=== PATIENT | female | born 1955 | race African-American/Black ===

== ENCOUNTER 2018-01-11 01:10 | Observation (INO) | payer SELFPAY ==
[2018-01-11 02:31] LABS: Absolute Lymphocytes (CBC) 2.2 K/uL (0.7-4.9); Absolute Monocytes 0.4 K/uL (0.1-1.3); Absolute Neutrophil 3.8 K/uL (1.8-8.0); Basophils % 0.9 % (0-1.3); Hematocrit 42.2 % (36.0-45.0); Lymphocytes % 33.2 % (15.3-44.8); MCH 31.9 pg (27.0-35.0); MCV 95.3 fL (80-100); MPV 8.9 fL (7.6-11.3); Monocytes % 5.6 % (3.3-12.3); RBC Red Blood Cell Count 4.43 M/uL (3.86-4.86)
[2018-01-11 02:35] LABS: Protime INR 0.96
[2018-01-11 02:43] LABS: Urine Blood NEGATIVE (NEG); Urine Glucose NEGATIVE (NEG); Urine Protein NEGATIVE (NEG); Urine pH 5.5 (5.0-7.0)
[2018-01-11 02:50] LABS: ALT/SGPT 27 U/L (12-78); AST/SGOT 14 U/L (15-37); Albumin 3.5 g/dL (3.4-5.0); Alkaline Phosphatase 122 U/L (45-117); BUN Blood Urea Nitrogen 13 mg/dL (7-18); Bicarbonate 28 mmol/L (21-32); Bilirubin Direct < 0.1 mg/dL (0-0.2); Bilirubin Total 0.2 mg/dL (0.2-1.0); CKMB Creatine Kinase MB 1.6 ng/mL (0.3-3.6); Creatine Phosphokinase 262 U/L (26-192); Glucose Level 98 mg/dL (74-106); Magnesium 2.1 mg/dL (1.8-2.4); NT PRO-BNP 51 pg/mL (<125); Potassium 3.8 mmol/L (3.5-5.1); Protein, Total 7.8 g/dL (6.4-8.2); Sodium Level 143 mmol/L (136-145)
--- NOTE | 2018-01-11 03:08 | ER ---
Nurse's Notes [facility] Name: Jennifer Trujillo Age: 62 yrs Sex: Female : 1955 Arrival Date: 01/11/2018 Time: 01:11 Bed 5 Private MD: None, None Diagnosis: Chest pain, unspecified Presentation: 01/11 01:22 Presenting complaint: Patient states: that she is concerned that her bp is high. Having fc some chest tightness and is slightly light headed. Denies any shortness of breath or N/V. Transition of care: patient was not received from another setting of care. Onset of symptoms was January 11, 2018. Risk Assessment: Do you want to hurt yourself or someone else? Patient reports no desire to harm self or others. Initial Sepsis Screen: Does the patient meet any 2 criteria? No. Patient's initial sepsis screen is negative. Does the patient have a suspected source of infection? No. Patient's initial sepsis screen is negative. Care prior to arrival: Medication(s) given: ASA, 325 mg, x 2, at 0035 Amlodipine at 0045. 01:22 Method Of Arrival: Ambulatory 01:22 Acuity: ISABELLA 3 fc Historical: - Allergies: 01:25 No Known Allergies; fc - Home Meds: 01:25 amlodipine 5 mg tab 1 tab daily (only taking as needed) [Active]; fc - PMHx: 01:25 Hypertension; Back pain; fc - PSHx: 01:25 None; fc - Immunization history:: Last tetanus immunization: up to date. - Social history:: Smoking status: Patient/guardian denies using tobacco. - Ebola Screening: : Patient negative for fever greater than or equal to 101.5 degrees Fahrenheit, and additional compatible Ebola Virus Disease symptoms Patient denies exposure to infectious person Patient denies travel to an Ebola-affected area in the 21 days before illness onset. Screenin:26 Abuse screen: Denies threats or abuse. Nutritional screening: No deficits noted. fc Tuberculosis screening: No symptoms or risk factors identified. Fall Risk None identified. Assessment: 02:15 General: Appears in no apparent distress. comfortable, Behavior is calm, cooperative, aa1 appropriate for age. Pain: Complains of pain in chest Pain currently is 4 out of 10 on a pain scale. Quality of pain is described as tightness Is continuous. Neuro: Level of Consciousness is awake, alert, obeys commands, Oriented to person, place, time, situation, Moves all extremities. Full function Gait is steady, Speech is normal. Cardiovascular: Reports None lightheadedness, Denies diaphoresis, nausea, palpitations, shortness of breath, vomiting, Heart tones S1 S2 present Rhythm is regular Chest pain is described as mild. Respiratory: Airway is patent Respiratory effort is even, unlabored, Respiratory pattern is regular, symmetrical. GI: No signs and/or symptoms were reported involving the gastrointestinal system. : No signs and/or symptoms were reported regarding the genitourinary system. EENT: No signs and/or symptoms were reported regarding the EENT system. Derm: Skin is intact, is healthy with good turgor, Skin is pink, warm \T\ dry. Musculoskeletal: Circulation, motion, and sensation intact. Capillary refill < 3 seconds, Range of motion: intact in all extremities. 03:10 Reassessment: Patient appears in no apparent distress at this time. Patient and/or aa1 family updated on plan of care and expected duration. Pain level reassessed. Patient is alert, oriented x 3, equal unlabored respirations, skin warm/dry/pink. Awaiting bed assignment. Provider ordered ASA 324 mg however pt reports she took 2 325 mg ASA just prior to arrival Patient denies pain at this time. 04:00 Reassessment: Patient appears in no apparent distress at this time. Patient and/or aa1 family updated on plan of care and expected duration. Pain level reassessed. Patient is alert, oriented x 3, equal unlabored respirations, skin warm/dry/pink. Awaiting bed assignment. 05:01 Reassessment: Patient appears in no apparent distress at this time. Patient is alert, aa1 oriented x 3, equal unlabored respirations, skin warm/dry/pink. Report given to Candida on 2nd floor. Vital Signs: 01:25 BP 174 / 107; Pulse 87; Resp 18; Temp 97.8(O); Pulse Ox 98% on R/A; Weight 104.33 kg fc (R); Height 5 ft. 4 in. (162.56 cm) (R); Pain 4/10; 02:48 BP 149 / 99; Pulse 74; Resp 18; Pulse Ox 97% on R/A; aa1 04:00 BP 144 / 89; Pulse 83; Resp 16; Pulse Ox 98% on R/A; Pain 0/10; aa1 05:02 BP 154 / 95; Pulse 85; Resp 16; Temp 97.9; Pulse Ox 98% on R/A; Pain 0/10; aa1 01:25 Body Mass Index 39.48 (104.33 kg, 162.56 cm) ED Course: 01:11 Patient arrived in ED. ds1 01:11 None, None is Private Physician. ds1 01:24 Triage completed. fc 01:25 Arm band placed on Patient placed in an exam room, on a stretcher. fc 01:26 Patient has correct armband on for positive identification. Placed in gown. Bed in low fc position. Call light in reach. 01:26 No provider procedures requiring assistance completed. fc 01:32 Andrew Colin PA is PHCP. jmm 01:32 Jeremy Olivares MD is Attending Physician. jmm 01:50 X-ray completed. Portable x-ray completed in exam room. Patient tolerated procedure kw well. 01:51 XRAY Chest (1 view) In Process Unspecified. EDMS 02:13 Margarita Chandler, RN is Primary Nurse. aa1 02:20 EKG done, by tractor trailer technician. jw5 02:25 Inserted saline lock: 20 gauge in right antecubital area, using aseptic technique. jw5 hand, using aseptic technique. Blood collected. 02:30 Urine collected: clean catch specimen. aa1 03:06 Pete Rowland MD is Hospitalizing Provider. [facility] 05:03 Patient admitted, IV remains in place. 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 marlon 05:03 Admitted to [facility] accompanied by [facility], via wheelchair, room 212, with chart, Report aa1 called to Candida 05:03 Condition: stable 05:03 Instructed on the need for admit, Demonstrated understanding of instructions. 05:04 Patient left the ED. aa1 Signatures: Dispatcher [employer] EDMS Margarita Chandler RN RN aa1 Andrew Colin PA PA jmm Chretien, Felicia, RN RN Clementine Farfan ds1 Haylie Levine Jasmin jw5 Corrections: (The following items were deleted from the chart) 02:46 02:45 Inserted saline lock: 20 gauge in right antecubital area, using aseptic jw5 technique. hand, using aseptic technique. Blood collected. jw5
--- NOTE | 2018-01-11 03:08 | EDPHYS ---
Physician Documentation [facility] Name: Jennifer Trujillo Age: 62 yrs Sex: Female : 1955 Arrival Date: 01/11/2018 Time: 01:11 Bed 5 Private MD: None, None ED Physician Jeremy Olivares HPI: 01/11 01:41 This 62 yrs old Black Female presents to ER via Ambulatory with complaints of High [facility] Blood Pressure. 01:41 The patient or guardian reports chest pain that is located primarily in the substernal [facility] area. Onset: gradually, 2 hour(s) ago. The pain does not radiate. 01:44 Associated signs and symptoms: Pertinent positives: dizziness, Pertinent negatives: jmm abdominal pain, headache. The chest pain is described as aching. This is a 62 year old female with a history of HTN that presents to the ED with substernal chest pain which developed approx 2 hours ago. Patient states the episode lasted for 5 minutes and has since revolved. Patient denies headache but states having dizziness on onset of the symptoms. Patient denies radiation of pain. . Historical: - Allergies: 01:25 No Known Allergies; fc - Home Meds: 01:25 amlodipine 5 mg tab 1 tab daily (only taking as needed) [Active]; fc - PMHx: 01:25 Hypertension; Back pain; fc - PSHx: 01:25 None; fc - Immunization history:: Last tetanus immunization: up to date. - Social history:: Smoking status: Patient/guardian denies using tobacco. - Ebola Screening: : Patient negative for fever greater than or equal to 101.5 degrees Fahrenheit, and additional compatible Ebola Virus Disease symptoms Patient denies exposure to infectious person Patient denies travel to an Ebola-affected area in the 21 days before illness onset. ROS: 01:44 Constitutional: Negative for fever, chills, and weight loss. jmm 01:44 Abdomen/GI: Negative for abdominal pain, nausea, vomiting, diarrhea, and constipation, MS/Extremity: Negative for injury and deformity, Skin: Negative for injury, rash, and discoloration. 01:44 Cardiovascular: Positive for chest pain, Negative for 01:44 Respiratory: Negative for cough, shortness of breath, wheezing. 01:44 Neuro: Positive for dizziness. 01:44 All other systems are negative. Exam: 01:44 Constitutional: The patient appears in no acute distress, alert, awake. [facility] 01:44 Head/Face: atraumatic. Chest/axilla: Normal chest wall appearance and motion. m 01:44 Cardiovascular: Rate: normal, Rhythm: regular, Pulses: no pulse deficits are appreciated, Heart sounds: normal. 01:44 Respiratory: the patient does not display signs of respiratory distress, Respirations: [facility] normal. 01:44 Abdomen/GI: Inspection: abdomen appears normal, Bowel sounds: normal, Palpation: abdomen is soft and non-tender, in all quadrants. 01:44 Back: ROM is normal. 01:44 Musculoskeletal/extremity: ROM: no acute changes. 01:44 Skin: Appearance: Color: normal in color. 01:44 Neuro: Orientation: is normal, Mentation: is normal, Memory: is normal, Gait: is steady. 01:44 Psych: Behavior/mood is pleasant, cooperative. Vital Signs: 01:25 BP 174 / 107; Pulse 87; Resp 18; Temp 97.8(O); Pulse Ox 98% on R/A; Weight 104.33 kg fc (R); Height 5 ft. 4 in. (162.56 cm) (R); Pain 4/10; 02:48 BP 149 / 99; Pulse 74; Resp 18; Pulse Ox 97% on R/A; aa1 04:00 BP 144 / 89; Pulse 83; Resp 16; Pulse Ox 98% on R/A; Pain 0/10; aa1 05:02 BP 154 / 95; Pulse 85; Resp 16; Temp 97.9; Pulse Ox 98% on R/A; Pain 0/10; aa1 01:25 Body Mass Index 39.48 (104.33 kg, 162.56 cm) MDM: 01:32 Patient medically screened. [facility] 03:05 The patient was given aspirin in the Emergency Department. Data reviewed: vital signs, [facility] nurses notes, lab test result(s), EKG, radiologic studies, plain films. ED course: I discussed the patient with Dr. Serrano whom accepted the patient. 01/11 01:40 Order name: Basic Metabolic Panel; Complete Time: 02:55 [facility] 01/11 01:40 Order name: CBC with Diff; Complete Time: 02:39 [facility] 01/11 01:40 Order name: Ckmb; Complete Time: 02:55 [facility] 01/11 01:40 Order name: CPK; Complete Time: 02:55 [facility] 01/11 01:40 Order name: LFT's; Complete Time: 02:55 [facility] 01/11 01:40 Order name: Magnesium; Complete Time: 02:55 [facility] 01/11 01:40 Order name: NT PRO-BNP; Complete Time: 02:55 [facility] 01/11 01:40 Order name: PT-INR; Complete Time: 02:39 [facility] 01/11 01:40 Order name: Ptt, Activated; Complete Time: 02:39 [facility] 01/11 01:40 Order name: Troponin (emerg Dept Use Only); Complete Time: 02:55 [facility] 01/11 01:40 Order name: XRAY Chest (1 view) [facility] 01/11 01:40 Order name: EKG; Complete Time: 01:41 [facility] 01/11 02:41 Order name: Urine Dipstick--Ancillary (enter results); Complete Time: 02:[address] [facility] 01/11 01:40 Order name: Cardiac monitoring; Complete Time: 02:47 [facility] 01/11 01:40 Order name: EKG - Nurse/Tech; Complete Time: 02:00 [facility] 01/11 01:40 Order name: IV Saline Lock; Complete Time: 02:47 [facility] 01/11 01:40 Order name: Labs collected and sent; Complete Time: 02:47 [facility] 01/11 01:40 Order name: O2 Per Protocol; Complete Time: 02:47 [facility] 01/11 01:40 Order name: O2 Sat Monitoring; Complete Time: 02:47 [facility] 01/11 01:40 Order name: Urine Dipstick-Ancillary (obtain specimen); Complete Time: 02:47 jm Administered Medications: 03:47 Not Given (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 Disposition: 01/11/18 03:06 Hospitalization ordered by Pete Rowland for Observation. Preliminary diagnosis is Chest pain, unspecified. - Bed requested for Telemetry/MedSurg (observation). - Status is Observation. aa1 - Condition is Stable. - Problem is new. - Symptoms are resolved. UTI on Admission? No Signatures: Dispatcher [employer] EDMS Vasu Cedillo rg2 Margarita Chandler RN RN aa1 Jeremy Olivares MD MD cha Mickail, Joel, PA PA [facility] Sonia Jeffery RN RN fc Corrections: (The following items were deleted from the chart) 04:27 03:06 Hospitalization Ordered by Pete Rowland MD for Observation. Preliminary rg2 diagnosis is Chest pain, unspecified. Bed requested for Telemetry/MedSurg (observation). Status is Observation. Condition is Stable. Problem is new. Symptoms are resolved. UTI on Admission? No. [facility] 05:04 04:27 01/11/2018 03:06 Hospitalization Ordered by Pete Rowland MD for Observation. aa1 Preliminary diagnosis is Chest pain, unspecified. Bed requested for Telemetry/MedSurg (observation). Status is Observation. Condition is Stable. Problem is new. Symptoms are resolved. UTI on Admission? No. rg2
--- NOTE | 2018-01-11 04:35 | P.HP ---
Certification for Inpatient Patient admitted to: Observation With expected LOS: <2 Midnights Practitioner: I am a practitioner with admitting privileges, knowledge of patient current condition, hospital course, and medical plan of care. Services: Services provided to patient in accordance with Admission requirements found in Title 42 Section 412.3 of the Code of Federal Regulations Patient History Date of Service: 01/11/18 Reason for admission: chest pain History of Present Illness: Ms Trujillo is a 62 years old woman with history of HTN, obesity, who came to ED complaining of chest pain. She describe the pain as pressure like in her throat , associated with lightheadedness. She had this symptoms before in context of high blood pressure. She denied nausea, vomiting or diaphoresis. The pain did not radiate, intensity was 7/10, and last for a few minutes. Allergies No Known Allergies Allergy (Unverified 11/27/16 19:19) - Past Medical/Surgical History -: HTN -: back pain Past Surgical History: Reviewed- Non-Contributory - Family History Family History: Reviewed- Non-Contributory - Social History Smoking Status: Former smoker Alcohol use: Yes CD- Drugs: No Caffeine use: Yes Place of Residence: Home Review of Systems 10-point ROS is otherwise unremarkable Physical Examination - Physical Exam General: Alert, In no apparent distress HEENT: Atraumatic, PERRLA, Mucous membr. moist/pink, EOMI, Sclerae nonicteric Neck: Supple, 2+ carotid pulse no bruit, No LAD, Without JVD or thyroid abnormality Respiratory: Clear to auscultation bilaterally, Normal air movement Cardiovascular: Regular rate/rhythm, Normal S1 S2 Gastrointestinal: Normal bowel sounds, No tenderness Musculoskeletal: No tenderness Integumentary: No rashes Neurological: Normal speech, Normal strength at 5/5 x4 extr, Normal tone, Normal affect Lymphatics: No axilla or inguinal lymphadenopathy - Studies Laboratory Data (last 24 hrs) 01/11/18 02:17: PT 11.3, INR 0.96, APTT 34.3 01/11/18 02:17: WBC 6.5, Hgb 14.1, Hct 42.2, Plt Count 242 01/11/18 02:17: Sodium 143, Potassium 3.8, BUN 13, Creatinine 1.20, Glucose 98, Magnesium 2.1, Total Bilirubin 0.2, AST 14 L, ALT 27, Alkaline Phosphatase 122 H Assessment and Plan - Problems (Diagnosis) (1) Chest pain Current Visit: Yes Status: Acute Qualifiers: Chest pain type: other chest pain Qualified Code(s): R07.89 - Other chest pain; R07.8 - Other chest pain (2) HTN (hypertension) Current Visit: Yes Status: Acute Qualifiers: Hypertension type: essential hypertension Qualified Code(s): I10 - Essential (primary) hypertension - Plan The patient will be admitted to the hospital due to chest pain. Initial troponin I is negative, EKG shows sinus rhythm without ST-T abnormalities. 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 - Advance Directives Does patient have a Living Will: No Does patient have a Durable POA for Healthcare: No - Code Status/Comfort Care Code Status Assessed: Yes Code Status: Full Code
[2018-01-11] MEDS ORDERED: ACETAMINOPHEN 500 MG TAB PO PRN (04:36)
[2018-01-11] MEDS ORDERED: ONDANSETRON 4 MG/2 ML VIAL IV PRN (04:36)
[2018-01-11 05:10] VITALS: O2SAT 98
--- NOTE | 2018-01-11 05:33 | EKG ---
Test Date: 2018-01-11 Test Time: 01:33:32 Clinical Rehabilitation Liaison: CRISTAL MEASUREMENT RESULTS: Intervals: Rate: 86 VT: 158 QRSD: 76 QT: 366 QTc: 437 [place]: P: 40 VT: 158 QRS: 9 T: 18 INTERPRETIVE STATEMENTS: Normal sinus rhythm Normal ECG Compared to ECG 06/27/2017 16:00:02 No significant changes Electronically Signed On 01-11-18 05:32:59 CDT by Manoj Sumner
[2018-01-11 05:43] VITALS: BMI 38.6
[2018-01-11] MEDS ORDERED: AMLODIPINE 5 MG TAB PO ONE (06:38)
[2018-01-11] MEDS ORDERED: REGADENOSON 0.4 MG/5 ML SYR IV ONE (08:02)
[2018-01-11 08:42] LABS: Thyroid Stimulating Hormone 3.87 uIU/mL (0.36-3.74)
--- NOTE | 2018-01-11 08:43 | RAD REPORT ---
EXAM DESCRIPTION: RAD - Chest Single View - 01/11/2018 1:51 am CLINICAL HISTORY: Chest pain, hypertension COMPARISON: June 27 TECHNIQUE: AP portable chest image was obtained 0140 hours . FINDINGS: Lung volumes are low. No peripheral mass or consolidation. No failure or volume overload. Lung markings are prominent. Heart and vasculature are normal. No measurable pleural effusion and no pneumothorax. No gross bony abnormality seen. No acute aortic findings suspected. IMPRESSION: No acute cardiopulmonary process. No significant change from June.
[2018-01-11] MEDS ORDERED: AMLODIPINE 5 MG TAB PO SCH (09:00)
[2018-01-11] MEDS ORDERED: LOSARTAN POTASSIUM 50 MG TABLET PO SCH (09:00)
[2018-01-11] MEDS ORDERED: ENOXAPARIN 40 MG/0.4 ML SQ SCH (09:00)
[2018-01-11] MEDS ORDERED: ASPIRIN EC 81 MG TAB PO SCH (09:00)
[2018-01-11] MEDS ORDERED: hydroCHLOROthiazide 12.5 MG CAP PO SCH (09:00)
--- NOTE | 2018-01-11 10:30 | RAD REPORT ---
EXAM DESCRIPTION: US - Thyroid Para Parotid Gland - 01/11/2018 10:14 am CLINICAL HISTORY: Fullness to the thyroid Goiter COMPARISON: No comparisons FINDINGS: The isthmus of the thyroid measures 2 mm. The right lobe of the thyroid measures 4.5 x 1.3 x 1.1 cm. A 5 x 4 x 3 mm nodule is present in the ri ght lobe. The left lobe of the thyroid measures 4.4 x 1.2 x 1.2 cm. In the left submandibular region, a prominent hypoechoic lymph node is suspected measuring 1.8 cm. IMPRESSION: Small right thyroid lobe nodule as detailed. Nonspecific prominent lymph node left submandibular region.
--- NOTE | 2018-01-11 11:24 | ECHO ---
HEIGHT: 5 ft 4 in WEIGHT: 225 lb 0 oz DATE OF STUDY: 01/11/[address]: 2-DIMENSIONAL: YES M.MODE: YES DOPPLER: YES COLOR FLOW: YES TDS: NO PORTABLE: NO DEFINITY: NO BUBBLE STUDY: NO DIAGNOSIS: CHEST PAIN CARDIAC HISTORY: CATHERIZATION: SURGERY: PROSTHETIC VALVE: PACEMAKER: MEASUREMENTS (cm) DIASTOLIC (NORMALS) SYSTOLIC (NORMALS) IVSd 1.2 (0.6-1.2) LA Diam 4.1 (1.9-4.0) LVEF 68% LVIDd 4.2 (3.5-5.7) LVIDs 2.6 (2.0-3.5) %FS 37% LVPWd 1.3 (0.6-1.2) Ao Diam 2.5 (2.0-3.7) 2 DIMENSIONAL ASSESSMENT: RIGHT ATRIUM: NORMAL LEFT ATRIUM: MILDLY DILATED RIGHT VENTRICLE: NORMAL LEFT VENTRICLE: NORMAL TRICUSPID VALVE: NORMAL MITRAL VALVE: NORMAL PULMONIC VALVE: NORMAL AORTIC VALVE: NORMAL PERICARDIAL EFFUSION: NONE AORTIC ROOT: NORMAL LEFT VENTRICULAR WALL MOTION: NORMAL. DOPPLER/COLOR FLOW: TRACE MITRAL REGURGITATION. COMMENTS: NORMAL LEFT VENTRICULAR EJECTION FRACTION. MILD LEFT ATRIUM DILATION. TRACE MITRAL REGURGITATION. TECHNOLOGIST: ELAINE SILVA
--- NOTE | 2018-01-11 11:46 | CON ---
Identification: A 62-year-old woman. Chief Complaint: Blood pressure too high. History Of Present Illness: To me, the patient denies she was having chest pain, but while in the ER , she told Dr. Serrano and the other doctor she was having chest pain. Since being in the hospital E KGs and enzymes are normal. The patient has longstanding hypertension for which she rarely takes her blood pressure medicines. She says she tries to spread it out. She does not have a physician and w orries about running out of her medications. I am not sure who prescribed the amlodipine she takes, but she has been on amlodipine 2.5 daily and taking it perhaps once to 3 times per week on average. She has never had myocardial infarction, stroke, diabetes, dyslipidemia. Uses no tobacco. Never had a blood clot. Never been in the hospital for chest pain before. Physical Examination: Vital signs: 5 feet 4 inches, 225 pounds. HEENT: Normal. Neck: Carotids, no bruit. Lungs: Clear. Cardiac: Normal. Abdomen: Soft. Extremities: Palpable distal pulses. Laboratory Data: EKG, normal. Enzymes, normal. She will have a pharmacologic nuclear stress test a nd echocardiogram today. If those are normal, I would recommend that we not do any further workup re garding the heart, but she should be encouraged to followup, get regular medical checkups and take he r blood pressure medicines every day. Her blood pressure is still high this morning. Her medication s are amlodipine 5 once a day and probably it will be a good thing to continue that and add on top as it has not adequately controlled her blood pressure as of yet. SURAJ Voice ID: [id number] Report ID: [id number]
--- NOTE | 2018-01-11 12:07 | RAD REPORT ---
EXAM DESCRIPTION: NM - Rest Stress Cardiac Imaging - 01/11/2018 11:59 am CLINICAL HISTORY: CP Chest pain. COMPARISON: No comparisons TECHNIQUE: The patient was administered approximately 10mCi of Tc 99m Sestamibi prior to resting SPE CT imaging of the heart. The patient was then administered approximately 30 mCi of Tc 99m Sestamibi f ollowing exercise or pharmacologic stress. Multiplanar SPECT images were reviewed. FINDINGS: No stress induced ischemic defect is seen to suggest stress induced ischemia. No fixed def ect is seen to suggest hibernating myocardium or scarred myocardium. The end diastolic volume is 87 ml, the end systolic volume is 31 ml, and the ejection fraction is 64 %. IMPRESSION: No stress induced ischemia.
--- NOTE | 2018-01-11 12:16 | TREADPHA ---
DX: CHEST PAIN Date of Study: 01/11/18 Ht: 5 4 Wt: 225 lb 0 oz Consulting Physician: MARCO MEDICATIONS: TYLENOL, ASPIRIN, NORVASC, LOVENOX, COZAAR, ZOFRAN, HYDROCHOLOROTHIAZIDE HISTORY: 62 YEAR OLD FEMALE WITH COMPLAINTS OF CHEST PAIN. HISTORY OF HYPERTENSION. PHYSICIAL EXAMINATION: RESTING B.P.: 176/112 RESTING H.R.: 84 RESTING EKG: SINUS RHYTHM WITH PREMATURE VENTRICULAR COMPLEXES. PROTOCOL: LEXISCAN EXERCISE TIME: 3:30 B.P. AT PEAK STRESS: 182/122 IMPRESSION: LEXISCAN INJECTED, CARDIOLITE INJECTED, SEE NUCLEAR MEDICINE REPORT. NO CHEST PAIN. PREMATURE VENTRICULAR COMPLEXES NOTED THROUGHOUT. NO VENTRICULAR TACHYCARDIA. NO SURPA VENTRICULAR TACHYCARDIA. NON DIAGNOSTIC EKG WITH LEXISCAN STRESS.
--- NOTE | 2018-01-11 12:46 | P.DS ---
Admission Date: 01/11/18 Discharge Date: 01/11/18 Primary Care Provider: None Disposition: ROUTINE DISCHARGE Discharge Condition: GOOD Reason for Admission: chest pain Consultations: Cardiology-Dr. Sumner Procedures: ECHO: Ejection fraction 68%. LEFT VENTRICULAR WALL MOTION: NORMAL. DOPPLER/COLOR FLOW: TRACE MITRAL REGURGITATION. COMMENTS: NORMAL LEFT VENTRICULAR EJECTION FRACTION. MILD LEFT ATRIUM DILATION. TRACE MITRAL REGURGITATION Thyroid US: FINDINGS: The isthmus of the thyroid measures 2 mm. The right lobe of the thyroid measures 4.5 x 1.3 x 1.1 cm. A 5 x 4 x 3 mm nodule is present in the right lobe. The left lobe of the thyroid measures 4.4 x 1.2 x 1.2 cm. In the left submandibular region, a prominent hypoechoic lymph node is suspected measuring 1.8 cm. IMPRESSION: Small right thyroid lobe nodule as detailed. Nonspecific prominent lymph node left submandibular region. Cardiac stress test: FINDINGS: No stress induced ischemic defect is seen to suggest stress induced ischemia. No fixed defect is seen to suggest hibernating myocardium or scarred myocardium. The end diastolic volume is 87 ml, the end systolic volume is 31 ml, and the ejection fraction is 64 %. IMPRESSION: No stress induced ischemia. - Problems (1) Hyperlipidemia Current Visit: Yes Status: Chronic Qualifiers: Hyperlipidemia type: mixed hyperlipidemia Qualified Code(s): E78.2 - Mixed hyperlipidemia (2) Abnormal TSH Current Visit: Yes Status: Chronic (3) Thyroid nodule Current Visit: Yes Status: Chronic (4) Obesity Current Visit: Yes Status: Chronic Qualifiers: Obesity type: due to excess calories Obesity classification: adult class 2 (BMI 35 - 39.9) Serious obesity comorbidity presence: with serious comorbidity Body mass index: BMI 38.0-38.9 Qualified Code(s): E66.01 - Morbid (severe) obesity due to excess calories; Z68.38 - Body mass index (BMI) 38.0-38.9, adult (5) Chest pain Onset Date: 01/11/18 Current Visit: Yes Status: Acute Qualifiers: Chest pain type: other chest pain Qualified Code(s): R07.89 - Other chest pain; R07.8 - Other chest pain (6) HTN (hypertension) Onset Date: 01/11/18 Current Visit: Yes Status: Chronic Qualifiers: Hypertension type: essential hypertension Qualified Code(s): I10 - Essential (primary) hypertension (7) Lymph node enlargement Current Visit: Yes Status: Acute Brief History of Present Illness: 62-year-old female presented emergency room with chest pain. Patient with history of hypertension. She does not have a physician. She takes medication off and on. Patient found to have elevated blood pressure. Patient was admitted for treatment and evaluation for her chest pain. Hospital Course: During the course of her stay the patient was evaluated for her chest pain. Cardiac enzymes unremarkable. Cardiology evaluated the patient. Recommended echocardiogram and cardiac stress test. Echocardiogram 60% otherwise unremarkable. Cardiac stress test showed no stress-induced ischemia. No further intervention was required. Patient may continue with aspirin 81 mg daily. Patient has hypertension. It is not well controlled. Patient has been without a PCP. Recommendations for the patient to establish care with a local PCP in the area to continue her care. Medications have been added. At discharge patient will continue with Norvasc 5 mg daily and 100 mg 1 pill daily. Recommendation is to maintain blood pressures less 150/80. Further adjustment can be done by her PCP. Patient noted some fullness to the neck area. Thyroid ultrasound was obtained. 5 x 4 x 3 mm nodule noted to the right lobe. Nonspecific lymph node to the left submandibular region noted. Tsh slightly elevated at 3.8. Free T4 normal at 1.23. Recommendation is to recheck lab-tsh and free T4 in 2-4 weeks to monitor her progress. Recommendations for the patient follow up with her PCP to monitor thyroid nodule and left submandibular node. Patient has evidence of hyperlipidemia. LDL 140. At discharge patient will continue with Lipitor 20 mg daily. Recommendation is to recheck lipid panel in 4-6 weeks. Further adjustment can be done by her PCP. Lifestyle modification education will be provided. Importance of establishing care with a physician was addressed in detail. Patient understands. Vital Signs/Physical Exam: Temp Pulse Resp BP Pulse Ox 97.7 F 72 18 171/96 H 96 01/11/18 08:00 01/11/18 10:21 01/11/18 08:00 01/11/18 10:21 01/11/18 08:00 General: Alert, In no apparent distress, Oriented x3, Cooperative HEENT: Atraumatic Neck: Supple, Thyromegaly (Mild) Respiratory: Clear to auscultation bilaterally, Normal air movement Cardiovascular: Normal pulses, Regular rate/rhythm Gastrointestinal: Normal bowel sounds, Soft and benign, Non-distended, No tenderness, No masses, No rebound, No guarding Musculoskeletal: No erythema, No tenderness, No warmth Integumentary: No tenderness/swelling, No erythema, No warmth, No cyanosis Neurological: Normal speech, Normal strength at 5/5 x4 extr, Normal tone, Normal affect Lymphatics: No axilla or inguinal lymphadenopathy Laboratory Data at Discharge: WBC 6.5 K/uL (4.3-10.9) 01/11/18 02:17 Hgb 14.1 g/dL (12.0-15.0) 01/11/18 02:17 Hct 42.2 % (36.0-45.0) 01/11/18 02:17 Plt Count 242 K/uL (152-406) 01/11/18 02:17 PT 11.3 SECONDS (9.5-12.5) 01/11/18 02:17 INR 0.96 01/11/18 02:17 APTT 34.3 SECONDS (24.3-36.9) 01/11/18 02:17 Sodium 143 mmol/L (136-145) 01/11/18 02:17 Potassium 3.8 mmol/L (3.5-5.1) 01/11/18 02:17 BUN 13 mg/dL (7-18) 01/11/18 02:17 Creatinine 1.20 mg/dL (0.55-1.3) 01/11/18 02:17 Glucose 98 mg/dL (74-106) 01/11/18 02:17 Magnesium 2.1 mg/dL (1.8-2.4) 01/11/18 02:17 Total Bilirubin 0.2 mg/dL (0.2-1.0) 01/11/18 02:17 AST 14 U/L (15-37) L 01/11/18 02:17 ALT 27 U/L (12-78) 01/11/18 02:17 Alkaline Phosphatase 122 U/L (45-117) H 01/11/18 02:17 Troponin I < 0.02 ng/mL (0.0-0.045) 01/11/18 05:35 Triglycerides 190 mg/dL (<150) H 01/11/18 05:35 Cholesterol 225 mg/dL (<200) H 01/11/18 05:35 HDL Cholesterol 47 mg/dL (40-60) 01/11/18 05:35 Cholesterol/HDL Ratio 4.79 01/11/18 05:35 Home Medications: Amlodipine [Norvasc*] 5 mg PO DAILY #30 tab 01/11/18 Aspirin [Aspirin EC 81 MG] 81 mg PO DAILY #30 tablet. 01/11/18 Atorvastatin Calcium [Lipitor] 10 mg PO BEDTIME #30 tab 01/11/18 Losartan/Hydrochlorothiazide [Losartan-Hctz 100-12.5 mg Tab] 1 each PO DAILY # 30 tablet 01/11/18 New Medications: Amlodipine [Norvasc*] 5 mg PO DAILY #30 tab Aspirin [Aspirin EC 81 MG] 81 mg PO DAILY #30 tablet. Atorvastatin Calcium [Lipitor] 10 mg PO BEDTIME #30 tab Losartan/Hydrochlorothiazide [Losartan-Hctz 100-12.5 mg Tab] 1 each PO DAILY # 30 tablet Patient Discharge Instructions: 1. Patient will need to establish care with a PCP in the area. A list of providers will be provided. 2. Patient presented with chest pain. Cardiac enzymes unremarkable. Cardiology evaluated the patient. Recommended echocardiogram and cardiac stress test. Echocardiogram 68 % otherwise unremarkable. Cardiac stress test showed no stress-induced ischemia. No further intervention was required. Patient may continue with aspirin 81 mg daily. 3. Patient has hypertension. It is not well controlled. Patient has been without a PCP. Recommendations for the patient to establish care with a local PCP in the area to continue her care. Medications have been added. At discharge patient will continue with Norvasc 5 mg daily and losartan/ hydrochlorothiazide 100 mg/12.5 mg 1 pill daily. Recommendation is to maintain blood pressures less 150/80. Further adjustment can be done by her PCP. 4. Patient noted some fullness to the neck area. Thyroid ultrasound was obtained. 5 x 4 x 3 mm nodule noted to the right lobe. Nonspecific lymph node to the left submandibular region noted. Tsh slightly elevated at 3.8. Free T4 normal at 1.23. Recommendation is to recheck lab-tsh and free T4 in 2-4 weeks to monitor her progress. Recommendations for the patient follow up with her PCP to monitor thyroid nodule and left submandibular node. 5. Patient has evidence of hyperlipidemia. LDL 140. At discharge patient will continue with Lipitor 10 mg daily. Recommendation is to recheck lipid panel in 4-6 weeks. Further adjustment can be done by her PCP. 6. Lifestyle modification education will be provided. Importance of establishing care with a physician was addressed in detail. Patient understands. Diet: AHA Activity: Ad shirin Time spent managing pt's care (in minutes): 55
[2018-01-11 14:59] VITALS: BP 175/100; TEMP 97.8
[2018-01-11] MEDS ORDERED: ATORVASTATIN 40 MG TAB PO SCH (21:00)
== END 2018-01-11 14:20 | disposition home or self-care (01) ==
LOC: ER 01:10 → ERHOLD 03:18 → 2ND 04:28
PROVIDERS: ADMIT Internal Medicine; ATTEND Family Medicine
DX: R07.9 Chest pain, unspecified (principal); I10 Essential (primary) hypertension; E78.2 Mixed hyperlipidemia; E04.1 Nontoxic single thyroid nodule; R94.6 Abnormal results of thyroid function studies; E66.01 Morbid (severe) obesity due to excess calories; R59.9 Enlarged lymph nodes, unspecified; Z79.82 Long term (current) use of aspirin; Z87.891 Personal history of nicotine dependence; Z68.39 Body mass index [BMI] 39.0-39.9, adult
CPT/HCPCS: 36415; 71045; 76536; 78452; 80048; 80061; 80076; 81003; 82550; 82553; 83735; 83880; 84439; 84443; 84484; 85025; 85610; 85730; 93005; 93017; 93306; 99285; A9500; G0378; J1650; J2785

== ENCOUNTER 2019-02-09 18:27 | Emergency (ER) | payer SELFPAY ==
--- NOTE | 2019-02-09 22:24 | EDPHYS ---
Physician Documentation [facility] Name: Jennifer Trujillo Age: 63 yrs Sex: Female : 1955 Arrival Date: 02/09/2019 Time: 18:28 Bed 6 Private MD: ED Physician Toribio Zhang HPI: 02/09 21:54 This 63 yrs old Black Female presents to ER via Ambulatory with complaints of Sore gs Throat. 21:54 The patient presents with sore throat. The patient describes throat pain as scratchy. gs Onset: The symptoms/episode began/occurred gradually, today. Severity of symptoms: At their worst the symptoms were moderate, in the emergency department the symptoms are unchanged. Modifying factors: the symptoms are aggravated by foods, swallowing. Associated signs and symptoms: Pertinent positives: flu-like symptoms, myalgias, uri symptoms. Historical: - Allergies: 18:56 No Known Allergies; aj1 - Home Meds: 18:56 amlodipine 5 mg tab 1 tab daily (only taking as needed) [Active]; aj1 - PMHx: 18:56 Back pain; Hypertension; aj1 - Immunization history:: Flu vaccine is not up to date. - Social history:: Smoking status: Patient/guardian denies using tobacco. - Ebola Screening: : Patient denies travel to an Ebola-affected area in the 21 days before illness onset. ROS: 21:54 All other systems are negative. gs Exam: 21:54 Head/Face: Normocephalic, atraumatic. Eyes: Pupils equal round and reactive to light, gs extra-ocular motions intact. Lids and lashes normal. Conjunctiva and sclera are non-icteric and not injected. Cornea within normal limits. Periorbital areas with no swelling, redness, or edema. Neck: Trachea midline, no thyromegaly or masses palpated, and no cervical lymphadenopathy. Supple, full range of motion without nuchal rigidity, or vertebral point tenderness. No Meningismus. Chest/axilla: Normal chest wall appearance and motion. Nontender with no deformity. No lesions are appreciated. Cardiovascular: Regular rate and rhythm with a normal S1 and S2. No gallops, murmurs, or rubs. Normal PMI, no JVD. No pulse deficits. Respiratory: Lungs have equal breath sounds bilaterally, clear to auscultation and percussion. No rales, rhonchi or wheezes noted. No increased work of breathing, no retractions or nasal flaring. Abdomen/GI: Soft, non-tender, with normal bowel sounds. No distension or tympany. No guarding or rebound. No evidence of tenderness throughout. Back: No spinal tenderness. No costovertebral tenderness. Full range of motion. Skin: Warm, dry with normal turgor. Normal color with no rashes, no lesions, and no evidence of cellulitis. MS/ Extremity: Pulses equal, no cyanosis. Neurovascular intact. Full, normal range of motion. Neuro: Awake and alert, GCS 15, oriented to person, place, time, and situation. Cranial nerves II-XII grossly intact. Motor strength 5/5 in all extremities. Sensory grossly intact. Cerebellar exam normal. Normal gait. 21:54 Constitutional: The patient appears alert, awake. 21:54 ENT: Posterior pharynx: erythema, that is moderate. 21:54 ENT: Nose: nasal drainage, that is minimal, and is seen coming from both nares, that is gs clear. Vital Signs: 18:56 BP 144 / 102; Pulse 97; Resp 18; Temp 98.6; Pulse Ox 99% on R/A; Weight 100.24 kg (R); aj1 Height 5 ft. 3 in. (160.02 cm) (R); Pain 8/10; 21:34 BP 166 / 95; Pulse 91; Resp 18; Temp 99.1(TE); Pulse Ox 98% on R/A; oe 18:56 Body Mass Index 39.15 (100.24 kg, 160.02 cm) aj1 MDM: 20:44 Patient medically screened. gs 21:54 Differential diagnosis: group A strep tonsillitis, influenza, viral syndrome. Data reviewed: vital signs, nurses notes, lab test result(s). Counseling: I had a detailed discussion with the patient and/or guardian regarding: the historical points, exam findings, and any diagnostic results supporting the discharge/admit diagnosis, the need for outpatient follow up. Response to treatment: the patient's symptoms have mildly improved after treatment, and as a result, I will discharge patient. 02/09 20:45 Order name: Strep; Complete Time: 22:03 02/09 20:45 Order name: Influenza Screen (a \T\ B); Complete Time: 22:03 02/09 21:23 Order name: Throat Culture EDMS Administered Medications: No medications were administered Disposition: 02/09/19 22:03 Discharged to Home. Impression: Acute upper respiratory infection, unspecified. - Condition is Stable. - Discharge Instructions: Fever, Adult, Upper Respiratory Infection, Adult. - Medication Reconciliation Form, Thank You Letter, Antibiotic Education, Prescription Opioid Use form. - Follow up: Private Physician; When: 2 - 3 days; Reason: Re-evaluation by your physician. Signatures: Dispatcher [employer] EDMS Nae Trujillo RN RN aj1 Sonia Jeffery RN RN fc Toribio Zhang MD MD gs Corrections: (The following items were deleted from the chart) 22:16 22:03 02/09/2019 22:03 Discharged to Home. Impression: Acute upper respiratory fc infection, unspecified. Condition is Stable. Forms are Medication Reconciliation Form, Thank You Letter, Antibiotic Education, Prescription Opioid Use. Follow up: Private Physician; When: 2 - 3 days; Reason: Re-evaluation by your physician.
--- NOTE | 2019-02-09 22:24 | ER ---
Nurse's Notes [facility] Name: Jennifer Trujillo Age: 63 yrs Sex: Female : 1955 Arrival Date: 02/09/2019 Time: 18:28 Bed 6 Private MD: Diagnosis: Acute upper respiratory infection, unspecified Presentation: 02/09 18:53 Presenting complaint: Patient states: "Tuesday evening I had chills, body aches, my back aj1 was killing me, my throat feels like raw meat, my ears are popping. I got a cough, and I cough till its dry heaves." Reports fever at home. Transition of care: patient was not received from another setting of care. Onset of symptoms was February 05, 2019. Risk Assessment: Do you want to hurt yourself or someone else? Patient reports no desire to harm self or others. Initial Sepsis Screen: Does the patient meet any 2 criteria? HR > 90 bpm. No. Patient's initial sepsis screen is negative. Does the patient have a suspected source of infection? Yes: Productive cough/pneumonia. Care prior to arrival: None. 18:53 Method Of Arrival: Ambulatory aj 18:53 Acuity: ISABELLA 4 aj1 Triage Assessment: 18:56 General: Appears in no apparent distress. uncomfortable, Behavior is calm, cooperative, aj1 appropriate for age. Pain: Complains of pain in left aspect of posterior pharynx and right aspect of posterior pharynx Pain currently is 8 out of 10 on a pain scale. EENT: Reports sore throat. Neuro: Level of Consciousness is awake, alert, obeys commands. Cardiovascular: Patient's skin is warm and dry. Respiratory: Airway is patent Respiratory effort is even, unlabored, Respiratory pattern is regular, symmetrical. Historical: - Allergies: 18:56 No Known Allergies; aj1 - Home Meds: 18:56 amlodipine 5 mg tab 1 tab daily (only taking as needed) [Active]; aj1 - PMHx: 18:56 Back pain; Hypertension; aj1 - Immunization history:: Flu vaccine is not up to date. - Social history:: Smoking status: Patient/guardian denies using tobacco. - Ebola Screening: : Patient denies travel to an Ebola-affected area in the 21 days before illness onset. Screenin:30 Abuse screen: Denies threats or abuse. Nutritional screening: No deficits noted. fc Tuberculosis screening: No symptoms or risk factors identified. Fall Risk None identified. Assessment: 20:30 General: Appears uncomfortable, obese, Behavior is calm, cooperative, appropriate for fc age. Pain: Complains of pain in entire body Quality of pain is described as aching, Pain began 2-3 days ago. Is continuous. Neuro: Level of Consciousness is awake, alert, obeys commands, Oriented to person, place, time, situation, Appropriate for age. Cardiovascular: Denies chest pain, Heart tones S1 S2 present Capillary refill < 3 seconds Pulses are all present. Edema is absent. Respiratory: Airway is patent Trachea midline Respiratory effort is even, unlabored, Respiratory pattern is regular, symmetrical, Breath sounds are clear bilaterally. GI: Abdomen is non-distended, Bowel sounds present X 4 quads. Abd is soft and non tender X 4 quads. : No deficits noted. EENT: Throat is reddened bilaterally with gag reflex present. Derm: Skin is pink, warm \\T\\ dry. Musculoskeletal: Circulation, motion, and sensation intact. Capillary refill < 3 seconds, Range of motion: intact in all extremities. 21:30 Reassessment:. Reassessment: Pt is pending results of labs. Respiratory: Reports cough fc that is non-productive, hacking, Airway is patent Respiratory effort is even, unlabored, Respiratory pattern is regular, symmetrical, Breath sounds are clear bilaterally. Vital Signs: 18:56 BP 144 / 102; Pulse 97; Resp 18; Temp 98.6; Pulse Ox 99% on R/A; Weight 100.24 kg (R); aj1 Height 5 ft. 3 in. (160.02 cm) (R); Pain 8/10; 21:34 BP 166 / 95; Pulse 91; Resp 18; Temp 99.1(TE); Pulse Ox 98% on R/A; oe 18:56 Body Mass Index 39.15 (100.24 kg, 160.02 cm) aj1 ED Course: 18:28 Patient arrived in ED. as 18:55 Triage completed. aj1 18:56 Arm band placed on Patient placed in waiting room, Patient notified of wait time. aj1 20:30 Patient has correct armband on for positive identification. Placed in gown. Bed in low fc position. Call light in reach. 20:30 No provider procedures requiring assistance completed. 20:31 Toribio Zhang MD is Attending Physician. 20:55 Flu and/or RSV swab sent to lab. Strep swab sent to lab. 22:15 Patient did not have IV access during this emergency room visit. fc Administered Medications: No medications were administered Outcome: 22:03 Discharge ordered by . 22:15 Discharged to home ambulatory, with family. 22:15 Condition: good 22:15 Discharge instructions given to patient, family, Instructed on discharge instructions, follow up and referral plans. OTC Tylenol./Motrin Demonstrated understanding of instructions, follow-up care, OTC MEds Prescriptions given X none 22:16 Patient left the ED. Signatures: Nae Trujillo RN RN Sonia Allen RN RN Amarilis Mane Orlando oe Starr, Gregory, MD MD
[2019-02-09 23:50] VITALS: BP 166/95; TEMP 99.1; O2SAT 98
== END 2019-02-09 22:16 | disposition home or self-care (01) ==
LOC: ER 18:27
DX: J06.9 Acute upper respiratory infection, unspecified (principal); I10 Essential (primary) hypertension
CPT/HCPCS: 87070; 87081; 87804; 99283

== ENCOUNTER 2021-01-16 14:29 | Emergency (ER) | payer SELFPAY ==
[~2021-01-16 14:29] MED LIST: METOPROLOL TARTRATE 5 MG/5 ML INJ IV ONE
--- OUTSIDE RECORDS SUMMARY | 2021-01-16 14:31 | XMS REPORT | Continuity of Care Document ---
:1955 Author Organization [facility] t Address [address] [place] [address] Care Team Providers Name Role Phone Doctor Unassigned, Name Attending Clinician Unavailable Jonah Field Attending Clinician Problems This patient has no known problems. Allergies, Adverse Reactions, Alerts This patient has no known allergies or adverse reactions. Medications This patient has no known medications. Procedures This patient has no known procedures. Encounters Start End Encounter Admission Attending Care Care Encounter Source Date/Time Date/Time Type Type Clinicians Facility Department ID 2021-01-08 2021-01-08 Orders Doctor MARIN [id number] 00:00:00 00:00:00 Only Unassigned, LOVELY [id number] [place] [facility] [id number] 2020-10-31 2020-10-31 Case [facility] [id number] 00:00:00 00:00:00 Management Riana Mckenzie LENS GENERATOR [id number] [facility] [id number] MATERNAL [id number] & CHILD [address] [place] [address] 2020-10-14 2020-10-14 Hospital [facility] [id number] 10:42:39 23:59:00 Encounter Riana Mckenzie SPECIALTY [id number] [facility] [id number] CENTER AT [id number] [place] [address] [place] [address] 2020-09-30 2020-09-30 Telephone [facility] [id number] 00:00:00 00:00:00 Riana Mckenzie LENS GENERATOR [id number] [facility] [id number] MATERNAL [id number] & CHILD [address] [place] [address] Results This patient has no known results.
--- NOTE | 2021-01-16 15:09 | ER ---
Nurse's Notes [facility] Name: Jennifer Trujillo Age: 65 yrs Sex: Female : 1955 Arrival Date: 01/16/2021 Time: 14:29 Bed Waiting Private MD: Diagnosis: Essential (primary) hypertension Presentation: 01/16 14:36 Chief complaint: Patient states: Pt reports being out of BP meds X1 month. [facility] and would likeBP cheked. Denies all complaints, NAD noted. Coronavirus screen: Client denies travel out of the [place] in the last 14 days. At this time, the client does not indicate any symptoms associated with coronavirus-19. Ebola Screen: Patient negative for fever greater than or equal to 101.5 degrees Fahrenheit, and additional compatible Ebola Virus Disease symptoms Patient denies exposure to infectious person. Patient denies travel to an Ebola-affected area in the 21 days before illness onset. Initial Sepsis Screen: Does the patient meet any 2 criteria? No. Patient's initial sepsis screen is negative. Does the patient have a suspected source of infection? No. Patient's initial sepsis screen is negative. Risk Assessment: Do you want to hurt yourself or someone else? Patient reports no desire to harm self or others. Onset of symptoms is unknown. 14:36 Method Of Arrival: Ambulatory lm7 14:36 Acuity: ISABELLA 4 lm7 Triage Assessment: 14:40 General: Appears in no apparent distress. Behavior is calm, cooperative, appropriate lm7 for age. Cardiovascular: No deficits noted. Respiratory: No deficits noted. Derm: No deficits noted. Musculoskeletal: No deficits noted. Historical: - Allergies: 14:40 No Known Allergies; lm7 - Home Meds: 14:40 amlodipine 10 mg oral tab once daily [Active]; lm7 - PMHx: 14:40 Back pain; Hypertension; lm7 - Immunization history:: Client reports receiving the 1st dose of the Covid vaccine, J\T\J. - Social history:: Smoking status: Patient denies any tobacco usage or history of. Screenin:42 Abuse screen: Denies threats or abuse. Denies injuries from another. Nutritional lm7 screening: No deficits noted. Tuberculosis screening: No symptoms or risk factors identified. Fall Risk None identified. Assessment: 14:42 Pain: Denies pain. Neuro: No deficits noted. Cardiovascular: No deficits noted. lm7 Respiratory: No deficits noted. Derm: No deficits noted. Musculoskeletal: No deficits noted. Vital Signs: 14:36 BP 192 / 108; Pulse 99; Resp 18; Temp 97.2; Pulse Ox 100% on R/A; Weight 72.57 kg; lm7 Height 5 ft. 4 in. (162.56 cm); Pain 0/10; 14:36 Body Mass Index 27.46 (72.57 kg, 162.56 cm) lm7 ED Course: 14:29 Patient arrived in ED. ds1 14:40 Triage completed. lm7 14:40 Arm band placed on right wrist. lm7 14:42 Patient has correct armband on for positive identification. lm7 14:42 No provider procedures requiring assistance completed. Patient did not have IV access lm7 during this emergency room visit. 14:52 Stephani Noriega FNP-C is [facility]. kb 14:52 Johnny Washington MD is Attending Physician. kb Administered Medications: 15:14 Drug: amLODIPine 10 mg Route: PO; lm7 Outcome: 15:08 Discharge ordered by . kb 15:15 Discharged to home ambulatory. lm7 15:15 Condition: good 15:15 Discharge instructions given to patient, Instructed on discharge instructions, medication usage, Demonstrated understanding of instructions, Prescriptions given X 1. 15:16 Patient left the ED. lm7 Signatures: Stephani Noriega FNP-C FNP-Clementine Cheung ds1 Lorrie Du lm7
--- NOTE | 2021-01-16 15:09 | EDPHYS ---
Physician Documentation [facility] Name: Jennifer Trujillo Age: 65 yrs Sex: Female : 1955 Arrival Date: 01/16/2021 Time: 14:29 Bed Waiting Private MD: ED Physician Johnny Washington HPI: 01/16 14:52 This 65 yrs old Black Female presents to ER via Ambulatory with complaints of High kb Blood Pressure. 14:52 The patient has elevated blood pressure and discovered this at [facility]. Onset: The kb symptoms/episode began/occurred today. Modifying factors: The symptoms are aggravated by discontinuation of meds, calcium channel tati. Associated signs and symptoms: The patient has no apparent associated signs or symptoms, Pertinent negatives: chest pain, dizziness, dyspnea, headache, lightheadedness, nausea, visual changes, vomiting, weakness. Severity of symptoms: At its worst the blood pressure was moderate, in the emergency department the blood pressure is unchanged. The patient has experienced similar episodes in the past, chronically. The patient has not recently seen a physician. Patient states she was at [facility] so she decided to get her blood pressure checked because she has been out of her blood pressure medicine for about a month. States it was high so she came in to get it checked here. Patient states "I feel good." Denies chest pain, palpitations, headache, lightheadedness, dizziness.. Historical: - Allergies: 14:40 No Known Allergies; lm7 - Home Meds: 14:40 amlodipine 10 mg oral tab once daily [Active]; lm7 - PMHx: 14:40 Back pain; Hypertension; lm7 - Immunization history:: Client reports receiving the 1st dose of the Covid vaccine, J\\T\\J. - Social history:: Smoking status: Patient denies any tobacco usage or history of. ROS: 14:52 Constitutional: Negative for fever, chills, and weight loss. kb 14:52 All other systems are negative. Exam: 14:52 Constitutional: This is a well developed, well nourished patient who is awake, alert, kb and in no acute distress. Head/Face: Normocephalic, atraumatic. ENT: Moist Mucous membranes Cardiovascular: Regular rate and rhythm with a normal S1 and S2. No gallops, murmurs, or rubs. No pulse deficits. Respiratory: Respirations even and unlabored. No increased work of breathing, no retractions or nasal flaring. Skin: Warm, dry with normal turgor. Normal color. MS/ Extremity: Pulses equal, no cyanosis. Neurovascular intact. Full, normal range of motion. Neuro: Awake and alert, GCS 15, oriented to person, place, time, and situation. Moves all extremities. Normal gait. Psych: Awake, alert, with orientation to person, place and time. Behavior, mood, and affect are within normal limits. Vital Signs: 14:36 BP 192 / 108; Pulse 99; Resp 18; Temp 97.2; Pulse Ox 100% on R/A; Weight 72.57 kg; lm7 Height 5 ft. 4 in. (162.56 cm); Pain 0/10; 14:36 Body Mass Index 27.46 (72.57 kg, 162.56 cm) lm7 MDM: 14:52 Patient medically screened. kb 14:52 Data reviewed: vital signs, nurses notes. Data interpreted: Pulse oximetry: on room air kb is 100 %. Interpretation: normal. Counseling: I had a detailed discussion with the patient and/or guardian regarding: the historical points, exam findings, and any diagnostic results supporting the discharge/admit diagnosis, the need for outpatient follow up, a family practitioner, to return to the emergency department if symptoms worsen or persist or if there are any questions or concerns that arise at home. ED course: Patient has appointment with PCP next week.. 15:07 ED course: Patient is asymptomatic of blood pressure. Appears to be in no distress. kb Will fill amlodipine 10 mg daily for 7 days. Patient has follow-up appointment with PCP next week to get normal prescription filled. Patient educated to return for chest pain, palpitations, headache, lightheadedness, dizziness or any other concerns.. Administered Medications: 15:14 Drug: amLODIPine 10 mg Route: PO; lm7 Disposition Summary: 01/16/21 15:08 Discharge Ordered Location: Home Condition: Stable kb Diagnosis - Essential (primary) hypertension kb Followup: kb - With: Emergency Department - When: As needed - Reason: Worsening of condition Followup: kb - With: Private Physician - When: 2 - 3 days - Reason: Recheck today's complaints, Continuance of care, Re-evaluation by your physician Discharge Instructions: - Discharge Summary Sheet kb - Hypertension, Adult, [id number] kb Forms: - Medication Reconciliation Form kb - Thank You Letter kb - Antibiotic Education kb - Prescription Opioid Use kb Prescriptions: - Norvasc 10 mg Oral Tablet - take 1 tablet by ORAL route once daily; 7 tablet; Refills: 0, Product Selection kb Permitted Addendum: 01/19/2021 07:08 Co-signature as Attending Physician, Johnny Washington MD I agree with the assessment and [facility] plan of care. Signatures: Stephani Noriega, TIP MENDER-C JAMAL-Johnny Moon MD MD [facility] Lorrie Du lm7
[2021-01-16 15:22] VITALS: BP 192/108; TEMP 97.2; O2SAT 100
[2021-01-16] MEDS ORDERED: AMLODIPINE 10 MG TAB ONE (15:33)
== END 2021-01-16 15:16 | disposition home or self-care (01) ==
LOC: ER 14:29
DX: I10 Essential (primary) hypertension (principal)
CPT/HCPCS: 99283

== ENCOUNTER 2021-06-05 15:48 | Emergency (ER) | payer SELFPAY ==
--- OUTSIDE RECORDS SUMMARY | 2021-06-05 15:52 | XMS REPORT | Continuity of Care Document ---
:1955 Author Organization [facility] t Address [address] [place] [address] Care Team Providers Name Role Phone Doctor Unassigned, Name Attending Clinician Unavailable Katlyn SANDOVAL, C Attending Clinician KATLYN C Attending Clinician Unavailable ATAANN, T Attending Clinician Unavailable HILARIO, T Attending Clinician Unavailable RADIOLOGY Attending Clinician Unavailable Angelica RIVERA Attending Clinician Unavailable Nurse, Urgent Attending Clinician Unavailable Lab, Fam Pob I Attending Clinician Unavailable Anene POWDERMAN Attending Clinician ANENE Attending Clinician Unavailable TEGAN, A Attending Clinician Unavailable Problems Condition Condition Condition Status Onset Resolution Last Treating Co mments Source Name Details Category Date Date Treatment Clinician Date Essential Essential Disease Active Uni vers hypertensi hypertensi 3-24 [place] y [place] Other Other Disease Active Univers general general 3-24 [place] of counseling [place] and advice and advice 00 Ok dical for for [place] contracept contracept kenrick kenrick management management Morbid Morbid Disease Active Univers obesity obesity 3-24 ity of 00:00: [address] Allergies, Adverse Reactions, Alerts Allergy Allergy Status Severity Reaction(s) Onset Inactive Treating Comm ents Source Name Type Date Date Clinician NO KNOWN Drug Active Univers ALLERGIE Class ity of S [facility] Social History Social Habit Start Date Stop Date Quantity Comments Source Exposure to Not sure University of SARS-CoV-2 [facility] (event) [place] Tobacco use and 2020-08-27 2020-08-27 Never used Universit y of exposure 00:00:00 00:00:00 [facility] Alcohol intake 2020-08-27 2020-08-27 Ex-drinker [facility] 00:00:00 00:00:00 (finding) [facility] Sex Ass[birth year] At [birth year] [facility] y of 00:00:00 00:00:00 [facility] Smoking Status Start Date Stop Date Source Unknown if ever smoked Universit y [facility] Never smoker [facility] Medications Ordered Filled Start Stop Current Ordering Indication Dosage Frequency Signature Comments Components Source Medication Medication Date Date Medication? Clinician (SIG) Name Name lisinopriL- Yes 1{tbl} Take 1 Un mayi hydrochloro 3-24 tablet by ity of thiazide 19:38: mouth [place] 20-12.5 mg 33 daily. Medical per tablet Branch amLODIPine Yes 10mg Take 10 mg U nivers 10 mg 3-24 by mouth ity of tablet 19:38: daily. [address] albuterol Yes Inhale as Uni vers sulfate 3-24 needed. ity of (PROAIR 19:38: [place] DIGIHALER) [address] [place] [address] 90 Branch mcg/actuati on aebs lisinopriL- Yes 1{tbl} Take 1 Un mayi hydrochloro 3-24 tablet by ity of thiazide 19:38: mouth [place] 20-12.5 mg 33 daily. Medical per tablet Branch amLODIPine Yes 10mg Take 10 mg U nivers 10 mg 3-24 by mouth ity of tablet 19:38: daily. [address] albuterol Yes Inhale as Uni vers sulfate 3-24 needed. ity of (PROAIR 19:38: [place] DIGIHALER) [address] [place] [address] 90 Branch mcg/actuati on aebs lisinopriL- Yes 1{tbl} Take 1 Un mayi hydrochloro 3-24 tablet by ity of thiazide 19:38: mouth [place] 20-12.5 mg 33 daily. Medical per tablet Branch amLODIPine Yes 10mg Take 10 mg U nivers 10 mg 3-24 by mouth ity of tablet 19:38: daily. [address] albuterol Yes Inhale as Uni vers sulfate 3-24 needed. ity of (PROAIR 19:38: [place] DIGIHALER) Medical 90 Branch mcg/actuati on aebs lisinopriL- Yes 1{tbl} Take 1 Un mayi hydrochloro 3-24 tablet by ity of thiazide 19:38: mouth [place] 20-12.5 mg 33 daily. Medical per tablet Branch amLODIPine Yes 10mg Take 10 mg U nivers 10 mg 3-24 by mouth ity of tablet 19:38: daily. [place] [address] Medical Branch albuterol Yes Inhale as Uni vers sulfate 3-24 needed. ity of (PROAIR 19:38: [place] DIGIHALER) Medical 90 Branch mcg/actuati on aebs lisinopriL- Yes 1{tbl} Take 1 Un mayi hydrochloro 3-24 tablet by ity of thiazide 19:38: mouth [place] 20-12.5 mg 33 daily. Medical per tablet Branch amLODIPine Yes 10mg Take 10 mg U nivers 10 mg 3-24 by mouth ity of tablet 19:38: daily. [place] [address] Medical Branch albuterol Yes Inhale as Uni vers sulfate 3-24 needed. ity of (PROAIR 19:38: [place] DIGIHALER) Medical 90 Branch mcg/actuati on aebs lisinopriL- Yes 1{tbl} Take 1 Un mayi hydrochloro 3-24 tablet by ity of thiazide 19:38: mouth [place] 20-12.5 mg 33 daily. Medical per tablet Branch amLODIPine Yes 10mg Take 10 mg U nivers 10 mg 3-24 by mouth ity of tablet 19:38: daily. [place] [address] Medical Branch albuterol Yes Inhale as Uni vers sulfate 3-24 needed. ity of (PROAIR 19:38: [place] DIGIHALER) Medical 90 Branch mcg/actuati on aebs lisinopriL- Yes 1{tbl} Take 1 Un mayi hydrochloro 3-24 tablet by ity of thiazide 19:38: mouth [place] 20-12.5 mg 33 daily. Medical per tablet Branch amLODIPine Yes 10mg Take 10 mg U nivers 10 mg 3-24 by mouth ity of tablet 19:38: daily. [place] [address] Medical Branch albuterol Yes Inhale as Uni vers sulfate 3-24 needed. ity of (PROAIR 19:38: [place] DIGIHALER) Medical 90 Branch mcg/actuati on aebs lisinopriL- Yes 1{tbl} Take 1 Un mayi hydrochloro 3-24 tablet by ity of thiazide 19:38: mouth [place] 20-12.5 mg 33 daily. Medical per tablet Branch amLODIPine Yes 10mg Take 10 mg U nivers 10 mg 3-24 by mouth ity of tablet 19:38: daily. [place] [address] Medical Branch albuterol Yes Inhale as Uni vers sulfate 3-24 needed. ity of (PROAIR 19:38: [place] DIGIHALER) Medical 90 Branch mcg/actuati on aebs lisinopriL- Yes 1{tbl} Take 1 Un mayi hydrochloro 3-24 tablet by ity of thiazide 19:38: mouth [place] 20-12.5 mg 33 daily. Medical per tablet Branch amLODIPine Yes 10mg Take 10 mg U nivers 10 mg 3-24 by mouth ity of tablet 19:38: daily. [place] [address] Medical Branch albuterol Yes Inhale as Uni vers sulfate 3-24 needed. ity of (PROAIR 19:38: [place] DIGIHALER) Medical 90 Branch mcg/actuati on aebs lisinopriL- Yes 1{tbl} Take 1 Un mayi hydrochloro 3-24 tablet by ity of thiazide 19:38: mouth [place] 20-12.5 mg 33 daily. Medical per tablet Branch amLODIPine Yes 10mg Take 10 mg U nivers 10 mg 3-24 by mouth ity of tablet 19:38: daily. [place] [address] Medical Branch albuterol Yes Inhale as Uni vers sulfate 3-24 needed. ity of (PROAIR 19:38: [place] DIGIHALER) Medical 90 Branch mcg/actuati on aebs lisinopriL- Yes 1{tbl} Take 1 Un mayi hydrochloro 3-24 tablet by ity of thiazide 19:38: mouth [place] 20-12.5 mg 33 daily. Medical per tablet Branch amLODIPine Yes 10mg Take 10 mg U nivers 10 mg 3-24 by mouth ity of tablet 19:38: daily. [place] [address] Medical Branch albuterol Yes Inhale as Uni vers sulfate 3-24 needed. ity of (PROAIR 19:38: [place] DIGIHALER) Medical 90 Branch mcg/actuati on aebs lisinopriL- Yes 1{tbl} Take 1 Un mayi hydrochloro 3-24 tablet by ity of thiazide 19:38: mouth [place] 20-12.5 mg 33 daily. Medical per tablet Branch amLODIPine Yes 10mg Take 10 mg U nivers 10 mg 3-24 by mouth ity of tablet 19:38: daily. [place] [address] Medical Branch albuterol Yes Inhale as Uni vers sulfate 3-24 needed. ity of (PROAIR 19:38: [place] DIGIHALER) Medical Branch mcg/actuati on aebs lisinopriL- Yes 1{tbl} Take 1 Un mayi hydrochloro 3-24 tablet by ity of thiazide 19:38: mouth [place] 20-12.5 mg 33 daily. Medical per tablet Branch amLODIPine Yes 10mg Take 10 mg U nivers 10 mg 3-24 by mouth ity of tablet 19:38: daily. [place] [address] Medical Branch albuterol Yes Inhale as Uni vers sulfate 3-24 needed. ity of (PROAIR 19:38: [place] DIGIHALER) Medical 90 Branch mcg/actuati on aebs lisinopriL- Yes 1{tbl} Take 1 Un mayi hydrochloro 3-24 tablet by ity of thiazide 19:38: mouth [place] 20-12.5 mg 33 daily. Medical per tablet Branch amLODIPine Yes 10mg Take 10 mg U nivers 10 mg 3-24 by mouth ity of tablet 19:38: daily. [place] [address] Medical Branch albuterol Yes Inhale as Uni vers sulfate 3-24 needed. ity of (PROAIR 19:38: [place] DIGIHALER) Medical 90 Branch mcg/actuati on aebs lisinopriL- Yes 1{tbl} Take 1 Un mayi hydrochloro 3-24 tablet by ity of thiazide 19:38: mouth [place] 20-12.5 mg 33 daily. Medical per tablet Branch amLODIPine Yes 10mg Take 10 mg U nivers 10 mg 3-24 by mouth ity of tablet 19:38: daily. [place] [address] Medical Branch albuterol Yes Inhale as Uni vers sulfate 3-24 needed. ity of (PROAIR 19:38: [place] DIGIHALER) Medical 90 Branch mcg/actuati on aebs lisinopriL- Yes 1{tbl} Take 1 Un mayi hydrochloro 3-24 tablet by ity of thiazide 19:38: mouth [place] 20-12.5 mg 33 daily. Medical per tablet Branch amLODIPine Yes 10mg Take 10 mg U nivers 10 mg 3-24 by mouth ity of tablet 19:38: daily. [place] [address] Medical Branch albuterol Yes Inhale as Uni vers sulfate 3-24 needed. ity of (PROAIR 19:38: [place] DIGIHALER) [address] [place] [address] Branch mcg/actuati on aebs lisinopriL- Yes 1{tbl} Take 1 Un mayi hydrochloro 3-24 tablet by ity of thiazide 19:38: mouth [place] 20-12.5 mg 33 daily. Medical per tablet Branch amLODIPine Yes 10mg Take 10 mg U nivers 10 mg 3-24 by mouth ity of tablet 19:38: daily. [place] [address] Medical Branch albuterol Yes Inhale as Uni vers sulfate 3-24 needed. ity of (PROAIR 19:38: [place] DIGIHALER) [address] [place] [address] Branch mcg/actuati on aebs lisinopriL- Yes 1{tbl} Take 1 Un mayi hydrochloro 3-24 tablet by ity of thiazide 19:38: mouth [place] 20-12.5 mg 33 daily. Medical per tablet Branch amLODIPine Yes 10mg Take 10 mg U nivers 10 mg 3-24 by mouth ity of tablet 19:38: daily. [place] [address] Medical Branch albuterol Yes Inhale as Uni vers sulfate 3-24 needed. ity of (PROAIR 19:38: [place] DIGIHALER) [address] [place] [address] Branch mcg/actuati on aebs lisinopriL- Yes 1{tbl} Take 1 Un mayi hydrochloro 3-24 tablet by ity of thiazide 19:38: mouth [place] 20-12.5 mg 33 daily. Medical per tablet Branch amLODIPine Yes 10mg Take 10 mg U nivers 10 mg 3-24 by mouth ity of tablet 19:38: daily. [place] 33 Medical Branch albuterol Yes Inhale as Uni vers sulfate 3-24 needed. ity of (PROAIR 19:38: [place] DIGIHALER) [address] mcg/actuati on aebs No known No Univers medications [facility] No known No Univers medications [facility] No known No Univers medications [facility] No known No Univers medications [facility] Vital Signs Vital Name Observation Time Observation Value Comments Source Systolic blood 2020-08-27 19:29:00 139 mm[Hg] [facility] [place] Diastolic blood 2020-08-27 19:29:00 92 mm[Hg] [facility] rate 2020-08-27 19:28:00 73 /min [facility] Body temperature 2020-08-27 19:28:00 36.56 Elida [facility] Respiratory rate 2020-08-27 19:28:00 16 /min [facility] Body height 2020-08-27 19:28:00 162.6 cm [facility] Body weight 2020-08-27 19:28:00 106.283 kg [facility] BMI 2020-08-27 19:28:00 40.22 kg/m2 [facility] Procedures Procedure Date / Time Performing Clinician Source Performed BCCS-RELATED 2021-01-08 05:01:00 Doctor Unassigned, No Univer [facility] DOCUMENTATION Name [facility] BI US GUIDED CORE BREAST 2020-10-14 17:10:00 Riana Potts [facility] BIOPSY RIGHT Medical Branch BI ULTRASOUND BREAST 2020-09-24 21:38:53 Riana Potts Un [facility] COMPLETE RIGHT Medical Branch BI DIAGNOSTIC MAMMOGRAM 2020-09-24 20:28:00 Riana Potts [facility] BILATERAL Medical Branch BCCS-RELATED 2020-09-19 05:01:00 Doctor Unassigned, No [facility] DOCUMENTATION Name Medical Branch ASSIGNMENT OF BENEFITS 2020-08-25 15:02:45 Doctor Unassigned, No [facility] Name Medical [place] Encounters Start End Encounter Admission Attending Care Care Encounter Source Date/Time Date/Time Type Type Clinicians Facility Department ID 2021-01-08 2021-01-08 Orders Doctor MARIN 1.2.840.114 [id number] 00:00:00 00:00:00 Only UnassignedLOVELY [id number] [facility] [id number] [id number] 2021-01-08 2021-01-08 Orders Doctor FUNES 1.2.840.114 [id number] Univers 00:00:00 00:00:00 Only Unassigned, LOVELY [id number] ity of [place] [facility] [id number] Pete as [id number] [address] 2020-10-31 2020-10-31 [facility] [id number] 00:00:00 00:00:00 Management Riana Mckenzie STUDIO [employer]CH [employer]ILDER [id number] REGIONAL [id number] MATERNAL [id number] & CHILD [address] [place] [address] 2020-10-31 2020-10-31 Case Katlyn [facility] [id number] [facility] 00:00:00 00:00:00 Management Riana Mckenzie STUDIO COUCH FR[employer] BUILDER [id number] ity of [facility] [id number] Pete as MATERNAL [id number] Med ical & CHILD [address] [place] [address] 2020-10-14 2020-10-14 [facility] Katlyn [facility] [id number] 10:42:39 23:59:00 Encounter Riana Mckenzie SPECIALTY [id number] CARE [id number] CENTER AT [id number] [facility] 2020-10-14 2020-10-14 [facility] [id number] Univers 10:42:39 23:59:00 Encounter Riana Mckenzie SPECIALTY [id number] ity [facility] [id number] [place] [id number] Ok dical LING [facility] 2020-10-14 2020-10-14 Outpatient R KATLYN [facility] [id number] Univers 00:00:00 00:00:00 RIANA [id number] dee o [facility] 2020-10-14 2020-10-14 Outpatient R KALTYN [facility] [id number] Univers 00:00:00 00:00:00 RIANA price o f [facility] 2020-10-08 2020-10-08 Outpatient R YAKOV RICH [facility] [id number] Univers 16:00:00 16:00:00 [facility]OV [facility]ICH [id number] 2020-10-08 2020-10-08 Outpatient R TREVON RICHNHLobo [facility] [id number] Univers 16:00:00 16:00:00 YAKOV RICH [facility] 2020-09-30 2020-09-30 [facility] 1.2.840.114 [id number] 00:00:00 00:00:00 Riana Mckenzie STUDIO [employer]CH [employer] BUILDER [id number] [facility] [id number] MATERNAL [id number] & CHILD [address] [place] [address] 2020-09-30 2020-09-30 Telephone [facility] 1.2.840.114 [id number] Univers 00:00:00 00:00:00 Riana Mckenzie STUDIO [employer]CH FR[employer] BUILDER [id number] [facility] [id number] Pete as MATERNAL [id number] Med ical & CHILD 107 [facility] 2020-09-25 2020-09-[address] [facility] 1.2.840.114 [id number] Univers 00:00:00 00:00:00 Riana C [employer]UD[employer] BUILDER [id number] ity of REGIONAL [id number] [place] as MATERNAL [id number] Med ical & CHILD 107 [facility] 2020-09-24 2020-09-24 [facility] [id number] Univers 14:32:16 23:59:00 Encounter Riana C SPECIALTY [id number] ity of [place]2.686 [place] [id number] [address] 2020-09-24 2020-09-24 [facility] 1.2.840.114 [id number] Univers 14:30:00 14:31:00 Encounter Riana C SPECIALTY [id number] ity of C[place] 4[place]7.2.686 [place] [id number] [address] 2020-09-24 2020-09-24 Outpatient R [facility] [id number] Univers 14:30:00 14:30:00 RIANA [id number] ity o [facility] 2020-09-24 2020-09-24 Outpatient R [facility] [id number] Univers 00:00:00 00:00:00 RIANA ity o [facility] 2020-09-19 2020-09-19 Orders Doctor FUNES 1.2.840.114 [id number] Univers 00:00:00 00:00:00 Only Unassigned, LOVELY 350.1.13.10 ity of [place] [facility] 4.2.7.2.686 [place] as [id number] [address] 2020-09-16 2020-09-[address] [facility] 1.2.840.114 [id number] Univers 00:00:00 00:00:00 Riana C [employer]UDIO [employer] BUILDER [id number] ity of REGIONAL [id number] [place] as MATERNAL [id number] [facility] & CHILD [address] [place] [address] 2020-09-15 2020-09-[address] [facility] 1.2.840.114 [id number] Univers 00:00:00 00:00:00 Riana C STUDIO COUCH FRAME BUILDER [id number] ity of REGIONAL [id number] [place] as MATERNAL [id number] [facility] & CHILD [address] [place] [address] 2020-09-12 2020-09-[address] [facility] 1.2.840.114 [id number] Univers 00:00:00 00:00:00 Riana C STUDIO COUCH FR[employer] BUILDER [id number] ity of REGIONAL [id number] [place] as MATERNAL [id number] [address] 2020-09-09 2020-09-09 [facility] 1.2.840.114 [id number] Univers 07:05:36 23:59:00 Encounter Riana C SPECIALTY [id number] ity of [place] 4[place]2.[place] [id number] Ok ana DUBON 815 [facility] 2020-09-09 2020-09-09 [facility] [id number] Univers 14:30:00 14:30:00 RIANA [id number] daisyy o [facility] 2020-09-09 2020-09-09 [facility] [id number] Univers 00:00:00 00:00:00 RIANA ity o [facility] 2020-08-27 2020-08-[address] [facility] [id number] Univers 14:08:13 15:02:20 Visit Riana C STUDIO [employer] BUILDER [id number] ity of REGIONAL [id number] [place] as MATERNAL [id number] [address] 2020-08-27 2020-08-27 Outpatient R [facility] [id number] Univers 13:45:00 13:45:00 ity of [facility] 2020-08-27 2020-08-27 Outpatient R RADIOLOGY [facility] [id number] Univers 10:40:00 10:40:00 [id number] ity of [facility] 2020-08-25 2020-08-25 Outpatient R [facility] [id number] Univers 10:00:00 10:00:00 [id number] ity of [facility] 2020-08-25 2020-08-25 Outpatient R RIVERA, [facility] [id number] Univers 10:00:00 10:00:00 ROSHUNDA ity o f [facility] 2020-08-25 2020-08-25 Orders Doctor MARIN 1.2.840.114 [id number] Univers 00:00:00 00:00:00 Only Unassigned, LOVELY 350.1.13.10 ity of [place] [facility] [id number] Pete as [id number] [place] [address] Branch 2020-01-13 2020-01-13 Telephone Nurse, [facility] 1.2.840.114 [id number] Univers 00:00:00 00:00:00 Urgent HEALTH 350.1.13.10 it y of [place] 4.2.7.2.686 [facility] [id number] [facility] 2020-01-12 2020-01-12 Laboratory Lab, Adc Fam Pob I [facility] 1.2. 840.114 [id number] Univers 11:54:46 12:33:40 Only Marlen [facility] 350.1.13.10 ity of [place] 4.2.7.2.686 [facility] as Professio [id number] Ok dical [facility] 044 Branch Office [address] 2020-01-12 2020-01-12 Outpatient R [facility] [id number] Univers 12:00:00 12:00:00 MARLEN ity of [facility] 2020-01-12 2020-01-12 Outpatient R [facility] [id number] Univers 12:00:00 12:00:00 [id number] ity of [facility] 2020-01-12 2020-01-12 Letter Doctor MARIN 1.2.840.114 [id number] Univers 00:00:00 00:00:00 (Out) Unassigned, LOVELY 350.1.13.10 ity of [place] [facility] 4.2.7.2.686 Pete as [phone] [place] [address] Branch 2019-11-30 2019-11-30 Outpatient R TEGAN [facility] [id number] Univers 16:40:00 16:40:00 OLE price of [facility] Results Test Description Test Time Test Comments Results Result Sourc e Comments BI US GUIDED 2020-10-04 Examination:BI US Unive rsity of CORE BREAST 1 GUIDED CORE BREAST [facility] BIOPSY RIGHT 17:58:53 BIOPSY RIGHT The Branch procedure was explained to the patient including benefits and alternatives. ?The risks, including but not limited to infection and bleeding, were reviewed and the patient agreed to undergo the procedure, signing the consent form. ?Timeout was performed. History:Patient is a 65 year old year old female and is seen for: RIGHT BREAST: 10 mm mass at 9 o'clock, 1 cm from the nipple. Comparisons: 09/24/2020 BI DIAGNOSTIC MAMMOGRAM BILATERAL, 09/24/2020 BI ULTRASOUND BREAST COMPLETE RIGHT, and 09/09/2020 BI SCREENING TOMOSYNTHESIS BILATERAL The patient was positioned supine, and the area of interest was localized using real-time ultrasound guidance. After antiseptic preparation the skin puncture site was draped and infiltrated with lidocaine. ? ?A 14 gauge Bard automated core biopsy needle was advanced to the target. ?Multiple tissue cores were obtained through the target. ?A tissue marker clip (RING) ?was then deployed. ?Continuous real-time ultrasound was used for guidance throughout the procedure. ? Post biopsy mammogram confirmed clip ?(RING) ?at the biopsy site. Recommendation:Pendi ng pathology results - BI-RADS ?Right 4A - ?Low Suspicion for Malignancy. Clip ?(RING) ?at the biopsy site. IDiamond MD, personally reviewed the study and agree with the resident's/fellow's report.Diamond Esteban MD as teaching physician, was present during either the entire procedure and/or during the gonzales components. BI ULTRASOUND 2020-09-05 Examination:BI Univers ity of BREAST COMPLETE 1 DIAGNOSTIC MAMMOGRAM [place] [facility] RIGHT 23:13:21 RIGHTBI ULTRASOUND Branch BREAST COMPLETE RIGHT History:Patient is 65 year old and is seen for: Right: There is a focal asymmetry in the upper outer quadrant, middle depth, 4 cm from the nipple, best seen RCC 48/85, RMLO 28/96.? Computer-aided detection (CAD) utilized. Comparisons: 09/09/2020 BI SCREENING TOMOSYNTHESIS BILATERAL Findings:RIGHTBI DIAGNOSTIC MAMMOGRAMThe breast is heterogeneously dense, which may obscure small masses. The previously described focal asymmetry appears less prominent with additional imaging. BI ULTRASOUND BREAST COMPLETE RIGHTThere is an 10 mm x 8 mm x 3 mm oval mass with angular margins at 9 o'clock, 1 cm from the nipple. ?This may correlate with the mammographic finding. Benign cyst is seen at the 11 o'clock, subareolar region (initially described at 10 o'clock, 2 cm from the nipple). There is benign ductal ectasia. ?No other significant findings. ?No right axillary lymphadenopathy. Impression:RIGHT BREAST: 10 mm mass at 9 o'clock, 1 cm from the nipple. ?Findings are at low suspicion for malignancy. Recommendation:Ultra sound guided core biopsy - Right - 9 o'clock, 1 cm from the nipple BI-RADS Category: Right 4A - Suspicious Abnormality - Biopsy Should Be Considered - Low Suspicion for Malignancy ?These findings and recommendations were discussed with the patient at the conclusion of today's examination. BI DIAGNOSTIC 2020-09-05 Examination:BI Univers ity of MAMMOGRAM 1 DIAGNOSTIC MAMMOGRAM Delmer Vargas BILATERAL 23:13:20 RIGHTBI ULTRASOUND Branch BREAST COMPLETE RIGHT History:Patient is 65 year old and is seen for: Right: There is a focal asymmetry in the upper outer quadrant, middle depth, 4 cm from the nipple, best seen RCC 48/85, RMLO 28/96.? Computer-aided detection (CAD) utilized. Comparisons: 09/09/2020 BI SCREENING TOMOSYNTHESIS BILATERAL Findings:RIGHTBI DIAGNOSTIC MAMMOGRAMThe breast is heterogeneously dense, which may obscure small masses. The previously described focal asymmetry appears less prominent with additional imaging. BI ULTRASOUND BREAST COMPLETE RIGHTThere is an 10 mm x 8 mm x 3 mm oval mass with angular margins at 9 o'clock, 1 cm from the nipple. ?This may correlate with the mammographic finding. Benign cyst is seen at the 11 o'clock, subareolar region (initially described at 10 o'clock, 2 cm from the nipple). There is benign ductal ectasia. ?No other significant findings. ?No right axillary lymphadenopathy. Impression:RIGHT BREAST: 10 mm mass at 9 o'clock, 1 cm from the nipple. ?Findings are at low suspicion for malignancy. Recommendation:Ultra sound guided core biopsy - Right - 9 o'clock, 1 cm from the nipple BI-RADS Category: Right 4A - Suspicious Abnormality - Biopsy Should Be Considered - Low Suspicion for Malignancy ?These findings and recommendations were discussed with the patient at the conclusion of today's examination.
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
[2021-06-05 17:48] LABS: Urine Blood Negative (Negative); Urine Glucose Negative (Negative); Urine Protein Negative (Negative); Urine Specific Gravity >=1.030 (1.005-1.030); Urine pH 5.5 (5.0-7.0)
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
[2021-06-05 21:05] VITALS: BP 169/108; TEMP 98.6; O2SAT 100
== END 2021-06-05 21:00 | disposition home or self-care (01) ==
LOC: ER 15:48
DX: M54.50 Low back pain, unspecified (principal); V43.62XA Car passenger injured in collision with other type car in traffic accident, initial encounter; Y93.89 Activity, other specified; Y92.410 Unspecified street and highway as the place of occurrence of the external cause
CPT/HCPCS: 72131; 81003; 99283

== ENCOUNTER → 2023-06-28 | Emergency (ER) | payer OTHER, SELFPAY ==
--- OUTSIDE RECORDS SUMMARY | 2023-06-28 22:27 | XMS REPORT | Continuity of Care Document ---
Author Name Unknown Address [address] [place] [address] [facility] Address [address] [facility] [address] [place] [address] Care Team Providers Care Fuller Brush Man Name Role Phone Jake Pretty Primary Care Physician [phone] JAKE ARAYA Attending Clinician Unavailable JOBY MCGREGOR Attending Clinician UnavailJOBY Dong Attending Clinician UnavailJake Chavis Attending Clinician [phone] Doctor Unassigned, [place] Attending Clinician U jhoana Galvez Ang - Db Attending Clinician Unavailable 1, [facility] Sleep Lab Bed Attending Clinician Unavail Joby Zepeda MD Attending Clinician Therapist, [facility] Respiratory Attending Clinician U Rancho Yin DO Attending Clinician [phone] RANCHO LARSON Attending Clinician Unavailable RANCHO LARSON Attending Clinician Unavailable MIMA CLAYTON Attending Clinician Unavailable Mima Kennedy Attending Clinician [phone] Unknown, Attending Attending Clinician Unavailab Sathish Peñaloza LVN Attending Clinician Purnima Fu Attending Clinician + ANNE MARIE MATHIS Attending Clinician Unavailable Anne Marie Mathis MD Attending Clinician [phone] Emerita Barnes PT Attending Clinician Unavailab ROSSANA Erickson Attending Clinician Unavailable Rossana Packer PA-C Attending Clinician [phone] CHARLY REESE Attending Clinician UnavailCharly Peguero MD Attending Clinician [phone] Felecia Hinkle Attending Clinician [phone] CHRISTIE MIRELES Attending Clinician Unavaila PURNIMA Carlin Attending Clinician Unavail able UNKNOWN, ATTENDING Attending Clinician Unavailab FELECIA Bryan Attending Clinician Unavailab Pete Shirley Urgent Attending Clinician Unavailaditya trammell Lab, Adc Fam Pob I Attending Clinician Unavailab OLE Lopez Attending Clinician Unavailable JAKE ARAYA Admitting Clinician Unavailable ANNE MARIE MATHIS Admitting Clinician Unavailable Anne Marie Mathis MD Admitting Clinician [phone] PURNIMA POTTS Admitting Clinician Unavail able Payers Payer Name Policy Type Policy Number Effective Date Expirati on Date Source [employer] [place] [id number] 2022 00:00:00 Problems Condition Name Condition Details Condition Category Status Onset Date Resolution Date Last Treatment Date Treating Clinician Comments Source Dyslipidem ia Dyslipidem ia Disease Active -17 00:00: 00 [facility] Vitamin D deficiency Vitamin D deficiency Disease Active -17 00:00: 00 [facility] Anxiety Anxiety Disease Active 5-17 00:00: 00 [facility] 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 (current) use of opiate analgesic Disease Active 2-27 00:00: 00 [facility] Low back pain Low back pain Disease Active 2-27 00:00: 00 [facility] Chronic pain disorder Chronic pain disorder Disease Active -24 00:00: 00 [facility] 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 Active -24 00:00: 00 [facility] 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 -24 00:00: 00 [facility] Trochanter ic bursitis Trochanter ic bursitis Disease Active 06-29 00:00: 00 [facility] Overactive bladder Overactive bladder Disease Active 06-07 00:00: 00 [facility] Obesity (BMI 30-39.9) Obesity (BMI 30-39.9) Disease Active 2021-06 00:00: 00 [facility] Essential hypertensi on, benign Essential hypertensi on, benign Disease Active 08-27 00:00: 00 [facility] Other general counseling and advice for contracept kenrick management Other general counseling and advice for contracept kenrick management Disease Active 08-27 00:00: 00 [facility] Morbid obesity Morbid obesity Disease Active 08-27 00:00: 00 [facility] Allergies, Adverse Reactions, Alerts Allergy Name Allergy Type Status Severity Reaction(s) Onset Date Inactive Date Treating Clinician Comments Source NO KNOWN ALLERGIE S Drug Class Active [facility] Social History Social Habit Start Date Stop Date Quantity Comments Source History of tobacco use Cigarette Smoker [facility] Gender identity [facility] Sexual orientation [facility] History SDOH Alcohol Frequency [facility] History SDOH Alcohol Std Drinks [facility] History SDOH Alcohol Binge [facility] Alcohol intake 2023-04-19 00:00:00 2023-04-19 00:00:00 Current drinker of alcohol (finding) [facility] History of Social function 2022-11-22 00:00:00 2022-11-22 00:00:00 [facility] Tobacco use and exposure 2022-10-26 00:00:00 2022-10-26 00:00:00 Smokeless tobacco non-user [facility] Exposure to SARS-CoV-2 (event) 2022-10-15 00:00:00 2022-10-25 22:42:00 Not sure [facility] Alcohol Comment 2021-09-02 00:00:00 2021-09-02 00:00:00 social [facility] Sex Assigned At 1955 00:00:00 1955 00:00:00 [facility] Smoking Status Start Date Stop Date Source Ex-smoker 2022-10-26 00:00:00 2022-10-26 [facility] Medications Ordered Medication Name Filled Medication Name Start Date Stop Date Current Medication? Ordering Clinician Indication Dosage Frequency Signature (SIG) Comments Components Source SERTraline (ZOLOFT) 25 mg tablet 2022-06 00:00: 00 Yes [id number] 25mg Take 1 tablet by mouth in the morning. [facility] SERTraline (ZOLOFT) 25 mg tablet 2022-06 00:00: 00 Yes [id number] 25mg Take 1 tablet by mouth in the morning. [facility] SERTraline (ZOLOFT) 25 mg tablet 2022-06 00:00: 00 Yes [id number] 25mg Take 1 tablet by mouth in the morning. [facility] SERTraline (ZOLOFT) 25 mg tablet 2022-06 00:00: 00 Yes [id number] 25mg Take 1 tablet by mouth in the morning. [facility] rosuvastati n 10 mg tablet 2022-06 00:00: 00 Yes [id number] 10mg Take 1 tablet by mouth at bedtime. [facility] rosuvastati n 10 mg tablet 2022-06 00:00: 00 Yes [id number] 10mg Take 1 tablet by mouth at bedtime. [facility] colchicine, gout, 0.6 mg tablet 2022-06 00:00: 00 Yes [id number] TAKE 1.2 MG ONCE, THEN 0.6 MG BY MOUTH 1 HOUR LATER (NOT TO EXCEED 1.8 IN 24 HOURS) FOR 3 DAYS. [facility] rosuvastati n 10 mg tablet 2022-06 00:00: 00 Yes [id number] 10mg Take 1 tablet by mouth at bedtime. [facility] rosuvastati n 10 mg tablet 2022-06 00:00: 00 Yes [id number] 10mg Take 1 tablet by mouth at bedtime. [facility] rosuvastati n 10 mg tablet 2022-06 00:00: 00 Yes [id number] 10mg Take 1 tablet by mouth at bedtime. [facility] colchicine, gout, 0.6 mg tablet 2022-06 00:00: 00 Yes [id number] TAKE 1.2 MG ONCE, THEN 0.6 MG BY MOUTH 1 HOUR LATER (NOT TO EXCEED 1.8 IN 24 HOURS) FOR 3 DAYS. [facility] rosuvastati n 10 mg tablet 2022-06 00:00: 00 Yes [id number] 10mg Take 1 tablet by mouth at bedtime. [facility] colchicine, gout, 0.6 mg tablet 2022-06 00:00: 00 Yes [id number] TAKE 1.2 MG ONCE, THEN 0.6 MG BY MOUTH 1 HOUR LATER (NOT TO EXCEED 1.8 IN 24 HOURS) FOR 3 DAYS. [facility] rosuvastati n 10 mg tablet 2022-06 00:00: 00 Yes [id number] 10mg Take 1 tablet by mouth at bedtime. [facility] colchicine, gout, 0.6 mg tablet 2022-06 00:00: 00 Yes [id number] TAKE 1.2 MG ONCE, THEN 0.6 MG BY MOUTH 1 HOUR LATER (NOT TO EXCEED 1.8 IN 24 HOURS) FOR 3 DAYS. [facility] rosuvastati n 10 mg tablet 2022-06 00:00: 00 Yes [id number] 10mg Take 1 tablet by mouth at bedtime. [facility] colchicine, gout, 0.6 mg tablet 2022-06 00:00: 00 Yes [id number] TAKE 1.2 MG ONCE, THEN 0.6 MG BY MOUTH 1 HOUR LATER (NOT TO EXCEED 1.8 IN 24 HOURS) FOR 3 DAYS. [facility] busPIRone 10 mg tablet 2022-06 00:00: 00 Yes [id number] 10mg Take 1 tablet by mouth 2 (two) times daily as needed for Other (Anxiety). [facility] busPIRone 10 mg tablet 2022-06 00:00: 00 Yes [id number] 10mg Take 1 tablet by mouth 2 (two) times daily as needed for Other (Anxiety). [facility] busPIRone 10 mg tablet 2022-06 00:00: 00 Yes [id number] 10mg Take 1 tablet by mouth 2 (two) times daily as needed for Other (Anxiety). [facility] busPIRone 10 mg tablet 2022-06 00:00: 00 Yes [id number] 10mg Take 1 tablet by mouth 2 (two) times daily as needed for Other (Anxiety). [facility] busPIRone 10 mg tablet 2022-06 00:00: 00 Yes [id number] 10mg Take 1 tablet by mouth 2 (two) times daily as needed for Other (Anxiety). [facility] busPIRone 10 mg tablet 2022-06 00:00: 00 Yes [id number] 10mg Take 1 tablet by mouth 2 (two) times daily as needed for Other (Anxiety). [facility] busPIRone 10 mg tablet 2022-06 00:00: 00 Yes [id number] 10mg Take 1 tablet by mouth 2 (two) times daily as needed for Other (Anxiety). [facility] busPIRone 10 mg tablet 2022-06 00:00: 00 Yes [id number] 10mg Take 1 tablet by mouth 2 (two) times daily as needed for Other (Anxiety). [facility] busPIRone 10 mg tablet 2022-06 00:00: 00 Yes [id number] 10mg Take 1 tablet by mouth 2 (two) times daily as needed for Other (Anxiety). [facility] busPIRone 10 mg tablet 2022-06 00:00: 00 Yes [id number] 10mg Take 1 tablet by mouth 2 (two) times daily as needed for Other (Anxiety). [facility] busPIRone 10 mg tablet 2022-06 00:00: 00 Yes [id number] 10mg Take 1 tablet by mouth 2 (two) times daily as needed for Other (Anxiety). [facility] busPIRone 10 mg tablet 2022-06 00:00: 00 Yes [id number] 10mg Take 1 tablet by mouth 2 (two) times daily as needed for Other (Anxiety). [facility] busPIRone 10 mg tablet 2022-06 00:00: 00 Yes [id number] 10mg Take 1 tablet by mouth 2 (two) times daily as needed for Other (Anxiety). [facility] busPIRone 10 mg tablet 2022-06 00:00: 00 Yes [id number] 10mg Take 1 tablet by mouth 2 (two) times daily as needed for Other (Anxiety). [facility] colchicine, gout, 0.6 mg tablet 2022-06 00:00: 00 Yes [id number] Take 1.2 mg once, then 0.6 mg 1 hr later (not to exceed 1.8 in 24 hours) for 3 days. [facility] colchicine, gout, 0.6 mg tablet 2022-06 00:00: 00 Yes [id number] Take 1.2 mg once, then 0.6 mg 1 hr later (not to exceed 1.8 in 24 hours) for 3 days. [facility] colchicine, gout, 0.6 mg tablet 2022-06 00:00: 00 Yes [id number] Take 1.2 mg once, then 0.6 mg 1 hr later (not to exceed 1.8 in 24 hours) for 3 days. [facility] colchicine, gout, 0.6 mg tablet 2022-06 00:00: 00 Yes [id number] Take 1.2 mg once, then 0.6 mg 1 hr later (not to exceed 1.8 in 24 hours) for 3 days. [facility] colchicine, gout, 0.6 mg tablet 2022-06 00:00: 00 Yes [id number] Take 1.2 mg once, then 0.6 mg 1 hr later (not to exceed 1.8 in 24 hours) for 3 days. [facility] colchicine, gout, 0.6 mg tablet 2022-06 00:00: 00 Yes [id number] Take 1.2 mg once, then 0.6 mg 1 hr later (not to exceed 1.8 in 24 hours) for 3 days. [facility] colchicine, gout, 0.6 mg tablet 2022-06 00:00: 00 Yes [id number] Take 1.2 mg once, then 0.6 mg 1 hr later (not to exceed 1.8 in 24 hours) for 3 days. [facility] colchicine, gout, 0.6 mg tablet 2022-06 00:00: 00 Yes [id number] Take 1.2 mg once, then 0.6 mg 1 hr later (not to exceed 1.8 in 24 hours) for 3 days. [facility] colchicine, gout, 0.6 mg tablet 2022-06 00:00: 00 Yes [id number] Take 1.2 mg once, then 0.6 mg 1 hr later (not to exceed 1.8 in 24 hours) for 3 days. [facility] colchicine, gout, 0.6 mg tablet 2022-06 00:00: 00 Yes [id number] Take 1.2 mg once, then 0.6 mg 1 hr later (not to exceed 1.8 in 24 hours) for 3 days. [facility] colchicine, gout, 0.6 mg tablet 2022-06 00:00: 00 Yes [id number] Take 1.2 mg once, then 0.6 mg 1 hr later (not to exceed 1.8 in 24 hours) for 3 days. [facility] colchicine, gout, 0.6 mg tablet 2022-06 00:00: 00 04-27 00:00 :00 No [id number] Take 1.2 mg once, then 0.6 mg 1 hr later (not to exceed 1.8 in 24 hours) for 3 days. [facility] methylPREDN ISolone 4 mg tablets 2022-06 00:00: 00 04-12 05:59 :00 Yes [id number] Take by mouth SEE-INSTRU CTIONS for 6 days. follow package directions [facility] methylPREDN ISolone 4 mg tablets 2022-06 00:00: 00 04-12 05:59 :00 Yes [id number] Take by mouth SEE-INSTRU CTIONS for 6 days. follow package directions [facility] methylPREDN ISolone 4 mg tablets 2022-06 0 00:00: 00 04-12 05:59 :00 Yes [id number] Take by mouth SEE-INSTRU CTIONS for 6 days. follow package directions [facility] methylPREDN ISolone 4 mg tablets 2022-06 0 00:00: 00 04-12 05:59 :00 Yes [id number] Take by mouth SEE-INSTRU CTIONS for 6 days. follow package directions [facility] methylPREDN ISolone 4 mg tablets 2022-06 0 00:00: 00 04-12 05:59 :00 Yes [id number] Take by mouth SEE-INSTRU CTIONS for 6 days. follow package directions [facility] methylPREDN ISolone 4 mg tablets 2022-06 0 00:00: 00 04-12 05:59 :00 Yes [id number] Take by mouth SEE-INSTRU CTIONS for 6 days. follow package directions [facility] methylPREDN ISolone 4 mg tablets 2022-06 0 00:00: 00 04-12 05:59 :00 Yes [id number] Take by mouth SEE-INSTRU CTIONS for 6 days. follow package directions [facility] ergocalcife rol, vitamin d2, 1,250 mcg (50,000 unit) capsule 2022-06 0 00:00: 00 Yes [id number] Take 1 capsule by mouth weekly. [facility] ergocalcife rol, vitamin d2, 1,250 mcg (50,000 unit) capsule 2022-06 0 00:00: 00 Yes [id number] Take 1 capsule by mouth weekly. [facility] ergocalcife rol, vitamin d2, 1,250 mcg (50,000 unit) capsule 2022-06 0 00:00: 00 Yes [id number] Take 1 capsule by mouth weekly. [facility] ergocalcife rol, vitamin d2, 1,250 mcg (50,000 unit) capsule 2022-06 0 00:00: 00 Yes [id number] Take 1 capsule by mouth weekly. [facility] ergocalcife rol, vitamin d2, 1,250 mcg (50,000 unit) capsule 2022-06 030 00:00: 00 Yes [id number] Take 1 capsule by mouth weekly. [facility] ergocalcife rol, vitamin d2, 1,250 mcg (50,000 unit) capsule 2022-06 0 00:00: 00 Yes [id number] Take 1 capsule by mouth weekly. [facility] ergocalcife rol, vitamin d2, 1,250 mcg (50,000 unit) capsule 2022-06 0 00:00: 00 Yes [id number] Take 1 capsule by mouth weekly. [facility] ergocalcife rol, vitamin d2, 1,250 mcg (50,000 unit) capsule 2022-06 0 00:00: 00 Yes [id number] Take 1 capsule by mouth weekly. [facility] ergocalcife rol, vitamin d2, 1,250 mcg (50,000 unit) capsule 2022-06 0 00:00: 00 Yes [id number] Take 1 capsule by mouth weekly. [facility] ergocalcife rol, vitamin d2, 1,250 mcg (50,000 unit) capsule 2022-06 0 00:00: 00 Yes [id number] Take 1 capsule by mouth weekly. [facility] ergocalcife rol, vitamin d2, 1,250 mcg (50,000 unit) capsule 2022-06 0 00:00: 00 Yes [id number] Take 1 capsule by mouth weekly. [facility] ergocalcife rol, vitamin d2, 1,250 mcg (50,000 unit) capsule 2022-06 0 00:00: 00 Yes [id number] Take 1 capsule by mouth weekly. [facility] ergocalcife rol, vitamin d2, 1,250 mcg (50,000 unit) capsule 2022-06 0 00:00: 00 Yes [id number] Take 1 capsule by mouth weekly. [facility] ergocalcife rol, vitamin d2, 1,250 mcg (50,000 unit) capsule 2022-06 030 00:00: 00 Yes [id number] Take 1 capsule by mouth weekly. [facility] ergocalcife rol, vitamin d2, 1,250 mcg (50,000 unit) capsule 2022-06 0 00:00: 00 Yes [id number] Take 1 capsule by mouth weekly. [facility] ergocalcife rol, vitamin d2, 1,250 mcg (50,000 unit) capsule 2022-06 0 00:00: 00 Yes [id number] Take 1 capsule by mouth weekly. [facility] ergocalcife rol, vitamin d2, 1,250 mcg (50,000 unit) capsule 2022-06 0 00:00: 00 Yes [id number] Take 1 capsule by mouth weekly. [facility] ergocalcife rol, vitamin d2, 1,250 mcg (50,000 unit) capsule 2022-06 0 00:00: 00 Yes [id number] Take 1 capsule by mouth weekly. [facility] ergocalcife rol, vitamin d2, 1,250 mcg (50,000 unit) capsule 2022-06 0 00:00: 00 Yes [id number] Take 1 capsule by mouth weekly. [facility] ergocalcife rol, vitamin d2, 1,250 mcg (50,000 unit) capsule 2022-06 0 00:00: 00 Yes [id number] Take 1 capsule by mouth weekly. [facility] ergocalcife rol, vitamin d2, 1,250 mcg (50,000 unit) capsule 2022-06 0 00:00: 00 Yes [id number] Take 1 capsule by mouth weekly. [facility] nirmatrelvi r-ritonavir (PAXLOVID) 300 mg (150 mg x 2)-100 mg tablet 02-01 00:00: 00 02-07 04:59 :00 No [id number] 3{tbl} Take 3 tablets by mouth in the morning and 3 tablets in the evening. Do all this for 5 days. [facility] rosuvastati n 10 mg tablet 3-0 8-17 00:00: 00 Yes [id number] 10mg Take 1 tablet by mouth at bedtime. [facility] rosuvastati n 10 mg tablet 3-0 8-17 00:00: 00 Yes [id number] 10mg Take 1 tablet by mouth at bedtime. [facility] rosuvastati n 10 mg tablet 3-0 8-17 00:00: 00 Yes [id number] 10mg Take 1 tablet by mouth at bedtime. [facility] rosuvastati n 10 mg tablet 3-0 8-17 00:00: 00 Yes [id number] 10mg Take 1 tablet by mouth at bedtime. [facility] rosuvastati n 10 mg tablet 3-0 8-17 00:00: 00 Yes [id number] 10mg Take 1 tablet by mouth at bedtime. [facility] rosuvastati n 10 mg tablet 3-0 8-17 00:00: 00 Yes [id number] 10mg Take 1 tablet by mouth at bedtime. [facility] rosuvastati n 10 mg tablet 3-0 8-17 00:00: 00 Yes [id number] 10mg Take 1 tablet by mouth at bedtime. [facility] rosuvastati n 10 mg tablet 3-0 8-17 00:00: 00 Yes [id number] 10mg Take 1 tablet by mouth at bedtime. [facility] rosuvastati n 10 mg tablet 3-0 8-17 00:00: 00 Yes [id number] 10mg Take 1 tablet by mouth at bedtime. [facility] rosuvastati n 10 mg tablet 3-0 8-17 00:00: 00 Yes [id number] 10mg Take 1 tablet by mouth at bedtime. [facility] rosuvastati n 10 mg tablet 3-0 8-17 00:00: 00 Yes [id number] 10mg Take 1 tablet by mouth at bedtime. [facility] rosuvastati n 10 mg tablet 3-0 8-17 00:00: 00 Yes [id number] 10mg Take 1 tablet by mouth at bedtime. [facility] rosuvastati n 10 mg tablet 3-0 8-17 00:00: 00 Yes [id number] 10mg Take 1 tablet by mouth at bedtime. [facility] rosuvastati n 10 mg tablet 3-0 8-17 00:00: 00 Yes [id number] 10mg Take 1 tablet by mouth at bedtime. [facility] rosuvastati n 10 mg tablet 3-0 8-17 00:00: 00 Yes [id number] 10mg Take 1 tablet by mouth at bedtime. [facility] rosuvastati n 10 mg tablet 3-0 8-17 00:00: 00 Yes [id number] 10mg Take 1 tablet by mouth at bedtime. [facility] rosuvastati n 10 mg tablet 3-0 8-17 00:00: 00 Yes [id number] 10mg Take 1 tablet by mouth at bedtime. [facility] rosuvastati n 10 mg tablet 3-0 8-17 00:00: 00 Yes [id number] 10mg Take 1 tablet by mouth at bedtime. [facility] rosuvastati n 10 mg tablet 3-0 8-17 00:00: 00 Yes [id number] 10mg Take 1 tablet by mouth at bedtime. [facility] rosuvastati n 10 mg tablet 3-0 8-17 00:00: 00 Yes [id number] 10mg Take 1 tablet by mouth at bedtime. [facility] rosuvastati n 10 mg tablet 3-0 8-17 00:00: 00 Yes [id number] 10mg Take 1 tablet by mouth at bedtime. [facility] rosuvastati n 10 mg tablet 3-0 8-17 00:00: 00 Yes [id number] 10mg Take 1 tablet by mouth at bedtime. [facility] rosuvastati n 10 mg tablet 3-0 8-17 00:00: 00 Yes [id number] 10mg Take 1 tablet by mouth at bedtime. [facility] rosuvastati n 10 mg tablet 01-20 00:00: 00 - 00:00 :00 No [id number] 10mg Take 1 tablet by mouth at bedtime. [facility] losartan-hy drochloroth iazide 50-12.5 mg per tablet 01-11 00:00: 00 Yes [id number] 1.5{tbl } Take 1.5 tablets by mouth in the morning. [facility] traZODone 50 mg tablet 01-11 00:00: 00 Yes [id number] 50mg Take 1 tablet by mouth at bedtime as needed for Insomnia. [facility] amLODIPine 10 mg tablet 01-11 00:00: 00 Yes [id number] 10mg Take 1 tablet by mouth in the morning. [facility] diclofenac 75 mg EC tablet 01-11 00:00: 00 Yes [id number] 75mg Take 1 tablet by mouth in the morning and 1 tablet in the evening. Take with meals. [facility] gabapentin 100 mg capsule 01-11 00:00: 00 Yes [id number] 100mg Take 1 capsule by mouth in the morning and 1 capsule at noon and 1 capsule in the evening. [facility] losartan-hy drochloroth iazide 50-12.5 mg per tablet 01-11 00:00: 00 Yes [id number] 1.5{tbl } Take 1.5 tablets by mouth in the morning. [facility] traZODone 50 mg tablet 01-11 00:00: 00 Yes [id number] 50mg Take 1 tablet by mouth at bedtime as needed for Insomnia. [facility] amLODIPine 10 mg tablet 01-11 00:00: 00 Yes [id number] 10mg Take 1 tablet by mouth in the morning. [facility] diclofenac 75 mg EC tablet 01-11 00:00: 00 Yes [id number] 75mg Take 1 tablet by mouth in the morning and 1 tablet in the evening. Take with meals. [facility] gabapentin 100 mg capsule 01-11 00:00: 00 Yes [id number] 100mg Take 1 capsule by mouth in the morning and 1 capsule at noon and 1 capsule in the evening. [facility] losartan-hy drochloroth iazide 50-12.5 mg per tablet 01-11 00:00: 00 Yes [id number] 1.5{tbl } Take 1.5 tablets by mouth in the morning. [facility] traZODone 50 mg tablet 01-11 00:00: 00 Yes [id number] 50mg Take 1 tablet by mouth at bedtime as needed for Insomnia. [facility] amLODIPine 10 mg tablet 01-11 00:00: 00 Yes [id number] 10mg Take 1 tablet by mouth in the morning. [facility] diclofenac 75 mg EC tablet 01-11 00:00: 00 Yes [id number] 75mg Take 1 tablet by mouth in the morning and 1 tablet in the evening. Take with meals. [facility] gabapentin 100 mg capsule 01-11 00:00: 00 Yes [id number] 100mg Take 1 capsule by mouth in the morning and 1 capsule at noon and 1 capsule in the evening. [facility] losartan-hy drochloroth iazide 50-12.5 mg per tablet 01-11 00:00: 00 Yes [id number] 1.5{tbl } Take 1.5 tablets by mouth in the morning. [facility] traZODone 50 mg tablet 01-11 00:00: 00 Yes [id number] 50mg Take 1 tablet by mouth at bedtime as needed for Insomnia. [facility] amLODIPine 10 mg tablet 01-11 00:00: 00 Yes [id number] 10mg Take 1 tablet by mouth in the morning. [facility] diclofenac 75 mg EC tablet 01-11 00:00: 00 Yes [id number] 75mg Take 1 tablet by mouth in the morning and 1 tablet in the evening. Take with meals. [facility] gabapentin 100 mg capsule 01-11 00:00: 00 Yes [id number] 100mg Take 1 capsule by mouth in the morning and 1 capsule at noon and 1 capsule in the evening. [facility] losartan-hy drochloroth iazide 50-12.5 mg per tablet 01-11 00:00: 00 Yes [id number] 1.5{tbl } Take 1.5 tablets by mouth in the morning. [facility] traZODone 50 mg tablet 01-11 00:00: 00 Yes [id number] 50mg Take 1 tablet by mouth at bedtime as needed for Insomnia. [facility] amLODIPine 10 mg tablet 01-11 00:00: 00 Yes [id number] 10mg Take 1 tablet by mouth in the morning. [facility] diclofenac 75 mg EC tablet 01-11 00:00: 00 Yes [id number] 75mg Take 1 tablet by mouth in the morning and 1 tablet in the evening. Take with meals. [facility] gabapentin 100 mg capsule 01-11 00:00: 00 Yes [id number] 100mg Take 1 capsule by mouth in the morning and 1 capsule at noon and 1 capsule in the evening. [facility] losartan-hy drochloroth iazide 50-12.5 mg per tablet 01-11 00:00: 00 Yes [id number] 1.5{tbl } Take 1.5 tablets by mouth in the morning. [facility] traZODone 50 mg tablet 01-11 00:00: 00 Yes [id number] 50mg Take 1 tablet by mouth at bedtime as needed for Insomnia. [facility] amLODIPine 10 mg tablet 01-11 00:00: 00 Yes [id number] 10mg Take 1 tablet by mouth in the morning. [facility] diclofenac 75 mg EC tablet 01-11 00:00: 00 Yes [id number] 75mg Take 1 tablet by mouth in the morning and 1 tablet in the evening. Take with meals. [facility] gabapentin 100 mg capsule 01-11 00:00: 00 Yes [id number] 100mg Take 1 capsule by mouth in the morning and 1 capsule at noon and 1 capsule in the evening. [facility] losartan-hy drochloroth iazide 50-12.5 mg per tablet 01-11 00:00: 00 Yes [id number] 1.5{tbl } Take 1.5 tablets by mouth in the morning. [facility] traZODone 50 mg tablet 01-11 00:00: 00 Yes [id number] 50mg Take 1 tablet by mouth at bedtime as needed for Insomnia. [facility] amLODIPine 10 mg tablet 01-11 00:00: 00 Yes [id number] 10mg Take 1 tablet by mouth in the morning. [facility] diclofenac 75 mg EC tablet 01-11 00:00: 00 Yes [id number] 75mg Take 1 tablet by mouth in the morning and 1 tablet in the evening. Take with meals. [facility] gabapentin 100 mg capsule 01-11 00:00: 00 Yes [id number] 100mg Take 1 capsule by mouth in the morning and 1 capsule at noon and 1 capsule in the evening. [facility] losartan-hy drochloroth iazide 50-12.5 mg per tablet 01-11 00:00: 00 Yes [id number] 1.5{tbl } Take 1.5 tablets by mouth in the morning. [facility] traZODone 50 mg tablet 01-11 00:00: 00 Yes [id number] 50mg Take 1 tablet by mouth at bedtime as needed for Insomnia. [facility] amLODIPine 10 mg tablet 01-11 00:00: 00 Yes [id number] 10mg Take 1 tablet by mouth in the morning. [facility] diclofenac 75 mg EC tablet 01-11 00:00: 00 Yes [id number] 75mg Take 1 tablet by mouth in the morning and 1 tablet in the evening. Take with meals. [facility] gabapentin 100 mg capsule 01-11 00:00: 00 Yes [id number] 100mg Take 1 capsule by mouth in the morning and 1 capsule at noon and 1 capsule in the evening. [facility] losartan-hy drochloroth iazide 50-12.5 mg per tablet 01-11 00:00: 00 Yes [id number] 1.5{tbl } Take 1.5 tablets by mouth in the morning. [facility] traZODone 50 mg tablet 01-11 00:00: 00 Yes [id number] 50mg Take 1 tablet by mouth at bedtime as needed for Insomnia. [facility] amLODIPine 10 mg tablet 01-11 00:00: 00 Yes [id number] 10mg Take 1 tablet by mouth in the morning. [facility] diclofenac 75 mg EC tablet 01-11 00:00: 00 Yes [id number] 75mg Take 1 tablet by mouth in the morning and 1 tablet in the evening. Take with meals. [facility] gabapentin 100 mg capsule 01-11 00:00: 00 Yes [id number] 100mg Take 1 capsule by mouth in the morning and 1 capsule at noon and 1 capsule in the evening. [facility] losartan-hy drochloroth iazide 50-12.5 mg per tablet 01-11 00:00: 00 Yes [id number] 1.5{tbl } Take 1.5 tablets by mouth in the morning. [facility] traZODone 50 mg tablet 01-11 00:00: 00 Yes [id number] 50mg Take 1 tablet by mouth at bedtime as needed for Insomnia. [facility] amLODIPine 10 mg tablet 01-11 00:00: 00 Yes [id number] 10mg Take 1 tablet by mouth in the morning. [facility] diclofenac 75 mg EC tablet 01-11 00:00: 00 Yes [id number] 75mg Take 1 tablet by mouth in the morning and 1 tablet in the evening. Take with meals. [facility] gabapentin 100 mg capsule 01-11 00:00: 00 Yes [id number] 100mg Take 1 capsule by mouth in the morning and 1 capsule at noon and 1 capsule in the evening. [facility] losartan-hy drochloroth iazide 50-12.5 mg per tablet 01-11 00:00: 00 Yes [id number] 1.5{tbl } Take 1.5 tablets by mouth in the morning. [facility] traZODone 50 mg tablet 01-11 00:00: 00 Yes [id number] 50mg Take 1 tablet by mouth at bedtime as needed for Insomnia. [facility] amLODIPine 10 mg tablet 01-11 00:00: 00 Yes [id number] 10mg Take 1 tablet by mouth in the morning. [facility] diclofenac 75 mg EC tablet 01-11 00:00: 00 Yes [id number] 75mg Take 1 tablet by mouth in the morning and 1 tablet in the evening. Take with meals. [facility] gabapentin 100 mg capsule 01-11 00:00: 00 Yes [id number] 100mg Take 1 capsule by mouth in the morning and 1 capsule at noon and 1 capsule in the evening. [facility] losartan-hy drochloroth iazide 50-12.5 mg per tablet 01-11 00:00: 00 Yes [id number] 1.5{tbl } Take 1.5 tablets by mouth in the morning. [facility] traZODone 50 mg tablet 01-11 00:00: 00 Yes [id number] 50mg Take 1 tablet by mouth at bedtime as needed for Insomnia. [facility] amLODIPine 10 mg tablet 01-11 00:00: 00 Yes [id number] 10mg Take 1 tablet by mouth in the morning. [facility] diclofenac 75 mg EC tablet 01-11 00:00: 00 Yes [id number] 75mg Take 1 tablet by mouth in the morning and 1 tablet in the evening. Take with meals. [facility] gabapentin 100 mg capsule 01-11 00:00: 00 Yes [id number] 100mg Take 1 capsule by mouth in the morning and 1 capsule at noon and 1 capsule in the evening. [facility] losartan-hy drochloroth iazide 50-12.5 mg per tablet 01-11 00:00: 00 Yes [id number] 1.5{tbl } Take 1.5 tablets by mouth in the morning. [facility] traZODone 50 mg tablet 01-11 00:00: 00 Yes [id number] 50mg Take 1 tablet by mouth at bedtime as needed for Insomnia. [facility] amLODIPine 10 mg tablet 01-11 00:00: 00 Yes [id number] 10mg Take 1 tablet by mouth in the morning. [facility] diclofenac 75 mg EC tablet 01-11 00:00: 00 Yes [id number] 75mg Take 1 tablet by mouth in the morning and 1 tablet in the evening. Take with meals. [facility] gabapentin 100 mg capsule 01-11 00:00: 00 Yes [id number] 100mg Take 1 capsule by mouth in the morning and 1 capsule at noon and 1 capsule in the evening. [facility] losartan-hy drochloroth iazide 50-12.5 mg per tablet 01-11 00:00: 00 Yes [id number] 1.5{tbl } Take 1.5 tablets by mouth in the morning. [facility] traZODone 50 mg tablet 01-11 00:00: 00 Yes [id number] 50mg Take 1 tablet by mouth at bedtime as needed for Insomnia. [facility] amLODIPine 10 mg tablet 01-11 00:00: 00 Yes [id number] 10mg Take 1 tablet by mouth in the morning. [facility] diclofenac 75 mg EC tablet 01-11 00:00: 00 Yes [id number] 75mg Take 1 tablet by mouth in the morning and 1 tablet in the evening. Take with meals. [facility] gabapentin 100 mg capsule 01-11 00:00: 00 Yes [id number] 100mg Take 1 capsule by mouth in the morning and 1 capsule at noon and 1 capsule in the evening. [facility] losartan-hy drochloroth iazide 50-12.5 mg per tablet 01-11 00:00: 00 Yes [id number] 1.5{tbl } Take 1.5 tablets by mouth in the morning. [facility] traZODone 50 mg tablet 01-11 00:00: 00 Yes [id number] 50mg Take 1 tablet by mouth at bedtime as needed for Insomnia. [facility] amLODIPine 10 mg tablet 01-11 00:00: 00 Yes [id number] 10mg Take 1 tablet by mouth in the morning. [facility] diclofenac 75 mg EC tablet 01-11 00:00: 00 Yes [id number] 75mg Take 1 tablet by mouth in the morning and 1 tablet in the evening. Take with meals. [facility] gabapentin 100 mg capsule 01-11 00:00: 00 Yes [id number] 100mg Take 1 capsule by mouth in the morning and 1 capsule at noon and 1 capsule in the evening. [facility] losartan-hy drochloroth iazide 50-12.5 mg per tablet 01-11 00:00: 00 Yes [id number] 1.5{tbl } Take 1.5 tablets by mouth in the morning. [facility] traZODone 50 mg tablet 01-11 00:00: 00 Yes [id number] 50mg Take 1 tablet by mouth at bedtime as needed for Insomnia. [facility] amLODIPine 10 mg tablet 01-11 00:00: 00 Yes [id number] 10mg Take 1 tablet by mouth in the morning. [facility] diclofenac 75 mg EC tablet 01-11 00:00: 00 Yes [id number] 75mg Take 1 tablet by mouth in the morning and 1 tablet in the evening. Take with meals. [facility] gabapentin 100 mg capsule 01-11 00:00: 00 Yes [id number] 100mg Take 1 capsule by mouth in the morning and 1 capsule at noon and 1 capsule in the evening. [facility] losartan-hy drochloroth iazide 50-12.5 mg per tablet 01-11 00:00: 00 Yes [id number] 1.5{tbl } Take 1.5 tablets by mouth in the morning. [facility] traZODone 50 mg tablet 01-11 00:00: 00 Yes [id number] 50mg Take 1 tablet by mouth at bedtime as needed for Insomnia. [facility] amLODIPine 10 mg tablet 01-11 00:00: 00 Yes [id number] 10mg Take 1 tablet by mouth in the morning. [facility] diclofenac 75 mg EC tablet 01-11 00:00: 00 Yes [id number] 75mg Take 1 tablet by mouth in the morning and 1 tablet in the evening. Take with meals. [facility] gabapentin 100 mg capsule 01-11 00:00: 00 Yes [id number] 100mg Take 1 capsule by mouth in the morning and 1 capsule at noon and 1 capsule in the evening. [facility] losartan-hy drochloroth iazide 50-12.5 mg per tablet 01-11 00:00: 00 Yes [id number] 1.5{tbl } Take 1.5 tablets by mouth in the morning. [facility] traZODone 50 mg tablet 01-11 00:00: 00 Yes [id number] 50mg Take 1 tablet by mouth at bedtime as needed for Insomnia. [facility] amLODIPine 10 mg tablet 01-11 00:00: 00 Yes [id number] 10mg Take 1 tablet by mouth in the morning. [facility] diclofenac 75 mg EC tablet 01-11 00:00: 00 Yes [id number] 75mg Take 1 tablet by mouth in the morning and 1 tablet in the evening. Take with meals. [facility] gabapentin 100 mg capsule 01-11 00:00: 00 Yes [id number] 100mg Take 1 capsule by mouth in the morning and 1 capsule at noon and 1 capsule in the evening. [facility] losartan-hy drochloroth iazide 50-12.5 mg per tablet 01-11 00:00: 00 Yes [id number] 1.5{tbl } Take 1.5 tablets by mouth in the morning. [facility] traZODone 50 mg tablet 01-11 00:00: 00 Yes [id number] 50mg Take 1 tablet by mouth at bedtime as needed for Insomnia. [facility] amLODIPine 10 mg tablet 01-11 00:00: 00 Yes [id number] 10mg Take 1 tablet by mouth in the morning. [facility] diclofenac 75 mg EC tablet 01-11 00:00: 00 Yes [id number] 75mg Take 1 tablet by mouth in the morning and 1 tablet in the evening. Take with meals. [facility] gabapentin 100 mg capsule 01-11 00:00: 00 Yes [id number] 100mg Take 1 capsule by mouth in the morning and 1 capsule at noon and 1 capsule in the evening. [facility] losartan-hy drochloroth iazide 50-12.5 mg per tablet 01-11 00:00: 00 Yes [id number] 1.5{tbl } Take 1.5 tablets by mouth in the morning. [facility] traZODone 50 mg tablet 01-11 00:00: 00 Yes [id number] 50mg Take 1 tablet by mouth at bedtime as needed for Insomnia. [facility] amLODIPine 10 mg tablet 01-11 00:00: 00 Yes [id number] 10mg Take 1 tablet by mouth in the morning. [facility] diclofenac 75 mg EC tablet 01-11 00:00: 00 Yes [id number] 75mg Take 1 tablet by mouth in the morning and 1 tablet in the evening. Take with meals. [facility] gabapentin 100 mg capsule 01-11 00:00: 00 Yes [id number] 100mg Take 1 capsule by mouth in the morning and 1 capsule at noon and 1 capsule in the evening. [facility] losartan-hy drochloroth iazide 50-12.5 mg per tablet 01-11 00:00: 00 Yes [id number] 1.5{tbl } Take 1.5 tablets by mouth in the morning. [facility] traZODone 50 mg tablet 01-11 00:00: 00 Yes [id number] 50mg Take 1 tablet by mouth at bedtime as needed for Insomnia. [facility] amLODIPine 10 mg tablet 01-11 00:00: 00 Yes [id number] 10mg Take 1 tablet by mouth in the morning. [facility] diclofenac 75 mg EC tablet 01-11 00:00: 00 Yes [id number] 75mg Take 1 tablet by mouth in the morning and 1 tablet in the evening. Take with meals. [facility] gabapentin 100 mg capsule 01-11 00:00: 00 Yes [id number] 100mg Take 1 capsule by mouth in the morning and 1 capsule at noon and 1 capsule in the evening. [facility] losartan-hy drochloroth iazide 50-12.5 mg per tablet 01-11 00:00: 00 Yes [id number] 1.5{tbl } Take 1.5 tablets by mouth in the morning. [facility] traZODone 50 mg tablet 01-11 00:00: 00 Yes [id number] 50mg Take 1 tablet by mouth at bedtime as needed for Insomnia. [facility] amLODIPine 10 mg tablet 01-11 00:00: 00 Yes [id number] 10mg Take 1 tablet by mouth in the morning. [facility] diclofenac 75 mg EC tablet 01-11 00:00: 00 Yes [id number] 75mg Take 1 tablet by mouth in the morning and 1 tablet in the evening. Take with meals. [facility] gabapentin 100 mg capsule 01-11 00:00: 00 Yes [id number] 100mg Take 1 capsule by mouth in the morning and 1 capsule at noon and 1 capsule in the evening. [facility] losartan-hy drochloroth iazide 50-12.5 mg per tablet 01-11 00:00: 00 Yes [id number] 1.5{tbl } Take 1.5 tablets by mouth in the morning. [facility] traZODone 50 mg tablet 01-11 00:00: 00 Yes [id number] 50mg Take 1 tablet by mouth at bedtime as needed for Insomnia. [facility] amLODIPine 10 mg tablet 01-11 00:00: 00 Yes [id number] 10mg Take 1 tablet by mouth in the morning. [facility] diclofenac 75 mg EC tablet 01-11 00:00: 00 Yes [id number] 75mg Take 1 tablet by mouth in the morning and 1 tablet in the evening. Take with meals. [facility] gabapentin 100 mg capsule 01-11 00:00: 00 Yes [id number] 100mg Take 1 capsule by mouth in the morning and 1 capsule at noon and 1 capsule in the evening. [facility] losartan-hy drochloroth iazide 50-12.5 mg per tablet 01-11 00:00: 00 Yes [id number] 1.5{tbl } Take 1.5 tablets by mouth in the morning. [facility] traZODone 50 mg tablet 01-11 00:00: 00 Yes [id number] 50mg Take 1 tablet by mouth at bedtime as needed for Insomnia. [facility] amLODIPine 10 mg tablet 01-11 00:00: 00 Yes [id number] 10mg Take 1 tablet by mouth in the morning. [facility] diclofenac 75 mg EC tablet 01-11 00:00: 00 Yes [id number] 75mg Take 1 tablet by mouth in the morning and 1 tablet in the evening. Take with meals. [facility] gabapentin 100 mg capsule 01-11 00:00: 00 Yes [id number] 100mg Take 1 capsule by mouth in the morning and 1 capsule at noon and 1 capsule in the evening. [facility] losartan-hy drochloroth iazide 50-12.5 mg per tablet 01-11 00:00: 00 Yes [id number] 1.5{tbl } Take 1.5 tablets by mouth in the morning. [facility] traZODone 50 mg tablet 01-11 00:00: 00 Yes [id number] 50mg Take 1 tablet by mouth at bedtime as needed for Insomnia. [facility] amLODIPine 10 mg tablet 01-11 00:00: 00 Yes [id number] 10mg Take 1 tablet by mouth in the morning. [facility] diclofenac 75 mg EC tablet 01-11 00:00: 00 Yes [id number] 75mg Take 1 tablet by mouth in the morning and 1 tablet in the evening. Take with meals. [facility] gabapentin 100 mg capsule 01-11 00:00: 00 Yes [id number] 100mg Take 1 capsule by mouth in the morning and 1 capsule at noon and 1 capsule in the evening. [facility] losartan-hy drochloroth iazide 50-12.5 mg per tablet 01-11 00:00: 00 Yes [id number] 1.5{tbl } Take 1.5 tablets by mouth in the morning. [facility] traZODone 50 mg tablet 01-11 00:00: 00 Yes [id number] 50mg Take 1 tablet by mouth at bedtime as needed for Insomnia. [facility] amLODIPine 10 mg tablet 01-11 00:00: 00 Yes [id number] 10mg Take 1 tablet by mouth in the morning. [facility] diclofenac 75 mg EC tablet 01-11 00:00: 00 Yes [id number] 75mg Take 1 tablet by mouth in the morning and 1 tablet in the evening. Take with meals. [facility] gabapentin 100 mg capsule 01-11 00:00: 00 Yes [id number] 100mg Take 1 capsule by mouth in the morning and 1 capsule at noon and 1 capsule in the evening. [facility] losartan-hy drochloroth iazide 50-12.5 mg per tablet 01-11 00:00: 00 Yes [id number] 1.5{tbl } Take 1.5 tablets by mouth in the morning. [facility] traZODone 50 mg tablet 01-11 00:00: 00 Yes [id number] 50mg Take 1 tablet by mouth at bedtime as needed for Insomnia. [facility] amLODIPine 10 mg tablet 01-11 00:00: 00 Yes [id number] 10mg Take 1 tablet by mouth in the morning. [facility] diclofenac 75 mg EC tablet 01-11 00:00: 00 Yes [id number] 75mg Take 1 tablet by mouth in the morning and 1 tablet in the evening. Take with meals. [facility] gabapentin 100 mg capsule 01-11 00:00: 00 Yes [id number] 100mg Take 1 capsule by mouth in the morning and 1 capsule at noon and 1 capsule in the evening. [facility] losartan-hy drochloroth iazide 50-12.5 mg per tablet 01-11 00:00: 00 Yes [id number] 1.5{tbl } Take 1.5 tablets by mouth in the morning. [facility] traZODone 50 mg tablet 01-11 00:00: 00 Yes [id number] 50mg Take 1 tablet by mouth at bedtime as needed for Insomnia. [facility] amLODIPine 10 mg tablet 01-11 00:00: 00 Yes [id number] 10mg Take 1 tablet by mouth in the morning. [facility] diclofenac 75 mg EC tablet 01-11 00:00: 00 Yes [id number] 75mg Take 1 tablet by mouth in the morning and 1 tablet in the evening. Take with meals. [facility] gabapentin 100 mg capsule 01-11 00:00: 00 Yes [id number] 100mg Take 1 capsule by mouth in the morning and 1 capsule at noon and 1 capsule in the evening. [facility] losartan-hy drochloroth iazide 50-12.5 mg per tablet 01-11 00:00: 00 Yes [id number] 1.5{tbl } Take 1.5 tablets by mouth in the morning. [facility] traZODone 50 mg tablet 01-11 00:00: 00 Yes [id number] 50mg Take 1 tablet by mouth at bedtime as needed for Insomnia. [facility] amLODIPine 10 mg tablet 01-11 00:00: 00 Yes [id number] 10mg Take 1 tablet by mouth in the morning. [facility] diclofenac 75 mg EC tablet 01-11 00:00: 00 Yes [id number] 75mg Take 1 tablet by mouth in the morning and 1 tablet in the evening. Take with meals. [facility] gabapentin 100 mg capsule 2022-0 01-11 00:00: 00 Yes [id number] 100mg Take 1 capsule by mouth in the morning and 1 capsule at noon and 1 capsule in the evening. [facility] losartan-hy drochloroth iazide 50-12.5 mg per tablet 01-11 00:00: 00 Yes [id number] 1.5{tbl } Take 1.5 tablets by mouth in the morning. [facility] traZODone 50 mg tablet 01-11 00:00: 00 Yes [id number] 50mg Take 1 tablet by mouth at bedtime as needed for Insomnia. [facility] amLODIPine 10 mg tablet 01-11 00:00: 00 Yes [id number] 10mg Take 1 tablet by mouth in the morning. [facility] diclofenac 75 mg EC tablet 01-11 00:00: 00 Yes [id number] 75mg Take 1 tablet by mouth in the morning and 1 tablet in the evening. Take with meals. [facility] gabapentin 100 mg capsule 01-11 00:00: 00 Yes [id number] 100mg Take 1 capsule by mouth in the morning and 1 capsule at noon and 1 capsule in the evening. [facility] losartan-hy drochloroth iazide 50-12.5 mg per tablet 01-11 00:00: 00 Yes [id number] 1.5{tbl } Take 1.5 tablets by mouth in the morning. [facility] traZODone 50 mg tablet 01-11 00:00: 00 Yes [id number] 50mg Take 1 tablet by mouth at bedtime as needed for Insomnia. [facility] amLODIPine 10 mg tablet 0 01-11 00:00: 00 Yes [id number] 10mg Take 1 tablet by mouth in the morning. [facility] diclofenac 75 mg EC tablet 01-11 00:00: 00 Yes [id number] 75mg Take 1 tablet by mouth in the morning and 1 tablet in the evening. Take with meals. [facility] gabapentin 100 mg capsule 2022-0 01-11 00:00: 00 Yes [id number] 100mg Take 1 capsule by mouth in the morning and 1 capsule at noon and 1 capsule in the evening. [facility] losartan-hy drochloroth iazide 50-12.5 mg per tablet 01-11 00:00: 00 Yes [id number] 1.5{tbl } Take 1.5 tablets by mouth in the morning. [facility] traZODone 50 mg tablet 01-11 00:00: 00 Yes [id number] 50mg Take 1 tablet by mouth at bedtime as needed for Insomnia. [facility] amLODIPine 10 mg tablet 01-11 00:00: 00 Yes [id number] 10mg Take 1 tablet by mouth in the morning. [facility] diclofenac 75 mg EC tablet 01-11 00:00: 00 Yes [id number] 75mg Take 1 tablet by mouth in the morning and 1 tablet in the evening. Take with meals. [facility] gabapentin 100 mg capsule 01-11 00:00: 00 Yes [id number] 100mg Take 1 capsule by mouth in the morning and 1 capsule at noon and 1 capsule in the evening. [facility] losartan-hy drochloroth iazide 50-12.5 mg per tablet 01-11 00:00: 00 Yes [id number] 1.5{tbl } Take 1.5 tablets by mouth in the morning. [facility] traZODone 50 mg tablet 2022-0 01-11 00:00: 00 Yes [id number] 50mg Take 1 tablet by mouth at bedtime as needed for Insomnia. [facility] amLODIPine 10 mg tablet 2022-0 01-11 00:00: 00 Yes [id number] 10mg Take 1 tablet by mouth in the morning. [facility] diclofenac 75 mg EC tablet 01-11 00:00: 00 Yes [id number] 75mg Take 1 tablet by mouth in the morning and 1 tablet in the evening. Take with meals. [facility] gabapentin 100 mg capsule 01-11 00:00: 00 Yes [id number] 100mg Take 1 capsule by mouth in the morning and 1 capsule at noon and 1 capsule in the evening. [facility] losartan-hy drochloroth iazide 50-12.5 mg per tablet 01-11 00:00: 00 Yes [id number] 1.5{tbl } Take 1.5 tablets by mouth in the morning. [facility] traZODone 50 mg tablet 01-11 00:00: 00 Yes [id number] 50mg Take 1 tablet by mouth at bedtime as needed for Insomnia. [facility] amLODIPine 10 mg tablet 01-11 00:00: 00 Yes [id number] 10mg Take 1 tablet by mouth in the morning. [facility] diclofenac 75 mg EC tablet 01-11 00:00: 00 Yes [id number] 75mg Take 1 tablet by mouth in the morning and 1 tablet in the evening. Take with meals. [facility] gabapentin 100 mg capsule 01-11 00:00: 00 Yes [id number] 100mg Take 1 capsule by mouth in the morning and 1 capsule at noon and 1 capsule in the evening. [facility] [facility] losartan-hy drochloroth iazide 50-12.5 mg per tablet 01-11 00:00: 00 Yes [id number] 1.5{tbl } Take 1.5 tablets by mouth in the morning. [facility] traZODone 50 mg tablet 01-11 00:00: 00 Yes [id number] 50mg Take 1 tablet by mouth at bedtime as needed for Insomnia. [facility] amLODIPine 10 mg tablet 01-11 00:00: 00 Yes [id number] 10mg Take 1 tablet by mouth in the morning. [facility] diclofenac 75 mg EC tablet 01-11 00:00: 00 Yes [id number] 75mg Take 1 tablet by mouth in the morning and 1 tablet in the evening. Take with meals. [facility] gabapentin 100 mg capsule 01-11 00:00: 00 Yes [id number] 100mg Take 1 capsule by mouth in the morning and 1 capsule at noon and 1 capsule in the evening. [facility] losartan-hy drochloroth iazide 50-12.5 mg per tablet 01-11 00:00: 00 Yes [id number] 1.5{tbl } Take 1.5 tablets by mouth in the morning. [facility] traZODone 50 mg tablet 01-11 00:00: 00 Yes [id number] 50mg Take 1 tablet by mouth at bedtime as needed for Insomnia. [facility] amLODIPine 10 mg tablet 01-11 00:00: 00 Yes [id number] 10mg Take 1 tablet by mouth in the morning. [facility] diclofenac 75 mg EC tablet 01-11 00:00: 00 Yes [id number] 75mg Take 1 tablet by mouth in the morning and 1 tablet in the evening. Take with meals. [facility] gabapentin 100 mg capsule 01-11 00:00: 00 Yes [id number] 100mg Take 1 capsule by mouth in the morning and 1 capsule at noon and 1 capsule in the evening. [facility] losartan-hy drochloroth iazide 50-12.5 mg per tablet 11-29 00:00: 00 Yes [id number] 1{tbl} Take 1 tablet by mouth in the morning. MUST BE SEEN FOR FURTHER REFILLS [facility] amoxicillin -clavulanat e (AUGMENTIN) 875-125 mg per tablet 11-29 00:00: 00 Yes [id number] 1{tbl} Take 1 tablet by mouth in the morning and 1 tablet in the evening. [facility] SERTraline (ZOLOFT) 25 mg tablet 11-29 00:00: 00 Yes [id number] 25mg Take 1 tablet by mouth in the morning. [facility] traZODone 50 mg tablet 11-29 00:00: 00 Yes [id number] 50mg Take 1 tablet by mouth at bedtime as needed for Insomnia. [facility] levocetiriz ine 5 mg tablet 11-29 00:00: 00 Yes [id number] 5mg Take 1 tablet by mouth every evening. [facility] losartan-hy drochloroth iazide 50-12.5 mg per tablet 11-29 00:00: 00 Yes [id number] 1.5{tbl } Take 1.5 tablets by mouth in the morning. [facility] amoxicillin -clavulanat e (AUGMENTIN) 875-125 mg per tablet 11-29 00:00: 00 Yes [id number] 1{tbl} Take 1 tablet by mouth in the morning and 1 tablet in the evening. [facility] SERTraline (ZOLOFT) 25 mg tablet 11-29 00:00: 00 Yes [id number] 25mg Take 1 tablet by mouth in the morning. [facility] traZODone 50 mg tablet 11-29 00:00: 00 Yes [id number] 50mg Take 1 tablet by mouth at bedtime as needed for Insomnia. [facility] levocetiriz ine 5 mg tablet 11-29 00:00: 00 Yes [id number] 5mg Take 1 tablet by mouth every evening. [facility] losartan-hy drochloroth iazide 50-12.5 mg per tablet 11-29 00:00: 00 Yes [id number] 1.5{tbl } Take 1.5 tablets by mouth in the morning. [facility] amoxicillin -clavulanat e (AUGMENTIN) 875-125 mg per tablet 11-29 00:00: 00 Yes [id number] 1{tbl} Take 1 tablet by mouth in the morning and 1 tablet in the evening. [facility] SERTraline (ZOLOFT) 25 mg tablet 11-29 00:00: 00 Yes [id number] 25mg Take 1 tablet by mouth in the morning. [facility] traZODone 50 mg tablet 11-29 00:00: 00 Yes [id number] 50mg Take 1 tablet by mouth at bedtime as needed for Insomnia. [facility] levocetiriz ine 5 mg tablet 11-29 00:00: 00 Yes [id number] 5mg Take 1 tablet by mouth every evening. [facility] losartan-hy drochloroth iazide 50-12.5 mg per tablet 11-29 00:00: 00 Yes [id number] 1.5{tbl } Take 1.5 tablets by mouth in the morning. [facility] amoxicillin -clavulanat e (AUGMENTIN) 875-125 mg per tablet 11-29 00:00: 00 Yes [id number] 1{tbl} Take 1 tablet by mouth in the morning and 1 tablet in the evening. [facility] SERTraline (ZOLOFT) 25 mg tablet 11-29 00:00: 00 Yes [id number] 25mg Take 1 tablet by mouth in the morning. [facility] traZODone 50 mg tablet 11-29 00:00: 00 Yes [id number] 50mg Take 1 tablet by mouth at bedtime as needed for Insomnia. [facility] levocetiriz ine 5 mg tablet 11-29 00:00: 00 Yes [id number] 5mg Take 1 tablet by mouth every evening. [facility] losartan-hy drochloroth iazide 50-12.5 mg per tablet 11-29 00:00: 00 Yes [id number] 1.5{tbl } Take 1.5 tablets by mouth in the morning. [facility] amoxicillin -clavulanat e (AUGMENTIN) 875-125 mg per tablet 11-29 00:00: 00 Yes [id number] 1{tbl} Take 1 tablet by mouth in the morning and 1 tablet in the evening. [facility] SERTraline (ZOLOFT) 25 mg tablet 11-29 00:00: 00 Yes [id number] 25mg Take 1 tablet by mouth in the morning. [facility] levocetiriz ine 5 mg tablet 11-29 00:00: 00 Yes [id number] 5mg Take 1 tablet by mouth every evening. [facility] amoxicillin -clavulanat e (AUGMENTIN) 875-125 mg per tablet 11-29 00:00: 00 Yes [id number] 1{tbl} Take 1 tablet by mouth in the morning and 1 tablet in the evening. [facility] SERTraline (ZOLOFT) 25 mg tablet 11-29 00:00: 00 Yes [id number] 25mg Take 1 tablet by mouth in the morning. [facility] levocetiriz ine 5 mg tablet 11-29 00:00: 00 Yes [id number] 5mg Take 1 tablet by mouth every evening. [facility] amoxicillin -clavulanat e (AUGMENTIN) 875-125 mg per tablet 11-29 00:00: 00 Yes [id number] 1{tbl} Take 1 tablet by mouth in the morning and 1 tablet in the evening. [facility] SERTraline (ZOLOFT) 25 mg tablet 11-29 00:00: 00 Yes [id number] 25mg Take 1 tablet by mouth in the morning. [facility] levocetiriz ine 5 mg tablet 11-29 00:00: 00 Yes [id number] 5mg Take 1 tablet by mouth every evening. [facility] amoxicillin -clavulanat e (AUGMENTIN) 875-125 mg per tablet 11-29 00:00: 00 Yes [id number] 1{tbl} Take 1 tablet by mouth in the morning and 1 tablet in the evening. [facility] SERTraline (ZOLOFT) 25 mg tablet 11-29 00:00: 00 Yes [id number] 25mg Take 1 tablet by mouth in the morning. [facility] levocetiriz ine 5 mg tablet 11-29 00:00: 00 Yes [id number] 5mg Take 1 tablet by mouth every evening. [facility] amoxicillin -clavulanat e (AUGMENTIN) 875-125 mg per tablet 11-29 00:00: 00 Yes [id number] 1{tbl} Take 1 tablet by mouth in the morning and 1 tablet in the evening. [facility] SERTraline (ZOLOFT) 25 mg tablet 11-29 00:00: 00 Yes [id number] 25mg Take 1 tablet by mouth in the morning. [facility] levocetiriz ine 5 mg tablet 11-29 00:00: 00 Yes [id number] 5mg Take 1 tablet by mouth every evening. [facility] amoxicillin -clavulanat e (AUGMENTIN) 875-125 mg per tablet 11-29 00:00: 00 Yes [id number] 1{tbl} Take 1 tablet by mouth in the morning and 1 tablet in the evening. [facility] SERTraline (ZOLOFT) 25 mg tablet 11-29 00:00: 00 Yes [id number] 25mg Take 1 tablet by mouth in the morning. [facility] levocetiriz ine 5 mg tablet 11-29 00:00: 00 Yes [id number] 5mg Take 1 tablet by mouth every evening. [facility] amoxicillin -clavulanat e (AUGMENTIN) 875-125 mg per tablet 11-29 00:00: 00 Yes [id number] 1{tbl} Take 1 tablet by mouth in the morning and 1 tablet in the evening. [facility] SERTraline (ZOLOFT) 25 mg tablet 11-29 00:00: 00 Yes [id number] 25mg Take 1 tablet by mouth in the morning. [facility] levocetiriz ine 5 mg tablet 11-29 00:00: 00 Yes [id number] 5mg Take 1 tablet by mouth every evening. [facility] amoxicillin -clavulanat e (AUGMENTIN) 875-125 mg per tablet 11-29 00:00: 00 Yes [id number] 1{tbl} Take 1 tablet by mouth in the morning and 1 tablet in the evening. [facility] SERTraline (ZOLOFT) 25 mg tablet 11-29 00:00: 00 Yes [id number] 25mg Take 1 tablet by mouth in the morning. [facility] levocetiriz ine 5 mg tablet 11-29 00:00: 00 Yes [id number] 5mg Take 1 tablet by mouth every evening. [facility] amoxicillin -clavulanat e (AUGMENTIN) 875-125 mg per tablet 11-29 00:00: 00 Yes [id number] 1{tbl} Take 1 tablet by mouth in the morning and 1 tablet in the evening. [facility] SERTraline (ZOLOFT) 25 mg tablet 11-29 00:00: 00 Yes [id number] 25mg Take 1 tablet by mouth in the morning. [facility] levocetiriz ine 5 mg tablet 11-29 00:00: 00 Yes [id number] 5mg Take 1 tablet by mouth every evening. [facility] amoxicillin -clavulanat e (AUGMENTIN) 875-125 mg per tablet 11-29 00:00: 00 Yes [id number] 1{tbl} Take 1 tablet by mouth in the morning and 1 tablet in the evening. [facility] SERTraline (ZOLOFT) 25 mg tablet 11-29 00:00: 00 Yes [id number] 25mg Take 1 tablet by mouth in the morning. [facility] levocetiriz ine 5 mg tablet 11-29 00:00: 00 Yes [id number] 5mg Take 1 tablet by mouth every evening. [facility] amoxicillin -clavulanat e (AUGMENTIN) 875-125 mg per tablet 11-29 00:00: 00 Yes [id number] 1{tbl} Take 1 tablet by mouth in the morning and 1 tablet in the evening. [facility] SERTraline (ZOLOFT) 25 mg tablet 11-29 00:00: 00 Yes [id number] 25mg Take 1 tablet by mouth in the morning. [facility] levocetiriz ine 5 mg tablet 11-29 00:00: 00 Yes [id number] 5mg Take 1 tablet by mouth every evening. [facility] amoxicillin -clavulanat e (AUGMENTIN) 875-125 mg per tablet 11-29 00:00: 00 Yes [id number] 1{tbl} Take 1 tablet by mouth in the morning and 1 tablet in the evening. [facility] SERTraline (ZOLOFT) 25 mg tablet 11-29 00:00: 00 Yes [id number] 25mg Take 1 tablet by mouth in the morning. [facility] levocetiriz ine 5 mg tablet 11-29 00:00: 00 Yes [id number] 5mg Take 1 tablet by mouth every evening. [facility] amoxicillin -clavulanat e (AUGMENTIN) 875-125 mg per tablet 11-29 00:00: 00 Yes [id number] 1{tbl} Take 1 tablet by mouth in the morning and 1 tablet in the evening. [facility] SERTraline (ZOLOFT) 25 mg tablet 11-29 00:00: 00 Yes [id number] 25mg Take 1 tablet by mouth in the morning. [facility] levocetiriz ine 5 mg tablet 11-29 00:00: 00 Yes [id number] 5mg Take 1 tablet by mouth every evening. [facility] amoxicillin -clavulanat e (AUGMENTIN) 875-125 mg per tablet 11-29 00:00: 00 Yes [id number] 1{tbl} Take 1 tablet by mouth in the morning and 1 tablet in the evening. [facility] SERTraline (ZOLOFT) 25 mg tablet 11-29 00:00: 00 Yes [id number] 25mg Take 1 tablet by mouth in the morning. [facility] levocetiriz ine 5 mg tablet 11-29 00:00: 00 Yes [id number] 5mg Take 1 tablet by mouth every evening. [facility] amoxicillin -clavulanat e (AUGMENTIN) 875-125 mg per tablet 11-29 00:00: 00 Yes [id number] 1{tbl} Take 1 tablet by mouth in the morning and 1 tablet in the evening. [facility] SERTraline (ZOLOFT) 25 mg tablet 11-29 00:00: 00 Yes [id number] 25mg Take 1 tablet by mouth in the morning. [facility] levocetiriz ine 5 mg tablet 11-29 00:00: 00 Yes [id number] 5mg Take 1 tablet by mouth every evening. [facility] amoxicillin -clavulanat e (AUGMENTIN) 875-125 mg per tablet 11-29 00:00: 00 Yes [id number] 1{tbl} Take 1 tablet by mouth in the morning and 1 tablet in the evening. [facility] SERTraline (ZOLOFT) 25 mg tablet 11-29 00:00: 00 Yes [id number] 25mg Take 1 tablet by mouth in the morning. [facility] levocetiriz ine 5 mg tablet 11-29 00:00: 00 Yes [id number] 5mg Take 1 tablet by mouth every evening. [facility] amoxicillin -clavulanat e (AUGMENTIN) 875-125 mg per tablet 11-29 00:00: 00 Yes [id number] 1{tbl} Take 1 tablet by mouth in the morning and 1 tablet in the evening. [facility] SERTraline (ZOLOFT) 25 mg tablet 11-29 00:00: 00 Yes [id number] 25mg Take 1 tablet by mouth in the morning. [facility] levocetiriz ine 5 mg tablet 11-29 00:00: 00 Yes [id number] 5mg Take 1 tablet by mouth every evening. [facility] amoxicillin -clavulanat e (AUGMENTIN) 875-125 mg per tablet 11-29 00:00: 00 Yes [id number] 1{tbl} Take 1 tablet by mouth in the morning and 1 tablet in the evening. [facility] SERTraline (ZOLOFT) 25 mg tablet 11-29 00:00: 00 Yes [id number] 25mg Take 1 tablet by mouth in the morning. [facility] levocetiriz ine 5 mg tablet 11-29 00:00: 00 Yes [id number] 5mg Take 1 tablet by mouth every evening. [facility] amoxicillin -clavulanat e (AUGMENTIN) 875-125 mg per tablet 11-29 00:00: 00 Yes [id number] 1{tbl} Take 1 tablet by mouth in the morning and 1 tablet in the evening. [facility] SERTraline (ZOLOFT) 25 mg tablet 11-29 00:00: 00 Yes [id number] 25mg Take 1 tablet by mouth in the morning. [facility] levocetiriz ine 5 mg tablet 11-29 00:00: 00 Yes [id number] 5mg Take 1 tablet by mouth every evening. [facility] amoxicillin -clavulanat e (AUGMENTIN) 875-125 mg per tablet 11-29 00:00: 00 Yes [id number] 1{tbl} Take 1 tablet by mouth in the morning and 1 tablet in the evening. [facility] SERTraline (ZOLOFT) 25 mg tablet 11-29 00:00: 00 Yes [id number] 25mg Take 1 tablet by mouth in the morning. [facility] levocetiriz ine 5 mg tablet 11-29 00:00: 00 Yes [id number] 5mg Take 1 tablet by mouth every evening. [facility] amoxicillin -clavulanat e (AUGMENTIN) 875-125 mg per tablet 11-29 00:00: 00 Yes [id number] 1{tbl} Take 1 tablet by mouth in the morning and 1 tablet in the evening. [facility] SERTraline (ZOLOFT) 25 mg tablet 11-29 00:00: 00 Yes [id number] 25mg Take 1 tablet by mouth in the morning. [facility] levocetiriz ine 5 mg tablet 11-29 00:00: 00 Yes [id number] 5mg Take 1 tablet by mouth every evening. [facility] amoxicillin -clavulanat e (AUGMENTIN) 875-125 mg per tablet 11-29 00:00: 00 Yes [id number] 1{tbl} Take 1 tablet by mouth in the morning and 1 tablet in the evening. [facility] SERTraline (ZOLOFT) 25 mg tablet 11-29 00:00: 00 Yes [id number] 25mg Take 1 tablet by mouth in the morning. [facility] levocetiriz ine 5 mg tablet 11-29 00:00: 00 Yes [id number] 5mg Take 1 tablet by mouth every evening. [facility] amoxicillin -clavulanat e (AUGMENTIN) 875-125 mg per tablet 11-29 00:00: 00 Yes [id number] 1{tbl} Take 1 tablet by mouth in the morning and 1 tablet in the evening. [facility] SERTraline (ZOLOFT) 25 mg tablet 11-29 00:00: 00 Yes [id number] 25mg Take 1 tablet by mouth in the morning. [facility] levocetiriz ine 5 mg tablet 11-29 00:00: 00 Yes [id number] 5mg Take 1 tablet by mouth every evening. [facility] amoxicillin -clavulanat e (AUGMENTIN) 875-125 mg per tablet 11-29 00:00: 00 Yes [id number] 1{tbl} Take 1 tablet by mouth in the morning and 1 tablet in the evening. [facility] SERTraline (ZOLOFT) 25 mg tablet 11-29 00:00: 00 Yes [id number] 25mg Take 1 tablet by mouth in the morning. [facility] levocetiriz ine 5 mg tablet 11-29 00:00: 00 Yes [id number] 5mg Take 1 tablet by mouth every evening. [facility] amoxicillin -clavulanat e (AUGMENTIN) 875-125 mg per tablet 11-29 00:00: 00 Yes [id number] 1{tbl} Take 1 tablet by mouth in the morning and 1 tablet in the evening. [facility] SERTraline (ZOLOFT) 25 mg tablet 11-29 00:00: 00 Yes [id number] 25mg Take 1 tablet by mouth in the morning. [facility] levocetiriz ine 5 mg tablet 11-29 00:00: 00 Yes [id number] 5mg Take 1 tablet by mouth every evening. [facility] amoxicillin -clavulanat e (AUGMENTIN) 875-125 mg per tablet 11-29 00:00: 00 Yes [id number] 1{tbl} Take 1 tablet by mouth in the morning and 1 tablet in the evening. [facility] SERTraline (ZOLOFT) 25 mg tablet 11-29 00:00: 00 Yes [id number] 25mg Take 1 tablet by mouth in the morning. [facility] levocetiriz ine 5 mg tablet 11-29 00:00: 00 Yes [id number] 5mg Take 1 tablet by mouth every evening. [facility] amoxicillin -clavulanat e (AUGMENTIN) 875-125 mg per tablet 11-29 00:00: 00 Yes [id number] 1{tbl} Take 1 tablet by mouth in the morning and 1 tablet in the evening. [facility] SERTraline (ZOLOFT) 25 mg tablet 11-29 00:00: 00 Yes [id number] 25mg Take 1 tablet by mouth in the morning. [facility] levocetiriz ine 5 mg tablet 11-29 00:00: 00 Yes [id number] 5mg Take 1 tablet by mouth every evening. [facility] amoxicillin -clavulanat e (AUGMENTIN) 875-125 mg per tablet 11-29 00:00: 00 Yes [id number] 1{tbl} Take 1 tablet by mouth in the morning and 1 tablet in the evening. [facility] SERTraline (ZOLOFT) 25 mg tablet 11-29 00:00: 00 Yes [id number] 25mg Take 1 tablet by mouth in the morning. [facility] levocetiriz ine 5 mg tablet 11-29 00:00: 00 Yes [id number] 5mg Take 1 tablet by mouth every evening. [facility] amoxicillin -clavulanat e (AUGMENTIN) 875-125 mg per tablet 11-29 00:00: 00 Yes [id number] 1{tbl} Take 1 tablet by mouth in the morning and 1 tablet in the evening. [facility] SERTraline (ZOLOFT) 25 mg tablet 11-29 00:00: 00 Yes [id number] 25mg Take 1 tablet by mouth in the morning. [facility] levocetiriz ine 5 mg tablet 11-29 00:00: 00 Yes [id number] 5mg Take 1 tablet by mouth every evening. [facility] amoxicillin -clavulanat e (AUGMENTIN) 875-125 mg per tablet 11-29 00:00: 00 Yes [id number] 1{tbl} Take 1 tablet by mouth in the morning and 1 tablet in the evening. [facility] SERTraline (ZOLOFT) 25 mg tablet 11-29 00:00: 00 Yes [id number] 25mg Take 1 tablet by mouth in the morning. [facility] levocetiriz ine 5 mg tablet 11-29 00:00: 00 Yes [id number] 5mg Take 1 tablet by mouth every evening. [facility] amoxicillin -clavulanat e (AUGMENTIN) 875-125 mg per tablet 11-29 00:00: 00 Yes [id number] 1{tbl} Take 1 tablet by mouth in the morning and 1 tablet in the evening. [facility] SERTraline (ZOLOFT) 25 mg tablet 11-29 00:00: 00 Yes [id number] 25mg Take 1 tablet by mouth in the morning. [facility] levocetiriz ine 5 mg tablet 11-29 00:00: 00 Yes [id number] 5mg Take 1 tablet by mouth every evening. [facility] amoxicillin -clavulanat e (AUGMENTIN) 875-125 mg per tablet 11-29 00:00: 00 Yes [id number] 1{tbl} Take 1 tablet by mouth in the morning and 1 tablet in the evening. [facility] SERTraline (ZOLOFT) 25 mg tablet 11-29 00:00: 00 Yes [id number] 25mg Take 1 tablet by mouth in the morning. [facility] levocetiriz ine 5 mg tablet 11-29 00:00: 00 Yes [id number] 5mg Take 1 tablet by mouth every evening. [facility] amoxicillin -clavulanat e (AUGMENTIN) 875-125 mg per tablet 11-29 00:00: 00 Yes [id number] 1{tbl} Take 1 tablet by mouth in the morning and 1 tablet in the evening. [facility] levocetiriz ine 5 mg tablet 11-29 00:00: 00 Yes [id number] 5mg Take 1 tablet by mouth every evening. [facility] amoxicillin -clavulanat e (AUGMENTIN) 875-125 mg per tablet 11-29 00:00: 00 Yes [id number] 1{tbl} Take 1 tablet by mouth in the morning and 1 tablet in the evening. [facility] levocetiriz ine 5 mg tablet 11-29 00:00: 00 Yes [id number] 5mg Take 1 tablet by mouth every evening. [facility] amoxicillin -clavulanat e (AUGMENTIN) 875-125 mg per tablet 11-29 00:00: 00 Yes [id number] 1{tbl} Take 1 tablet by mouth in the morning and 1 tablet in the evening. [facility] levocetiriz ine 5 mg tablet 11-29 00:00: 00 Yes [id number] 5mg Take 1 tablet by mouth every evening. [facility] amoxicillin -clavulanat e (AUGMENTIN) 875-125 mg per tablet 11-29 00:00: 00 Yes [id number] 1{tbl} Take 1 tablet by mouth in the morning and 1 tablet in the evening. [facility] levocetiriz ine 5 mg tablet 11-29 00:00: 00 Yes [id number] 5mg Take 1 tablet by mouth every evening. [facility] SERTraline (ZOLOFT) 25 mg tablet 11-29 00:00: 00 05-25 00:00 :00 No [id number] 25mg Take 1 tablet by mouth in the morning. [facility] traZODone 50 mg tablet 11-29 00:00: 00 01-11 00:00 :00 No [id number] 50mg Take 1 tablet by mouth at bedtime as needed for Insomnia. [facility] losartan-hy drochloroth iazide 50-12.5 mg per tablet 11-29 00:00: 00 01-11 00:00 :00 No [id number] 1.5{tbl } Take 1.5 tablets by mouth in the morning. [facility] traZODone 50 mg tablet 11-29 00:00: 00 01-11 00:00 :00 No [id number] 50mg Take 1 tablet by mouth at bedtime as needed for Insomnia. [facility] losartan-hy drochloroth iazide 50-12.5 mg per tablet 11-29 00:00: 00 01-11 00:00 :00 No [id number] 1.5{tbl } Take 1.5 tablets by mouth in the morning. [facility] albuterol (VENTOLIN HFA) 90 mcg/actuati on inhaler 11-29 00:00: 00 12-30 04:59 :00 No [id number] 1{puff} Inhale 1 Puff every 6 (six) hours as needed for Wheezing for up to 30 days. [facility] albuterol (VENTOLIN HFA) 90 mcg/actuati on inhaler 11-29 00:00: 00 12-30 04:59 :00 No [id number] 1{puff} Inhale 1 Puff every 6 (six) hours as needed for Wheezing for up to 30 days. [facility] albuterol (VENTOLIN HFA) 90 mcg/actuati on inhaler 11-29 00:00: 00 12-30 04:59 :00 No [id number] 1{puff} Inhale 1 Puff every 6 (six) hours as needed for Wheezing for up to 30 days. [facility] albuterol (VENTOLIN HFA) 90 mcg/actuati on inhaler 11-29 00:00: 00 12-30 04:59 :00 No [id number] 1{puff} Inhale 1 Puff every 6 (six) hours as needed for Wheezing for up to 30 days. [facility] losartan-hy drochloroth iazide 50-12.5 mg per tablet 11-29 00:00: 00 11-29 00:00 :00 No [id number] 1{tbl} Take 1 tablet by mouth in the morning. MUST BE SEEN FOR FURTHER REFILLS [facility] losartan-hy drochloroth iazide 50-12.5 mg per tablet 11-29 00:00: 00 11-29 00:00 :00 No [id number] 1{tbl} Take 1 tablet by mouth in the morning. [facility] losartan-hy drochloroth iazide 50-12.5 mg per tablet 11-29 00:00: 00 11-29 00:00 :00 No [id number] 1{tbl} Take 1 tablet by mouth in the morning. MUST BE SEEN FOR FURTHER REFILLS [facility] losartan-hy drochloroth iazide 50-12.5 mg per tablet 11-29 00:00: 00 11-29 00:00 :00 No [id number] 1{tbl} Take 1 tablet by mouth in the morning. [facility] fluticasone propion-anh meteroL (ADVAIR DISKUS) 250-50 mcg/dose inhalation disk 11-15 00:00: 00 Yes [id number] 1{puff} Inhale 1 Puff every 12 (twelve) hours. [facility] fluticasone propion-anh meteroL (ADVAIR DISKUS) 250-50 mcg/dose inhalation disk 11-15 00:00: 00 Yes [id number] 1{puff} Inhale 1 Puff every 12 (twelve) hours. [facility] fluticasone propion-anh meteroL (ADVAIR DISKUS) 250-50 mcg/dose inhalation disk 11-15 00:00: 00 Yes [id number] 1{puff} Inhale 1 Puff every 12 (twelve) hours. [facility] fluticasone propion-anh meteroL (ADVAIR DISKUS) 250-50 mcg/dose inhalation disk 3-0 6-12 00:00: 00 Yes [id number] 1{puff} Inhale 1 Puff every 12 (twelve) hours. [facility] fluticasone propion-anh meteroL (ADVAIR DISKUS) 250-50 mcg/dose inhalation disk 3-0 6-12 00:00: 00 Yes [id number] 1{puff} Inhale 1 Puff every 12 (twelve) hours. [facility] fluticasone propion-anh meteroL (ADVAIR DISKUS) 250-50 mcg/dose inhalation disk 3-0 6-12 00:00: 00 Yes [id number] 1{puff} Inhale 1 Puff every 12 (twelve) hours. [facility] fluticasone propion-anh meteroL (ADVAIR DISKUS) 250-50 mcg/dose inhalation disk 3-0 6-12 00:00: 00 Yes [id number] 1{puff} Inhale 1 Puff every 12 (twelve) hours. [facility] fluticasone propion-anh meteroL (ADVAIR DISKUS) 250-50 mcg/dose inhalation disk 3-0 6-12 00:00: 00 Yes [id number] 1{puff} Inhale 1 Puff every 12 (twelve) hours. [facility] fluticasone propion-anh meteroL (ADVAIR DISKUS) 250-50 mcg/dose inhalation disk 3-0 6-12 00:00: 00 Yes [id number] 1{puff} Inhale 1 Puff every 12 (twelve) hours. [facility] fluticasone propion-anh meteroL (ADVAIR DISKUS) 250-50 mcg/dose inhalation disk 3-0 6-12 00:00: 00 Yes [id number] 1{puff} Inhale 1 Puff every 12 (twelve) hours. [facility] fluticasone propion-anh meteroL (ADVAIR DISKUS) 250-50 mcg/dose inhalation disk 3-0 6-12 00:00: 00 Yes [id number] 1{puff} Inhale 1 Puff every 12 (twelve) hours. [facility] fluticasone propion-anh meteroL (ADVAIR DISKUS) 250-50 mcg/dose inhalation disk 2023-0 6-12 00:00: 00 Yes [id number] 1{puff} Inhale 1 Puff every 12 (twelve) hours. [facility] fluticasone propion-anh meteroL (ADVAIR DISKUS) 250-50 mcg/dose inhalation disk 2023-0 6-12 00:00: 00 Yes [id number] 1{puff} Inhale 1 Puff every 12 (twelve) hours. [facility] fluticasone propion-anh meteroL (ADVAIR DISKUS) 250-50 mcg/dose inhalation disk 2023-0 6-12 00:00: 00 Yes [id number] 1{puff} Inhale 1 Puff every 12 (twelve) hours. [facility] fluticasone propion-anh meteroL (ADVAIR DISKUS) 250-50 mcg/dose inhalation disk 3-0 6-12 00:00: 00 Yes [id number] 1{puff} Inhale 1 Puff every 12 (twelve) hours. [facility] fluticasone propion-anh meteroL (ADVAIR DISKUS) 250-50 mcg/dose inhalation disk 3-0 6-12 00:00: 00 Yes [id number] 1{puff} Inhale 1 Puff every 12 (twelve) hours. [facility] fluticasone propion-anh meteroL (ADVAIR DISKUS) 250-50 mcg/dose inhalation disk 2023-0 6-12 00:00: 00 Yes [id number] 1{puff} Inhale 1 Puff every 12 (twelve) hours. [facility] fluticasone propion-anh meteroL (ADVAIR DISKUS) 250-50 mcg/dose inhalation disk 2023-0 6-12 00:00: 00 Yes [id number] 1{puff} Inhale 1 Puff every 12 (twelve) hours. [facility] fluticasone propion-anh meteroL (ADVAIR DISKUS) 250-50 mcg/dose inhalation disk 2023-0 6-12 00:00: 00 Yes [id number] 1{puff} Inhale 1 Puff every 12 (twelve) hours. [facility] fluticasone propion-anh meteroL (ADVAIR DISKUS) 250-50 mcg/dose inhalation disk 3-0 6-12 00:00: 00 Yes [id number] 1{puff} Inhale 1 Puff every 12 (twelve) hours. [facility] fluticasone propion-anh meteroL (ADVAIR DISKUS) 250-50 mcg/dose inhalation disk 3-0 6-12 00:00: 00 Yes [id number] 1{puff} Inhale 1 Puff every 12 (twelve) hours. [facility] fluticasone propion-anh meteroL (ADVAIR DISKUS) 250-50 mcg/dose inhalation disk 3-0 6-12 00:00: 00 Yes [id number] 1{puff} Inhale 1 Puff every 12 (twelve) hours. [facility] fluticasone propion-anh meteroL (ADVAIR DISKUS) 250-50 mcg/dose inhalation disk 3-0 6-12 00:00: 00 Yes [id number] 1{puff} Inhale 1 Puff every 12 (twelve) hours. [facility] fluticasone propion-anh meteroL (ADVAIR DISKUS) 250-50 mcg/dose inhalation disk 3-0 6-12 00:00: 00 Yes [id number] 1{puff} Inhale 1 Puff every 12 (twelve) hours. [facility] fluticasone propion-anh meteroL (ADVAIR DISKUS) 250-50 mcg/dose inhalation disk 3-0 6-12 00:00: 00 Yes [id number] 1{puff} Inhale 1 Puff every 12 (twelve) hours. [facility] fluticasone propion-anh meteroL (ADVAIR DISKUS) 250-50 mcg/dose inhalation disk 3-0 6-12 00:00: 00 Yes [id number] 1{puff} Inhale 1 Puff every 12 (twelve) hours. [facility] fluticasone propion-anh meteroL (ADVAIR DISKUS) 250-50 mcg/dose inhalation disk 3-0 6-12 00:00: 00 Yes [id number] 1{puff} Inhale 1 Puff every 12 (twelve) hours. [facility] fluticasone propion-anh meteroL (ADVAIR DISKUS) 250-50 mcg/dose inhalation disk 3-0 6-12 00:00: 00 Yes [id number] 1{puff} Inhale 1 Puff every 12 (twelve) hours. [facility] fluticasone propion-anh meteroL (ADVAIR DISKUS) 250-50 mcg/dose inhalation disk 3-0 6-12 00:00: 00 Yes [id number] 1{puff} Inhale 1 Puff every 12 (twelve) hours. [facility] fluticasone propion-anh meteroL (ADVAIR DISKUS) 250-50 mcg/dose inhalation disk 3-0 6-12 00:00: 00 Yes [id number] 1{puff} Inhale 1 Puff every 12 (twelve) hours. [facility] fluticasone propion-anh meteroL (ADVAIR DISKUS) 250-50 mcg/dose inhalation disk 3-0 6-12 00:00: 00 Yes [id number] 1{puff} Inhale 1 Puff every 12 (twelve) hours. [facility] fluticasone propion-anh meteroL (ADVAIR DISKUS) 250-50 mcg/dose inhalation disk 3-0 6-12 00:00: 00 Yes [id number] 1{puff} Inhale 1 Puff every 12 (twelve) hours. [facility] fluticasone propion-anh meteroL (ADVAIR DISKUS) 250-50 mcg/dose inhalation disk 3-0 6-12 00:00: 00 Yes [id number] 1{puff} Inhale 1 Puff every 12 (twelve) hours. [facility] fluticasone propion-anh meteroL (ADVAIR DISKUS) 250-50 mcg/dose inhalation disk 3-0 6-12 00:00: 00 Yes [id number] 1{puff} Inhale 1 Puff every 12 (twelve) hours. [facility] fluticasone propion-anh meteroL (ADVAIR DISKUS) 250-50 mcg/dose inhalation disk 2023-0 6-12 00:00: 00 Yes [id number] 1{puff} Inhale 1 Puff every 12 (twelve) hours. [facility] fluticasone propion-anh meteroL (ADVAIR DISKUS) 250-50 mcg/dose inhalation disk 2023-0 6-12 00:00: 00 Yes [id number] 1{puff} Inhale 1 Puff every 12 (twelve) hours. [facility] fluticasone propion-anh meteroL (ADVAIR DISKUS) 250-50 mcg/dose inhalation disk 2023-0 6-12 00:00: 00 Yes [id number] 1{puff} Inhale 1 Puff every 12 (twelve) hours. [facility] fluticasone propion-anh meteroL (ADVAIR DISKUS) 250-50 mcg/dose inhalation disk 3-0 6-12 00:00: 00 Yes [id number] 1{puff} Inhale 1 Puff every 12 (twelve) hours. [facility] fluticasone propion-anh meteroL (ADVAIR DISKUS) 250-50 mcg/dose inhalation disk 3-0 6-12 00:00: 00 Yes [id number] 1{puff} Inhale 1 Puff every 12 (twelve) hours. [facility] fluticasone propion-anh meteroL (ADVAIR DISKUS) 250-50 mcg/dose inhalation disk 3-0 6-12 00:00: 00 Yes [id number] 1{puff} Inhale 1 Puff every 12 (twelve) hours. [facility] fluticasone propion-anh meteroL (ADVAIR DISKUS) 250-50 mcg/dose inhalation disk 2023-0 6-12 00:00: 00 Yes [id number] 1{puff} Inhale 1 Puff every 12 (twelve) hours. [facility] fluticasone propion-anh meteroL (ADVAIR DISKUS) 250-50 mcg/dose inhalation disk 6-12 00:00: 00 Yes [id number] 1{puff} Inhale 1 Puff every 12 (twelve) hours. [facility] BUSPIRONE 10 mg tablet 6 00:00: 00 12-28 04:59 :00 No [id number] 10mg TAKE 1 TABLET BY MOUTH 2 (TWO) TIMES DAILY NEEDED FOR OTHER (ANXIETY) FOR UP TO 45 DAYS. [facility] BUSPIRONE 10 mg tablet 11-12 00:00: 00 12-28 04:59 :00 No [id number] 10mg TAKE 1 TABLET BY MOUTH 2 (TWO) TIMES DAILY NEEDED FOR OTHER (ANXIETY) FOR UP TO 45 DAYS. [facility] BUSPIRONE 10 mg tablet 11-12 00:00: 00 12-28 04:59 :00 No [id number] 10mg TAKE 1 TABLET BY MOUTH 2 (TWO) TIMES DAILY NEEDED FOR OTHER (ANXIETY) FOR UP TO 45 DAYS. [facility] BUSPIRONE 10 mg tablet 11-12 00:00: 00 12-28 04:59 :00 No [id number] 10mg TAKE 1 TABLET BY MOUTH 2 (TWO) TIMES DAILY NEEDED FOR OTHER (ANXIETY) FOR UP TO 45 DAYS. [facility] BUSPIRONE 10 mg tablet 11-12 00:00: 00 12-28 04:59 :00 No [id number] 10mg TAKE 1 TABLET BY MOUTH 2 (TWO) TIMES DAILY NEEDED FOR OTHER (ANXIETY) FOR UP TO 45 DAYS. [facility] BUSPIRONE 10 mg tablet 11-12 00:00: 00 12-28 04:59 :00 No [id number] 10mg TAKE 1 TABLET BY MOUTH 2 (TWO) TIMES DAILY NEEDED FOR OTHER (ANXIETY) FOR UP TO 45 DAYS. [facility] promethazin e-dextromet horphan 6.25-15 mg/5 mL syrup 5-23 00:00: 00 Yes [id number] 5mL Take 5 mL by mouth 4 (four) times daily as needed for Cough. [facility] promethazin e-dextromet horphan 6.25-15 mg/5 mL syrup 2023-0 5-23 00:00: 00 Yes [id number] 5mL Take 5 mL by mouth 4 (four) times daily as needed for Cough. [facility] promethazin e-dextromet horphan 6.25-15 mg/5 mL syrup 2023-0 -23 00:00: 00 Yes [id number] 5mL Take 5 mL by mouth 4 (four) times daily as needed for Cough. [facility] promethazin e-dextromet horphan 6.25-15 mg/5 mL syrup 2023-0 -23 00:00: 00 Yes [id number] 5mL Take 5 mL by mouth 4 (four) times daily as needed for Cough. [facility] promethazin e-dextromet horphan 6.25-15 mg/5 mL syrup 2023-0 -23 00:00: 00 Yes [id number] 5mL Take 5 mL by mouth 4 (four) times daily as needed for Cough. [facility] promethazin e-dextromet horphan 6.25-15 mg/5 mL syrup 2023-0 -23 00:00: 00 Yes [id number] 5mL Take 5 mL by mouth 4 (four) times daily as needed for Cough. [facility] promethazin e-dextromet horphan 6.25-15 mg/5 mL syrup 2023-0 -23 00:00: 00 Yes [id number] 5mL Take 5 mL by mouth 4 (four) times daily as needed for Cough. [facility] promethazin e-dextromet horphan 6.25-15 mg/5 mL syrup 2023-0 5-23 00:00: 00 Yes [id number] 5mL Take 5 mL by mouth 4 (four) times daily as needed for Cough. [facility] promethazin e-dextromet horphan 6.25-15 mg/5 mL syrup 2023-0 -23 00:00: 00 Yes [id number] 5mL Take 5 mL by mouth 4 (four) times daily as needed for Cough. [facility] promethazin e-dextromet horphan 6.25-15 mg/5 mL syrup 2023-0 -23 00:00: 00 Yes [id number] 5mL Take 5 mL by mouth 4 (four) times daily as needed for Cough. [facility] promethazin e-dextromet horphan 6.25-15 mg/5 mL syrup 3-0 - 00:00: 00 Yes [id number] 5mL Take 5 mL by mouth 4 (four) times daily as needed for Cough. [facility] promethazin e-dextromet horphan 6.25-15 mg/5 mL syrup 3-0 - 00:00: 00 Yes [id number] 5mL Take 5 mL by mouth 4 (four) times daily as needed for Cough. [facility] promethazin e-dextromet horphan 6.25-15 mg/5 mL syrup 3-0 10-26 00:00: 00 Yes [id number] 5mL Take 5 mL by mouth 4 (four) times daily as needed for Cough. [facility] promethazin e-dextromet horphan 6.25-15 mg/5 mL syrup 3-0 10-26 00:00: 00 Yes [id number] 5mL Take 5 mL by mouth 4 (four) times daily as needed for Cough. [facility] promethazin e-dextromet horphan 6.25-15 mg/5 mL syrup 3-0 -23 00:00: 00 Yes [id number] 5mL Take 5 mL by mouth 4 (four) times daily as needed for Cough. [facility] promethazin e-dextromet horphan 6.25-15 mg/5 mL syrup 2023-0 -23 00:00: 00 Yes [id number] 5mL Take 5 mL by mouth 4 (four) times daily as needed for Cough. [facility] promethazin e-dextromet horphan 6.25-15 mg/5 mL syrup 2023-0 -23 00:00: 00 Yes [id number] 5mL Take 5 mL by mouth 4 (four) times daily as needed for Cough. [facility] promethazin e-dextromet horphan 6.25-15 mg/5 mL syrup 2023-0 5-23 00:00: 00 Yes [id number] 5mL Take 5 mL by mouth 4 (four) times daily as needed for Cough. [facility] promethazin e-dextromet horphan 6.25-15 mg/5 mL syrup 2023-0 -23 00:00: 00 Yes [id number] 5mL Take 5 mL by mouth 4 (four) times daily as needed for Cough. [facility] promethazin e-dextromet horphan 6.25-15 mg/5 mL syrup 2023-0 -23 00:00: 00 Yes [id number] 5mL Take 5 mL by mouth 4 (four) times daily as needed for Cough. [facility] promethazin e-dextromet horphan 6.25-15 mg/5 mL syrup 3-0 -23 00:00: 00 Yes [id number] 5mL Take 5 mL by mouth 4 (four) times daily as needed for Cough. [facility] promethazin e-dextromet horphan 6.25-15 mg/5 mL syrup 3-0 -23 00:00: 00 Yes [id number] 5mL Take 5 mL by mouth 4 (four) times daily as needed for Cough. [facility] promethazin e-dextromet horphan 6.25-15 mg/5 mL syrup 3-0 -23 00:00: 00 Yes [id number] 5mL Take 5 mL by mouth 4 (four) times daily as needed for Cough. [facility] promethazin e-dextromet horphan 6.25-15 mg/5 mL syrup 2023-0 5-23 00:00: 00 Yes [id number] 5mL Take 5 mL by mouth 4 (four) times daily as needed for Cough. [facility] promethazin e-dextromet horphan 6.25-15 mg/5 mL syrup 2023-0 5-23 00:00: 00 Yes [id number] 5mL Take 5 mL by mouth 4 (four) times daily as needed for Cough. [facility] promethazin e-dextromet horphan 6.25-15 mg/5 mL syrup 0 -23 00:00: 00 Yes [id number] 5mL Take 5 mL by mouth 4 (four) times daily as needed for Cough. [facility] promethazin e-dextromet horphan 6.25-15 mg/5 mL syrup 0 10-26 00:00: 00 Yes [id number] 5mL Take 5 mL by mouth 4 (four) times daily as needed for Cough. [facility] promethazin e-dextromet horphan 6.25-15 mg/5 mL syrup 0 10-26 00:00: 00 Yes [id number] 5mL Take 5 mL by mouth 4 (four) times daily as needed for Cough. [facility] promethazin e-dextromet horphan 6.25-15 mg/5 mL syrup 0 10-26 00:00: 00 Yes [id number] 5mL Take 5 mL by mouth 4 (four) times daily as needed for Cough. [facility] promethazin e-dextromet horphan 6.25-15 mg/5 mL syrup 0 10-26 00:00: 00 Yes [id number] 5mL Take 5 mL by mouth 4 (four) times daily as needed for Cough. [facility] promethazin e-dextromet horphan 6.25-15 mg/5 mL syrup 0 10-26 00:00: 00 Yes [id number] 5mL Take 5 mL by mouth 4 (four) times daily as needed for Cough. [facility] promethazin e-dextromet horphan 6.25-15 mg/5 mL syrup 2022-0 -23 00:00: 00 Yes [id number] 5mL Take 5 mL by mouth 4 (four) times daily as needed for Cough. [facility] promethazin e-dextromet horphan 6.25-15 mg/5 mL syrup 2022-0 23 00:00: 00 Yes [id number] 5mL Take 5 mL by mouth 4 (four) times daily as needed for Cough. [facility] promethazin e-dextromet horphan 6.25-15 mg/5 mL syrup 2023-0 5-23 00:00: 00 Yes [id number] 5mL Take 5 mL by mouth 4 (four) times daily as needed for Cough. [facility] promethazin e-dextromet horphan 6.25-15 mg/5 mL syrup 3-0 5-23 00:00: 00 Yes [id number] 5mL Take 5 mL by mouth 4 (four) times daily as needed for Cough. [facility] promethazin e-dextromet horphan 6.25-15 mg/5 mL syrup 3-0 5-23 00:00: 00 Yes [id number] 5mL Take 5 mL by mouth 4 (four) times daily as needed for Cough. [facility] promethazin e-dextromet horphan 6.25-15 mg/5 mL syrup 3-0 -23 00:00: 00 Yes [id number] 5mL Take 5 mL by mouth 4 (four) times daily as needed for Cough. [facility] promethazin e-dextromet horphan 6.25-15 mg/5 mL syrup 3-0 -23 00:00: 00 Yes [id number] 5mL Take 5 mL by mouth 4 (four) times daily as needed for Cough. [facility] promethazin e-dextromet horphan 6.25-15 mg/5 mL syrup 3-0 5-23 00:00: 00 Yes [id number] 5mL Take 5 mL by mouth 4 (four) times daily as needed for Cough. [facility] promethazin e-dextromet horphan 6.25-15 mg/5 mL syrup 2023-0 5-23 00:00: 00 Yes [id number] 5mL Take 5 mL by mouth 4 (four) times daily as needed for Cough. [facility] promethazin e-dextromet horphan 6.25-15 mg/5 mL syrup 2023-0 5-23 00:00: 00 Yes [id number] 5mL Take 5 mL by mouth 4 (four) times daily as needed for Cough. [facility] promethazin e-dextromet horphan 6.25-15 mg/5 mL syrup 10-26 00:00: 00 Yes [id number] 5mL Take 5 mL by mouth 4 (four) times daily as needed for Cough. [facility] promethazin e-dextromet horphan 6.25-15 mg/5 mL syrup 10-26 00:00: 00 Yes [id number] 5mL Take 5 mL by mouth 4 (four) times daily as needed for Cough. [facility] promethazin e-dextromet horphan 6.25-15 mg/5 mL syrup 10-26 00:00: 00 Yes [id number] 5mL Take 5 mL by mouth 4 (four) times daily as needed for Cough. [facility] promethazin e-dextromet horphan 6.25-15 mg/5 mL syrup 10-26 00:00: 00 Yes [id number] 5mL Take 5 mL by mouth 4 (four) times daily as needed for Cough. [facility] promethazin e-dextromet horphan 6.25-15 mg/5 mL syrup 10-26 00:00: 00 Yes [id number] 5mL Take 5 mL by mouth 4 (four) times daily as needed for Cough. [facility] ergocalcife rol, vitamin d2, 1,250 mcg (50,000 unit) capsule 10-20 00:00: 00 Yes [id number] Take 1 capsule by mouth weekly. [facility] rosuvastati n 10 mg tablet 10-20 00:00: 00 Yes [id number] 10mg Take 1 tablet by mouth at bedtime. [facility] fluticasone propion-anh meteroL (ADVAIR DISKUS) 250-50 mcg/dose inhalation disk 10-20 00:00: 00 Yes [id number] 1{puff} Inhale 1 Puff every 12 (twelve) hours. [facility] ergocalcife rol, vitamin d2, 1,250 mcg (50,000 unit) capsule 0 10-20 00:00: 00 Yes [id number] Take 1 capsule by mouth weekly. [facility] rosuvastati n 10 mg tablet 0 10-20 00:00: 00 Yes [id number] 10mg Take 1 tablet by mouth at bedtime. [facility] fluticasone propion-anh meteroL (ADVAIR DISKUS) 250-50 mcg/dose inhalation disk 0 10-20 00:00: 00 Yes [id number] 1{puff} Inhale 1 Puff every 12 (twelve) hours. [facility] ergocalcife rol, vitamin d2, 1,250 mcg (50,000 unit) capsule 0 10-20 00:00: 00 Yes [id number] Take 1 capsule by mouth weekly. [facility] rosuvastati n 10 mg tablet 0 10-20 00:00: 00 Yes [id number] 10mg Take 1 tablet by mouth at bedtime. [facility] fluticasone propion-anh meteroL (ADVAIR DISKUS) 250-50 mcg/dose inhalation disk 0 10-20 00:00: 00 Yes [id number] 1{puff} Inhale 1 Puff every 12 (twelve) hours. [facility] ergocalcife rol, vitamin d2, 1,250 mcg (50,000 unit) capsule 0 10-20 00:00: 00 Yes [id number] Take 1 capsule by mouth weekly. [facility] rosuvastati n 10 mg tablet 0 10-20 00:00: 00 Yes [id number] 10mg Take 1 tablet by mouth at bedtime. [facility] fluticasone propion-anh meteroL (ADVAIR DISKUS) 250-50 mcg/dose inhalation disk 0 17 00:00: 00 Yes [id number] 1{puff} Inhale 1 Puff every 12 (twelve) hours. [facility] ergocalcife rol, vitamin d2, 1,250 mcg (50,000 unit) capsule 10-20 00:00: 00 Yes [id number] Take 1 capsule by mouth weekly. [facility] rosuvastati n 10 mg tablet 10-20 00:00: 00 Yes [id number] 10mg Take 1 tablet by mouth at bedtime. [facility] fluticasone propion-anh meteroL (ADVAIR DISKUS) 250-50 mcg/dose inhalation disk 10-20 00:00: 00 Yes [id number] 1{puff} Inhale 1 Puff every 12 (twelve) hours. [facility] ergocalcife rol, vitamin d2, 1,250 mcg (50,000 unit) capsule 10-20 00:00: 00 Yes [id number] Take 1 capsule by mouth weekly. [facility] rosuvastati n 10 mg tablet 10-20 00:00: 00 Yes [id number] 10mg Take 1 tablet by mouth at bedtime. [facility] fluticasone propion-anh meteroL (ADVAIR DISKUS) 250-50 mcg/dose inhalation disk 10-20 00:00: 00 Yes [id number] 1{puff} Inhale 1 Puff every 12 (twelve) hours. [facility] ergocalcife rol, vitamin d2, 1,250 mcg (50,000 unit) capsule 10-20 00:00: 00 Yes [id number] Take 1 capsule by mouth weekly. [facility] rosuvastati n 10 mg tablet 10-20 00:00: 00 Yes [id number] 10mg Take 1 tablet by mouth at bedtime. [facility] ergocalcife rol, vitamin d2, 1,250 mcg (50,000 unit) capsule 10-20 00:00: 00 Yes [id number] Take 1 capsule by mouth weekly. [facility] rosuvastati n 10 mg tablet 10-20 00:00: 00 Yes [id number] 10mg Take 1 tablet by mouth at bedtime. [facility] ergocalcife rol, vitamin d2, 1,250 mcg (50,000 unit) capsule 0 10-20 00:00: 00 Yes [id number] Take 1 capsule by mouth weekly. [facility] rosuvastati n 10 mg tablet 2022-0 10-20 00:00: 00 Yes [id number] 10mg Take 1 tablet by mouth at bedtime. [facility] ergocalcife rol, vitamin d2, 1,250 mcg (50,000 unit) capsule 0 10-20 00:00: 00 Yes [id number] Take 1 capsule by mouth weekly. [facility] rosuvastati n 10 mg tablet 0 10-20 00:00: 00 Yes [id number] 10mg Take 1 tablet by mouth at bedtime. [facility] ergocalcife rol, vitamin d2, 1,250 mcg (50,000 unit) capsule 0 10-20 00:00: 00 Yes [id number] Take 1 capsule by mouth weekly. [facility] rosuvastati n 10 mg tablet 0 10-20 00:00: 00 Yes [id number] 10mg Take 1 tablet by mouth at bedtime. [facility] ergocalcife rol, vitamin d2, 1,250 mcg (50,000 unit) capsule 0 10-20 00:00: 00 Yes [id number] Take 1 capsule by mouth weekly. [facility] rosuvastati n 10 mg tablet 2022-0 10-20 00:00: 00 Yes [id number] 10mg Take 1 tablet by mouth at bedtime. [facility] ergocalcife rol, vitamin d2, 1,250 mcg (50,000 unit) capsule 0 10-20 00:00: 00 Yes [id number] Take 1 capsule by mouth weekly. [facility] rosuvastati n 10 mg tablet 2022-0 17 00:00: 00 Yes [id number] 10mg Take 1 tablet by mouth at bedtime. [facility] ergocalcife rol, vitamin d2, 1,250 mcg (50,000 unit) capsule 10-20 00:00: 00 Yes [id number] Take 1 capsule by mouth weekly. [facility] rosuvastati n 10 mg tablet 10-20 00:00: 00 Yes [id number] 10mg Take 1 tablet by mouth at bedtime. [facility] ergocalcife rol, vitamin d2, 1,250 mcg (50,000 unit) capsule 10-20 00:00: 00 Yes [id number] Take 1 capsule by mouth weekly. [facility] ergocalcife rol, vitamin d2, 1,250 mcg (50,000 unit) capsule 10-20 00:00: 00 Yes [id number] Take 1 capsule by mouth weekly. [facility] ergocalcife rol, vitamin d2, 1,250 mcg (50,000 unit) capsule 10-20 00:00: 00 Yes [id number] Take 1 capsule by mouth weekly. [facility] ergocalcife rol, vitamin d2, 1,250 mcg (50,000 unit) capsule 10-20 00:00: 00 Yes [id number] Take 1 capsule by mouth weekly. [facility] ergocalcife rol, vitamin d2, 1,250 mcg (50,000 unit) capsule 10-20 00:00: 00 Yes [id number] Take 1 capsule by mouth weekly. [facility] ergocalcife rol, vitamin d2, 1,250 mcg (50,000 unit) capsule 10-20 00:00: 00 Yes [id number] Take 1 capsule by mouth weekly. [facility] ergocalcife rol, vitamin d2, 1,250 mcg (50,000 unit) capsule 10-20 00:00: 00 Yes [id number] Take 1 capsule by mouth weekly. [facility] ergocalcife rol, vitamin d2, 1,250 mcg (50,000 unit) capsule 10-20 00:00: 00 Yes [id number] Take 1 capsule by mouth weekly. [facility] ergocalcife rol, vitamin d2, 1,250 mcg (50,000 unit) capsule 10-20 00:00: 00 Yes [id number] Take 1 capsule by mouth weekly. [facility] ergocalcife rol, vitamin d2, 1,250 mcg (50,000 unit) capsule 10-20 00:00: 00 Yes [id number] Take 1 capsule by mouth weekly. [facility] ergocalcife rol, vitamin d2, 1,250 mcg (50,000 unit) capsule 10-20 00:00: 00 Yes [id number] Take 1 capsule by mouth weekly. [facility] ergocalcife rol, vitamin d2, 1,250 mcg (50,000 unit) capsule 10-20 00:00: 00 Yes [id number] Take 1 capsule by mouth weekly. [facility] ergocalcife rol, vitamin d2, 1,250 mcg (50,000 unit) capsule 10-20 00:00: 00 Yes [id number] Take 1 capsule by mouth weekly. [facility] rosuvastati n 10 mg tablet 10-20 00:00: 00 Yes [id number] 10mg Take 1 tablet by mouth at bedtime. [facility] ergocalcife rol, vitamin d2, 1,250 mcg (50,000 unit) capsule 10-20 00:00: 00 04-04 00:00 :00 No [id number] Take 1 capsule by mouth weekly. [facility] rosuvastati n 10 mg tablet 10-20 00:00: 00 01-20 00:00 :00 No [id number] 10mg Take 1 tablet by mouth at bedtime. [facility] fluticasone propion-anh meteroL (ADVAIR DISKUS) 250-50 mcg/dose inhalation disk 10-20 00:00: 00 11-15 00:00 :00 No [id number] 1{puff} Inhale 1 Puff every 12 (twelve) hours. [facility] losartan-hy drochloroth iazide 50-12.5 mg per tablet 0 -15 00:00: 00 Yes [id number] 1{tbl} Take 1 tablet by mouth in the morning. [facility] SERTraline (ZOLOFT) 25 mg tablet 0 -15 00:00: 00 Yes [id number] 25mg Take 1 tablet by mouth in the morning. [facility] traZODone 50 mg tablet 2022-0 -15 00:00: 00 Yes [id number] 50mg Take 1 tablet by mouth at bedtime as needed for Insomnia. [facility] losartan-hy drochloroth iazide 50-12.5 mg per tablet 0 -15 00:00: 00 Yes [id number] 1{tbl} Take 1 tablet by mouth in the morning. [facility] SERTraline (ZOLOFT) 25 mg tablet 0 -15 00:00: 00 Yes [id number] 25mg Take 1 tablet by mouth in the morning. [facility] traZODone 50 mg tablet 0 -15 00:00: 00 Yes [id number] 50mg Take 1 tablet by mouth at bedtime as needed for Insomnia. [facility] losartan-hy drochloroth iazide 50-12.5 mg per tablet 0 -15 00:00: 00 Yes [id number] 1{tbl} Take 1 tablet by mouth in the morning. [facility] SERTraline (ZOLOFT) 25 mg tablet 0 -15 00:00: 00 Yes [id number] 25mg Take 1 tablet by mouth in the morning. [facility] traZODone 50 mg tablet 2022-0 -15 00:00: 00 Yes [id number] 50mg Take 1 tablet by mouth at bedtime as needed for Insomnia. [facility] losartan-hy drochloroth iazide 50-12.5 mg per tablet 0 -15 00:00: 00 Yes [id number] 1{tbl} Take 1 tablet by mouth in the morning. [facility] SERTraline (ZOLOFT) 25 mg tablet 2022-0 5-15 00:00: 00 Yes [id number] 25mg Take 1 tablet by mouth in the morning. [facility] traZODone 50 mg tablet 2022-0 5-15 00:00: 00 Yes [id number] 50mg Take 1 tablet by mouth at bedtime as needed for Insomnia. [facility] losartan-hy drochloroth iazide 50-12.5 mg per tablet 0 5-15 00:00: 00 Yes [id number] 1{tbl} Take 1 tablet by mouth in the morning. [facility] SERTraline (ZOLOFT) 25 mg tablet 2022-0 5-15 00:00: 00 Yes [id number] 25mg Take 1 tablet by mouth in the morning. [facility] traZODone 50 mg tablet 2022-0 5-15 00:00: 00 Yes [id number] 50mg Take 1 tablet by mouth at bedtime as needed for Insomnia. [facility] losartan-hy drochloroth iazide 50-12.5 mg per tablet 0 5-15 00:00: 00 Yes [id number] 1{tbl} Take 1 tablet by mouth in the morning. [facility] SERTraline (ZOLOFT) 25 mg tablet 2022-0 5-15 00:00: 00 Yes [id number] 25mg Take 1 tablet by mouth in the morning. [facility] traZODone 50 mg tablet 2022-0 5-15 00:00: 00 Yes [id number] 50mg Take 1 tablet by mouth at bedtime as needed for Insomnia. [facility] losartan-hy drochloroth iazide 50-12.5 mg per tablet 2022-0 5-15 00:00: 00 Yes [id number] 1{tbl} Take 1 tablet by mouth in the morning. [facility] SERTraline (ZOLOFT) 25 mg tablet 2022-0 5-15 00:00: 00 Yes [id number] 25mg Take 1 tablet by mouth in the morning. [facility] traZODone 50 mg tablet 2022-0 5-15 00:00: 00 Yes [id number] 50mg Take 1 tablet by mouth at bedtime as needed for Insomnia. [facility] SERTraline (ZOLOFT) 25 mg tablet 2022-0 5-15 00:00: 00 Yes [id number] 25mg Take 1 tablet by mouth in the morning. [facility] traZODone 50 mg tablet 2022-0 5-15 00:00: 00 Yes [id number] 50mg Take 1 tablet by mouth at bedtime as needed for Insomnia. [facility] losartan-hy drochloroth iazide 50-12.5 mg per tablet 0 5-15 00:00: 00 Yes [id number] 1{tbl} Take 1 tablet by mouth in the morning. [facility] SERTraline (ZOLOFT) 25 mg tablet 2022-0 5-15 00:00: 00 Yes [id number] 25mg Take 1 tablet by mouth in the morning. [facility] traZODone 50 mg tablet 0 -15 00:00: 00 Yes [id number] 50mg Take 1 tablet by mouth at bedtime as needed for Insomnia. [facility] losartan-hy drochloroth iazide 50-12.5 mg per tablet 0 -15 00:00: 00 Yes [id number] 1{tbl} Take 1 tablet by mouth in the morning. [facility] SERTraline (ZOLOFT) 25 mg tablet 2022-0 -15 00:00: 00 Yes [id number] 25mg Take 1 tablet by mouth in the morning. [facility] traZODone 50 mg tablet 2022-0 5-15 00:00: 00 Yes [id number] 50mg Take 1 tablet by mouth at bedtime as needed for Insomnia. [facility] losartan-hy drochloroth iazide 50-12.5 mg per tablet 2022-0 5-15 00:00: 00 Yes [id number] 1{tbl} Take 1 tablet by mouth in the morning. [facility] SERTraline (ZOLOFT) 25 mg tablet 2022-0 5-15 00:00: 00 Yes [id number] 25mg Take 1 tablet by mouth in the morning. [facility] traZODone 50 mg tablet 2022-0 5-15 00:00: 00 Yes [id number] 50mg Take 1 tablet by mouth at bedtime as needed for Insomnia. [facility] losartan-hy drochloroth iazide 50-12.5 mg per tablet 2022-0 5-15 00:00: 00 Yes [id number] 1{tbl} Take 1 tablet by mouth in the morning. [facility] SERTraline (ZOLOFT) 25 mg tablet 2022-0 5-15 00:00: 00 Yes [id number] 25mg Take 1 tablet by mouth in the morning. [facility] traZODone 50 mg tablet 2022-0 5-15 00:00: 00 Yes [id number] 50mg Take 1 tablet by mouth at bedtime as needed for Insomnia. [facility] losartan-hy drochloroth iazide 50-12.5 mg per tablet 0 5-15 00:00: 00 Yes [id number] 1{tbl} Take 1 tablet by mouth in the morning. [facility] SERTraline (ZOLOFT) 25 mg tablet 2022-0 5-15 00:00: 00 Yes [id number] 25mg Take 1 tablet by mouth in the morning. [facility] traZODone 50 mg tablet 2022-0 5-15 00:00: 00 Yes [id number] 50mg Take 1 tablet by mouth at bedtime as needed for Insomnia. [facility] busPIRone 10 mg tablet 2022-0 5-15 00:00: 00 12-03 04:59 :00 No [id number] 10mg Take 1 tablet by mouth 2 (two) times daily as needed for Other (anxiety) for up to 45 days. [facility] busPIRone 10 mg tablet 2022-0 5-15 00:00: 00 12-03 04:59 :00 No [id number] 10mg Take 1 tablet by mouth 2 (two) times daily as needed for Other (anxiety) for up to 45 days. [facility] busPIRone 10 mg tablet 2022-0 5-15 00:00: 00 12-03 04:59 :00 No [id number] 10mg Take 1 tablet by mouth 2 (two) times daily as needed for Other (anxiety) for up to 45 days. [facility] busPIRone 10 mg tablet 3-0 5-15 00:00: 00 12-03 04:59 :00 No [id number] 10mg Take 1 tablet by mouth 2 (two) times daily as needed for Other (anxiety) for up to 45 days. [facility] busPIRone 10 mg tablet 3-0 5-15 00:00: 00 12-03 04:59 :00 No [id number] 10mg Take 1 tablet by mouth 2 (two) times daily as needed for Other (anxiety) for up to 45 days. [facility] busPIRone 10 mg tablet 3-0 5-15 00:00: 00 12-03 04:59 :00 No [id number] 10mg Take 1 tablet by mouth 2 (two) times daily as needed for Other (anxiety) for up to 45 days. [facility] busPIRone 10 mg tablet 3-0 5-15 00:00: 00 12-03 04:59 :00 No [id number] 10mg Take 1 tablet by mouth 2 (two) times daily as needed for Other (anxiety) for up to 45 days. [facility] busPIRone 10 mg tablet 3-0 5-15 00:00: 00 12-03 04:59 :00 No [id number] 10mg Take 1 tablet by mouth 2 (two) times daily as needed for Other (anxiety) for up to 45 days. [facility] busPIRone 10 mg tablet 3-0 5-15 00:00: 00 12-03 04:59 :00 No [id number] 10mg Take 1 tablet by mouth 2 (two) times daily as needed for Other (anxiety) for up to 45 days. [facility] busPIRone 10 mg tablet 3-0 5-15 00:00: 00 12-03 04:59 :00 No [id number] 10mg Take 1 tablet by mouth 2 (two) times daily as needed for Other (anxiety) for up to 45 days. [facility] losartan-hy drochloroth iazide 50-12.5 mg per tablet 5-15 00:00: 00 11-29 00:00 :00 No [id number] 1{tbl} Take 1 tablet by mouth in the morning. [facility] SERTraline (ZOLOFT) 25 mg tablet 0 5-15 00:00: 00 11-29 00:00 :00 No [id number] 25mg Take 1 tablet by mouth in the morning. [facility] traZODone 50 mg tablet 0 5-15 00:00: 00 11-29 00:00 :00 No [id number] 50mg Take 1 tablet by mouth at bedtime as needed for Insomnia. [facility] SERTraline (ZOLOFT) 25 mg tablet 0 5-15 00:00: 00 11-29 00:00 :00 No [id number] 25mg Take 1 tablet by mouth in the morning. [facility] traZODone 50 mg tablet 2022-0 5-15 00:00: 00 11-29 00:00 :00 No [id number] 50mg Take 1 tablet by mouth at bedtime as needed for Insomnia. [facility] busPIRone 10 mg tablet 2022-0 5-15 00:00: 00 11-12 00:00 :00 No [id number] 10mg Take 1 tablet by mouth 2 (two) times daily as needed for Other (anxiety) for up to 45 days. [facility] promethazin e-dextromet horphan 6.25-15 mg/5 mL syrup 10-05 00:00: 00 Yes [id number] 5mL Take 5 mL by mouth 4 (four) times daily as needed for Cough. [facility] promethazin e-dextromet horphan 6.25-15 mg/5 mL syrup -02 00:00: 00 Yes [id number] 5mL Take 5 mL by mouth 4 (four) times daily as needed for Cough. [facility] promethazin e-dextromet horphan 6.25-15 mg/5 mL syrup 2023-0 5-02 00:00: 00 Yes [id number] 5mL Take 5 mL by mouth 4 (four) times daily as needed for Cough. [facility] promethazin e-dextromet horphan 6.25-15 mg/5 mL syrup 2023-0 5-02 00:00: 00 Yes [id number] 5mL Take 5 mL by mouth 4 (four) times daily as needed for Cough. [facility] promethazin e-dextromet horphan 6.25-15 mg/5 mL syrup 2023-0 5-02 00:00: 00 Yes [id number] 5mL Take 5 mL by mouth 4 (four) times daily as needed for Cough. [facility] promethazin e-dextromet horphan 6.25-15 mg/5 mL syrup 2023-0 5-02 00:00: 00 Yes [id number] 5mL Take 5 mL by mouth 4 (four) times daily as needed for Cough. [facility] promethazin e-dextromet horphan 6.25-15 mg/5 mL syrup 3-0 5-02 00:00: 00 Yes [id number] 5mL Take 5 mL by mouth 4 (four) times daily as needed for Cough. [facility] promethazin e-dextromet horphan 6.25-15 mg/5 mL syrup 3-0 5-02 00:00: 00 Yes [id number] 5mL Take 5 mL by mouth 4 (four) times daily as needed for Cough. [facility] promethazin e-dextromet horphan 6.25-15 mg/5 mL syrup 2023-0 5-02 00:00: 00 10-26 00:00 :00 No [id number] 5mL Take 5 mL by mouth 4 (four) times daily as needed for Cough. [facility] promethazin e-dextromet horphan 6.25-15 mg/5 mL syrup 3-0 5-02 00:00: 00 2023- 05-23 00:00 :00 No [id number] 5mL Take 5 mL by mouth 4 (four) times daily as needed for Cough. [facility] fluticasone propion-anh meteroL (ADVAIR DISKUS) 250-50 mcg/dose inhalation disk 0 14 00:00: 00 Yes [id number] 1{puff} Inhale 1 Puff every 12 (twelve) hours. [facility] promethazin e-dextromet horphan 6.25-15 mg/5 mL syrup 0 14 00:00: 00 Yes [id number] 5mL Take 5 mL by mouth 4 (four) times daily as needed for Cough. [facility] fluticasone propion-anh meteroL (ADVAIR DISKUS) 250-50 mcg/dose inhalation disk 0 14 00:00: 00 Yes [id number] 1{puff} Inhale 1 Puff every 12 (twelve) hours. [facility] promethazin e-dextromet horphan 6.25-15 mg/5 mL syrup 0 14 00:00: 00 Yes [id number] 5mL Take 5 mL by mouth 4 (four) times daily as needed for Cough. [facility] fluticasone propion-anh meteroL (ADVAIR DISKUS) 250-50 mcg/dose inhalation disk 0 14 00:00: 00 Yes [id number] 1{puff} Inhale 1 Puff every 12 (twelve) hours. [facility] fluticasone propion-anh meteroL (ADVAIR DISKUS) 250-50 mcg/dose inhalation disk 2022-0 14 00:00: 00 Yes [id number] 1{puff} Inhale 1 Puff every 12 (twelve) hours. [facility] fluticasone propion-anh meteroL (ADVAIR DISKUS) 250-50 mcg/dose inhalation disk 0 14 00:00: 00 Yes [id number] 1{puff} Inhale 1 Puff every 12 (twelve) hours. [facility] fluticasone propion-anh meteroL (ADVAIR DISKUS) 250-50 mcg/dose inhalation disk 3-0 4-14 00:00: 00 Yes [id number] 1{puff} Inhale 1 Puff every 12 (twelve) hours. [facility] fluticasone propion-anh meteroL (ADVAIR DISKUS) 250-50 mcg/dose inhalation disk 2022-0 4-14 00:00: 00 Yes [id number] 1{puff} Inhale 1 Puff every 12 (twelve) hours. [facility] fluticasone propion-anh meteroL (ADVAIR DISKUS) 250-50 mcg/dose inhalation disk 2022-0 4-14 00:00: 00 Yes [id number] 1{puff} Inhale 1 Puff every 12 (twelve) hours. [facility] fluticasone propion-anh meteroL (ADVAIR DISKUS) 250-50 mcg/dose inhalation disk 2022-0 4-14 00:00: 00 10-20 00:00 :00 No [id number] 1{puff} Inhale 1 Puff every 12 (twelve) hours. [facility] promethazin e-dextromet horphan 6.25-15 mg/5 mL syrup 4-14 00:00: 00 10-05 00:00 :00 No [id number] 5mL Take 5 mL by mouth 4 (four) times daily as needed for Cough. [facility] benzonatate 200 mg capsule 2022-0 3-08 00:00: 00 Yes [id number] 200mg Take 1 capsule by mouth 3 (three) times daily as needed for Cough. [facility] benzonatate 200 mg capsule 3-0 3-08 00:00: 00 Yes [id number] 200mg Take 1 capsule by mouth 3 (three) times daily as needed for Cough. [facility] benzonatate 200 mg capsule 3-0 3-08 00:00: 00 Yes [id number] 200mg Take 1 capsule by mouth 3 (three) times daily as needed for Cough. [facility] benzonatate 200 mg capsule 3-0 3-08 00:00: 00 Yes [id number] 200mg Take 1 capsule by mouth 3 (three) times daily as needed for Cough. [facility] benzonatate 200 mg capsule 2022-0 3-08 00:00: 00 Yes [id number] 200mg Take 1 capsule by mouth 3 (three) times daily as needed for Cough. [facility] benzonatate 200 mg capsule 2022-0 3-08 00:00: 00 09-17 00:00 :00 No [id number] 200mg Take 1 capsule by mouth 3 (three) times daily as needed for Cough. [facility] amoxicillin -clavulanat e (AUGMENTIN) 875-125 mg per tablet 0 3- 00:00: 00 08-15 05:59 :00 No [id number] 1{tbl} Take 1 tablet by mouth in the morning and 1 tablet in the evening. Do all this for 10 days. [facility] amoxicillin -clavulanat e (AUGMENTIN) 875-125 mg per tablet 0 3 00:00: 00 08-15 05:59 :00 No [id number] 1{tbl} Take 1 tablet by mouth in the morning and 1 tablet in the evening. Do all this for 10 days. [facility] amoxicillin -clavulanat e (AUGMENTIN) 875-125 mg per tablet 0 3- 00:00: 00 08-15 05:59 :00 No [id number] 1{tbl} Take 1 tablet by mouth in the morning and 1 tablet in the evening. Do all this for 10 days. [facility] benzonatate 200 mg capsule 2022-0 2-27 00:00: 00 Yes [id number] 200mg Take 1 capsule by mouth 3 (three) times daily as needed for Cough. [facility] benzonatate 200 mg capsule 2022-0 2-27 00:00: 00 Yes [id number] 200mg Take 1 capsule by mouth 3 (three) times daily as needed for Cough. [facility] benzonatate 200 mg capsule 2022-0 2-27 00:00: 00 Yes [id number] 200mg Take 1 capsule by mouth 3 (three) times daily as needed for Cough. [facility] benzonatate 200 mg capsule 227 00:00: 00 08-10 00:00 :00 No [id number] 200mg Take 1 capsule by mouth 3 (three) times daily as needed for Cough. [facility] benzonatate 200 mg capsule 2 00:00: 00 08-10 00:00 :00 No [id number] 200mg Take 1 capsule by mouth 3 (three) times daily as needed for Cough. [facility] methylPREDN ISolone 4 mg tablets 08-02 00:00: 00 08-09 05:59 :00 No [id number] Take by mouth SEE-INSTRU CTIONS for 6 days. follow package directions [facility] methylPREDN ISolone 4 mg tablets 08-02 00:00: 00 08-09 05:59 :00 No [id number] Take by mouth SEE-INSTRU CTIONS for 6 days. follow package directions [facility] methylPREDN ISolone 4 mg tablets 08-02 00:00: 00 08-09 05:59 :00 No [id number] Take by mouth SEE-INSTRU CTIONS for 6 days. follow package directions [facility] methylPREDN ISolone 4 mg tablets 08-02 00:00: 00 08-09 05:59 :00 No [id number] Take by mouth SEE-INSTRU CTIONS for 6 days. follow package directions [facility] amLODIPine 10 mg tablet 2- 00:00: 00 Yes [id number] 10mg Take 1 tablet by mouth in the morning. [facility] amLODIPine 10 mg tablet 2022-0 2- 00:00: 00 Yes [id number] 10mg Take 1 tablet by mouth in the morning. [facility] amLODIPine 10 mg tablet 2022-0 2- 00:00: 00 Yes [id number] 10mg Take 1 tablet by mouth in the morning. [facility] amLODIPine 10 mg tablet 2022-0 2- 00:00: 00 Yes [id number] 10mg Take 1 tablet by mouth in the morning. [facility] amLODIPine 10 mg tablet 0 2- 00:00: 00 Yes [id number] 10mg Take 1 tablet by mouth in the morning. [facility] amLODIPine 10 mg tablet 0 2- 00:00: 00 Yes [id number] 10mg Take 1 tablet by mouth in the morning. [facility] amLODIPine 10 mg tablet 0 2- 00:00: 00 Yes [id number] 10mg Take 1 tablet by mouth in the morning. [facility] amLODIPine 10 mg tablet 0 2- 00:00: 00 Yes [id number] 10mg Take 1 tablet by mouth in the morning. [facility] amLODIPine 10 mg tablet 2- 00:00: 00 Yes [id number] 10mg Take 1 tablet by mouth in the morning. [facility] amLODIPine 10 mg tablet 0 2- 00:00: 00 Yes [id number] 10mg Take 1 tablet by mouth in the morning. [facility] amLODIPine 10 mg tablet 0 2- 00:00: 00 Yes [id number] 10mg Take 1 tablet by mouth in the morning. [facility] amLODIPine 10 mg tablet 2- 00:00: 00 Yes [id number] 10mg Take 1 tablet by mouth in the morning. [facility] amLODIPine 10 mg tablet 0 2- 00:00: 00 Yes [id number] 10mg Take 1 tablet by mouth in the morning. [facility] lisinopriL- hydrochloro thiazide 20-12.5 mg per tablet 0 2- 00:00: 00 Yes [id number] 1{tbl} Take 1 tablet by mouth in the morning. [facility] amLODIPine 10 mg tablet 0 2- 00:00: 00 Yes [id number] 10mg Take 1 tablet by mouth in the morning. [facility] lisinopriL- hydrochloro thiazide 20-12.5 mg per tablet 0 2- 00:00: 00 Yes [id number] 1{tbl} Take 1 tablet by mouth in the morning. [facility] amLODIPine 10 mg tablet 2- 00:00: 00 Yes [id number] 10mg Take 1 tablet by mouth in the morning. [facility] lisinopriL- hydrochloro thiazide 20-12.5 mg per tablet 2- 00:00: 00 Yes [id number] 1{tbl} Take 1 tablet by mouth in the morning. [facility] amLODIPine 10 mg tablet 2- 00:00: 00 Yes [id number] 10mg Take 1 tablet by mouth in the morning. [facility] lisinopriL- hydrochloro thiazide 20-12.5 mg per tablet - 00:00: 00 Yes [id number] 1{tbl} Take 1 tablet by mouth in the morning. [facility] amLODIPine 10 mg tablet 2- 00:00: 00 Yes [id number] 10mg Take 1 tablet by mouth in the morning. [facility] lisinopriL- hydrochloro thiazide 20-12.5 mg per tablet 07-07 00:00: 00 Yes [id number] 1{tbl} Take 1 tablet by mouth in the morning. [facility] amLODIPine 10 mg tablet 2- 00:00: 00 Yes [id number] 10mg Take 1 tablet by mouth in the morning. [facility] lisinopriL- hydrochloro thiazide 20-12.5 mg per tablet 2- 00:00: 00 Yes [id number] 1{tbl} Take 1 tablet by mouth in the morning. [facility] amLODIPine 10 mg tablet 0 2- 00:00: 00 Yes [id number] 10mg Take 1 tablet by mouth in the morning. [facility] lisinopriL- hydrochloro thiazide 20-12.5 mg per tablet 2- 00:00: 00 Yes [id number] 1{tbl} Take 1 tablet by mouth in the morning. [facility] amLODIPine 10 mg tablet 2- 00:00: 00 Yes [id number] 10mg Take 1 tablet by mouth in the morning. [facility] lisinopriL- hydrochloro thiazide 20-12.5 mg per tablet 2- 00:00: 00 Yes [id number] 1{tbl} Take 1 tablet by mouth in the morning. [facility] amLODIPine 10 mg tablet 2- 00:00: 00 Yes [id number] 10mg Take 1 tablet by mouth in the morning. [facility] lisinopriL- hydrochloro thiazide 20-12.5 mg per tablet 2- 00:00: 00 Yes [id number] 1{tbl} Take 1 tablet by mouth in the morning. [facility] amLODIPine 10 mg tablet 2- 00:00: 00 Yes [id number] 10mg Take 1 tablet by mouth in the morning. [facility] lisinopriL- hydrochloro thiazide 20-12.5 mg per tablet 2- 00:00: 00 Yes [id number] 1{tbl} Take 1 tablet by mouth in the morning. [facility] amLODIPine 10 mg tablet 2- 00:00: 00 Yes [id number] 10mg Take 1 tablet by mouth in the morning. [facility] lisinopriL- hydrochloro thiazide 20-12.5 mg per tablet 2- 00:00: 00 Yes [id number] 1{tbl} Take 1 tablet by mouth in the morning. [facility] amLODIPine 10 mg tablet 2- 00:00: 00 Yes [id number] 10mg Take 1 tablet by mouth in the morning. [facility] lisinopriL- hydrochloro thiazide 20-12.5 mg per tablet 0 2- 00:00: 00 Yes [id number] 1{tbl} Take 1 tablet by mouth in the morning. [facility] amLODIPine 10 mg tablet 2- 00:00: 00 Yes [id number] 10mg Take 1 tablet by mouth in the morning. [facility] lisinopriL- hydrochloro thiazide 20-12.5 mg per tablet 2- 00:00: 00 Yes [id number] 1{tbl} Take 1 tablet by mouth in the morning. [facility] amLODIPine 10 mg tablet 2- 00:00: 00 Yes [id number] 10mg Take 1 tablet by mouth in the morning. [facility] lisinopriL- hydrochloro thiazide 20-12.5 mg per tablet 2- 00:00: 00 Yes [id number] 1{tbl} Take 1 tablet by mouth in the morning. [facility] amLODIPine 10 mg tablet 2- 00:00: 00 Yes [id number] 10mg Take 1 tablet by mouth in the morning. [facility] amLODIPine 10 mg tablet 2- 00:00: 00 Yes [id number] 10mg Take 1 tablet by mouth in the morning. [facility] amLODIPine 10 mg tablet 2- 00:00: 00 Yes [id number] 10mg Take 1 tablet by mouth in the morning. [facility] amLODIPine 10 mg tablet 2- 00:00: 00 Yes [id number] 10mg Take 1 tablet by mouth in the morning. [facility] amLODIPine 10 mg tablet 2- 00:00: 00 Yes [id number] 10mg Take 1 tablet by mouth in the morning. [facility] amLODIPine 10 mg tablet 2- 00:00: 00 01-11 00:00 :00 No [id number] 10mg Take 1 tablet by mouth in the morning. [facility] amLODIPine 10 mg tablet 2- 00:00: 00 01-11 00:00 :00 No [id number] 10mg Take 1 tablet by mouth in the morning. [facility] lisinopriL- hydrochloro thiazide 20-12.5 mg per tablet 2- 00:00: 00 10-18 00:00 :00 No [id number] 1{tbl} Take 1 tablet by mouth in the morning. [facility] lisinopriL- hydrochloro thiazide 20-12.5 mg per tablet 0 2- 00:00: 00 10-18 00:00 :00 No [id number] 1{tbl} Take 1 tablet by mouth in the morning. [facility] lisinopriL- hydrochloro thiazide 20-12.5 mg per tablet 2- 00:00: 00 10-18 00:00 :00 No [id number] 1{tbl} Take 1 tablet by mouth in the morning. [facility] lisinopriL- hydrochloro thiazide 20-12.5 mg per tablet 2- 00:00: 00 10-18 00:00 :00 No [id number] 1{tbl} Take 1 tablet by mouth in the morning. [facility] water for irrigation irrigation solution 06-29 13:33: 00 06-29 14:45 :46 No PRN, Starting on Tue06/29/22 at 0733, Until Tue06/29/22 at 0845, Routine, Intra-op [facility] simethicone (GAS RELIEF (SIMETHICON E)) 40 mg/0.6 mL drops 06-29 13:33: 00 06-29 14:45 :46 No PRN, Starting on Tue06/29/22 at 0733, Until Tue06/29/22 at 0845, Routine, Intra-op [facility] lactated ringers IV infusion 1,000 mL 06-29 13:00: 00 06-29 13:00 :00 No 1000mL at 42 mL/hr, 1,000 mL, IV Infusion, ONCE, 1 dose, On Tue06/29/22 at 0700, Routine, DSU Pre-op [facility] lactated ringers IV infusion 1,000 mL 06-29 13:00: 00 06-29 13:00 :00 No 1000mL at 42 mL/hr, 1,000 mL, IV Infusion, ONCE, 1 dose, On Tue06/29/22 at 0700, Routine, DSU Pre-op [facility] oxybutynin chloride 5 mg tablet 3-0 -10 00:00: 00 Yes [id number] 5mg Take 1 tablet by mouth in the morning and 1 tablet in the evening. [facility] oxybutynin chloride 5 mg tablet 3-0 -10 00:00: 00 Yes [id number] 5mg Take 1 tablet by mouth in the morning and 1 tablet in the evening. [facility] oxybutynin chloride 5 mg tablet 3-0 -10 00:00: 00 Yes [id number] 5mg Take 1 tablet by mouth in the morning and 1 tablet in the evening. [facility] oxybutynin chloride 5 mg tablet 3-0 -10 00:00: 00 Yes [id number] 5mg Take 1 tablet by mouth in the morning and 1 tablet in the evening. [facility] oxybutynin chloride 5 mg tablet 3-0 -10 00:00: 00 Yes [id number] 5mg Take 1 tablet by mouth in the morning and 1 tablet in the evening. [facility] oxybutynin chloride 5 mg tablet 3-0 10 00:00: 00 Yes [id number] 5mg Take 1 tablet by mouth in the morning and 1 tablet in the evening. [facility] oxybutynin chloride 5 mg tablet 3-0 -10 00:00: 00 Yes [id number] 5mg Take 1 tablet by mouth in the morning and 1 tablet in the evening. [facility] oxybutynin chloride 5 mg tablet 3-0 -10 00:00: 00 Yes [id number] 5mg Take 1 tablet by mouth in the morning and 1 tablet in the evening. [facility] oxybutynin chloride 5 mg tablet 3-0 -10 00:00: 00 Yes [id number] 5mg Take 1 tablet by mouth in the morning and 1 tablet in the evening. [facility] oxybutynin chloride 5 mg tablet 3-0 -10 00:00: 00 Yes [id number] 5mg Take 1 tablet by mouth in the morning and 1 tablet in the evening. [facility] oxybutynin chloride 5 mg tablet 3-0 1-10 00:00: 00 Yes [id number] 5mg Take 1 tablet by mouth in the morning and 1 tablet in the evening. [facility] mg tablet 3-0 1-10 00:00: 00 Yes [id number] 5mg Take 1 tablet by mouth in the morning and 1 tablet in the evening. [facility] oxybutynin chloride 5 mg tablet 3-0 -10 00:00: 00 Yes [id number] 5mg Take 1 tablet by mouth in the morning and 1 tablet in the evening. [facility] oxybutynin [facility] 5 mg tablet 3-0 -10 00:00: 00 Yes [id number] 5mg Take 1 tablet by mouth in the morning and 1 tablet in the evening. [facility] oxybutynin chloride 5 mg tablet 3-0 -10 00:00: 00 Yes [id number] 5mg Take 1 tablet by mouth in the morning and 1 tablet in the evening. [facility] oxybutynin chloride 5 mg tablet 3-0 -10 00:00: 00 Yes [id number] 5mg Take 1 tablet by mouth in the morning and 1 tablet in the evening. [facility] oxybutynin chloride 5 mg tablet 3-0 -10 00:00: 00 Yes [id number] 5mg Take 1 tablet by mouth in the morning and 1 tablet in the evening. [facility] oxybutynin chloride 5 mg tablet 3-0 -10 00:00: 00 Yes [id number] 5mg Take 1 tablet by mouth in the morning and 1 tablet in the evening. [facility] oxybutynin chloride 5 mg tablet 3-0 -10 00:00: 00 Yes [id number] 5mg Take 1 tablet by mouth in the morning and 1 tablet in the evening. [facility] oxybutynin chloride 5 mg tablet 3-0 -10 00:00: 00 Yes [id number] 5mg Take 1 tablet by mouth in the morning and 1 tablet in the evening. [facility] oxybutynin chloride 5 mg tablet 3-0 -10 00:00: 00 Yes [id number] 5mg Take 1 tablet by mouth in the morning and 1 tablet in the evening. [facility] oxybutynin chloride 5 mg tablet 3-0 1-10 00:00: 00 Yes [id number] 5mg Take 1 tablet by mouth in the morning and 1 tablet in the evening. [facility] oxybutynin chloride 5 mg tablet 2023-0 1-10 00:00: 00 Yes [id number] 5mg Take 1 tablet by mouth in the morning and 1 tablet in the evening. [facility] oxybutynin chloride 5 mg tablet 3-0 1-10 00:00: 00 Yes [id number] 5mg Take 1 tablet by mouth in the morning and 1 tablet in the evening. [facility] oxybutynin chloride 5 mg tablet 3-0 -10 00:00: 00 Yes [id number] 5mg Take 1 tablet by mouth in the morning and 1 tablet in the evening. [facility] oxybutynin chloride 5 mg tablet 3-0 -10 00:00: 00 Yes [id number] 5mg Take 1 tablet by mouth in the morning and 1 tablet in the evening. [facility] oxybutynin chloride 5 mg tablet 3-0 -10 00:00: 00 Yes [id number] 5mg Take 1 tablet by mouth in the morning and 1 tablet in the evening. [facility] oxybutynin chloride 5 mg tablet 3-0 -10 00:00: 00 Yes [id number] 5mg Take 1 tablet by mouth in the morning and 1 tablet in the evening. [facility] oxybutynin chloride 5 mg tablet 3-0 -10 00:00: 00 Yes [id number] 5mg Take 1 tablet by mouth in the morning and 1 tablet in the evening. [facility] oxybutynin chloride 5 mg tablet 3-0 1-10 00:00: 00 Yes [id number] 5mg Take 1 tablet by mouth in the morning and 1 tablet in the evening. [facility] oxybutynin chloride 5 mg tablet 2023-0 1-10 00:00: 00 Yes [id number] 5mg Take 1 tablet by mouth in the morning and 1 tablet in the evening. [facility] oxybutynin chloride 5 mg tablet 3-0 1-10 00:00: 00 Yes [id number] 5mg Take 1 tablet by mouth in the morning and 1 tablet in the evening. [facility] oxybutynin chloride 5 mg tablet 3-0 -10 00:00: 00 Yes [id number] 5mg Take 1 tablet by mouth in the morning and 1 tablet in the evening. [facility] oxybutynin chloride 5 mg tablet 3-0 -10 00:00: 00 Yes [id number] 5mg Take 1 tablet by mouth in the morning and 1 tablet in the evening. [facility] oxybutynin chloride 5 mg tablet 3-0 -10 00:00: 00 Yes [id number] 5mg Take 1 tablet by mouth in the morning and 1 tablet in the evening. [facility] oxybutynin chloride 5 mg tablet 3-0 -10 00:00: 00 Yes [id number] 5mg Take 1 tablet by mouth in the morning and 1 tablet in the evening. [facility] oxybutynin chloride 5 mg tablet 3-0 -10 00:00: 00 Yes [id number] 5mg Take 1 tablet by mouth in the morning and 1 tablet in the evening. [facility] oxybutynin chloride 5 mg tablet 3-0 -10 00:00: 00 Yes [id number] 5mg Take 1 tablet by mouth in the morning and 1 tablet in the evening. [facility] oxybutynin chloride 5 mg tablet 3-0 -10 00:00: 00 Yes [id number] 5mg Take 1 tablet by mouth in the morning and 1 tablet in the evening. [facility] oxybutynin chloride 5 mg tablet 3-0 -10 00:00: 00 Yes [id number] 5mg Take 1 tablet by mouth in the morning and 1 tablet in the evening. [facility] oxybutynin chloride 5 mg tablet 3-0 -10 00:00: 00 Yes [id number] 5mg Take 1 tablet by mouth in the morning and 1 tablet in the evening. [facility] oxybutynin chloride 5 mg tablet 3-0 -10 00:00: 00 Yes [id number] 5mg Take 1 tablet by mouth in the morning and 1 tablet in the evening. [facility] oxybutynin chloride 5 mg tablet 2023-0 1-10 00:00: 00 Yes [id number] 5mg Take 1 tablet by mouth in the morning and 1 tablet in the evening. [facility] oxybutynin chloride 5 mg tablet 3-0 1-10 00:00: 00 Yes [id number] 5mg Take 1 tablet by mouth in the morning and 1 tablet in the evening. [facility] oxybutynin chloride 5 mg tablet 3-0 1-10 00:00: 00 Yes [id number] 5mg Take 1 tablet by mouth in the morning and 1 tablet in the evening. [facility] oxybutynin chloride 5 mg tablet 3-0 -10 00:00: 00 Yes [id number] 5mg Take 1 tablet by mouth in the morning and 1 tablet in the evening. [facility] oxybutynin chloride 5 mg tablet 3-0 -10 00:00: 00 Yes [id number] 5mg Take 1 tablet by mouth in the morning and 1 tablet in the evening. [facility] oxybutynin chloride 5 mg tablet 3-0 -10 00:00: 00 Yes [id number] 5mg Take 1 tablet by mouth in the morning and 1 tablet in the evening. [facility] oxybutynin chloride 5 mg tablet 3-0 -10 00:00: 00 Yes [id number] 5mg Take 1 tablet by mouth in the morning and 1 tablet in the evening. [facility] oxybutynin chloride 5 mg tablet 3-0 1-10 00:00: 00 Yes [id number] 5mg Take 1 tablet by mouth in the morning and 1 tablet in the evening. [facility] oxybutynin chloride 5 mg tablet 3-0 1-10 00:00: 00 Yes [id number] 5mg Take 1 tablet by mouth in the morning and 1 tablet in the evening. [facility] oxybutynin chloride 5 mg tablet 3-0 1-10 00:00: 00 Yes [id number] 5mg Take 1 tablet by mouth in the morning and 1 tablet in the evening. [facility] oxybutynin chloride 5 mg tablet 3-0 -10 00:00: 00 Yes [id number] 5mg Take 1 tablet by mouth in the morning and 1 tablet in the evening. [facility] oxybutynin chloride 5 mg tablet 3-0 -10 00:00: 00 Yes [id number] 5mg Take 1 tablet by mouth in the morning and 1 tablet in the evening. [facility] oxybutynin chloride 5 mg tablet 3-0 -10 00:00: 00 Yes [id number] 5mg Take 1 tablet by mouth in the morning and 1 tablet in the evening. [facility] oxybutynin chloride 5 mg tablet 3-0 -10 00:00: 00 Yes [id number] 5mg Take 1 tablet by mouth in the morning and 1 tablet in the evening. [facility] oxybutynin chloride 5 mg tablet 3-0 -10 00:00: 00 Yes [id number] 5mg Take 1 tablet by mouth in the morning and 1 tablet in the evening. [facility] oxybutynin chloride 5 mg tablet 3-0 -10 00:00: 00 Yes [id number] 5mg Take 1 tablet by mouth in the morning and 1 tablet in the evening. [facility] oxybutynin chloride 5 mg tablet 3-0 -10 00:00: 00 Yes [id number] 5mg Take 1 tablet by mouth in the morning and 1 tablet in the evening. [facility] oxybutynin chloride 5 mg tablet 3-0 -10 00:00: 00 Yes [id number] 5mg Take 1 tablet by mouth in the morning and 1 tablet in the evening. [facility] oxybutynin chloride 5 mg tablet 3-0 -10 00:00: 00 Yes [id number] 5mg Take 1 tablet by mouth in the morning and 1 tablet in the evening. [facility] oxybutynin chloride 5 mg tablet 3-0 -10 00:00: 00 Yes [id number] 5mg Take 1 tablet by mouth in the morning and 1 tablet in the evening. [facility] oxybutynin chloride 5 mg tablet 3-0 -10 00:00: 00 Yes [id number] 5mg Take 1 tablet by mouth in the morning and 1 tablet in the evening. [facility] oxybutynin chloride 5 mg tablet 3-0 1-10 00:00: 00 Yes [id number] 5mg Take 1 tablet by mouth in the morning and 1 tablet in the evening. [facility] oxybutynin chloride 5 mg tablet 3-0 -10 00:00: 00 Yes [id number] 5mg Take 1 tablet by mouth in the morning and 1 tablet in the evening. [facility] oxybutynin chloride 5 mg tablet 3-0 -10 00:00: 00 Yes [id number] 5mg Take 1 tablet by mouth in the morning and 1 tablet in the evening. [facility] oxybutynin chloride 5 mg tablet 3-0 -10 00:00: 00 Yes [id number] 5mg Take 1 tablet by mouth in the morning and 1 tablet in the evening. [facility] oxybutynin chloride 5 mg tablet 3-0 -10 00:00: 00 Yes [id number] 5mg Take 1 tablet by mouth in the morning and 1 tablet in the evening. [facility] oxybutynin chloride 5 mg tablet 3-0 -10 00:00: 00 Yes [id number] 5mg Take 1 tablet by mouth in the morning and 1 tablet in the evening. [facility] oxybutynin chloride 5 mg tablet 3-0 -10 00:00: 00 Yes [id number] 5mg Take 1 tablet by mouth in the morning and 1 tablet in the evening. [facility] oxybutynin chloride 5 mg tablet 3-0 -10 00:00: 00 Yes [id number] 5mg Take 1 tablet by mouth in the morning and 1 tablet in the evening. [facility] oxybutynin chloride 5 mg tablet 3-0 -10 00:00: 00 Yes [id number] 5mg Take 1 tablet by mouth in the morning and 1 tablet in the evening. [facility] oxybutynin chloride 5 mg tablet 3-0 1-10 00:00: 00 Yes [id number] 5mg Take 1 tablet by mouth in the morning and 1 tablet in the evening. [facility] oxybutynin chloride 5 mg tablet 06-15 00:00: 00 Yes [id number] 5mg Take 1 tablet by mouth in the morning and 1 tablet in the evening. [facility] oxybutynin chloride 5 mg tablet 06-15 00:00: 00 Yes [id number] 5mg Take 1 tablet by mouth in the morning and 1 tablet in the evening. [facility] OXYBUTYNIN CHLORIDE 5 mg tablet 06-07 00:00: 00 Yes [id number] 5mg TAKE 1 TABLET BY MOUTH IN THE MORNING AND 1 TABLET IN THE EVENING. [facility] OXYBUTYNIN CHLORIDE 5 mg tablet 06-07 00:00: 00 06-15 00:00 :00 No [id number] 5mg TAKE 1 TABLET BY MOUTH IN THE MORNING AND 1 TABLET IN THE EVENING. [facility] OXYBUTYNIN CHLORIDE 5 mg tablet 06-07 00:00: 00 06-15 00:00 :00 No [id number] 5mg TAKE 1 TABLET BY MOUTH IN THE MORNING AND 1 TABLET IN THE EVENING. [facility] sodium,pota ssium,mag sulfates 17.5-3.13-1 .6 gram 2021-0620 00:00: 00 05-26 05:59 :00 No 117mL Take 117 mL by mouth once now for 1 dose. [facility] oxybutynin chloride 5 mg tablet 2021-06 00:00: 00 Yes [id number] 5mg Take 1 tablet by mouth in the morning and 1 tablet in the evening. [facility] oxybutynin chloride 5 mg tablet 2021-06 00:00: 00 Yes [id number] 5mg Take 1 tablet by mouth in the morning and 1 tablet in the evening. [facility] oxybutynin chloride 5 mg tablet 2021-06 00:00: 00 Yes [id number] 5mg Take 1 tablet by mouth in the morning and 1 tablet in the evening. [facility] oxybutynin chloride 5 mg tablet 2021-06 00:00: 00 Yes [id number] 5mg Take 1 tablet by mouth in the morning and 1 tablet in the evening. [facility] oxybutynin chloride 5 mg tablet 2021-06 00:00: 00 Yes [id number] 5mg Take 1 tablet by mouth in the morning and 1 tablet in the evening. [facility] oxybutynin chloride 5 mg tablet 2021-06 00:00: 00 06-07 00:00 :00 No [id number] 5mg Take 1 tablet by mouth in the morning and 1 tablet in the evening. [facility] albuterol sulfate (PROAIR DIGIHALER) 90 mcg/actuati on [facility] 2021-06 10:26: 04-08 00:00 :00 No Inhale as needed. [facility] lisinopriL- hydrochloro thiazide 20-12.5 mg per tablet 2021-06 10:26: 04-08 00:00 :00 No 1{tbl} Take 1 tablet by mouth daily. [facility] amLODIPine 10 mg tablet 2021-06 10:26: 04-08 00:00 :00 No 10mg Take 10 mg by mouth daily. [facility] albuterol sulfate (PROAIR DIGIHALER) 90 mcg/actuati on [facility] 2021-06 10:26: 04-08 00:00 :00 No Inhale as needed. [facility] lisinopriL- hydrochloro thiazide 20-12.5 mg per tablet 2021-06 10:26: 04-08 00:00 :00 No 1{tbl} Take 1 tablet by mouth daily. [facility] amLODIPine 10 mg tablet 2021-06 10:26: 04-08 00:00 :00 No 10mg Take 10 mg by mouth daily. [facility] albuterol sulfate (PROAIR DIGIHALER) 90 mcg/actuati on [facility] 2021-06 10:26: 04-08 00:00 :00 No Inhale as needed. [facility] lisinopriL- hydrochloro thiazide 20-12.5 mg per tablet 2021-06 10:26: 04-08 00:00 :00 No 1{tbl} Take 1 tablet by mouth daily. [facility] amLODIPine 10 mg tablet 2021-06 10:: 04-08 00:00 :00 No 10mg Take 10 mg by mouth daily. [facility] amLODIPine 10 mg tablet 2021-06 00:00: 00 Yes [id number] 10mg Take 1 tablet by mouth in the morning. [facility] lisinopriL- hydrochloro thiazide 20-12.5 mg per tablet 2021-06 00:00: 00 Yes [id number] 1{tbl} Take 1 tablet by mouth in the morning. [facility] albuterol sulfate (PROAIR DIGIHALER) 90 mcg/actuati on [facility] 2021-06 00:00: 00 Yes [id number] 1{puff} Inhale 1 Puff 3 (three) times daily as needed for Other (allergies ). Inhale as needed. [facility] amLODIPine 10 mg tablet 2021-06 00:00: 00 Yes [id number] 10mg Take 1 tablet by mouth in the morning. [facility] lisinopriL- hydrochloro thiazide 20-12.5 mg per tablet 2021-06 00:00: 00 Yes [id number] 1{tbl} Take 1 tablet by mouth in the morning. [facility] albuterol sulfate (PROAIR DIGIHALER) 90 mcg/actuati on [facility] 2021-06 00:00: 00 Yes [id number] 1{puff} Inhale 1 Puff 3 (three) times daily as needed for Other (allergies ). Inhale as needed. [facility] amLODIPine 10 mg tablet 2021-06 00:00: 00 Yes [id number] 10mg Take 1 tablet by mouth in the morning. [facility] lisinopriL- hydrochloro thiazide 20-12.5 mg per tablet 2021-06 00:00: 00 Yes [id number] 1{tbl} Take 1 tablet by mouth in the morning. [facility] albuterol sulfate (PROAIR DIGIHALER) 90 mcg/actuati on [facility] 2021-06 00:00: 00 Yes [id number] 1{puff} Inhale 1 Puff 3 (three) times daily as needed for Other (allergies ). Inhale as needed. [facility] amLODIPine 10 mg tablet 2021-06 00:00: 00 Yes [id number] 10mg Take 1 tablet by mouth in the morning. [facility] lisinopriL- hydrochloro thiazide 20-12.5 mg per tablet 2021-06 00:00: 00 Yes [id number] 1{tbl} Take 1 tablet by mouth in the morning. [facility] albuterol sulfate (PROAIR DIGIHALER) 90 mcg/actuati on [facility] 2021-06 00:00: 00 Yes [id number] 1{puff} Inhale 1 Puff 3 (three) times daily as needed for Other (allergies ). Inhale as needed. [facility] amLODIPine 10 mg tablet 2021-06 00:00: 00 Yes [id number] 10mg Take 1 tablet by mouth in the morning. [facility] lisinopriL- hydrochloro thiazide 20-12.5 mg per tablet 2021-06 00:00: 00 Yes [id number] 1{tbl} Take 1 tablet by mouth in the morning. [facility] albuterol sulfate (PROAIR DIGIHALER) 90 mcg/actuati on [facility] 2021-06 00:00: 00 Yes [id number] 1{puff} Inhale 1 Puff 3 (three) times daily as needed for Other (allergies ). Inhale as needed. [facility] amLODIPine 10 mg tablet 2021-06 00:00: 00 Yes [id number] 10mg Take 1 tablet by mouth in the morning. [facility] lisinopriL- hydrochloro thiazide 20-12.5 mg per tablet 2021-06 00:00: 00 Yes [id number] 1{tbl} Take 1 tablet by mouth in the morning. [facility] albuterol sulfate (PROAIR DIGIHALER) 90 mcg/actuati on [facility] 2021-06 00:00: 00 Yes [id number] 1{puff} Inhale 1 Puff 3 (three) times daily as needed for Other (allergies ). Inhale as needed. [facility] amLODIPine 10 mg tablet 2021-06 00:00: 00 Yes [id number] 10mg Take 1 tablet by mouth in the morning. [facility] lisinopriL- hydrochloro thiazide 20-12.5 mg per tablet 2021-06 00:00: 00 Yes [id number] 1{tbl} Take 1 tablet by mouth in the morning. [facility] albuterol sulfate (PROAIR DIGIHALER) 90 mcg/actuati on [facility] 2021-06 00:00: 00 Yes [id number] 1{puff} Inhale 1 Puff 3 (three) times daily as needed for Other (allergies ). Inhale as needed. [facility] amLODIPine 10 mg tablet 2021-06 00:00: 00 Yes [id number] 10mg Take 1 tablet by mouth in the morning. [facility] lisinopriL- hydrochloro thiazide 20-12.5 mg per tablet 2021-06 00:00: 00 Yes [id number] 1{tbl} Take 1 tablet by mouth in the morning. [facility] albuterol sulfate (PROAIR DIGIHALER) 90 mcg/actuati on [facility] 2021-06 00:00: 00 Yes [id number] 1{puff} Inhale 1 Puff 3 (three) times daily as needed for Other (allergies ). Inhale as needed. [facility] amLODIPine 10 mg tablet 2021-06 00:00: 00 Yes [id number] 10mg Take 1 tablet by mouth in the morning. [facility] lisinopriL- hydrochloro thiazide 20-12.5 mg per tablet 2021-06 00:00: 00 Yes [id number] 1{tbl} Take 1 tablet by mouth in the morning. [facility] albuterol sulfate (PROAIR DIGIHALER) 90 mcg/actuati on [facility] 2021-06 00:00: 00 Yes [id number] 1{puff} Inhale 1 Puff 3 (three) times daily as needed for Other (allergies ). Inhale as needed. [facility] amLODIPine 10 mg tablet 2021-06 00:00: 00 Yes [id number] 10mg Take 1 tablet by mouth in the morning. [facility] lisinopriL- hydrochloro thiazide 20-12.5 mg per tablet 2021-06 00:00: 00 Yes [id number] 1{tbl} Take 1 tablet by mouth in the morning. [facility] albuterol sulfate (PROAIR DIGIHALER) 90 mcg/actuati on [facility] 2021-06 00:00: 00 Yes [id number] 1{puff} Inhale 1 Puff 3 (three) times daily as needed for Other (allergies ). Inhale as needed. [facility] amLODIPine 10 mg tablet 2021-06 00:00: 00 Yes [id number] 10mg Take 1 tablet by mouth in the morning. [facility] lisinopriL- hydrochloro thiazide 20-12.5 mg per tablet 2021-06 00:00: 00 Yes [id number] 1{tbl} Take 1 tablet by mouth in the morning. [facility] albuterol sulfate (PROAIR DIGIHALER) 90 mcg/actuati on [facility] 2021-06 00:00: 00 Yes [id number] 1{puff} Inhale 1 Puff 3 (three) times daily as needed for Other (allergies ). Inhale as needed. [facility] amLODIPine 10 mg tablet 2021-06 00:00: 00 Yes [id number] 10mg Take 1 tablet by mouth in the morning. [facility] lisinopriL- hydrochloro thiazide 20-12.5 mg per tablet 2021-06 00:00: 00 Yes [id number] 1{tbl} Take 1 tablet by mouth in the morning. [facility] albuterol sulfate (PROAIR DIGIHALER) 90 mcg/actuati on [facility] 2021-06 00:00: 00 Yes [id number] 1{puff} Inhale 1 Puff 3 (three) times daily as needed for Other (allergies ). Inhale as needed. [facility] amLODIPine 10 mg tablet 2021-06 00:00: 00 Yes [id number] 10mg Take 1 tablet by mouth in the morning. [facility] lisinopriL- hydrochloro thiazide 20-12.5 mg per tablet 2021-06 00:00: 00 Yes [id number] 1{tbl} Take 1 tablet by mouth in the morning. [facility] albuterol sulfate (PROAIR DIGIHALER) 90 mcg/actuati on [facility] 2021-06 00:00: 00 Yes [id number] 1{puff} Inhale 1 Puff 3 (three) times daily as needed for Other (allergies ). Inhale as needed. [facility] amLODIPine 10 mg tablet 2021-06 00:00: 00 Yes [id number] 10mg Take 1 tablet by mouth in the morning. [facility] lisinopriL- hydrochloro thiazide 20-12.5 mg per tablet 2021-06 00:00: 00 Yes [id number] 1{tbl} Take 1 tablet by mouth in the morning. [facility] albuterol sulfate (PROAIR DIGIHALER) 90 mcg/actuati on [facility] 2021-06 00:00: 00 Yes [id number] 1{puff} Inhale 1 Puff 3 (three) times daily as needed for Other (allergies ). Inhale as needed. [facility] amLODIPine 10 mg tablet 2021-06 00:00: 00 Yes [id number] 10mg Take 1 tablet by mouth in the morning. [facility] lisinopriL- hydrochloro thiazide 20-12.5 mg per tablet 2021-06 00:00: 00 Yes [id number] 1{tbl} Take 1 tablet by mouth in the morning. [facility] albuterol sulfate (PROAIR DIGIHALER) 90 mcg/actuati on ae 2021-06 00:00: 00 Yes [id number] 1{puff} Inhale 1 Puff 3 (three) times daily as needed for Other (allergies ). Inhale as needed. [facility] amLODIPine 10 mg tablet 2021-06 00:00: 00 Yes [id number] 10mg Take 1 tablet by mouth in the morning. [facility] lisinopriL- hydrochloro thiazide 20-12.5 mg per tablet 2021-06 00:00: 00 Yes [id number] 1{tbl} Take 1 tablet by mouth in the morning. [facility] albuterol sulfate (PROAIR DIGIHALER) 90 mcg/actuati on [facility] 2021-06 00:00: 00 Yes [id number] 1{puff} Inhale 1 Puff 3 (three) times daily as needed for Other (allergies ). Inhale as needed. [facility] amLODIPine 10 mg tablet 2021-06 00:00: 00 Yes [id number] 10mg Take 1 tablet by mouth in the morning. [facility] lisinopriL- hydrochloro thiazide 20-12.5 mg per tablet 2021-06 00:00: 00 Yes [id number] 1{tbl} Take 1 tablet by mouth in the morning. [facility] amLODIPine 10 mg tablet 2021-06 00:00: 00 Yes [id number] 10mg Take 1 tablet by mouth in the morning. [facility] lisinopriL- hydrochloro thiazide 20-12.5 mg per tablet 2021-06 00:00: 00 Yes [id number] 1{tbl} Take 1 tablet by mouth in the morning. [facility] amLODIPine 10 mg tablet 2021-06 00:00: 00 Yes [id number] 10mg Take 1 tablet by mouth in the morning. [facility] lisinopriL- hydrochloro thiazide 20-12.5 mg per tablet 2021-06 00:00: 00 Yes [id number] 1{tbl} Take 1 tablet by mouth in the morning. [facility] amLODIPine 10 mg tablet 2021-06 00:00: 00 07-07 00:00 :00 No [id number] 10mg Take 1 tablet by mouth in the morning. [facility] lisinopriL- hydrochloro thiazide 20-12.5 mg per tablet 2021-06 00:00: 00 07-07 00:00 :00 No [id number] 1{tbl} Take 1 tablet by mouth in the morning. [facility] albuterol sulfate (PROAIR DIGIHALER) 90 mcg/actuati on [facility] 2021-06 00:00: 00 06-29 00:00 :00 No [id number] 1{puff} Inhale 1 Puff 3 (three) times daily as needed for Other (allergies ). Inhale as needed. [facility] albuterol sulfate (PROAIR DIGIHALER) 90 mcg/actuati on [facility] 2021-06 00:00: 00 06-29 00:00 :00 No [id number] 1{puff} Inhale 1 Puff 3 (three) times daily as needed for Other (allergies ). Inhale as needed. [facility] oseltamivir 75 mg capsule 2021-06 0-29 00:00: 00 Yes [facility] 2021-06 0-29 00:00: 00 Yes [facility] oseltamivir [facility] mg capsule 2021-06 0-29 00:00: 00 Yes [facility] oseltamivir 75 mg capsule 2021-06 0-29 00:00: 00 Yes [facility] oseltamivir 75 mg capsule 2021-06 0-29 00:00: 00 Yes [facility] oseltamivir 75 mg capsule 2021-06 0-29 00:00: 00 Yes [facility] osel[facility]amivir [facility] mg capsule 2021-06 0-29 00:00: 00 Yes [facility] oseltamivir 75 mg capsule 2021- 0 00:00: 00 Yes [facility] oseltamivir 75 mg capsule 2021- 0 00:00: 00 Yes [facility] oseltamivir 75 mg capsule 2021-06 0 00:00: 00 Yes [facility] oseltamivir 75 mg capsule 2021- 0 00:00: 00 Yes [facility] oseltamivir 75 mg capsule 2021- 0 00:00: 00 Yes [facility] oseltamivir 75 mg capsule 2021- 0 00:00: 00 Yes [facility] oseltamivir 75 mg capsule 2021-06 0 00:00: 00 Yes [facility] oseltamivir 75 mg capsule 2021-06 0 00:00: 00 Yes [facility] oseltamivir 75 mg capsule 2021- 0 00:00: 00 06-24 00:00 :00 No [facility] oseltamivir 75 mg capsule 2021-06 0 00:00: 00 06-24 00:00 :00 No [facility] amoxicillin 500 mg capsule 2021-06 0 00:00: 00 Yes [facility] ibuprofen 600 mg tablet 2021-06 024 00:00: 00 Yes [facility] amoxicillin 500 mg capsule 2021- 024 00:00: 00 Yes [facility] ibuprofen 600 mg tablet 2021-06 024 00:00: 00 Yes [facility] amoxicillin 500 mg capsule 2021- 0-24 00:00: 00 Yes [facility] ibuprofen 600 mg tablet 2021- 0-24 00:00: 00 Yes [facility] amoxicillin 500 mg capsule 2021- 0-24 00:00: 00 Yes [facility] ibuprofen 600 mg tablet 2021- 0-24 00:00: 00 Yes [facility] amoxicillin 500 mg capsule 2021- 0-24 00:00: 00 Yes [facility] ibuprofen 600 mg tablet 2021-1 0-24 00:00: 00 Yes [facility] amoxicillin 500 mg capsule 2021-1 0-24 00:00: 00 Yes [facility] ibuprofen 600 mg tablet 2021-1 0-24 00:00: 00 Yes [facility] amoxicillin 500 mg capsule 2021-1 0-24 00:00: 00 Yes [facility] ibuprofen 600 mg tablet 2021- 0-24 00:00: 00 Yes [facility] amoxicillin 500 mg capsule 2021-1 0-24 00:00: 00 Yes [facility] ibuprofen 600 mg tablet 2021-1 0-24 00:00: 00 Yes [facility] amoxicillin 500 mg capsule 2021-1 0-24 00:00: 00 Yes [facility] ibuprofen 600 mg tablet 2021-1 0-24 00:00: 00 Yes [facility] amoxicillin 500 mg capsule 2021-1 0-24 00:00: 00 Yes [facility] ibuprofen 600 mg tablet 2021- 0-24 00:00: 00 Yes [facility] amoxicillin 500 mg capsule 2021-1 0-24 00:00: 00 Yes [facility] ibuprofen 600 mg tablet 2021- 0-24 00:00: 00 Yes [facility] amoxicillin 500 mg capsule 2021-1 0-24 00:00: 00 Yes [facility] ibuprofen 600 mg tablet 2021- 0-24 00:00: 00 Yes [facility] amoxicillin 500 mg capsule 2021-1 0-24 00:00: 00 Yes [facility] ibuprofen 600 mg tablet 2021-1 0-24 00:00: 00 Yes [facility] amoxicillin 500 mg capsule 2-1 0-24 00:00: 00 Yes [facility] ibuprofen 600 mg tablet 2-1 0-24 00:00: 00 Yes [facility] amoxicillin 500 mg capsule 2-1 0-24 00:00: 00 Yes [facility] ibuprofen 600 mg tablet 2021-06 0-24 00:00: 00 Yes [facility] amoxicillin 500 mg capsule 2021-06 0-24 00:00: 00 06-24 00:00 :00 No [facility] ibuprofen 600 mg tablet 2021-06 0-24 00:00: 00 06-24 00:00 :00 No [facility] amoxicillin 500 mg capsule 2021-06 0-24 00:00: 00 06-24 00:00 :00 No [facility] ibuprofen 600 mg tablet 2021-06 0-24 00:00: 00 06-24 00:00 :00 No [facility] methocarbam oL 500 mg tablet 2021-06 0-10 00:00: 00 Yes [facility] methocarbam oL 500 mg tablet 2021-06 0-10 00:00: 00 Yes [facility] methocarbam oL 500 mg tablet 2021-06 0-10 00:00: 00 Yes [facility] methocarbam oL 500 mg tablet 2021-06 0-10 00:00: 00 Yes [facility] methocarbam oL 500 mg tablet 2021-06 0-10 00:00: 00 Yes [facility] methocarbam oL 500 mg tablet 2021-06 0-10 00:00: 00 Yes [facility] methocarbam oL 500 mg tablet 2021-06 0-10 00:00: 00 Yes [facility] methocarbam oL 500 mg tablet 2021-06 0-10 00:00: 00 Yes [facility] methocarbam oL 500 mg tablet 2021-06 0-10 00:00: 00 Yes [facility] methocarbam oL 500 mg tablet 2021-06 0-10 00:00: 00 Yes [facility] methocarbam oL 500 mg tablet 2021-06 0-10 00:00: 00 Yes [facility] methocarbam oL 500 mg tablet 2021-06 0-10 00:00: 00 Yes [facility] methocarbam oL 500 mg tablet 2021-06 0-10 00:00: 00 Yes [facility] methocarbam oL 500 mg tablet 2021-06 0-10 00:00: 00 Yes [facility] methocarbam oL 500 mg tablet 2021-06 0-10 00:00: 00 Yes [facility] methocarbam oL 500 mg tablet 2021-06 0-10 00:00: 00 06-24 00:00 :00 No [facility] methocarbam oL 500 mg tablet 2021-06 0-10 00:00: 00 06-24 00:00 :00 No [facility] albuterol sulfate (PROAIR DIGIHALER) 90 mcg/actuati on aebs 09-02 10:02: 35 Yes Inhale as needed. [facility] albuterol sulfate (PROAIR DIGIHALER) 90 mcg/actuati on aebs 09-02 10:02: 35 Yes Inhale as needed. [facility] albuterol sulfate (PROAIR DIGIHALER) 90 mcg/actuati on aebs 09-02 10:02: 35 Yes Inhale as needed. [facility] lisinopriL- hydrochloro thiazide 20-12.5 mg per tablet 08-27 14:38: 33 Yes 1{tbl} Take 1 tablet by mouth daily. [facility] amLODIPine 10 mg tablet 08-27 14:38: 33 Yes 10mg Take 10 mg by mouth daily. [facility] lisinopriL- hydrochloro thiazide 20-12.5 mg per tablet 08-27 14:38: 33 Yes 1{tbl} Take 1 tablet by mouth daily. [facility] amLODIPine 10 mg tablet 08-27 14:38: 33 Yes 10mg Take 10 mg by mouth daily. [facility] lisinopriL- hydrochloro thiazide 20-12.5 mg per tablet 08-27 14:38: 33 Yes 1{tbl} Take 1 tablet by mouth daily. [facility] amLODIPine 10 mg tablet 2021-0 3-24 14:38: 33 Yes 10mg Take 10 mg by mouth daily. [facility] Immunizations Ordered Immunization Name Filled Immunization Name Date Status Comments Source Pneumococcal 20 Conjugate, PCV20 (Prevnar 20) 2022-04-08 00:00:00 Completed [facility] Pneumococcal 20 Conjugate, PCV20 (Prevnar 20) 2022-04-08 00:00:00 Completed [facility] Pneumococcal 20 Conjugate, PCV20 (Prevnar 20) 2022-04-08 00:00:00 Completed [facility] Pneumococcal 20 Conjugate, PCV20 (Prevnar 20) 2022-04-08 00:00:00 Completed [facility] Pneumococcal 20 Conjugate, PCV20 (Prevnar 20) 2022-04-08 00:00:00 Completed [facility] Pneumococcal 20 Conjugate, PCV20 (Prevnar 20) 2022-04-08 00:00:00 Completed [facility] Pneumococcal 20 Conjugate, PCV20 (Prevnar 20) 2022-04-08 00:00:00 Completed [facility] Pneumococcal 20 Conjugate, PCV20 (Prevnar 20) 2022-04-08 00:00:00 Completed [facility] Pneumococcal 20 Conjugate, PCV20 (Prevnar 20) 2022-04-08 00:00:00 Completed [facility] Pneumococcal 20 Conjugate, PCV20 (Prevnar 20) 2022-04-08 00:00:00 Completed [facility] Pneumococcal 20 Conjugate, PCV20 (Prevnar 20) 2022-04-08 00:00:00 Completed [facility] Pneumococcal 20 Conjugate, PCV20 (Prevnar 20) 2022-04-08 00:00:00 Completed [facility] Pneumococcal 20 Conjugate, PCV20 (Prevnar 20) 2022-04-08 00:00:00 Completed [facility] Pneumococcal 20 Conjugate, PCV20 (Prevnar 20) 2022-04-08 00:00:00 Completed [facility] Pneumococcal 20 Conjugate, PCV20 (Prevnar 20) 2022-04-08 00:00:00 Completed [facility] Pneumococcal 20 Conjugate, PCV20 (Prevnar 20) 2022-04-08 00:00:00 Completed [facility] Pneumococcal 20 Conjugate, PCV20 (Prevnar 20) 2022-04-08 00:00:00 Completed [facility] Pneumococcal 20 Conjugate, PCV20 (Prevnar 20) 2022-04-08 00:00:00 Completed [facility] Pneumococcal 20 Conjugate, PCV20 (Prevnar 20) 2022-04-08 00:00:00 Completed [facility] Pneumococcal 20 Conjugate, PCV20 (Prevnar 20) 2022-04-08 00:00:00 Completed [facility] Pneumococcal 20 Conjugate, PCV20 (Prevnar 20) 2022-04-08 00:00:00 Completed [facility] Pneumococcal 20 Conjugate, PCV20 (Prevnar 20) 2022-04-08 00:00:00 Completed [facility] Pneumococcal 20 Conjugate, PCV20 (Prevnar 20) 2022-04-08 00:00:00 Completed [facility] Pneumococcal 20 Conjugate, PCV20 (Prevnar 20) 2022-04-08 00:00:00 Completed [facility] Pneumococcal 20 Conjugate, PCV20 (Prevnar 20) 2022-04-08 00:00:00 Completed [facility] Pneumococcal 20 Conjugate, PCV20 (Prevnar 20) 2022-04-08 00:00:00 Completed [facility] Pneumococcal 20 Conjugate, PCV20 (Prevnar 20) 2022-04-08 00:00:00 Completed [facility] Pneumococcal 20 Conjugate, PCV20 (Prevnar 20) 2022-04-08 00:00:00 Completed [facility] Pneumococcal 20 Conjugate, PCV20 (Prevnar 20) 2022-04-08 00:00:00 Completed [facility] Pneumococcal 20 Conjugate, PCV20 (Prevnar 20) 2022-04-08 00:00:00 Completed [facility] Pneumococcal 20 Conjugate, PCV20 (Prevnar 20) 2022-04-08 00:00:00 Completed [facility] Pneumococcal 20 Conjugate, PCV20 (Prevnar 20) 2022-04-08 00:00:00 Completed [facility] Pneumococcal 20 Conjugate, PCV20 (Prevnar 20) 2022-04-08 00:00:00 Completed [facility] Pneumococcal 20 Conjugate, PCV20 (Prevnar 20) 2022-04-08 00:00:00 Completed [facility] Pneumococcal 20 Conjugate, PCV20 (Prevnar 20) 2022-04-08 00:00:00 Completed [facility] Pneumococcal 20 Conjugate, PCV20 (Prevnar 20) 2022-04-08 00:00:00 Completed [facility] Pneumococcal 20 Conjugate, PCV20 (Prevnar 20) 2022-04-08 00:00:00 Completed [facility] Pneumococcal 20 Conjugate, PCV20 (Prevnar 20) 2022-04-08 00:00:00 Completed [facility] Pneumococcal 20 Conjugate, PCV20 (Prevnar 20) 2022-04-08 00:00:00 Completed [facility] Pneumococcal 20 Conjugate, PCV20 (Prevnar 20) 2022-04-08 00:00:00 Completed [facility] Pneumococcal 20 Conjugate, PCV20 (Prevnar 20) 2022-04-08 00:00:00 Completed [facility] Pneumococcal 20 Conjugate, PCV20 (Prevnar 20) 2022-04-08 00:00:00 Completed [facility] Pneumococcal 20 Conjugate, PCV20 (Prevnar 20) 2022-04-08 00:00:00 Completed [facility] Pneumococcal 20 Conjugate, PCV20 (Prevnar 20) 2022-04-08 00:00:00 Completed [facility] Pneumococcal 20 Conjugate, PCV20 (Prevnar 20) 2022-04-08 00:00:00 Completed [facility] Pneumococcal 20 Conjugate, PCV20 (Prevnar 20) 2022-04-08 00:00:00 Completed [facility] Pneumococcal 20 Conjugate, PCV20 (Prevnar 20) 2022-04-08 00:00:00 Completed [facility] Pneumococcal 20 Conjugate, PCV20 (Prevnar 20) 2022-04-08 00:00:00 Completed [facility] Pneumococcal 20 Conjugate, PCV20 (Prevnar 20) 2022-04-08 00:00:00 Completed [facility] Pneumococcal 20 Conjugate, PCV20 (Prevnar 20) 2022-04-08 00:00:00 Completed [facility] Pneumococcal 20 Conjugate, PCV20 (Prevnar 20) 2022-04-08 00:00:00 Completed [facility] Pneumococcal 20 Conjugate, PCV20 (Prevnar 20) 2022-04-08 00:00:00 Completed [facility] Pneumococcal 20 Conjugate, PCV20 (Prevnar 20) 2022-04-08 00:00:00 Completed [facility] Pneumococcal 20 Conjugate, PCV20 (Prevnar 20) 2022-04-08 00:00:00 Completed [facility] Pneumococcal 20 Conjugate, PCV20 (Prevnar 20) 2022-04-08 00:00:00 Completed [facility] Pneumococcal 20 Conjugate, PCV20 (Prevnar 20) 2022-04-08 00:00:00 Completed [facility] Pneumococcal 20 Conjugate, PCV20 (Prevnar 20) 2022-04-08 00:00:00 Completed [facility] Pneumococcal 20 Conjugate, PCV20 (Prevnar 20) 2022-04-08 00:00:00 Completed [facility] SARS-COV-2 COVID-19 MAGGIE/J&J VACCINE 2021-06-18 00:00:00 Completed [facility] SARS-COV-2 COVID-19 MAGGIE/J&J VACCINE 2021-06-18 00:00:00 Completed [facility] SARS-COV-2 COVID-19 MAGGIE/J&J VACCINE 2021-06-18 00:00:00 Completed [facility] SARS-COV-2 COVID-19 MAGGIE/J&J VACCINE 2021-06-18 00:00:00 Completed [facility] SARS-COV-2 COVID-19 MAGGIE/J&J VACCINE 2021-06-18 00:00:00 Completed [facility] SARS-COV-2 COVID-19 MAGGIE/J&J VACCINE 2021-06-18 00:00:00 Completed [facility] SARS-COV-2 COVID-19 MAGGIE/J&J VACCINE 2021-06-18 00:00:00 Completed [facility] SARS-COV-2 COVID-19 MAGGIE/J&J VACCINE 2021-06-18 00:00:00 Completed [facility] SARS-COV-2 COVID-19 MAGGIE/J&J VACCINE 2021-06-18 00:00:00 Completed [facility] SARS-COV-2 COVID-19 MAGGIE/J&J VACCINE 2021-06-18 00:00:00 Completed [facility] SARS-COV-2 COVID-19 MAGGIE/J&J VACCINE 2021-06-18 00:00:00 Completed [facility] SARS-COV-2 COVID-19 MAGGIE/J&J VACCINE 2021-06-18 00:00:00 Completed [facility] SARS-COV-2 COVID-19 MAGGIE/J&J VACCINE 2021-06-18 00:00:00 Completed [facility] SARS-COV-2 COVID-19 MAGGIE/J&J VACCINE 2021-06-18 00:00:00 Completed [facility] SARS-COV-2 COVID-19 MAGGIE/J&J VACCINE 2021-06-18 00:00:00 Completed [facility] SARS-COV-2 COVID-19 MAGGIE/J&J VACCINE 2021-06-18 00:00:00 Completed [facility] SARS-COV-2 COVID-19 MAGGIE/J&J VACCINE 2021-06-18 00:00:00 Completed [facility] SARS-COV-2 COVID-19 MAGGIE/J&J VACCINE 2021-06-18 00:00:00 Completed [facility] SARS-COV-2 COVID-19 MAGGIE/J&J VACCINE 2021-06-18 00:00:00 Completed [facility] SARS-COV-2 COVID-19 MAGGIE/J&J VACCINE 2021-06-18 00:00:00 Completed [facility] SARS-COV-2 COVID-19 MAGGIE/J&J VACCINE 2021-06-18 00:00:00 Completed [facility] SARS-COV-2 COVID-19 MAGGIE/J&J VACCINE 2021-06-18 00:00:00 Completed [facility] SARS-COV-2 COVID-19 MAGGIE/J&J VACCINE 2021-06-18 00:00:00 Completed [facility] SARS-COV-2 COVID-19 MAGGIE/J&J VACCINE 2021-06-18 00:00:00 Completed [facility] SARS-COV-2 COVID-19 MAGGIE/J&J VACCINE 2021-06-18 00:00:00 Completed [facility] SARS-COV-2 COVID-19 MAGGIE/J&J VACCINE 2021-06-18 00:00:00 Completed [facility] SARS-COV-2 COVID-19 MAGGIE/J&J VACCINE 2021-06-18 00:00:00 Completed [facility] SARS-COV-2 COVID-19 MAGGIE/J&J VACCINE 2021-06-18 00:00:00 Completed [facility] SARS-COV-2 COVID-19 MAGGIE/J&J VACCINE 2021-06-18 00:00:00 Completed [facility] SARS-COV-2 COVID-19 MAGGIE/J&J VACCINE 2021-06-18 00:00:00 Completed [facility] SARS-COV-2 COVID-19 MAGGIE/J&J VACCINE 2021-06-18 00:00:00 Completed [facility] SARS-COV-2 COVID-19 MAGGIE/J&J VACCINE 2021-06-18 00:00:00 Completed [facility] SARS-COV-2 COVID-19 MAGGIE/J&J VACCINE 2021-06-18 00:00:00 Completed [facility] SARS-COV-2 COVID-19 MAGGIE/J&J VACCINE 2021-06-18 00:00:00 Completed [facility] SARS-COV-2 COVID-19 MAGGIE/J&J VACCINE 2021-06-18 00:00:00 Completed [facility] SARS-COV-2 COVID-19 MAGGIE/J&J VACCINE 2021-06-18 00:00:00 Completed [facility] SARS-COV-2 COVID-19 MAGGIE/J&J VACCINE 2021-06-18 00:00:00 Completed [facility] SARS-COV-2 COVID-19 MAGGIE/J&J VACCINE 2021-06-18 00:00:00 Completed [facility] SARS-COV-2 COVID-19 MAGGIE/J&J VACCINE 2021-06-18 00:00:00 Completed [facility] SARS-COV-2 COVID-19 MAGGIE/J&J VACCINE 2021-06-18 00:00:00 Completed [facility] SARS-COV-2 COVID-19 MAGGIE/J&J VACCINE 2021-06-18 00:00:00 Completed [facility] SARS-COV-2 COVID-19 MAGGIE/J&J VACCINE 2021-06-18 00:00:00 Completed [facility] SARS-COV-2 COVID-19 MAGGIE/J&J VACCINE 2021-06-18 00:00:00 Completed [facility] SARS-COV-2 COVID-19 MAGGIE/J&J VACCINE 2021-06-18 00:00:00 Completed [facility] SARS-COV-2 COVID-19 MAGGIE/J&J VACCINE 2021-06-18 00:00:00 Completed [facility] SARS-COV-2 COVID-19 MAGGIE/J&J VACCINE 2021-06-18 00:00:00 Completed [facility] SARS-COV-2 COVID-19 MAGGIE/J&J VACCINE 2021-06-18 00:00:00 Completed [facility] SARS-COV-2 COVID-19 MAGGIE/J&J VACCINE 2021-06-18 00:00:00 Completed [facility] SARS-COV-2 COVID-19 MAGGIE/J&J VACCINE 2021-06-18 00:00:00 Completed [facility] SARS-COV-2 COVID-19 MAGGIE/J&J VACCINE 2021-06-18 00:00:00 Completed [facility] SARS-COV-2 COVID-19 MAGGIE/J&J VACCINE 2021-06-18 00:00:00 Completed [facility] SARS-COV-2 COVID-19 MAGGIE/J&J VACCINE 2021-06-18 00:00:00 Completed [facility] SARS-COV-2 COVID-19 MAGGIE/J&J VACCINE 2021-06-18 00:00:00 Completed [facility] SARS-COV-2 COVID-19 MAGGIE/J&J VACCINE 2021-06-18 00:00:00 Completed [facility] SARS-COV-2 COVID-19 MAGGIE/J&J VACCINE 2021-06-18 00:00:00 Completed [facility] SARS-COV-2 COVID-19 MAGGIE/J&J VACCINE 2021-06-18 00:00:00 Completed [facility] SARS-COV-2 COVID-19 MAGGIE/J&J VACCINE 2021-06-18 00:00:00 Completed [facility] SARS-COV-2 COVID-19 MAGGIE/J&J VACCINE 2021-06-18 00:00:00 Completed [facility] SARS-COV-2 COVID-19 MAGGIE/J&J VACCINE 2021-06-18 00:00:00 Completed [facility] SARS-COV-2 COVID-19 MAGGIE/J&J VACCINE 2021-06-18 00:00:00 Completed [facility] SARS-COV-2 COVID-19 MAGGIE/J&J VACCINE 2021-06-18 00:00:00 Completed [facility] SARS-COV-2 COVID-19 MAGGIE/J&J VACCINE 2020-08-15 00:00:00 Completed [facility] SARS-COV-2 COVID-19 MAGGIE/J&J VACCINE 2020-08-15 00:00:00 Completed [facility] SARS-COV-2 COVID-19 MAGGIE/J&J VACCINE 2020-08-15 00:00:00 Completed [facility] SARS-COV-2 COVID-19 MAGGIE/J&J VACCINE 2020-08-15 00:00:00 Completed [facility] SARS-COV-2 COVID-19 MAGGIE/J&J VACCINE 2020-08-15 00:00:00 Completed [facility] SARS-COV-2 COVID-19 MAGGIE/J&J VACCINE 2020-08-15 00:00:00 Completed [facility] SARS-COV-2 COVID-19 MAGGIE/J&J VACCINE 2020-08-15 00:00:00 Completed [facility] SARS-COV-2 COVID-19 MAGGIE/J&J VACCINE 2020-08-15 00:00:00 Completed [facility] SARS-COV-2 COVID-19 MAGGIE/J&J VACCINE 2020-08-15 00:00:00 Completed [facility] SARS-COV-2 COVID-19 MAGGIE/J&J VACCINE 2020-08-15 00:00:00 Completed [facility] SARS-COV-2 COVID-19 MAGGIE/J&J VACCINE 2020-08-15 00:00:00 Completed [facility] SARS-COV-2 COVID-19 MAGGIE/J&J VACCINE 2020-08-15 00:00:00 Completed [facility] SARS-COV-2 COVID-19 MAGGIE/J&J VACCINE 2020-08-15 00:00:00 Completed [facility] SARS-COV-2 COVID-19 MAGGIE/J&J VACCINE 2020-08-15 00:00:00 Completed [facility] SARS-COV-2 COVID-19 MAGGIE/J&J VACCINE 2020-08-15 00:00:00 Completed [facility] SARS-COV-2 COVID-19 MAGGIE/J&J VACCINE 2020-08-15 00:00:00 Completed [facility] SARS-COV-2 COVID-19 MAGGIE/J&J VACCINE 2020-08-15 00:00:00 Completed [facility] SARS-COV-2 COVID-19 MAGGIE/J&J VACCINE 2020-08-15 00:00:00 Completed [facility] SARS-COV-2 COVID-19 MAGGIE/J&J VACCINE 2020-08-15 00:00:00 Completed [facility] SARS-COV-2 COVID-19 MAGGIE/J&J VACCINE 2020-08-15 00:00:00 Completed [facility] SARS-COV-2 COVID-19 MAGGIE/J&J VACCINE 2020-08-15 00:00:00 Completed [facility] SARS-COV-2 COVID-19 MAGGIE/J&J VACCINE 2020-08-15 00:00:00 Completed [facility] SARS-COV-2 COVID-19 MAGGIE/J&J VACCINE 2020-08-15 00:00:00 Completed [facility] SARS-COV-2 COVID-19 MAGGIE/J&J VACCINE 2020-08-15 00:00:00 Completed [facility] SARS-COV-2 COVID-19 MAGGIE/J&J VACCINE 2020-08-15 00:00:00 Completed [facility] SARS-COV-2 COVID-19 MAGGIE/J&J VACCINE 2020-08-15 00:00:00 Completed [facility] SARS-COV-2 COVID-19 MAGGIE/J&J VACCINE 2020-08-15 00:00:00 Completed [facility] SARS-COV-2 COVID-19 MAGGIE/J&J VACCINE 2020-08-15 00:00:00 Completed [facility] SARS-COV-2 COVID-19 MAGGIE/J&J VACCINE 2020-08-15 00:00:00 Completed [facility] SARS-COV-2 COVID-19 MAGGIE/J&J VACCINE 2020-08-15 00:00:00 Completed [facility] SARS-COV-2 COVID-19 MAGGIE/J&J VACCINE 2020-08-15 00:00:00 Completed [facility] SARS-COV-2 COVID-19 MAGGIE/J&J VACCINE 2020-08-15 00:00:00 Completed [facility] SARS-COV-2 COVID-19 MAGGIE/J&J VACCINE 2020-08-15 00:00:00 Completed [facility] SARS-COV-2 COVID-19 MAGGIE/J&J VACCINE 2020-08-15 00:00:00 Completed [facility] SARS-COV-2 COVID-19 MAGGIE/J&J VACCINE 2020-08-15 00:00:00 Completed [facility] SARS-COV-2 COVID-19 MAGGIE/J&J VACCINE 2020-08-15 00:00:00 Completed [facility] SARS-COV-2 COVID-19 MAGGIE/J&J VACCINE 2020-08-15 00:00:00 Completed [facility] SARS-COV-2 COVID-19 MAGGIE/J&J VACCINE 2020-08-15 00:00:00 Completed [facility] SARS-COV-2 COVID-19 MAGGIE/J&J VACCINE 2020-08-15 00:00:00 Completed [facility] SARS-COV-2 COVID-19 MAGGIE/J&J VACCINE 2020-08-15 00:00:00 Completed [facility] SARS-COV-2 COVID-19 MAGGIE/J&J VACCINE 2020-08-15 00:00:00 Completed [facility] SARS-COV-2 COVID-19 MAGGIE/J&J VACCINE 2020-08-15 00:00:00 Completed [facility] SARS-COV-2 COVID-19 MAGGIE/J&J VACCINE 2020-08-15 00:00:00 Completed [facility] SARS-COV-2 COVID-19 MAGGIE/J&J VACCINE 2020-08-15 00:00:00 Completed [facility] SARS-COV-2 COVID-19 MAGGIE/J&J VACCINE 2020-08-15 00:00:00 Completed [facility] SARS-COV-2 COVID-19 MAGGIE/J&J VACCINE 2020-08-15 00:00:00 Completed [facility] SARS-COV-2 COVID-19 MAGGIE/J&J VACCINE 2020-08-15 00:00:00 Completed [facility] SARS-COV-2 COVID-19 MAGGIE/J&J VACCINE 2020-08-15 00:00:00 Completed [facility] SARS-COV-2 COVID-19 MAGGIE/J&J VACCINE 2020-08-15 00:00:00 Completed [facility] SARS-COV-2 COVID-19 MAGGIE/J&J VACCINE 2020-08-15 00:00:00 Completed [facility] SARS-COV-2 COVID-19 MAGGIE/J&J VACCINE 2020-08-15 00:00:00 Completed [facility] SARS-COV-2 COVID-19 MAGGIE/J&J VACCINE 2020-08-15 00:00:00 Completed [facility] SARS-COV-2 COVID-19 MAGGIE/J&J VACCINE 2020-08-15 00:00:00 Completed [facility] SARS-COV-2 COVID-19 MAGGIE/J&J VACCINE 2020-08-15 00:00:00 Completed [facility] SARS-COV-2 COVID-19 MAGGIE/J&J VACCINE 2020-08-15 00:00:00 Completed [facility] SARS-COV-2 COVID-19 MAGGIE/J&J VACCINE 2020-08-15 00:00:00 Completed [facility] SARS-COV-2 COVID-19 MAGGIE/J&J VACCINE 2020-08-15 00:00:00 Completed [facility] SARS-COV-2 COVID-19 MAGGIE/J&J VACCINE 2020-08-15 00:00:00 Completed [facility] SARS-COV-2 COVID-19 MAGGIE/J&J VACCINE 2020-08-15 00:00:00 Completed [facility] SARS-COV-2 COVID-19 MAGGIE/J&J VACCINE 2020-08-15 00:00:00 Completed [facility] SARS-COV-2 COVID-19 MAGGIE/J&J VACCINE 2020-08-15 00:00:00 Completed [facility] SARS-COV-2 COVID-19 MAGGIE/J&J VACCINE Unknown Completed [facility] SARS-COV-2 COVID-19 MAGGIE/J&J VACCINE Unknown Completed [facility] Pneumococcal 20 Conjugate, PCV20 (Prevnar 20) Unknown Completed [facility] SARS-COV-2 COVID-19 MAGGIE/J&J VACCINE Unknown Completed [facility] SARS-COV-2 COVID-19 MAGGIE/J&J VACCINE Unknown Completed [facility] Pneumococcal 20 Conjugate, PCV20 (Prevnar 20) Unknown Completed [facility] SARS-COV-2 COVID-19 MAGGIE/J&J VACCINE Unknown Completed [facility] SARS-COV-2 COVID-19 MAGGIE/J&J VACCINE Unknown [facility] Conjugate, PCV20 (Prevnar 20) Unknown Completed [facility] SARS-COV-2 COVID-19 MAGGIE/J&J VACCINE Unknown Completed [facility] SARS-COV-2 COVID-19 MAGGIE/J&J VACCINE Unknown Completed [facility] Pneumococcal 20 Conjugate, PCV20 (Prevnar 20) Unknown Completed [facility] SARS-COV-2 COVID-19 MAGGIE/J&J VACCINE Unknown Completed [facility] SARS-COV-2 COVID-19 MAGGIE/J&J VACCINE Unknown [facility] Pneumococcal 20 Conjugate, PCV20 (Prevnar 20) Unknown Completed [facility] SARS-COV-2 COVID-19 MAGGIE/J&J VACCINE Unknown [facility]OV[facility] COVID-19 MAGGIE/J&J VACCINE Unknown Completed [facility] Pneumococcal 20 Conjugate, PCV20 (Prevnar 20) Unknown Completed [facility] SARS-COV-2 COVID-19 MAGGIE/J&J VACCINE Unknown Completed [facility] SARS-COV-2 COVID-19 MAGGIE/J&J VACCINE Unknown Completed [facility] Pneumococcal 20 Conjugate, PCV20 (Prevnar 20) Unknown Completed [facility] SARS-COV-2 COVID-19 MAGGIE/J&J VACCINE Unknown Completed [facility] SARS-COV-2 COVID-19 MAGGIE/J&J VACCINE Unknown Completed [facility] Pneumococcal 20 Conjugate, PCV20 (Prevnar 20) Unknown Completed [facility] SARS-COV-2 COVID-19 MAGGIE/J&J VACCINE Unknown Completed [facility] SARS-COV-2 COVID-19 MAGGIE/J&J VACCINE Unknown Completed [facility] Pneumococcal 20 Conjugate, PCV20 (Prevnar 20) Unknown Completed [facility] SARS-COV-2 COVID-19 MAGGIE/J&J VACCINE Unknown Completed [facility] SARS-COV-2 COVID-19 MAGGIE/J&J VACCINE Unknown Completed [facility] Pneumococcal 20 Conjugate, PCV20 (Prevnar 20) Unknown Completed [facility] SARS-COV-2 COVID-19 MAGGIE/J&J VACCINE Unknown Completed [facility] SARS-COV-2 COVID-19 MAGGIE/J&J VACCINE Unknown Completed [facility] Pneumococcal 20 Conjugate, PCV20 (Prevnar 20) Unknown Completed [facility] SARS-COV-2 COVID-19 MAGGIE/J&J VACCINE Unknown Completed [facility] SARS-COV-2 COVID-19 MAGGIE/J&J VACCINE Unknown Completed [facility] Pneumococcal 20 Conjugate, PCV20 (Prevnar 20) Unknown Completed [facility] SARS-COV-2 COVID-19 MAGGIE/J&J VACCINE Unknown Completed [facility] SARS-COV-2 COVID-19 MAGGIE/J&J VACCINE Unknown Completed [facility] Pneumococcal 20 Conjugate, PCV20 (Prevnar 20) Unknown Completed [facility] SARS-COV-2 COVID-19 MAGGIE/J&J VACCINE Unknown Completed [facility] SARS-COV-2 COVID-19 MAGGIE/J&J VACCINE Unknown Completed [facility] Pneumococcal 20 Conjugate, PCV20 (Prevnar 20) Unknown Completed [facility] SARS-COV-2 COVID-19 MAGGIE/J&J VACCINE Unknown Completed [facility] SARS-COV-2 COVID-19 MAGGIE/J&J VACCINE Unknown Completed [facility] Pneumococcal 20 Conjugate, PCV20 (Prevnar 20) Unknown Completed [facility] SARS-COV-2 COVID-19 MAGGIE/J&J VACCINE Unknown Completed [facility] SARS-COV-2 COVID-19 MAGGIE/J&J VACCINE Unknown Completed [facility] Pneumococcal 20 Conjugate, PCV20 (Prevnar 20) Unknown Completed [facility] Influenza Virus Vaccine,quad Im,preserve Free 65+ (FLUAD) Unknown Completed [facility] TDAP Unknown Completed [facility] SARS-COV-2 COVID-19 MAGGIE/J&J VACCINE Unknown Completed [facility] SARS-COV-2 COVID-19 MAGGIE/J&J VACCINE Unknown Completed [facility] Pneumococcal 20 Conjugate, PCV20 (Prevnar 20) Unknown Completed [facility] Influenza Virus Vaccine,quad Im,preserve Free 65+ (FLUAD) Unknown Completed [facility] TDAP Unknown Completed [facility] SARS-COV-2 COVID-19 MAGGIE/J&J VACCINE Unknown Completed [facility] SARS-COV-2 COVID-19 MAGGIE/J&J VACCINE Unknown Completed [facility] Pneumococcal 20 Conjugate, PCV20 (Prevnar 20) Unknown Completed [facility] Influenza Virus Vaccine,quad Im,preserve Free 65+ (FLUAD) Unknown Completed [facility] TDAP Unknown Completed [facility] SARS-COV-2 COVID-19 MAGGIE/J&J VACCINE Unknown Completed [facility] SARS-COV-2 COVID-19 MAGGIE/J&J VACCINE Unknown Completed [facility] Pneumococcal 20 Conjugate, PCV20 (Prevnar 20) Unknown Completed [facility] SARS-COV-2 COVID-19 MAGGIE/J&J VACCINE Unknown Completed [facility] SARS-COV-2 COVID-19 MAGGIE/J&J VACCINE Unknown Completed [facility] Pneumococcal 20 Conjugate, PCV20 (Prevnar 20) Unknown Completed [facility] Influenza Virus Vaccine,quad Im,preserve Free 65+ (FLUAD) Unknown Completed [facility] TDAP Unknown Completed [facility] SARS-COV-2 COVID-19 MAGGIE/J&J VACCINE Unknown Completed [facility] SARS-COV-2 COVID-19 MAGGIE/J&J VACCINE Unknown Completed [facility] Pneumococcal 20 Conjugate, PCV20 (Prevnar 20) Unknown Completed [facility] SARS-COV-2 COVID-19 MAGGIE/J&J VACCINE Unknown Completed [facility] SARS-COV-2 COVID-19 MAGGIE/J&J VACCINE Unknown Completed [facility] Pneumococcal 20 Conjugate, PCV20 (Prevnar 20) Unknown Completed [facility] Influenza Virus Vaccine,quad Im,preserve Free 65+ (FLUAD) Unknown Completed [facility] TDAP Unknown Completed [facility] SARS-COV-2 COVID-19 MAGGIE/J&J VACCINE Unknown Completed [facility] SARS-COV-2 COVID-19 MAGGIE/J&J VACCINE Unknown Completed [facility] Pneumococcal 20 Conjugate, PCV20 (Prevnar 20) Unknown Completed [facility] Influenza Virus Vaccine,quad Im,preserve Free 65+ (FLUAD) Unknown Completed [facility] TDAP Unknown Completed [facility] SARS-COV-2 COVID-19 MAGGIE/J&J VACCINE Unknown Completed [facility] SARS-COV-2 COVID-19 MAGGIE/J&J VACCINE Unknown Completed [facility] Pneumococcal 20 Conjugate, PCV20 (Prevnar 20) Unknown Completed [facility] SARS-COV-2 COVID-19 MAGGIE/J&J VACCINE Unknown Completed [facility] SARS-COV-2 COVID-19 MAGGIE/J&J VACCINE Unknown Completed [facility] Pneumococcal 20 Conjugate, PCV20 (Prevnar 20) Unknown Completed [facility] SARS-COV-2 COVID-19 MAGGIE/J&J VACCINE Unknown Completed [facility] SARS-COV-2 COVID-19 MAGGIE/J&J VACCINE Unknown Completed [facility] Pneumococcal 20 Conjugate, PCV20 (Prevnar 20) Unknown Completed [facility] Influenza Virus Vaccine,quad Im,preserve Free 65+ (FLUAD) Unknown Completed [facility] TDAP Unknown Completed [facility] SARS-COV-2 COVID-19 MAGGIE/J&J VACCINE Unknown Completed [facility] SARS-COV-2 COVID-19 MAGGIE/J&J VACCINE Unknown Completed [facility] Pneumococcal 20 Conjugate, PCV20 (Prevnar 20) Unknown Completed [facility] Influenza Virus Vaccine,quad Im,preserve Free 65+ (FLUAD) Unknown Completed [facility] TDAP Unknown Completed [facility] SARS-COV-2 COVID-19 MAGGIE/J&J VACCINE Unknown Completed [facility] SARS-COV-2 COVID-19 MAGGIE/J&J VACCINE Unknown Completed [facility] Pneumococcal 20 Conjugate, PCV20 (Prevnar 20) Unknown Completed [facility] Influenza Virus Vaccine,quad Im,preserve Free 65+ (FLUAD) Unknown Completed [facility] TDAP Unknown Completed [facility] SARS-COV-2 COVID-19 MAGGIE/J&J VACCINE Unknown Completed [facility] SARS-COV-2 COVID-19 MAGGIE/J&J VACCINE Unknown Completed [facility] Pneumococcal 20 Conjugate, PCV20 (Prevnar 20) Unknown Completed [facility] Influenza Virus Vaccine,quad Im,preserve Free 65+ (FLUAD) Unknown Completed [facility] TDAP Unknown Completed [facility] Vital Signs Vital Name Observation Time Observation Value Comments S ource Systolic blood pressure 2023-04-19 20:19:00 122 mm[Hg] [facility] Diastolic blood pressure 2023-04-19 20:19:00 84 mm[Hg] [facility] Heart rate 2023-04-19 20:19:00 85 /min [facility] Body height 2023-04-19 20:19:[address] [facility] Body weight 2023-04-19 20:19:[address] [facility] BMI 2023-04-19 20:19:00 38.95 kg/m2 [facility] Oxygen saturation in Arterial blood by Pulse oximetry 2023-04-19 20:19:00 96 /min [facility] Systolic blood pressure 2023-04-05 19:22:00 125 mm[Hg] [facility] Diastolic blood pressure 2023-04-05 19:22:00 87 mm[Hg] [facility] Heart rate 2023-04-05 19:22:00 87 /min [facility] Body height 2023-04-05 19:21:[address] [facility] Body weight 2023-04-05 19:21:00 105.416 kg [facility] BMI 2023-04-05 19:21:00 39.89 kg/m2 [facility] Oxygen saturation in Arterial blood by Pulse oximetry 2023-04-05 19:21:00 98 /min [facility] Systolic blood pressure 2023-02-10 15:35:00 147 mm[Hg] [facility] Diastolic blood pressure 2023-02-10 15:35:00 100 mm[Hg] [facility] Heart rate 2023-02-10 15:35:00 89 /min [facility] Body height 2023-02-10 15:35:00 162.6 cm [facility] Body weight 2023-02-10 15:35:[address] [facility] BMI 2023-02-10 15:35:00 38.95 kg/m2 [facility] Oxygen saturation in Arterial blood by Pulse oximetry 2023-02-10 15:35:00 97 /min [facility] Systolic blood pressure 2023-02-01 15:34:00 133 mm[Hg] [facility] Diastolic blood pressure 2023-02-01 15:34:00 79 mm[Hg] [facility] Heart rate 2023-02-01 15:34:00 88 /min [facility] Body temperature 2023-02-01 15:34:00 36.72 Elida [facility] Respiratory rate 2023-02-01 15:34:00 14 /min [facility] Body height 2023-02-01 15:34:00 170.2 cm [facility] 2023-02-01 15:34:[address] [facility] BMI 2023-02-01 15:34:00 35.79 kg/m2 [facility] Oxygen saturation in Arterial blood by Pulse oximetry 2023-02-01 15:34:00 96 /min [facility] Systolic blood pressure 2023-01-11 19:18:00 137 mm[Hg] [facility] Diastolic blood pressure 2023-01-11 19:18:00 81 mm[Hg] [facility] Heart rate 2023-01-11 19:17:00 81 /min [facility] Body height 2023-01-11 19:17:[address] [facility] Body weight 2023-01-11 19:17:[address] [facility] BMI 2023-01-11 19:17:00 35.13 kg/m2 [facility] Oxygen saturation in Arterial blood by Pulse oximetry 2023-01-11 19:17:00 97 /min [facility] Systolic blood pressure 2022-11-29 20:09:00 141 mm[Hg] [facility] Diastolic blood pressure 2022-11-29 20:09:00 83 mm[Hg] [facility] Heart rate 2022-11-29 20:09:00 92 /min [facility] Body height 2022-11-29 20:09:[address] [facility] Body weight 2022-11-29 20:09:[address] [facility] BMI 2022-11-29 20:09:00 39.17 kg/m2 [facility] Oxygen saturation in Arterial blood by Pulse oximetry 2022-11-29 20:09:00 97 /min [facility] Systolic blood pressure 2022-10-26 18:30:00 125 mm[Hg] [facility] Diastolic blood pressure 2022-10-26 18:30:00 84 mm[Hg] [facility] Heart rate 2022-10-26 18:30:00 98 /min [facility] Respiratory rate 2022-10-26 18:30:00 19 /min [facility] Body height 2022-10-26 18:30:00 162.6 cm [facility] weight 2022-10-26 18:30:00 103.329 kg [facility] BMI 2022-10-26 18:30:00 39.10 kg/m2 [facility] Oxygen saturation in Arterial blood by Pulse oximetry 2022-10-26 18:30:00 94 /min [facility] Systolic blood pressure 2022-10-18 15:57:00 164 mm[Hg] [facility] Diastolic blood pressure 2022-10-18 15:57:00 101 mm[Hg] [facility] Heart rate 2022-10-18 15:56:00 80 /min [facility] Res[facility] rate 2022-10-18 15:56:00 18 /min [facility] Body height 2022-10-18 15:56:00 164.6 cm [facility] Body weight 2022-10-18 15:56:00 102.876 kg [facility] BMI 2022-10-18 15:56:00 37.97 kg/m2 [facility] Oxygen saturation in Arterial blood by Pulse oximetry 2022-10-18 15:56:00 96 /min [facility] Systolic blood pressure 2022-09-08 16:18:00 163 mm[Hg] [facility] Diastolic blood pressure 2022-09-08 16:18:00 105 mm[Hg] [facility] Heart rate 2022-09-08 16:18:00 83 /min [facility] Oxygen saturation in Arterial blood by Pulse oximetry 2022-09-08 16:18:00 97 /min [facility] Respiratory rate 2022-09-08 16:13:00 19 /min [facility] Body height 2022-09-08 16:13:00 162.6 cm [facility] Body weight 2022-09-08 16:13:00 101.322 kg [facility] BMI 2022-09-08 16:13:00 38.34 kg/m2 [facility] Systolic blood pressure 2022-08-02 20:29:00 137 mm[Hg] [facility] Diastolic blood pressure 2022-08-02 20:29:00 88 mm[Hg] [facility] Heart rate 2022-08-02 20:29:00 83 /min [facility] Body temperature 2022-08-02 20:29:00 37.06 Elida [facility] Body height 2022-08-02 20:29:[address] [facility] Body weight 2022-08-02 20:29:[address] [facility] BMI 2022-08-02 20:29:00 39.00 kg/m2 [facility] Oxygen saturation in Arterial blood by Pulse oximetry 2022-08-02 20:29:00 97 /min [facility] Systolic blood pressure 2022-06-29 14:22:00 153 mm[Hg] [facility] Diastolic blood pressure 2022-06-29 14:22:00 81 mm[Hg] [facility] Heart rate 2022-06-29 14:22:00 68 /min [facility] Respiratory rate 2022-06-29 14:22:00 26 /min [facility] Oxygen saturation in Arterial blood by Pulse oximetry 2022-06-29 14:22:00 98 /min [facility] Body temperature 2022-06-29 13:55:00 36.61 Elida [facility] Body height 2022-06-24 19:15:[address] [facility] Body weight 2022-06-24 19:15:[address] [facility] BMI 2022-06-24 19:15:00 39.14 kg/m2 [facility] Systolic blood pressure 2022-06-29 14:22:00 153 mm[Hg] [facility] Diastolic blood pressure 2022-06-29 14:22:00 81 mm[Hg] [facility] Heart rate 2022-06-29 14:22:00 68 /min [facility] Respiratory rate 2022-06-29 14:22:00 26 /min [facility] Oxygen saturation in Arterial blood by Pulse oximetry 2022-06-29 14:22:00 98 /min [facility] Body temperature 2022-06-29 13:55:00 36.61 Elida [facility] Body height 2022-06-24 19:15:00 162.6 cm [facility] Body weight 2022-06-24 19:15:00 103.42 kg [facility] BMI 2022-06-24 19:15:00 39.14 kg/m2 [facility] Systolic blood pressure 2022-06-15 16:53:00 111 mm[Hg] [facility] Diastolic blood pressure 2022-06-15 16:53:00 79 mm[Hg] [facility] Heart rate 2022-06-15 16:53:00 82 /min [facility] Body temperature 2022-06-15 16:53:00 36.67 Eldia [facility] Respiratory rate 2022-06-15 16:53:00 18 /min [facility] Body height 2022-06-15 16:53:00 162.6 cm [facility] Body weight 2022-06-15 16:53:00 103.42 kg [facility] BMI 2022-06-15 16:53:00 39.14 kg/m2 [facility] Systolic blood pressure 2022-05-05 20:55:00 136 mm[Hg] [facility] Diastolic blood pressure 2022-05-05 20:55:00 88 mm[Hg] [facility] Heart rate 2022-05-05 20:55:00 73 /min [facility] Body temperature 2022-05-05 20:55:00 36.56 Elida [facility] Respiratory rate 2022-05-05 20:55:00 18 /min [facility] Body height 2022-05-05 20:55:00 162.6 cm [facility] Body weight 2022-05-05 20:55:00 103.874 kg [facility] BMI 2022-05-05 20:55:00 39.31 kg/m2 [facility] Systolic blood pressure 2022-04-08 14:49:00 126 mm[Hg] [facility] Diastolic blood pressure 2022-04-08 14:49:00 84 mm[Hg] [facility] Heart rate 2022-04-08 14:48:00 78 /min [facility] Body height 2022-04-08 14:48:[address] [facility] Body weight 2022-04-08 14:48:[address] [facility] BMI 2022-04-08 14:48:00 39.27 kg/m2 [facility] Oxygen saturation in Arterial blood by Pulse oximetry 2022-04-08 14:48:00 98 /min [facility] Systolic blood pressure 2021-09-02 15:01:00 148 mm[Hg] Manual BP [facility] Diastolic blood pressure 2021-09-02 15:01:00 96 mm[Hg] Manual BP [facility] Heart rate 2021-09-02 14:57:00 89 /min [facility] Body temperature 2021-09-02 14:57:00 35.83 Elida [facility] Respiratory rate 2021-09-02 14:57:00 18 /min [facility] Body height 2021-09-02 14:57:[address] [facility] Body weight 2021-09-02 14:57:[address] [facility] BMI 2021-09-02 14:57:00 38.79 kg/m2 [facility] Procedures Procedure Date / Time Performed Performing Clinician Source MEDICATION CORRESPONDENCE 2023-06-15 06:01:00 Do ctor Unassigned, Magee [facility] TDAP VACCINE, >11 YRS, IM 2023-04-19 20:29:36 Jonah Araya [facility] FLU VACC(),65+YR,0.5 ML,IM,ADJUVANTED,QUAD(FLU AD) 2023-04-19 20:29:36 Jake Araya [facility] MEDICATION CORRESPONDENCE 2023-04-13 06:01:00 Do ctor Unassigned, Magee [facility] XR KNEE 3 VW LEFT 2023-04-05 19:58:21 Jake Araya [facility] SEDIMENTATION RATE 2023-04-05 19:48:00 Jake Araya [facility] URIC ACID 2023-04-05 19:48:00 Jake Araya [facility] SLEEP STUDY DATA REPORT 2023-03-16 05:01:00 Doct or Unassigned, Magee [facility] PULMONARY FUNCTION TEST (RESULTS) 2023-02-17 18:03:30 Rancho Larson [facility] POCT SARS-COV-2 ANTIGEN (BINAX NOW) 2023-02-01 15:30:00 Mitchell Tamayo [facility] COMP. METABOLIC PANEL (55743) 2022-10-18 16:50:00 Jake Araya [facility] CBC WITH DIFF 2022-10-18 16:50[facility] 2022-09-27 16:24:00 Sumit Araya [facility] ASSIGNMENT OF BENEFITS 2022-09-08 16:05:49 Docto r Unassigned, Magee [facility] PATIENT FINANCIAL POLICY 2022-08-02 20:10:36 Doctor Unassigned, Magee [facility] COLONOSCOPY (ENDO) 2022-06-29 13:29:16 Jake Araya [facility] COLONOSCOPY (ENDO) 2022-06-29 13:29:16 [facility] 2022-06-29 13:18:[address] [facility] DAY SURGERY - ADC 2022-06-29 06:01:00 Doctor Franchesca ssigned, Magee [facility] POCT URINALYSIS W/O SPECIFIC GRAVITY 2022-05-05 00:00:00 Rossana Packer [facility] COMP. METABOLIC PANEL ([id number]) 2022-04-12 16:14:00 Jake Araya [facility] CBC WITH DIFF 2022-04-12 16:14:00 Jake Araya [facility] PNEUMOCOCCAL 20 CONJUGATE (PREVNAR 20) VACCINE 2022-04-08 15:19:31 Jake Araya [facility] PAP SMEAR-LIQUID BASED-CP 2021-09-02 16:36:00 Purnima Potts [facility] Encounters Start Date/Time End Date/Time Encounter Type Admission Type Attending Clinicians Care Facility Care Department Encounter ID Source 2023-07-15 14:30:00 2023-07-15 14:30:00 Outpatient R JAKE ARAYA [facility] [id number] [facility] 2023-06-29 13:30:00 2023-06-29 13:30:00 Outpatient R JOBY MCGREGOR STRAARLobo [facility] [id number] [facility] 2023-06-28 00:00:00 2023-06-28 00:00:00 [facility] 1.2.840.114 350.1.13.10 4.2.7.2.686 [id number] [facility] 2023-06-17 00:00:00 2023-06-17 00:00:00 Telephone Marshal [facility] 1.2.840.114 350.1.13.10 4.2.7.2.686 [id number] [facility] 2023-06-15 00:00:00 2023-06-15 00:00:00 Orders Only Doctor Unassigned, Magee [facility] 1.2.840.114 350.1.13.10 4.2.7.2.686 [id number] [facility] 2023-05-25 00:00:00 2023-05-25 00:00:00 Refill Marshal [facility] 1.2.840.114 350.1.13.10 4.2.7.2.686 [id number] [facility] 2023-04-27 00:00:00 2023-04-27 00:00:00 [facility] 1..840.114 350.1.13.10 4.2.7.2.686 [id number] [id number] [facility] 2023-04-27 00:00:00 2023-04-27 00:00:00 Telephone [facility] 1.2.840.114 350.1.13.10 4.2.7.2.686 [id number] [facility] 2023-04-26 00:00:00 2023-04-26 00:00:00 Patient Secure Msg Doctor Unassigned, Magee [facility] [place]?[facility] 1.2.840.114 350.1.13.10 4.2.7.2.686 [id number] [facility] 2023-04-21 00:00:00 2023-04-21 00:00:00 Outpatient R JAKE ARAYA [facility] [id number] [facility] 2023-04-20 09:00:00 2023-04-20 09:00:00 Outpatient R JOBY MCGREGOR STRAHIL [facility] [id number] [facility] 2023-04-19 14:55:23 2023-04-19 23:59:00 Outpatient R JAKE ARAYA [facility] [id number] [facility] 2023-04-19 14:55:23 2023-04-19 23:59:00 Hospital Encounter Javier ArayaCritical access hospitalMARTHA DUDLEY?[facility] 1.2.840.114 350.1.13.10 4.2.7.2.686 [id number] [facility] 2023-04-19 14:30:00 2023-04-19 14:54:53 [facility] 1.2840.114 350.1.13.10 4.2.7.2.686 [id number] [id number] [facility] 2023-04-13 00:00:00 2023-04-13 00:00:00 Orders Only Doctor Unassigned, Magee [facility] 1.2.840.114 350.1.13.10 4.2.7.2.686 [id number] [facility] 2023-04-11 00:00:00 2023-04-11 00:00:00 Patient Secure Msg Doctor Unassigned, Magee [facility] 1.2840.114 350.1.13.10 4.2.7.2.686 [id number] [facility] 2023-04-06 00:00:00 2023-04-06 00:00:00 Patient Secure Msg Doctor Unassigned, Magee [facility] 1.2840.114 350.1.13.10 4.2.7.2.686 [id number] [id number] [facility] 2023-04-05 14:49:16 2023-04-05 23:59:00 [facility] 1.2840.114 350.1.13.10 4.2.7.2.686 [id number] [facility] 2023-04-05 15:00:00 2023-04-05 16:11:19 Wood Piler Visit Lab, Alhaji [facility]illMargie [facility] 1.2840.114 350.1.13.10 4.2.7.2.686 [id number] [facility] 2023-04-05 14:30:00 2023-04-05 14:42:41 Outpatient R JAKE ARAYA [facility] [id number] [facility] 2023-04-05 14:30:00 2023-04-05 14:42:41 Office Visit Javier ArayaCritical access hospitalMARTHA DUDLEY?[facility] 1.2840.114 350.1.13.10 4.2.7.2.686 [id number] 044 [id number] [facility] 2023-04-05 00:00:00 2023-04-05 00:00:00 Telephone Jake [facility] 1.2840.114 350.1.13.10 4.2.7.2.686 [id number] 044 [id number] [facility] 2023-04-04 00:00:00 2023-04-04 00:00:00 Telephone Jake [facility] 1.2840.114 350.1.13.10 4.2.7.2.686 [id number] 044 [id number] [facility] 2023-04-04 00:00:00 2023-04-04 00:00:00 Refill Javier ArayaCritical access hospitalMARTHA DUDLEY?[facility] 1.2840.114 350.1.13.10 4.2.7.2.686 [id number] 044 [id number] [facility] 2023-04-04 00:00:00 2023-04-04 00:00:00 Refill Jake [facility] 1.2840.114 350.1.13.10 4.2.7.2.686 [id number] [id number] [facility] 2023-03-31 00:00:00 2023-03-31 00:00:00 Telephone Jake Araya [facility] 1.840.114 350.1.13.10 4.2.7.2.686 [id number] 044 [id number] [facility] 2023-03-18 20:00:00 2023-03-18 20:00:00 Outpatient R [facility] [id number] [facility] 2023-03-16 20:00:00 2023-03-16 22:30:00 Wood Piler Visit 1, [facility] Sleep Lab Bed Joby Mcgregor [facility] 1..114 350.1.13.10 4.2.7.2.686 [id number] [facility] 2023-03-16 20:00:00 2023-03-16 20:00:00 Outpatient R JOBY MCGREGOR STRAHIL [facility] [id number] [facility] 2023-03-16 00:00:00 2023-03-16 00:00:00 Orders Only Doctor Unassigned, Magee [facility] 1.114 350.1.13.10 4.2.7.2.686 [id number] [facility] 2023-03-09 00:00:00 2023-03-09 00:00:00 Patient Secure Msg Doctor Unassigned, Magee [facility] 1.114 350.1.13.10 4.2.7.2.686 [id number] [facility] 2023-02-23 11:30:00 2023-02-23 11:30:00 Outpatient R JOBY MCGREGOR STRAHIL [facility] [id number] [facility] 2023-02-17 13:00:00 2023-02-17 14:30:00 Wood Piler Visit Therapist, Adc Respiratory Rancho Larson [facility] ..840.114 350.1.13.10 4.2.7.2.686 [id number] [facility] 2023-02-17 13:00:00 2023-02-17 13:00:00 Outpatient R RANCHO LARSON SHIOKBrian [facility] [id number] [facility] 2023-02-17 00:00:00 2023-02-17 00:00:00 Orders Only Rancho Larson [facility] ..840.114 350.1.13.10 4.2.7.2.686 [id number] [facility] 2023-02-10 10:30:00 2023-02-10 11:03:49 Outpatient R RANCHO LARSON SHIOKBrian [facility] [id number] [facility] 2023-02-10 10:30:00 2023-02-10 11:03:49 Office Visit Rancho Larson [facility] PROFESSIO NAL BUILD[facility] 1..840.114 350.1.13.10 4.2.7.2.686 [id number] [facility] 2023-02-08 20:00:00 2023-02-08 20:00:00 Outpatient R JOBY MCGREGOR STRAHIL [facility] [id number] [facility] 2023-02-01 09:40:00 2023-02-01 10:57:08 Outpatient R MIMA CLAYTON [facility] [id number] [facility] 2023-02-01 09:40:00 2023-02-01 10:00:00 Urgent Care Mima Clayton Unknown, Attending [facility] 1..840.114 350.1.13.10 4.2.7.2.686 [id number] [facility] 2023-02-01 00:00:00 2023-02-01 00:00:00 Letter (Out) Mima Clayton [facility] 1..840.114 350.1.13.10 4.2.7.2.686 [id number] [facility] 2023-01-18 00:00:00 2023-01-18 00:00:00 [facility] 1..840.114 350.1.13.10 4.2.7.2.686 [id number] 044 [id number] [facility] 2023-01-11 14:30:00 2023-01-11 15:24:36 Outpatient R MAIJAKE LEWIS [facility] [id number] [facility] 2023-01-11 14:30:00 2023-01-11 15:24:36 Office Visit [facility]Margie [facility] 1..840.114 350.1.13.10 4.2.7.2.686 [id number] [id number] [facility] 2023-01-10 15:00:00 2023-01-10 15:00:00 Outpatient R JAKE ARAYA [facility] [id number] [facility] 2022-12-29 00:00:00 2022-12-29 00:00:00 [facility] 1..840.114 350.1.13.10 4.2.7.2.686 [id number] [facility] 2022-12-21 08:00:00 2022-12-21 08:00:00 Outpatient R JAKE ARAYA [facility] [id number] [facility] 2022-12-10 00:00:00 2022-12-10 00:00:00 Outpatient R RANCHO LARSON SHIWAN [facility] [id number] [facility] 2022-12-09 11:30:00 2022-12-09 11:30:00 Out[facility] [id number] [facility] 2022-12-08 00:00:00 2022-12-08 00:00:00 Telephone Rancho Larson [facility] NAL BUILDING 1.2.840.114 350.1.13.10 4.2.7.2.686 [id number] [facility] 2022-12-01 00:00:00 2022-12-01 00:00:00 Outpatient R RANCHO LARSON SHIOKBrian [facility] [id number] [facility] 2022-11-29 15:00:00 2022-11-29 15:54:14 [facility] 1.2.840.114 350.1.13.10 4.2.7.2.686 [id number] [id number] [facility] 2022-11-29 15:00:00 2022-11-29 15:54:14 Outpatient R JAKE ARAYA [facility] [id number] [facility] 2022-11-26 00:00:00 2022-11-26 00:00:00 [facility] 1.2.840.114 350.1.13.10 4.2.7.2.686 [id number] 044 [id number] [facility] 2022-11-15 00:00:00 2022-11-15 00:00:00 [facility]ill [facility] 1.840.114 350.1.13.10 4.2.7.2.686 [id number] [facility] 2022-11-10 00:00:00 2022-11-10 00:00:00 Refill Margie Arayathia [facility] [place]?[facility] 1.2840.114 350.1.13.10 4.2.7.2.686 [id number] [facility] 2022-10-27 00:00:00 2022-10-27 00:00:00 Pre Visit Outreach Sathish Juan [facility] 1.0.114 350.1.13.10 4.2.7.2.686 [id number] [facility] 2022-10-26 13:30:00 2022-10-26 14:05:29 Outpatient R RANCHO LARSON SHIOKBrian [facility] [id number] [facility] 2022-10-26 13:30:00 2022-10-26 14:05:29 Office Visit Rancho Larson [facility] PROFESSIO NAL BUILDING 1.114 350.1.13.10 4.2.7.2.686 [id number] [facility] 2022-10-21 00:00:00 2022-10-21 00:00:00 Patient Secure Msg Doctor Unassigned, Magee [facility] 1.2840.114 350.1.13.10 4.2.7.2.686 [id number] [id number] [facility] 2022-10-20 00:00:00 2022-10-20 00:00:00 [facility]phone [facility] 1.20.114 350.1.13.10 4.2.7.2.686 [id number] [facility] 2022-10-18 11:30:00 2022-10-18 11:45:00 Wood Piler Visit Lab, Alhaji Walls [facility] 1.2.840.114 350.1.13.10 4.2.7.2.686 [id number] [facility] 2022-10-18 11:00:00 2022-10-18 11:30:41 Outpatient R JAKE ARAYA [facility] [id number] [facility] 2022-10-18 11:00:00 2022-10-18 11:30:41 Office [facility] 1..840.114 350.1.13.10 4.2.7.2.686 [id number] [facility] 2022-10-08 09:30:00 2022-10-08 09:30:00 Outpatient R JAKE ARAYA [facility] [id number] [facility] 2022-10-05 00:00:00 2022-10-05 00:00:00 [facility] 1..840.114 350.1.13.10 4.2.7.2.686 [id number] [facility] 2022-09-27 11:07:46 2022-09-27 23:59:00 Outpatient R JAKE ARAYA [facility] [id number] [facility] 2022-09-27 11:07:46 2022-09-27 23:59:00 Hospital Encounter Jake Araya [facility] 1.840.114 350.1.13.10 4.2.7.2.686 [id number] [facility] 2022-09-17 00:00:00 2022-09-17 00:00:00 Patient Secure Msg [facility] 1.2840.114 350.1.13.10 4.2.7.2.686 [id number] [id number] [facility] 2022-09-08 11:30:00 2022-09-08 12:00:00 [facility] 1.84.114 350.1.13.10 4.2.7.2.686 [id number] [facility] 2022-09-08 11:30:00 2022-09-08 11:42:59 Outpatient R JBOY MCGREGOR STRAHIL [facility] [id number] [facility] 2022-09-08 00:00:00 2022-09-08 00:00:00 Orders Only Doctor Unassigned, Magee [facility] 1.114 350.1.13.10 4.2.7.2.686 [id number] [facility] 2022-09-01 00:00:00 2022-09-01 00:00:00 Letter (Out) Purnima Potts [facility] INSPECTOR [facility] 1.84.114 350.1.13.10 4.2.7.2.686 [id number] [facility] 2022-08-10 00:00:00 2022-08-10 00:00:00 Refill Margie Arayathia [facility] 1.284.114 350.1.13.10 4.2.7.2.686 [id number] 044 [id number] [facility] 2022-08-02 14:30:00 2022-08-02 15:01:00 Outpatient R JAKE ARAYA [facility] [id number] [facility] 2022-08-02 14:30:00 2022-08-02 15:01:00 [facility] 1.2.840.114 350.1.13.10 4.2.7.2.686 [id number] [id number] [facility] 2022-08-02 00:00:00 2022-08-02 00:00:00 Orders Only Doctor Unassigned, Magee [facility] 1.2840.114 350.1.13.10 4.2.7.2.686 [id number] [facility] 2022-07-07 00:00:00 2022-07-07 00:00:00 [facility] 1.2.840.114 350.1.13.10 4.2.7.2.686 [id number] [id number] [facility] 2022-06-29 06:43:00 2022-06-29 08:28:00 Outpatient R ANNE MARIE MATHIS [facility] [id number] [facility] 2022-06-29 06:43:00 2022-06-29 08:28:00 Hospital Encounter Anne Marie Mathis [facility] [place] 1.2840.114 350.1.13.10 4.2.7.2.686 [id number] [facility] 2022-06-29 07:30:00 2022-06-29 08:27:00 Surgery Anne Marie Mathis [facility] [place] 1.2.840.114 350.1.13.10 4.2.7.2.686 [id number] [facility] 2022-06-29 00:00:00 2022-06-29 00:00:00 Orders Only Doctor Unassigned, Magee [facility] 1.2.840.114 350.1.13.10 4.2.7.2.686 [id number] [facility] 2022-06-28 00:00:00 2022-06-28 00:00:00 Patient Secure Msg Doctor Unassigned, Magee [facility] 1.2.840.114 350.1.13.10 4.2.7.2.686 [id number] [facility] 2022-06-28 00:00:00 2022-06-28 00:00:00 Telephone Anne Marie Mathis [facility] 1.2.840.114 350.1.13.10 4.2.7.2.686 [id number] [facility] 2022-06-22 00:00:00 2022-06-22 00:00:00 Telephone Emerita Barnes [facility] 1.2.840.114 350.1.13.10 4.2.7.2.686 [id number] [facility] 2022-06-15 11:00:00 2022-06-15 11:59:07 Outpatient ROSSANA DOMINGUEZ [facility] [id number] [facility] 2022-06-15 11:00:00 2022-06-15 11:30:00 Office Visit Kaleigh Rossana [facility] 1.2.840.114 350.1.13.10 4.2.7.2.686 [id number] [facility] 2022-06-08 17:00:00 2022-06-08 17:00:00 Outpatient CHARLY العلي [facility] [id number] [facility] 2022-06-07 08:00:00 2022-06-07 08:00:00 Outpatient Angelica PACKER ROSSANA [facility] [id number] [facility] 2022-05-29 00:00:00 2022-05-29 00:00:00 Refashvin AronRossana clements [facility] 1..840.114 350.1.13.10 4.2.7.2.686 [id number] [facility] 2022-05-25 00:00:00 2022-05-25 00:00:00 Prep For Surgery Anne Marie Mathis [facility] 1..840.114 350.1.13.10 4.2.7.2.686 [id number] [facility] 2022-05-24 09:15:00 2022-05-24 09:55:28 Outpatient CHARLY العلي [facility] [id number] [facility] 2022-05-24 09:15:00 2022-05-24 09:55:28 Ancillary Visit Emerita Barnes Craig L [facility] 1..840.114 350.1.13.10 4.2.7.2.686 [id number] [facility] 2022-05-24 09:15:00 2022-05-24 09:15:00 Outpatient CHARLY العلي [facility] [id number] [facility] 2022-05-18 08:15:00 2022-05-18 08:15:00 Outpatient CHARLY العلي [facility] [id number] [facility] 2022-05-11 00:00:00 2022-05-11 00:00:00 Telephone Felecia Rivera [facility] INSPECT[facility] 1..840.114 350.1.13.10 4.2.7.2.686 [id number] [facility] 2022-05-05 15:00:00 2022-05-05 15:48:52 Outpatient R ROSSANA PACKER [facility] [id number] [facility] 2022-05-05 15:00:00 2022-05-05 15:48:52 Office Visit Rossana Packer [facility] 1..840.114 350.1.13.10 4.2.7.2.686 [id number] [facility] 2022-04-23 10:15:00 2022-04-23 10:15:00 Outpatient R CHRISTIE MIRELES [facility] [id number] [facility] 2022-04-14 00:00:00 2022-04-14 00:00:00 Telephone Marshal [facility] OCTAVIA?PUNEETRadha [facility] 1..840.114 350.1.13.10 4.2.7.2.686 [id number] [facility] 2022-04-13 06:41:26 2022-04-13 23:59:00 Outpatient R PURNIMA POTTS [facility] [id number] [facility] 2022-04-13 06:41:26 2022-04-13 23:59:00 Hospital Encounter Purnima Potts [facility] 1..840.114 350.1.13.10 4.2.7.2.686 [id number] [facility] 2022-04-12 10:15:00 2022-04-12 10:30:00 Wood Piler Visit Lab, Alhaji Araya [facility] OCTAVIA?PUNEETRadha [facility] 1..840.114 350.1.13.10 4.2.7.2.686 [id number] [facility] 2022-04-12 10:15:00 2022-04-12 10:15:00 Outpatient R JAKE ARAYA [facility] [id number] [facility] 2022-04-08 10:00:00 2022-04-08 11:05:44 Outpatient R JAKE ARAYA [facility] [id number] [facility] 2022-04-08 10:00:00 2022-04-08 11:05:44 [facility] 1.840.114 350.1.13.10 4.2.7.2.686 [id number] [facility] 2022-04-02 10:00:00 2022-04-02 10:00:00 Outpatient R JAKE ARAYA [facility] [facility] [id number] [facility] 2022-03-30 11:00:00 2022-03-30 11:00:00 Outpatient R UNKNOWN, ATTENDING [facility] [id number] [facility] 2022-03-29 11:13:54 2022-03-29 11:13:54 Outpatient [facility] [id number] Fong Garett 2022-03-26 11:40:00 2022-03-26 11:40:00 Outpatient R UNKNOWN, ATTENDING [facility] [id number] [facility] 2022-01-19 00:00:00 2022-01-19 00:00:00 Telephone Purnima Potts [facility] INSPECTOR [facility] .840.114 350.1.13.10 4.2.7.2.686 [id number] [facility] 2021-12-15 09:35:23 2021-12-15 23:59:00 Hospital Encounter Purnima Potts [facility] ..840.114 350.1.13.10 4.2.7.2.686 [id number] [facility] 2021-12-15 00:00:00 2021-12-15 23:59:00 Outpatient R PURNIMA POTTS [facility] [id number] [facility] 2021-09-02 09:00:00 2021-09-02 10:39:52 Outpatient R PURNIMA POTTS [facility] [id number] [facility] 2021-09-02 09:00:00 2021-09-02 10:39:52 Office Visit Purnima Potts [facility] INSPECTOR [facility] 1..840.114 350.1.13.10 4.2.7.2.686 [id number] [facility] 2021-09-02 09:45:00 2021-09-02 10:39:07 Outpatient R PURNIMA POTTS [facility] [id number] [facility] 2021-09-02 09:45:00 2021-09-02 10:39:07 Office Visit Purnima Potts [facility] INSPECTOR GENERAL [facility] 1..840.114 350.1.13.10 4.2.7.2.686 [id number] 107 [id number] [facility] 2021-09-02 09:45:00 2021-09-02 09:45:00 Outpatient R PURNIMA POTTS [facility] [id number] [facility] 2021-09-02 00:00:00 2021-09-02 00:00:00 Orders Only Doctor Unassigned, [place] [facility] 1..840.114 350.1.13.10 4.2.7.2.686 [id number] [id number] [facility] 2021-07-29 15:15:00 2021-07-29 15:33:52 Outpatient R PURNIMA POTTS [facility] [id number] [facility] 2021-07-29 15:15:00 2021-07-29 15:33:52 Office Visit Purnima Potts [facility] INSPECTOR [facility] 1.2.840.114 350.1.13.10 4.2.7.2.686 [id number] [facility] 2021-01-08 00:00:00 2021-01-08 00:00:00 Orders Only Doctor Unassigned, [place] [facility] 1.2.840.114 350.1.13.10 4.2.7.2.686 [id number] [facility] 2021-01-08 00:00:00 2021-01-08 00:00:00 Orders Only Doctor Unassigned, [place] [facility] 1.2.840.114 350.1.13.10 4.2.7.2.686 [id number] [id number] 2020-10-31 00:00:00 2020-10-31 00:00:00 Case Management Purnima Potts [facility] INSPECTOR [facility] 1.2.840.114 350.1.13.10 4.2.7.2.686 [id number] [facility] 2020-10-31 00:00:00 2020-10-31 00:00:00 Case Management Purnima Potts [facility] INSPECTOR GENERAL [facility] 1.2.840.114 350.1.13.10 4.2.7.2.686 [id number] 2020-10-14 10:42:39 2020-10-14 23:59:00 Hospital Encounter Purnima Potts [facility] 1.2.840.114 350.1.13.10 4.2.7.2.686 [id number] 800 [id number] [facility] 2020-10-14 10:42:39 2020-10-14 23:59:00 Hospital Encounter Purnima Potts [facility] 1.2.840.114 350.1.13.10 4.2.7.2.686 [id number] 2020-10-14 00:00:00 2020-10-14 00:00:00 Outpatient R PURNIMA POTTS [facility] [id number] [facility] 2020-10-08 16:00:00 2020-10-08 16:00:00 Outpatient R JOBY MCGREGOR STRAHIL [facility] [id number] [facility] 2020-09-30 00:00:00 2020-09-30 00:00:00 Telephone Purnima Potts [facility] INSPECTOR [facility] 1.2.840.114 350.1.13.10 4.2.7.2.686 [id number] [facility] 2020-09-30 00:00:00 2020-09-30 00:00:00 Telephone Purnima Potts [facility] INSPECTOR [facility] 1.2.840.114 350.1.13.10 4.2.7.2.686 [id number] 107 [id number] 2020-09-25 00:00:00 2020-09-25 00:00:00 Telephone Purnima Potts [facility] INSPECTOR [facility] 1.2.840.114 350.1.13.10 4.2.7.2.686 [id number] [facility] 2020-09-24 14:32:16 2020-09-24 23:59:00 Hospital Encounter Purnima Potts [facility] 1.2.840.114 350.1.13.10 4.2.7.2.686 [id number] [facility] 2020-09-24 14:30:00 2020-09-24 14:31:00 Hospital Encounter Purnima Potts [facility] 1.2.840.114 350.1.13.10 4.2.7.2.686 [id number] [facility] 2020-09-24 00:00:00 2020-09-24 00:00:00 Outpatient R PURNIMA POTTS [facility] [id number] [facility] 2020-09-19 00:00:00 2020-09-19 00:00:00 Orders Only Doctor Unassigned, [place] [facility] 1.2.840.114 350.1.13.10 4.2.7.2.686 [id number] [id number] [facility] 2020-09-16 00:00:00 2020-09-16 00:00:00 Telephone Purnima Potts [facility] INSPECTOR [facility] 1.2.840.114 350.1.13.10 4.2.7.2.686 [id number] 107 [id number] [facility] 2020-09-15 00:00:00 2020-09-15 00:00:00 Telephone Purnima Potts [facility] INSPECTOR [facility] 1.2.840.114 350.1.13.10 4.2.7.2.686 [id number] [facility] 2020-09-12 00:00:00 2020-09-12 00:00:00 Telephone Purnima Potts [facility] INSPECTOR [facility] 1.2.840.114 350.1.13.10 4.2.7.2.686 [id number] [facility] 2020-09-09 07:05:36 2020-09-09 23:59:00 Hospital Encounter Purnima Potts [facility] 1.2.840.114 350.1.13.10 4.2.7.2.686 [id number] [facility] 2020-09-09 00:00:00 2020-09-09 00:00:00 Outpatient R PURNIMA POTTS [facility] [id number] [facility] 2020-08-27 14:08:13 2020-08-27 15:02:20 Office Visit Purnima Potts [facility] INSPECTOR [facility] .114 350.1.13.10 4.2.7.2.686 [id number] [facility] 2020-08-27 13:45:00 2020-08-27 13:45:00 Outpatient R [facility] [id number] [facility] 2020-08-25 10:00:00 2020-08-25 10:00:00 Outpatient R FELECIA RIVERA [facility] [id number] [facility] 2020-08-25 00:00:00 2020-08-25 00:00:00 Orders Only Doctor Unassigned, [place] [facility] .114 350.1.13.10 4.2.7.2.686 [id number] [facility] 2020-01-13 00:00:00 2020-01-13 00:00:00 Telephone Nurse, Pete [facility] .114 350.1.13.10 4.2.7.2.686 [id number] [facility] 2020-01-12 11:54:46 2020-01-12 12:33:40 Laboratory Only Lab, [facility] 1.114 350.1.13.10 4.2.7.2.686 [id number] [facility] 2020-01-12 12:00:00 2020-01-12 12:00:00 Outpatient R JAVIER ARAYAA [facility] [id number] [facility] 2020-01-12 00:00:00 2020-01-12 00:00:00 Letter (Out) Doctor Unassigned, [place] [facility] 1.2.840.114 350.1.13.10 4.2.7.2.686 [id number] [facility] 2019-11-30 16:40:00 2019-11-30 16:40:00 Outpatient Angelica JAVEDOLE [facility] [id number] [facility] Results Test Description Test Time Test Comments Results Result [facility] (BINAX NOW)2023-02-01 15:45:00* Test Item Value Reference Range Interpretation Comme nts POCT SARS-COV-2 ANTIGEN (lester t code = 13918-3) Positive Not Detected A On board controls acceptable with C Line (test code = 3574) Yes Lab Interpretation (test cod e = 84095-4) [facility] METABOLIC PANEL ([id number])2022-10-18 21:23:03* Test Item Value Reference Range Interpretation Comme nts NA (test code = 2099717600) 142 mmol/L 135-145 K (test code = 8087512443) 5.1 mmol/L 3.5-5.0 H CL (test code = 5947523674) 105 mmol/L 98-108 CO2 TOTAL (test code = 1262053150) 28 mmol/L 23-31 AGAP (test code = 2617458657) 9 2-16 BUN (test code = 1144121559) 9 mg/dL 7-23 GLUCOSE (test code = 4825532176) 104 mg/dL 70-110 CREATININE (test code = 2367475025) 0.75 mg/dL 0.50-1.04 TOTAL BILI (test code = 6875364032) 0.6 mg/dL 0.1-1.1 CALCIUM (test code = 4660741374) 9.7 mg/dL 8.6-10.6 T PROTEIN (test code = 5277732635) 7.9 g/dL 6.3-8.2 ALBUMIN (test code = 3375820815) 4.3 g/dL 3.5-5.0 ALK PHOS (test code = 8051417753) 104 U/L 34-122 ALTv (test code = 1742-6) 26 U/L 5-35 AST(SGOT) (test code = 2378540235) 22 U/L 13-40 eGFR (test code = 4155864300) 77.6 mL/min/1.73m2 CALIN (test code = CALIN) Association of Glomerular Filtration Rate (GFR) and Staging of Kidney Disease* + --+ --+ ------+| GFR (mL/min/1.73 m2) ?| With Kidney Damage ?| ?Without Kidney Damage+ --------+ --------+ +| ?>90 ?| ?Stage one ?| ? Normal ?+ ---+ ---+ -------+| ?60-89 ?| ?Stage two ?| ? Decreased GFR ? + --+ --+ ------+| ?30-59 ?| ?Stage three ?| ? Stage three ? + --+ --+ ------+| ?15-29 ?| ?Stage four ? | ? Stage four ?+ ---+ ---+ -------+| ?<15 (or dialysis) ? ?| ?Stage five ? | ? Stage five ?+ ---+ ---+ -------+ *Each stage assumes the associated GFR level has been in effect for at least three months. ?Stages 1 to 5, with or without kidney disease, indicate chronic kidney disease. Notes: Determination of stages one and two (with eGFR >59mL/min/1.73 m2) requires estimation of kidney damage for at least three months as defined by structural or functional abnormalities of the kidney, manifested by either:Pathological abnormalities or Markers of kidney damage (including abnormalities in the composition of the blood or urine or abnormalities in imaging tests). Lab Interpretation (test code = 64004-6) Abnormal [facility]. METABOLIC PANEL ([id number])2022-10-18 21:23:03* Test Item Value Reference Range Interpretation Comme nts NA (test code = 5582715142) 142 mmol/L 135-145 K (test code = 4606836167) 5.1 mmol/L 3.5-5.0 H CL (test code = 8256691586) 105 mmol/L 98-108 CO2 TOTAL (test code = 3104821434) 28 mmol/L 23-31 AGAP (test code = 5334763895) 9 2-16 BUN (test code = 0000921157) 9 mg/dL 7-23 GLUCOSE (test code = 7281497177) 104 mg/dL 70-110 CREATININE (test code = 7745566034) 0.75 mg/dL 0.50-1.04 TOTAL BILI (test code = 1571927476) 0.6 mg/dL 0.1-1.1 CALCIUM (test code = 0183459438) 9.7 mg/dL 8.6-10.6 T PROTEIN (test code = 6594000000) 7.9 g/dL 6.3-8.2 ALBUMIN (test code = 9197817104) 4.3 g/dL 3.5-5.0 ALK PHOS (test code = 1069796980) 104 U/L 34-122 ALTv (test code = 1742-6) 26 U/L 5-35 AST(SGOT) (test code = 0723958108) 22 U/L 13-40 eGFR (test code = 8356958906) 77.6 mL/min/1.73m2 CALIN (test code = CALIN) Association of Glomerular Filtration Rate (GFR) and Staging of Kidney Disease* + --+ --+ ------+| GFR (mL/min/1.73 m2) ?| With Kidney Damage ?| ?Without Kidney Damage+ --------+ --------+ +| ?>90 ?| ?Stage one ?| ? Normal ?+ ---+ ---+ -------+| ?60-89 ?| ?Stage two ?| ? Decreased GFR ? + --+ --+ ------+| ?30-59 ?| ?Stage three ?| ? Stage three ? + --+ --+ ------+| ?15-29 ?| ?Stage four ? | ? Stage four ?+ ---+ ---+ -------+| ?<15 (or dialysis) ? ?| ?Stage five ? | ? Stage five ?+ ---+ ---+ -------+ *Each stage assumes the associated GFR level has been in effect for at least three months. ?Stages 1 to 5, with or without kidney disease, indicate chronic kidney disease. Notes: Determination of stages one and two (with eGFR >59mL/min/1.73 m2) requires estimation of kidney damage for at least three months as defined by structural or functional abnormalities of the kidney, manifested by either:Pathological abnormalities or Markers of kidney damage (including abnormalities in the composition of the blood or urine or abnormalities in imaging tests). Lab Interpretation (test code = 58865-0) Abnormal [facility] WITH [id number] 19:30:45* Test Item Value Reference Range Interpretation Comme nts WBC (test code = 6690-2) 7.14 See_Comment [Automated Blaze DFM] The system which generated this result transmitted reference range: 4.30 - 11.10 10*3/?L. The reference range was not used to interpret this result as normal/abnormal. RBC (test code = 789-8) 4.54 See_Comment [Automated Blaze DFM] The system which generated this result transmitted reference range: 3.93 - 5.25 10*6/?L. The reference range was not used to interpret this result as normal/abnormal. HGB (test code = 718-7) 13.7 g/dL 11.6-15.0 HCT (test code = 4544-3) 43.8 % 35.7-45.2 MCV (test code = 787-2) 96.5 fL 80.6-95.5 H MCH (test code = 785-6) 30.2 pg 25.9-32.8 MCHC (test code = 786-4) 31.3 g/dL 31.6-35.1 L RDW-SD (test code = 35452-3) 50.4 fL 39.0-49.9 H RDW-CV (test code = 788-0) 14.2 % 12.0-15.5 PLT (test code = 777-3) 307 See_Comment [Automated Blaze DFM] The system which generated this result transmitted reference range: 166 - 358 10*3/?L. The reference range was not used to interpret this result as normal/abnormal. MPV (test code = 92671-0) 10.6 fL 9.5-12.9 NRBC/100 WBC (test code = 6607082066) 0.0 See_Comment [Automated me ssage] The system which generated this result transmitted reference range: 0.0 - 10.0 /100 WBCs. The reference range was not used to interpret this result as normal/abnormal. NRBC x10^3 (test code = 3704261845) See_Comment [Automated messa ge] The system which generated this result transmitted reference range: 10*3/?L. The reference range was not used to interpret this result as normal/abnormal. GRAN MAT (NEUT) % (test code = 770-8) 49.6 % IMM GRAN % (test code = 8303725325) 0.30 % LYMPH % (test code = 736-9) 42.0 % MONO % (test code = 5905-5) 4.3 % EOS % (test code = 713-8) 3.2 % BASO % (test code = 706-2) 0.6 % GRAN MAT x10^3(ANC) (test code = 8423804605) 3.54 10*3/uL 1.88-7.09 IMM GRAN x10^3 (test code = 9035456498) 0.00-0.06 LYMPH x10^3 (test code = 731-0) 3.00 10*3/uL 1.32-3.29 MONO x10^3 (test code = 742-7) 0.31 10*3/uL 0.33-0.92 L EOS x10^3 (test code = 711-2) 0.23 10*3/uL 0.03-0.39 BASO x10^3 (test code = 704-7) 0.04 10*3/uL 0.01-0.07 Lab Interpretation (test code = 67026-1) Abnormal [facility] WITH [id number] 19:30:45* Test Item Value Reference Range Interpretation Comme nts WBC (test code = 6690-2) 7.14 See_Comment [Automated messa ge] The system which generated this result transmitted reference range: 4.30 - 11.10 10*3/?L. The reference range was not used to interpret this result as normal/abnormal. RBC (test code = 789-8) 4.54 See_Comment [Automated messa ge] The system which generated this result transmitted reference range: 3.93 - 5.25 10*6/?L. The reference range was not used to interpret this result as normal/abnormal. HGB (test code = 718-7) 13.7 g/dL 11.6-15.0 HCT (test code = 4544-3) 43.8 % 35.7-45.2 MCV (test code = 787-2) 96.5 fL 80.6-95.5 H MCH (test code = 785-6) 30.2 pg 25.9-32.8 MCHC (test code = 786-4) 31.3 g/dL 31.6-35.1 L RDW-SD (test code = 82259-8) 50.4 fL 39.0-49.9 H RDW-CV (test code = 788-0) 14.2 % 12.0-15.5 PLT (test code = 777-3) 307 See_Comment [G[employer] KlickEx] The system which generated this result transmitted reference range: 166 - 358 10*3/?L. The reference range was not used to interpret this result as normal/abnormal. MPV (test code = 87262-3) 10.6 fL 9.5-12.9 NRBC/100 WBC (test code = 8677598297) 0.0 See_Comment [Automated Photo Rankr ssage] The system which generated this result transmitted reference range: 0.0 - 10.0 /100 WBCs. The reference range was not used to interpret this result as normal/abnormal. NRBC x10^3 (test code = 9077517540) See_Comment [[employer]Ex] The system which generated this result transmitted reference range: 10*3/?L. The reference range was not used to interpret this result as normal/abnormal. GRAN MAT (NEUT) % (test code = 770-8) 49.6 % IMM GRAN % (test code = 8220321070) 0.30 % LYMPH % (test code = 736-9) 42.0 % MONO % (test code = 5905-5) 4.3 % EOS % (test code = 713-8) 3.2 % BASO % (test code = 706-2) 0.6 % GRAN MAT x10^3(ANC) (test code = 4545366546) 3.54 10*3/uL 1.88-7.09 IMM GRAN x10^3 (test code = 7931878193) 0.00-0.06 LYMPH x10^3 (test code = 731-0) 3.00 10*3/uL 1.32-3.29 MONO x10^3 (test code = 742-7) 0.31 10*3/uL 0.33-0.92 L EOS x10^3 (test code = 711-2) 0.23 10*3/uL 0.03-0.39 BASO x10^3 (test code = 704-7) 0.04 10*3/uL 0.01-0.07 Lab Interpretation (test code = 16693-7) Abnormal [facility] URINALYSIS W/O SPECIFIC [id number] 22:19:00* Test Item Value Reference Range Interpretation Comme nts POCT PH U (test code = 3254) 6 mg/dl 5-8 POCT U LEUK EST (test code = 3263) neg Negative - Negative POCT U NIT (test code = 3262) neg Negative - Negati ve POCT U PROT (test code = 3259) neg Negative - Negat kenrick POCT U GLU (test code = 3256) neg Negative - Negati ve POCT U KETONE (test code = 3258) neg Negative - Neg ative POCT U BLD (test code = 3257) neg Negative - Negati ve [facility] URINALYSIS W/O SPECIFIC [id number] 22:19:00* Test Item Value Reference Range Interpretation Comme nts POCT PH U (test code = 3254) 6 mg/dl 5-8 POCT U LEUK EST (test code = 3263) neg Negative - Negative POCT U NIT (test code = 3262) neg Negative - Negati ve POCT U PROT (test code = 3259) neg Negative - Negat kenrick POCT U GLU (test code = 3256) neg Negative - Negati ve POCT U KETONE (test code = 3258) neg Negative - Neg ative POCT U BLD (test code = 3257) neg Negative - Negati ve [facility]. METABOLIC PANEL (10623)2022-04-12 21:44:10* Test Item Value Reference Range Interpretation Comme nts NA (test code = 4187628830) 141 mmol/L 135-145 K (test code = 1146390603) 5.1 mmol/L 3.5-5.0 H CL (test code = 0147299334) 105 mmol/L 98-108 CO2 TOTAL (test code = 4633142981) 30 mmol/L 23-31 AGAP (test code = 6553656238) 2-16 BUN (test code = 7430104019) 11 mg/dL 7-23 GLUCOSE (test code = 8935461211) 108 mg/dL 70-110 CREATININE (test code = 4560444259) 0.77 mg/dL 0.50-1.04 TOTAL BILI (test code = 5385469383) 0.5 mg/dL 0.1-1.1 CALCIUM (test code = 2875329348) 9.6 mg/dL 8.6-10.6 T PROTEIN (test code = 0655957833) 7.7 g/dL 6.3-8.2 ALBUMIN (test code = 9763745794) 4.5 g/dL 3.5-5.0 ALK PHOS (test code = 6607782306) 115 U/L 34-122 ALTv (test code = 1742-6) 21 U/L 5-35 AST(SGOT) (test code = 9566203819) 21 U/L 13-40 eGFR (test code = 5996111826) mL/min/1.73m2 CALIN (test code = CALIN) Association of Glomerular Filtration Rate (GFR) and Staging of Kidney Disease* + --+ --+ ------+| GFR (mL/min/1.73 m2) ?| With Kidney Damage ?| ?Without Kidney Damage+ --------+ --------+ +| ?>90 ?| ?Stage one ?| ? Normal ?+ ---+ ---+ -------+| ?60-89 ?| ?Stage two ?| ? Decreased GFR ? + --+ --+ ------+| ?30-59 ?| ?Stage three ?| ? Stage three ? + --+ --+ ------+| ?15-29 ?| ?Stage four ? | ? Stage four ?+ ---+ ---+ -------+| ?<15 (or dialysis) ? ?| ?Stage five ? | ? Stage five ?+ ---+ ---+ -------+ *Each stage assumes the associated GFR level has been in effect for at least three months. ?Stages 1 to 5, with or without kidney disease, indicate chronic kidney disease. Notes: Determination of stages one and two (with eGFR >59mL/min/1.73 m2) requires estimation of kidney damage for at least three months as defined by structural or functional abnormalities of the kidney, manifested by either:Pathological abnormalities or Markers of kidney damage (including abnormalities in the composition of the blood or urine or abnormalities in imaging tests). Lab Interpretation (test code = 32300-9) Abnormal [facility] WITH [id number] 20:03:55* Test Item Value Reference Range Interpretation Comme nts WBC (test code = 6690-2) See_Comment [[employer]] The system which generated this result transmitted reference range: 4.30 - 11.10 10*3/?L. The reference range was not used to interpret this result as normal/abnormal. RBC (test code = 789-8) See_Comment [FamilyLink] The system which generated this result transmitted reference range: 3.93 - 5.25 10*6/?L. The reference range was not used to interpret this result as normal/abnormal. HGB (test code = 718-7) 14.1 g/dL 11.6-15.0 HCT (test code = 4544-3) 43.9 % 35.7-45.2 MCV (test code = 787-2) 96.5 fL 80.6-95.5 H MCH (test code = 785-6) 31.0 pg 25.9-32.8 MCHC (test code = 786-4) 32.1 g/dL 31.6-35.1 RDW-SD (test code = 32334-8) 45.8 fL 39.0-49.9 RDW-CV (test code = 788-0) 12.7 % 12.0-15.5 PLT (test code = 777-3) See_Comment [FamilyLink] The system which generated this result transmitted reference range: 166 - 358 10*3/?L. The reference range was not used to interpret this result as normal/abnormal. MPV (test code = 86851-5) 10.9 fL 9.5-12.9 NRBC/100 WBC (test code = 5112934484) See_Comment [Automated me ssage] The system which generated this result transmitted reference range: 0.0 - 10.0 /100 WBCs. The reference range was not used to interpret this result as normal/abnormal. NRBC x10^3 (test code = 9847431375) See_Comment [Automated messa ge] The system which generated this result transmitted reference range: 10*3/?L. The reference range was not used to interpret this result as normal/abnormal. GRAN MAT (NEUT) % (test code = 770-8) 53.7 % IMM GRAN % (test code = 6237289359) 0.20 % LYMPH % (test code = 736-9) 38.2 % MONO % (test code = 5905-5) 4.3 % EOS % (test code = 713-8) 2.8 % BASO % (test code = 706-2) 0.8 % GRAN MAT x10^3(ANC) (test code = 6029668372) 3.27 10*3/uL 1.88-7.09 IMM GRAN x10^3 (test code = 8404882600) 0.00-0.06 LYMPH x10^3 (test code = 731-0) 2.32 10*3/uL 1.32-3.29 MONO x10^3 (test code = 742-7) 0.26 10*3/uL 0.33-0.92 L EOS x10^3 (test code = 711-2) 0.17 10*3/uL 0.03-0.39 BASO x10^3 (test code = 704-7) 0.05 10*3/uL 0.01-0.07 Lab Interpretation (test code = 44315-5) [id number]:29:21* Test Item Value Reference Range Interpretation Comme nts CHOLESTEROL (test code = 2210) 220 MG/DL <200 H TRIGLYCERIDES (test code = 2232) 118 MG/DL <150 HDL CHOLESTEROL (test code = 2220) 45 MG/DL >39 CALC LDL CHOL (test code = 2236) 151 MG/DL <100 H NOTE: CALCULATED LDL IS BASED ON SYD-OLIVER METHOD WHICHINCLUDES ADJUSTABLE TRIGLYCERIDE:VLDL CHOLESTEROL RATIO.THIS FACTOR VARIES BY MEASURED TRIGLYCERIDE AND NON-HDLCHOLESTEROL CONCENTRATIONS WITH INCREASED CALCULATED LDL SEENIN HIGHER TRIGLYCERIDE OR LOWER NON-HDL SPECIMENS. FOR MOREINFORMATION, SEE CLIENT ANNOUNCEMENT AT [email or web address] RISK RATIO LDL/HDL (test code = 223) 3.36 RATIO <3.22 H COMPREHENSIVE METABOLIC [id number] 04:29:21* Test Item Value Reference Range Interpretation Comme nts GLUCOSE (test code = 2216) 97 MG/DL 70-99 BUN (test code = 2207) 14 MG/DL 8-23 CREATININE (test code = 221) 1.01 MG/DL 0.60-1.30 eGFR (2020 CKD-EPI) (test code = 06056) 62 ML/MIN/1.73 >60 CALC BUN/CREAT (test code = 2235) 14 RATIO 6-28 SODIUM (test code = 223) 142 MEQ/L 133-146 POTASSIUM (test code = 2228) 4.5 MEQ/L 3.5-5.4 CHLORIDE (test code = 2215) 106 MEQ/L 95-107 CARBON DIOXIDE (test code = 2206) 24 MEQ/L 19-31 CALCIUM (test code = 2209) 9.5 MG/DL 8.5-10.5 PROTEIN, TOTAL (test code = 2228) 7.5 G/DL 6.1-8.3 ALBUMIN (test code = 2200) 4.3 G/DL 3.5-5.2 CALC GLOBULIN (test code = 2240) 3.2 G/DL 1.9-3.7 CALC A/G RATIO (test code = 223) 1.3 RATIO 1.0-2.6 BILIRUBIN, TOTAL (test code = 2206) <0.2 MG/DL See_Comment [Automated me ssage] The system which generated this result transmitted reference range: <=1.2. The reference range was not used to interpret this result as normal/abnormal. ALKALINE PHOSPHATASE (test code = 2203) 120 U/L 40-140 AST (test code = 2218) 11 U/L 9-40 ALT (test code = 2219) 13 U/L 5-40 HEMOGLOBIN [id number] 03:25:19* Test Item Value Reference Range Interpretation Comme nts HEMOGLOBIN A1c (test code = 17162) 5.9 % 4.2-5.6 H UNLESS OTHERWISE INDICATED, ALL TESTING PERFORMED [facility] [address] [place] [address] COLLECTOR: CONRAD BRUNSON M.D. [place] NUMBER [id number] [facility] [place]. [id number] Notes Date/Time Note Provider Source 2023-06-28 13:35:53 X7fD63ESj26caMno9Zmj1mT+e0Z+IFqJBtwt xqVDcnzfXwzH3qF4KTrFRQZNZ/2u7656-86T13:35:53 This has been received and will work on as time permits. 76845-2Oebwaxkno encounter IlljGT8183-90-38J54:36:16Telephone encounter NoteTXT1.2.840.111932.1.13.104.2.7.2 .256654|[id number] for patient tubg01655-9MmenYIUWOXUHGSJCyqxjuuko C-CDA narrative textUT[address] Walker StreetAs[id number] QAJLVTANWMFAMUNFPEKCXV8478-57-79M67: 36:161.2.840.063272.1.72.3.15|1.2.84 0.041917.1.13.104.2.7.2.727879_20059 [id number] [facility] 2023-06-28 09:31:53 Yiok4P/FYNtTo6kGRGbQtvAwHOAjvRMpjPIa 7+wxV69eUL+fg36IW7WupS3VCaUW5269-87- 23T09:31:53 Canelo Trujillo is a 68 [facility] are wanting to get any updates on forms they faxed over on 06/15 & 06/27 regarding pt's medicine records.[facility] :PH [phone] adviseThank you 19961-8Lzsorksnm encounter NelvZA1264-40-33O86:36:17Telephone encounter NoteTXT1.2.840.226372.1.13.104.2.7.2 .390626|[id number] for patient uytk49406-8KxwxDMNHFYPMDQFVboviojoz C-CDA narrative [id number] Tj Drakekam[address] Bt[id number] ZKOGOCUPPJSTNVWCCQEYNC0698-25-53J42: 36:171.2.840.964302.1.72.3.15|1.2.84 0.028393.1.13.104.2.7.2.727879_20045 95308 Tiffany Tj Chakraborty [facility] 2023-06-21 10:18:04 jE+s2kDYpEEHJBu6XSS3JypV/B0AHlg56P/b mipmxzXnehEsyF3OkTn0LcdljCJH8514-62- 16T10:18:04 Left message requesting names of active medications with the correct doses. 70938-1Wdzdxllgn encounter PcenOV6959-34-84B73:18:34Telephone encounter NoteTXT1.2.840.083548.1.13.104.2.7.2 .137110|[id number] for patient gmbk47003-9CctcTAUWRNSTOMTDuxvrqjvn C-CDA narrative text[id number] CHMFPUXXTJWPZADWXQJRUA5934-32-19S76: 18:341.2.840.379515.1.72.3.15|1.2.84 0.613897.1.13.104.2.7.2.727879_19999 [id number] [facility] 2023-06-21 08:57:08 ANdrtt8ni0eSB3Px0HKdvvyiqTV0vr75otIK 4bugGoeyc/xYnmi0pjWUKZoM9uzR7962-07- 16T08:57:08 Please call patient to verify what refill(s) she needs. 71411-6Ilamedtsb encounter TyivML9329-73-35J28:57:36Telephone encounter NoteTXT1.2.840.547071.1.13.104.2.7.2 .579863|[id number] for patient ndex54573-2QimqZGZRZIYAOARWtpkyeknp C-CDA narrative [id number] KHRLREDJVYSNOXJNNXYJYJ9980-20-92M45: 57:361.2.840.774699.1.72.3.15|1.2.84 0.339118.1.13.104.2.7.2.727879_19998 12124 [facility] 2023-06-17 15:38:43 MYfFVrwYSYx/Kendall+/GZTzEVh7j1C824y1tj vNuiyBAgSZFVyCL3VNnR0bMr+IsI7799-68T15:38:43 Canelo Trujillo is a 68 year old femalePharmacy calling to request refills on all active prescriptions 73616-9Ikqvipkoh encounter StwvIO1245-56-58O05:42:32Telephone encounter NoteTXT1.2.840.906622.1.13.104.2.7.2 .610412|[id number] for patient iapc35809-2WghzJYFRDKQJLIIJcykuyfrn C-CDA narrative [id number] [address] Tq[id number] TXDKDSYJCMMCELERLEKENN2357-15-09H19: 42:321.2.840.550280.1.72.3.15|1.2.84 0.892720.1.13.104.2.7.2.727879_19987 [address] Hali [address] [facility] 2023-05-25 09:59:36 ZUoHITrevonA+0q44t/FBXYN5mGC8ET1NYU6sv cQKqYHjqNj0fEEDLzrwSlQZdw16B2395-30- 20T09:59:36 Images from the original note were not included.Requested RenewalsSERTraline (ZOLOFT) 25 mg tabletSig: Take 1 tablet by mouth in the morning.Disp: 90 tablet Refills: 1Start: 05/25/2023lass: eRXNon-formulary For: AnxietyLast ordered: 5 months ago (11/29/2022) by MELANY Albasychiatry: Antidepressants Rqdell4905/25/2023 09:54 AMProtocol Details Manual Review: Verify no changes in dose in the last 3 monthsValid encounter within last 12 monthsTo be filled at: [facility]/pharmacy #[id number] - [place], [place] - [facility] [address] [facility] [address]Recent VisitsDate Type Provider Dept106/19/22 Office Visit Jake Araya FNP [facility]04/05/23 Office Visit Jake Araya FNP [facility] Med01/11/23 Office Visit Anene, Jake, CLOTH EXAMINER [facility]11/29/22 Office Visit Jake Araya, CLOTH EXAMINER [facility] Med10/18/22 Office Visit Jake Araya, CLOTH EXAMINER [facility]08/02/22 Office Visit Jake Araya, CLOTH EXAMINER [facility] Med04/08/22 Office Visit Jake Araya CLOTH EXAMINER [facility] Fam MedShowing recent visits within past 540 days with a meds authorizing provider and meeting all other requirementsFuture AppointmentsDate Type Provider Dept07/15/23 Appointment Jake Araya FNP [facility] Fam MedShowing future appointments within next 150 days with a meds authorizing provider and meeting all other requirements 70947-7Jajcoqtsy encounter MjyrMK8029-37-86P49:59:47Telephone encounter NoteTXT1.2.840.965957.1.13.104.2.7.2 .460553|[id number] for patient aibw67503-8KtqmSHMGGQTOUKHRhpsqccfz C-CDA narrative [id number] M Fisher [address] Vx[id number] DWODANCMRKPQXQHIFXCPVK6439-32-23G57: 59:471.2.840.917763.1.72.3.15|1.2.84 0.886380.1.13.104.2.7.2.727879_19811 62919 Eunice Serrano [facility] 2023-01-18 14:29:58 QBONRkUWWZV07IBx03nNQuKJv16aPlgnRvfO JoWHrVkq5ElQC/VJL6cjuzWB1ajU3853-15- 15T14:29:58 Qty 90 85864-0Dovntbydl encounter JwjjJP8691-04-36O82:30:31Telephone encounter NoteTXT1.2.840.431955.1.13.104.2.7.2 .767944|[id number] for patient rhds62262-0SjypRCVHPDXHHB[address] Eh[id number] VOYQPAITKGURBROSSPHYOC0222-54-81E81: 30:311.2.840.044442.1.72.3.15|1.2.84 0.550483.1.13.104.2.7.2.727879_18749 [address] [facility]"
--- NOTE | 2023-06-28 22:31 | ER ---
Nurse's Notes [facility] Name: Jennifer Trujillo Age: 68 yrs Sex: Female : 1955 Arrival Date: 06/28/2023 Time: 22:11 Bed IW3 Private MD: Diagnosis: Anxiety about health, accidental medication consumption, accidental trazodone intake, accidental gabapentin intake Presentation: 06/28 22:21 Chief complaint: Patient states: THINKS SHE TOOK 2 OF HER GABAPENTIN AND TRAZODONE jj7 INSTEAD OF 1. NOW SHE IS FEELING ANXIOUS. ALSO STATES SHE HAD A SHOT OF TEQUILA AND HER NIECE GAVE HER A PIECE OF HER EDIBLE. Coronavirus screen: At this time, the client does not indicate any symptoms associated with coronavirus-19. Ebola Screen: No symptoms or risks identified at this time. Initial Sepsis Screen: Does the patient meet any 2 criteria? HR > 90 bpm. Yes Does the patient have a suspected source of infection? No. Patient's initial sepsis screen is negative. Risk Assessment: Do you want to hurt yourself or someone else? Patient reports no desire to harm self or others. 22:21 Method Of Arrival: Ambulatory [facility] 22:21 Acuity: ISABELLA 4 jj7 Triage Assessment: 22:26 General: Appears in no apparent distress. comfortable, Behavior is cooperative, jj7 appropriate for age, anxious. Pain: Denies pain. Historical: - Allergies: 22:26 NKDA; jj7 - PSHx: 22:26 None; jj7 - Immunization history:: Adult Immunizations up to date, Client reports receiving the 2nd dose of the Covid vaccine, Flu vaccine is up to date. - Social history:: Smoking status: Patient denies any tobacco usage or history of. Patient uses alcohol, on a daily basis. street drugs, marijuana. - Family history:: not pertinent. Screenin:29 [facility] ED Fall Risk Assessment (Adult) History of falling in the last 3 months, [facility] including since admission No falls in past 3 months (0 pts) Confusion or Disorientation No (0 pts) Intoxicated or Sedated No (0 pts) Impaired Gait No (0 pts) Mobility Assist Device Used No (0 pt) Altered Elimination No (0 pt) Score/Fall Risk Level 0 - 2 = Low Risk Oriented to surroundings, Maintained a safe environment, Educated pt \T\ family on fall prevention, incl call for assistance when getting out of bed. Abuse screen: Denies threats or abuse. Nutritional screening: No deficits noted. Tuberculosis screening: No symptoms or risk factors identified. Assessment: 22:29 Reassessment: SEE TRIAGE ASSESSMENT. jj7 Vital Signs: 22:21 BP 166 / 99; Pulse 109; Resp 18; Temp 98.3; Pulse Ox 98% ; Weight 104.33 kg; Height 5 j7 ft. 4 in. ; Pain 0/10; 22:21 Body Mass Index 39.48 (104.33 kg, 162.56 cm) jj7 22:21 Pain Scale: Adult j7 ED Course: 22:14 Patient arrived in ED. jj6 22:18 Uzair Hebert MD is Attending Physician. sp4 22:26 Triage completed. jj7 22:26 Arm band placed on left wrist. jj7 22:29 Patient has correct armband on for positive identification. jj7 22:29 No provider procedures requiring assistance completed. Patient did not have IV access jj7 during this emergency room visit. Administered Medications: No medications were administered Medication: 22:29 VIS not applicable for this client. jj7 Outcome: 22:30 Discharge ordered by . sp4 22:32 Discharged to home ambulatory, jj7 22:32 Condition: good 22:32 Discharge instructions given to patient, Instructed on discharge instructions, Demonstrated understanding of instructions, 22:33 Patient left the ED. jj7 Signatures: Kathe Bryant jj6 Jameel Trujillo RN RN jj7 Uzair Hebert MD MD sp4 Corrections: (The following items were deleted from the chart) 22:31 22:21 Chief complaint: Patient states: THINKS SHE TOOK 2 OF HER GABAPENTIN AND jj7 TRAZODONE INSTEAD OF 1. NOW SHE IS FEELING ANXIOUS jj7
--- NOTE | 2023-06-28 22:31 | EDPHYS ---
Phys[facility] Documentation [facility] Name: Jennifer Trujillo Age: 68 yrs Sex: Female : 1955 Arrival Date: 06/28/2023 Time: 22:11 Bed IW3 Private MD: ED Physician Uzair Hebert HPI: 06/28 22:18 This 68 yrs old Black Female presents to ER via Unassigned with complaints of sp4 Accidental Overdose. 22:33 Very pleasant 68-year-old female presents with concern for excess medication intake. sp4 Patient states that instead of 50 mg trazodone she took and accidentally 100 mg trazodone this evening. Patient also reports that she took 2 manage gabapentin taken total 300 mg p.o. today. Patient states she has anxiety she is worried about medication overdose. Additional medications include Zoloft 25 mg daily, colchicine 0.6 mg daily, losartan HCTZ daily, buspirone 10 mg daily, amlodipine 10 mg daily.. Historical: - Allergies: 22:26 NKDA; jj7 - PSHx: 22:26 None; jj7 - Immunization history:: Adult Immunizations up to date, Client reports receiving the 2nd dose of the Covid vaccine, Flu vaccine is up to date. - Social history:: Smoking status: Patient denies any tobacco usage or history of. Patient uses alcohol, on a daily basis. street drugs, marijuana. - Family history:: not pertinent. ROS: 22:33 Constitutional: Negative for fever, chills, and weight loss, positive anxiety sp4 22:33 All other systems are negative, Exam: 22:33 Constitutional: This is a well developed, well nourished patient who is awake, alert, sp4 and in no acute distress. Anxious appearing . Head/Face: Normocephalic, atraumatic. Eyes: Pupils equal round and reactive to light, extra-ocular motions intact. Lids and lashes normal. Conjunctiva and sclera are not injected. Cornea within normal limits. Periorbital areas with no swelling, redness, or edema. ENT: Nares patent. No nasal discharge, no septal abnormalities noted. Tympanic membranes are normal and external auditory canals are clear. Oropharynx with no redness, swelling, or masses, exudates, or evidence of obstruction, uvula midline. Mucous membranes moist. Neck: Trachea midline, no thyromegaly or masses palpated, and no cervical lymphadenopathy. Supple, full range of motion without nuchal rigidity, or vertebral point tenderness. Chest/axilla: Normal chest wall appearance and motion. Nontender with no deformity. No lesions are appreciated. Cardiovascular: Regular rate and rhythm with a normal S1 and S2. No gallops, murmurs, or rubs. Normal PMI, no JVD. No pulse deficits. Respiratory: Lungs have equal breath sounds bilaterally, clear to auscultation and percussion. No rales, rhonchi or wheezes noted. No increased work of breathing, no retractions or nasal flaring. Abdomen/GI: Soft, non-tender, with normal bowel sounds. No distension or tympany. No guarding or rebound. No evidence of tenderness throughout. Back: No spinal tenderness. No costovertebral tenderness. Skin: Warm, dry with normal turgor. Normal color with no rashes, no lesions, and no evidence of cellulitis. MS/ Extremity: Pulses equal, no cyanosis. Neurovascular intact. Full, normal range of motion. Neuro: Awake and alert, GCS 15, oriented to person, place, time, and situation. Cranial nerves II-XII grossly intact. Motor strength 5/5 in all extremities. Sensory grossly intact. Psych: Awake, alert, with orientation to person, place and time. Behavior, mood, and affect are within normal limits Vital Signs: 22:21 BP 166 / 99; Pulse 109; Resp 18; Temp 98.3; Pulse Ox 98% ; Weight 104.33 kg; Height 5 jj7 ft. 4 in. ; Pain 0/10; 22:21 Body Mass Index 39.48 (104.33 kg, 162.56 cm) jj7 22:21 Pain Scale: Adult jj7 MDM: 22:30 Patient medically screened. sp4 22:33 Differential diagnosis: Ingestion/exposure to Gabapentin, trazodone polypharmacy, over sp4 medication. Data reviewed: vital signs, nurses notes. ED course: Patient was informed that 100 mg trazodone is not unsafe. Also 300 mg gabapentin is not a concerning overdose. Collateral milligram p.o. trazodone is still within the safety margin. Patient is stable for discharge home with advised to resume her standard medication doses tomorrow morning. At this time there is no requirement for monitoring in the emergency room. No additional workup required. . Administered Medications: No medications were administered Disposition Summary: 06/28/23 22:30 Discharge Ordered Problem: new sp4 Symptoms: have improved sp4 Condition: Stable sp4 Diagnosis - Anxiety about health, accidental medication consumption, accidental trazodone sp4 intake, accidental gabapentin intake Followup: sp4 - With: Private Physician - When: 7 - 10 days - Reason: Recheck today's complaints Discharge Instructions: - Discharge Summary Sheet sp4 - Medical Screening Exam sp4 Forms: - Patient Portal Instructions sp4 Signatures: Jameel Trujillo RN RN jj7 Uzair Hebert MD MD sp4
[2023-06-28 23:59] VITALS: BP 166/99; TEMP 98.3; O2SAT 98
== END ==
LOC: ER 22:11
DX: F06.4 Anxiety disorder due to known physiological condition (principal); T43.211A Poisoning by selective serotonin and norepinephrine reuptake inhibitors, accidental (unintentional), initial encounter
CPT/HCPCS: 99282

== ENCOUNTER 2023-12-13 11:29 | Emergency (ER) | payer OTHER ==
--- OUTSIDE RECORDS SUMMARY | 2023-12-13 11:42 | XMS REPORT | Continuity of Care Document ---
Author Name Unknown Address [address] [place] [address] [facility] thconnect Address [address] [place] [address] Care Team Providers Care Material Attendant Name Role Phone Jake Pretty Primary Care Physician [phone] JAKE ARAYA Attending Clinician Unavailable Jake Pretty Attending Clinician [phone] Suki Sheikh MD Attending Clinician + [phone] Doctor Unassigned, [place] Attending Clinician U Alhaji Grullon - [place] Attending Clinician Unavailable SUKI SHEIKH Attending Clinician Sulaiman Brooks MD Attending Clinician [phone] Joby Mcgregor MD Attending Clinician JOBY MCGREGOR Attending Clinician UnavailJOBY Dong Attending Clinician Unavailradha musa 1, [facility] Sleep Lab Bed Attending Clinician Unavail able Therapist, [facility] Respiratory Attending Clinician U [place] Yin DO Attending Clinician [phone] RANCHO LARSON Attending Clinician Unavailable RANCHO LARSON Attending Clinician Unavailable MIMA KRUSE Attending Clinician Unavailable Mima Kennedy Attending Clinician [phone] Unknown, Attending Attending Clinician UnavailSathish Moore LVN Attending Clinician Purnima Fu Attending Clinician + ANNE MARIE MATHIS Attending Clinician Unavailable Anne Marie Mathis MD Attending Clinician [phone] Emerita Barnes PT Attending Clinician Unavailab ROSSANA Erickson Attending Clinician Unavailable Rossana Packer PA-C Attending Clinician [phone] CHARLY REESE Attending Clinician UnavailCharly Peguero MD Attending Clinician [phone] Felecia Hinkle Attending Clinician + [phone] CHRISTIE MIRELES Attending Clinician Unavaila PURNIMA Carlin Attending Clinician Unavail able UNKNOWN, ATTENDING Attending Clinician Unavailab FELECIA Bryan Attending Clinician Unavailab Pete Shirley [facility]gent Attending Clinician Unavailaditya Galvez, Jesus Alberto Gutierrez Pob I Attending Clinician Unavailab OLE Lopez Attending Clinician Unavailable JAKE ARAYA Admitting Clinician Unavailable ANNE MARIE MATHIS Admitting Clinician Unavailable Anne Marie Mathis MD Admitting Clinician [phone] PURNIMA POTTS Admitting Clinician Unavail able Payers Payer Name Policy Type Policy Number Effective Date Expirati on Date Source [employer] [facility] [employer] H[employer] D SNP [id number] 2023 00:00:00 MED[place]ID [place] [id number] 2022 00:00:00 [employer] HMO SNP [id number] 2023 00:00:00 2023 00:00:00 Problems Condition Name Condition Details Condition Category Status Onset Date Resolution Date Last Treatment Date Treating Clinician Comments Source Dyslipidem ia Dyslipidem ia Disease Active 10-20 00:00: 00 [facility] Vitamin D deficiency Vitamin D deficiency Disease Active 10-20 00:00: 00 [facility] Anxiety Anxiety Disease Active 10-20 00:00: 00 [facility] shelter (current) 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) use of opiate analgesic Disease Active 2-27 00:00: 00 [facility] Low back pain Low back pain Disease Active 2-27 00:00: 00 [facility] Chronic pain disorder Chronic pain disorder Disease Active 1-24 00:00: 00 [facility] 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 Active 1-24 00:00: 00 [facility] 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 1-24 00:00: 00 [facility] Trochanter ic bursitis Trochanter ic bursitis Disease Active 1-24 00:00: 00 [facility] Overactive bladder Overactive bladder Disease Active 1 00:00: 00 [facility] Obesity (BMI 30-39.9) Obesity (BMI 30-39.9) Disease Active 2021-06 1 00:00: 00 [facility] Essential hypertensi on, benign Essential hypertensi on, benign Disease Active 08-27 00:00: 00 [facility] Other general counseling and advice for contracept kenrick management Other general counseling and advice for contracept kenrick management Disease Active 08-27 00:00: 00 [facility] Morbid obesity Morbid obesity Disease Active 08-27 00:00: 00 [facility] Allergies, Adverse Reactions, Alerts Allergy Name Allergy Type Status Severity Reaction(s) Onset Date Inactive Date Treating Clinician Comments Source NO KNOWN ALLERGIE S Drug Class Active [facility] Social History Social Habit Start Date Stop Date Quantity Comments Source History of tobacco use Cigarette Smoker [facility] Gender identity [facility] Sexual [facility] History SDOH Alcohol Frequency [facility] History SDOH Alcohol Std Drinks [facility] History SDOH Alcohol Binge [facility] Alcoholic beverage intake 2023-08-16 00:00:00 2023-08-16 00:00:00 Current drinker of alcohol (finding) [facility] Alcohol intake 2023-08-16 00:00:00 2023-08-16 00:00:00 Current drinker of alcohol (finding) [facility] History of Social function 2022-11-22 00:00:00 2022-11-22 00:00:00 [facility] Tobacco use and exposure 2022-10-26 00:00:00 2022-10-26 00:00:00 Smokeless tobacco non-user [facility] Exposure to SARS-CoV-2 (event) 2022-10-15 00:00:00 2022-10-25 22:42:00 Not sure [facility] Alcohol Comment 2021-09-02 00:00:00 2021-09-02 00:00:00 social [facility] Sex assigned at 1955 00:00:00 1955 00:00:00 [facility] Smoking Status Start Date Stop Date Source Ex-smoker 2022-10-26 00:00:00 2022-10-26 00:00:00 [facility] Never smoked tobacco [facility] Medications Ordered Medication Name Filled Medication Name Start Date Stop Date Current Medication? Ordering Clinician Indication Dosage Frequency Signature (SIG) Comments Components Source busPIRone 10 mg tablet 11-16 00:00: 00 Yes [id number] 10mg Take 1 tablet by mouth 2 (two) times daily as needed for Other (Anxiety). [facility] gabapentin 300 mg capsule 11-15 00:00: 00 Yes [id number] 300mg Take 1 capsule by mouth in the morning and 1 capsule in the evening. [facility] losartan-hy drochloroth iazide 50-12.5 mg per tablet 10-02 00:00: 00 Yes [id number] 1.5{tbl } Take 1.5 tablets by mouth in the morning. [facility] ergocalcife rol, vitamin d2, 1,250 mcg (50,000 unit) capsule 09-28 00:00: 00 Yes [id number] 03728F Take 1 capsule by mouth weekly. [facility] rosuvastati n 10 mg tablet 12 00:00: 00 Yes [id number] 10mg Take 1 tablet by mouth at bedtime. [facility] traZODone 50 mg tablet 08-15 00:00: 00 Yes [id number] 50mg Take 1 tablet by mouth at bedtime as needed for Insomnia. [facility] amLODIPine 10 mg tablet 08-15 00:00: 00 Yes [id number] 10mg Take 1 tablet by mouth in the morning. [facility] levocetiriz ine 5 mg tablet 08-15 00:00: 00 Yes [id number] 5mg Take 1 tablet by mouth every evening. [facility] ibuprofen 800 mg tablet 08-15 00:00: 00 Yes [id number] 800mg Take 1 tablet by mouth 3 (three) times daily as needed for Pain (scale 4-6) or Alternate with [place] for pain scale 4-6. [facility] losartan-hy drochloroth iazide 50-12.5 mg per tablet 08-15 00:00: 00 09-30 00:00 :00 No [id number] 1.5{tbl } Take 1.5 tablets by mouth in the morning. [facility] SERTraline 50 mg tablet 08-14 00:00: 00 Yes [id number] 50mg TAKE 1 TABLET BY MOUTH EVERY DAY IN THE MORNING [facility] albuterol (VENTOLIN HFA) 90 mcg/actuati on inhaler 08-08 00:00: 00 Yes [id number] 1{puff} Inhale 1 Puff every 6 (six) hours as needed for Wheezing. [facility] hydrOXYzine 50 mg tablet 08-07 00:00: 00 08-15 00:00 :00 No [id number] Take 1 tablet PO, 30 mins before procedure [facility] ROSUVASTATI N 10 mg tablet 07-25 00:00: 00 08-15 00:00 :00 No [id number] 10mg TAKE 1 TABLET BY MOUTH EVERYDAY AT BEDTIME [facility] traZODone 50 mg tablet 07-25 00:00: 00 08-15 00:00 :00 No [id number] 50mg Take 1 tablet by mouth at bedtime as needed for Insomnia. [facility] gabapentin 300 mg capsule 2- 00:00: 00 11-15 00:00 :00 No [id number] 300mg Take 1 capsule by mouth in the morning and 1 capsule in the evening. [facility] SERTraline 50 mg tablet 07-18 00:00: 00 08-14 00:00 :00 No [id number] 50mg Take 1 tablet by mouth in the morning. [facility] SERTraline (ZOLOFT) 25 mg tablet 2022-06 00:00: 00 07-18 00:00 :00 No [id number] 25mg Take 1 tablet by mouth in the morning. [facility] rosuvastati n 10 mg tablet 2022-06 00:00: 00 07-25 00:00 :00 No [id number] 10mg Take 1 tablet by mouth at bedtime. [facility] colchicine, gout, 0.6 mg tablet 2022-06 00:00: 00 07-18 00:00 :00 No [id number] TAKE 1.2 MG ONCE, THEN 0.6 MG BY MOUTH 1 HOUR LATER (NOT TO EXCEED 1.8 IN 24 HOURS) FOR 3 DAYS. [facility] busPIRone 10 mg tablet 2022-06 00:00: 00 11-15 00:00 :00 No [id number] 10mg Take 1 tablet by mouth 2 (two) times daily as needed for Other (Anxiety). [facility] colchicine, gout, 0.6 mg tablet 2022-06 00:00: 00 04-27 00:00 :00 No [id number] Take 1.2 mg once, then 0.6 mg 1 hr later (not to exceed 1.8 in 24 hours) for 3 days. [facility] methylPREDN ISolone 4 mg tablets 2022-06 0 00:00: 00 04-12 05:59 :00 No [id number] Take by mouth SEE-INSTRU CTIONS for 6 days. follow package directions [facility] ergocalcife rol, vitamin d2, 1,250 mcg (50,000 unit) capsule 2022-06 0-30 00:00: 00 Yes [id number] 25062X Take 1 capsule by mouth weekly. [facility] nirmatrelvi r-ritonavir (PAXLOVID) 300 mg (150 mg x 2)-100 mg tablet 8 00:00: 00 02-07 04:59 :00 No [id number] 3{tbl} Take 3 tablets by mouth in the morning and 3 tablets in the evening. Do all this for 5 days. [facility] rosuvastati n 10 mg tablet 01-20 00:00: 00 04-24 00:00 :00 No [id number] 10mg Take 1 tablet by mouth at bedtime. [facility] diclofenac 75 mg EC tablet 8- 00:00: 00 Yes [id number] 75mg Take 1 tablet by mouth in the morning and 1 tablet in the evening. Take with meals. [facility] losartan-hy drochloroth iazide 50-12.5 mg per tablet - 00:00: 00 08-15 00:00 :00 No [id number] 1.5{tbl } Take 1.5 tablets by mouth in the morning. [facility] amLODIPine 10 mg tablet 01-11 00:00: 00 08-15 00:00 :00 No [id number] 10mg Take 1 tablet by mouth in the morning. [facility] traZODone 50 mg tablet 8- 00:00: 00 07-25 00:00 :00 No [id number] 50mg Take 1 tablet by mouth at bedtime as needed for Insomnia. [facility] gabapentin 100 mg capsule 8- 00:00: 00 07-18 00:00 :00 No [id number] 100mg Take 1 capsule by mouth in the morning and 1 capsule at noon and 1 capsule in the evening. [facility] levocetiriz ine 5 mg tablet 11-29 00:00: 00 08-15 00:00 :00 No [id number] 5mg Take 1 tablet by mouth every evening. [facility] amoxicillin -clavulanat e (AUGMENTIN) 875-125 mg per tablet 11-29 00:00: 00 07-18 00:00 :00 No [id number] 1{tbl} Take 1 tablet by mouth in the morning and 1 tablet in the evening. [facility] SERTraline (ZOLOFT) 25 mg tablet 11-29 00:00: 00 05-25 00:00 :00 No [id number] 25mg Take 1 tablet by mouth in the morning. [facility] traZODone 50 mg tablet 11-29 00:00: 00 01-11 00:00 :00 No [id number] 50mg Take 1 tablet by mouth at bedtime as needed for Insomnia. [facility] losartan-hy drochloroth iazide 50-12.5 mg per tablet 11-29 00:00: 00 01-11 00:00 :00 No [id number] 1.5{tbl } Take 1.5 tablets by mouth in the morning. [facility] albuterol (VENTOLIN HFA) 90 mcg/actuati on inhaler 11-29 00:00: 00 12-30 04:59 :00 No [id number] 1{puff} Inhale 1 Puff every 6 (six) hours as needed for Wheezing for up to 30 days. [facility] losartan-hy drochloroth iazide 50-12.5 mg per tablet 11-29 00:00: 00 11-29 00:00 :00 No [id number] 1{tbl} Take 1 tablet by mouth in the morning. [facility] fluticasone propion-anh meteroL (ADVAIR DISKUS) 250-50 mcg/dose inhalation disk 11-15 00:00: 00 Yes [id number] 1{puff} Inhale 1 Puff every 12 (twelve) hours. [facility] BUSPIRONE 10 mg tablet 6-09 00:00: 00 12-28 04:59 :00 No [id number] 10mg TAKE 1 TABLET BY MOUTH 2 (TWO) TIMES DAILY NEEDED FOR OTHER (ANXIETY) FOR UP TO 45 DAYS. [facility] promethazin e-dextromet horphan 6.25-15 mg/5 mL syrup 10-26 00:00: 00 08-07 00:00 :00 No [id number] 5mL Take 5 mL by mouth 4 (four) times daily as needed for Cough. [facility] ergocalcife rol, vitamin d2, 1,250 mcg (50,000 unit) capsule 10-20 00:00: 00 04-04 00:00 :00 No [id number] Take 1 capsule by mouth weekly. [facility] rosuvastati n 10 mg tablet 10-20 00:00: 00 01-20 00:00 :00 No [id number] 10mg Take 1 tablet by mouth at bedtime. [facility] fluticasone propion-anh meteroL (ADVAIR DISKUS) 250-50 mcg/dose inhalation disk 10-20 00:00: 00 11-15 00:00 :00 No [id number] 1{puff} Inhale 1 Puff every 12 (twelve) hours. [facility] losartan-hy drochloroth iazide 50-12.5 mg per tablet 10-18 00:00: 00 11-29 00:00 :00 No [id number] 1{tbl} Take 1 tablet by mouth in the morning. [facility] SERTraline (ZOLOFT) 25 mg tablet 10-18 00:00: 00 11-29 00:00 :00 No [id number] 25mg Take 1 tablet by mouth in the morning. [facility] traZODone 50 mg tablet 10-18 00:00: 00 11-29 00:00 :00 No [id number] 50mg Take 1 tablet by mouth at bedtime as needed for Insomnia. [facility] busPIRone 10 mg tablet 5-15 00:00: 00 11-12 00:00 :00 No [id number] 10mg Take 1 tablet by mouth 2 (two) times daily as needed for Other (anxiety) for up to 45 days. [facility] promethazin e-dextromet horphan 6.25-15 mg/5 mL syrup 5-02 00:00: 00 10-26 00:00 :00 No [id number] 5mL Take 5 mL by mouth 4 (four) times daily as needed for Cough. [facility] fluticasone propion-anh meteroL (ADVAIR DISKUS) 250-50 mcg/dose inhalation disk 4-14 00:00: 00 10-20 00:00 :00 No [id number] 1{puff} Inhale 1 Puff every 12 (twelve) hours. [facility] promethazin e-dextromet horphan 6.25-15 mg/5 mL syrup 4-14 00:00: 00 10-05 00:00 :00 No [id number] 5mL Take 5 mL by mouth 4 (four) times daily as needed for Cough. [facility] benzonatate 200 mg capsule 3-08 00:00: 00 09-17 00:00 :00 No [id number] 200mg Take 1 capsule by mouth 3 (three) times daily as needed for Cough. [facility] amoxicillin -clavulanat e (AUGMENTIN) 875-125 mg per tablet 3-01 00:00: 00 08-15 05:59 :00 No [id number] 1{tbl} Take 1 tablet by mouth in the morning and 1 tablet in the evening. Do all this for 10 days. [facility] benzonatate 200 mg capsule 2-27 00:00: 00 08-10 00:00 :00 No [id number] 200mg Take 1 capsule by mouth 3 (three) times daily as needed for Cough. [facility] methylPREDN ISolone 4 mg tablets 2-27 00:00: 00 08-09 05:59 :00 No [id number] Take by mouth SEE-INSTRU CTIONS for 6 days. follow package directions [facility] amLODIPine 10 mg tablet 2- 00:00: 00 01-11 00:00 :00 No [id number] 10mg Take 1 tablet by mouth in the morning. [facility] lisinopriL- hydrochloro thiazide 20-12.5 mg per tablet 2- 00:00: 00 10-18 00:00 :00 No [id number] 1{tbl} Take 1 tablet by mouth in the morning. [facility] water for irrigation irrigation solution 06-29 13:33: 00 06-29 14:45 :46 No PRN, Starting on Tue06/29/22 at 0733, Until Tue06/29/22 at 0845, Routine, Intra-op [facility] simethicone (GAS RELIEF (SIMETHICON E)) 40 mg/0.6 mL drops 06-29 13:33: 00 06-29 14:45 :46 No PRN, Starting on Tue06/29/22 at 0733, Until Tue06/29/22 at 0845, Routine, Intra-op [facility] lactated ringers IV infusion 1,000 mL 06-29 13:00: 00 06-29 13:00 :00 No 1000mL at 42 mL/hr, 1,000 mL, IV Infusion, ONCE, 1 dose, On Tue06/29/22 at 0700, Routine, DSU Pre-op [facility] oxybutynin chloride 5 mg tablet 06-15 00:00: 00 Yes [id number] 5mg Take 1 tablet by mouth in the morning and 1 tablet in the evening. [facility] OXYBUTYNIN CHLORIDE 5 mg tablet 1- 00:00: 00 06-15 00:00 :00 No [id number] 5mg TAKE 1 TABLET BY MOUTH IN THE MORNING AND 1 TABLET IN THE EVENING. [facility] sodium,pota ssium,mag sulfates 17.5-3.13-1 .6 gram 2021-06 2-20 00:00: 00 05-26 05:59 :00 No 117mL Take 117 mL by mouth once now for 1 dose. [facility] oxybutynin chloride 5 mg tablet 2021-06 00:00: 00 06-07 00:00 :00 No [id number] 5mg Take 1 tablet by mouth in the morning and 1 tablet in the evening. [facility] albuterol sulfate (PROAIR DIGIHALER) 90 mcg/actuati on banner 2021-06 10:26: 06 04-08 00:00 :00 No Inhale as needed. [facility] lisinopriL- hydrochloro thiazide 20-12.5 mg per tablet 2021-06 10:26: 06 04-08 00:00 :00 No 1{tbl} Take 1 tablet by mouth daily. [facility] amLODIPine 10 mg tablet 2021-06 10:26: 06 04-08 00:00 :00 No 10mg Take 10 mg by mouth daily. [facility] amLODIPine 10 mg tablet 2021-06 00:00: 00 07-07 00:00 :00 No [id number] 10mg Take 1 tablet by mouth in the morning. [facility] lisinopriL- hydrochloro thiazide 20-12.5 mg per tablet 2021-06 00:00: 00 07-07 00:00 :00 No [id number] 1{tbl} Take 1 tablet by mouth in the morning. [facility] albuterol sulfate (PROAIR DIGIHALER) 90 mcg/actuati on banner 2021-06 00:00: 00 06-29 00:00 :00 No [id number] 1{puff} Inhale 1 Puff 3 (three) times daily as needed for Other (allergies ). Inhale as needed. [facility] oseltamivir 75 mg capsule 2021-06 0-29 00:00: 00 06-24 00:00 :00 No [facility] amoxicillin 500 mg capsule 2021-06 0-24 00:00: 00 06-24 00:00 :00 No [facility] ibuprofen 600 mg tablet 2021-06 0-24 00:00: 00 06-24 00:00 :00 No [facility] methocarbam oL 500 mg tablet 2021-06 0-10 00:00: 00 06-24 00:00 :00 No [facility] albuterol sulfate (PROAIR DIGIHALER) 90 mcg/actuati on aebs 09-02 10:02: 35 Yes Inhale as needed. [facility] lisinopriL- hydrochloro thiazide 20-12.5 mg per tablet 08-27 14:38: 33 Yes 1{tbl} Take 1 tablet by mouth daily. [facility] amLODIPine 10 mg tablet 08-27 14:38: 33 Yes 10mg Take 10 mg by mouth daily. [facility] Immunizations Ordered Immunization Name Filled Immunization Name Date Status Comments Source Pneumococcal 20 Conjugate, PCV20 (Prevnar 20) 2022-04-08 00:00:00 Completed [facility] Pneumococcal 20 Conjugate, PCV20 (Prevnar 20) 2022-04-08 00:00:00 Completed [facility] Pneumococcal 20 Conjugate, PCV20 (Prevnar 20) 2022-04-08 00:00:00 Completed [facility] Pneumococcal 20 Conjugate, PCV20 (Prevnar 20) 2022-04-08 00:00:00 Completed [facility] Pneumococcal 20 Conjugate, PCV20 (Prevnar 20) 2022-04-08 00:00:00 Completed [facility] Pneumococcal 20 Conjugate, PCV20 (Prevnar 20) 2022-04-08 00:00:00 Completed [facility] Pneumococcal 20 Conjugate, PCV20 (Prevnar 20) 2022-04-08 00:00:00 Completed [facility] Pneumococcal 20 Conjugate, PCV20 (Prevnar 20) 2022-04-08 00:00:00 Completed [facility] Pneumococcal 20 Conjugate, PCV20 (Prevnar 20) 2022-04-08 00:00:00 Completed [facility] Pneumococcal 20 Conjugate, PCV20 (Prevnar 20) 2022-04-08 00:00:00 Completed [facility] Pneumococcal 20 Conjugate, PCV20 (Prevnar 20) 2022-04-08 00:00:00 Completed [facility] Pneumococcal 20 Conjugate, PCV20 (Prevnar 20) 2022-04-08 00:00:00 Completed [facility] Pneumococcal 20 Conjugate, PCV20 (Prevnar 20) 2022-04-08 00:00:00 Completed [facility] Pneumococcal 20 Conjugate, PCV20 (Prevnar 20) 2022-04-08 00:00:00 Completed [facility] Pneumococcal 20 Conjugate, PCV20 (Prevnar 20) 2022-04-08 00:00:00 Completed [facility] Pneumococcal 20 Conjugate, PCV20 (Prevnar 20) 2022-04-08 00:00:00 Completed [facility] Pneumococcal 20 Conjugate, PCV20 (Prevnar 20) 2022-04-08 00:00:00 Completed [facility] Pneumococcal 20 Conjugate, PCV20 (Prevnar 20) 2022-04-08 00:00:00 Completed [facility] Pneumococcal 20 Conjugate, PCV20 (Prevnar 20) 2022-04-08 00:00:00 Completed [facility] Pneumococcal 20 Conjugate, PCV20 (Prevnar 20) 2022-04-08 00:00:00 Completed [facility] Pneumococcal 20 Conjugate, PCV20 (Prevnar 20) 2022-04-08 00:00:00 Completed [facility] Pneumococcal 20 Conjugate, PCV20 (Prevnar 20) 2022-04-08 00:00:00 Completed [facility] Pneumococcal 20 Conjugate, PCV20 (Prevnar 20) 2022-04-08 00:00:00 Completed [facility] Pneumococcal 20 Conjugate, PCV20 (Prevnar 20) 2022-04-08 00:00:00 Completed [facility] Pneumococcal 20 Conjugate, PCV20 (Prevnar 20) 2022-04-08 00:00:00 Completed [facility] Pneumococcal 20 Conjugate, PCV20 (Prevnar 20) 2022-04-08 00:00:00 Completed [facility] Pneumococcal 20 Conjugate, PCV20 (Prevnar 20) 2022-04-08 00:00:00 Completed [facility] Pneumococcal 20 Conjugate, PCV20 (Prevnar 20) 2022-04-08 00:00:00 Completed [facility] Pneumococcal 20 Conjugate, PCV20 (Prevnar 20) 2022-04-08 00:00:00 Completed [facility] Pneumococcal 20 Conjugate, PCV20 (Prevnar 20) 2022-04-08 00:00:00 Completed [facility] Pneumococcal 20 Conjugate, PCV20 (Prevnar 20) 2022-04-08 00:00:00 Completed [facility] Pneumococcal 20 Conjugate, PCV20 (Prevnar 20) 2022-04-08 00:00:00 Completed [facility] Pneumococcal 20 Conjugate, PCV20 (Prevnar 20) 2022-04-08 00:00:00 Completed [facility] Pneumococcal 20 Conjugate, PCV20 (Prevnar 20) 2022-04-08 00:00:00 Completed [facility] Pneumococcal 20 Conjugate, PCV20 (Prevnar 20) 2022-04-08 00:00:00 Completed [facility] Pneumococcal 20 Conjugate, PCV20 (Prevnar 20) 2022-04-08 00:00:00 Completed [facility] Pneumococcal 20 Conjugate, PCV20 (Prevnar 20) 2022-04-08 00:00:00 Completed [facility] Pneumococcal 20 Conjugate, PCV20 (Prevnar 20) 2022-04-08 00:00:00 Completed [facility] Pneumococcal 20 Conjugate, PCV20 (Prevnar 20) 2022-04-08 00:00:00 Completed [facility] Pneumococcal 20 Conjugate, PCV20 (Prevnar 20) 2022-04-08 00:00:00 Completed [facility] Pneumococcal 20 Conjugate, PCV20 (Prevnar 20) 2022-04-08 00:00:00 Completed [facility] Pneumococcal 20 Conjugate, PCV20 (Prevnar 20) 2022-04-08 00:00:00 Completed [facility] Pneumococcal 20 Conjugate, PCV20 (Prevnar 20) 2022-04-08 00:00:00 Completed [facility] Pneumococcal 20 Conjugate, PCV20 (Prevnar 20) 2022-04-08 00:00:00 Completed [facility] Pneumococcal 20 Conjugate, PCV20 (Prevnar 20) 2022-04-08 00:00:00 Completed [facility] Pneumococcal 20 Conjugate, PCV20 (Prevnar 20) 2022-04-08 00:00:00 Completed [facility] Pneumococcal 20 Conjugate, PCV20 (Prevnar 20) 2022-04-08 00:00:00 Completed [facility] Pneumococcal 20 Conjugate, PCV20 (Prevnar 20) 2022-04-08 00:00:00 Completed [facility] Pneumococcal 20 Conjugate, PCV20 (Prevnar 20) 2022-04-08 00:00:00 Completed [facility] Pneumococcal 20 Conjugate, PCV20 (Prevnar 20) 2022-04-08 00:00:00 Completed [facility] Pneumococcal 20 Conjugate, PCV20 (Prevnar 20) 2022-04-08 00:00:00 Completed [facility] Pneumococcal 20 Conjugate, PCV20 (Prevnar 20) 2022-04-08 00:00:00 Completed [facility] Pneumococcal 20 Conjugate, PCV20 (Prevnar 20) 2022-04-08 00:00:00 Completed [facility] Pneumococcal 20 Conjugate, PCV20 (Prevnar 20) 2022-04-08 00:00:00 Completed [facility] Pneumococcal 20 Conjugate, PCV20 (Prevnar 20) 2022-04-08 00:00:00 Completed [facility] Pneumococcal 20 Conjugate, PCV20 (Prevnar 20) 2022-04-08 00:00:00 Completed [facility] Pneumococcal 20 Conjugate, PCV20 (Prevnar 20) 2022-04-08 00:00:00 Completed [facility] Pneumococcal 20 Conjugate, PCV20 (Prevnar 20) 2022-04-08 00:00:00 Completed [facility] SARS-COV-2 COVID-19 MAGGIE/J&J VACCINE 2021-06-18 00:00:00 Completed [facility] SARS-COV-2 COVID-19 MAGGIE/J&J VACCINE 2021-06-18 00:00:00 Completed [facility] SARS-COV-2 COVID-19 MAGGIE/J&J VACCINE 2021-06-18 00:00:00 Completed [facility] SARS-COV-2 COVID-19 MAGGIE/J&J VACCINE 2021-06-18 00:00:00 Completed [facility] SARS-COV-2 COVID-19 MAGGIE/J&J VACCINE 2021-06-18 00:00:00 Completed [facility] SARS-COV-2 COVID-19 MAGGIE/J&J VACCINE 2021-06-18 00:00:00 Completed [facility] SARS-COV-2 COVID-19 MAGGIE/J&J VACCINE 2021-06-18 00:00:00 Completed [facility] SARS-COV-2 COVID-19 MAGGIE/J&J VACCINE 2021-06-18 00:00:00 Completed [facility] SARS-COV-2 COVID-19 MAGGIE/J&J VACCINE 2021-06-18 00:00:00 Completed [facility] SARS-COV-2 COVID-19 MAGGIE/J&J VACCINE 2021-06-18 00:00:00 Completed [facility] SARS-COV-2 COVID-19 MAGGIE/J&J VACCINE 2021-06-18 00:00:00 Completed [facility] SARS-COV-2 COVID-19 MAGGIE/J&J VACCINE 2021-06-18 00:00:00 Completed [facility] SARS-COV-2 COVID-19 MAGGIE/J&J VACCINE 2021-06-18 00:00:00 Completed [facility] SARS-COV-2 COVID-19 MAGGIE/J&J VACCINE 2021-06-18 00:00:00 Completed [facility] SARS-COV-2 COVID-19 MAGGIE/J&J VACCINE 2021-06-18 00:00:00 Completed [facility] SARS-COV-2 COVID-19 MAGGIE/J&J VACCINE 2021-06-18 00:00:00 Completed [facility] SARS-COV-2 COVID-19 MAGGIE/J&J VACCINE 2021-06-18 00:00:00 Completed [facility] SARS-COV-2 COVID-19 MAGGIE/J&J VACCINE 2021-06-18 00:00:00 Completed [facility] SARS-COV-2 COVID-19 MAGGIE/J&J VACCINE 2021-06-18 00:00:00 Completed [facility] SARS-COV-2 COVID-19 MAGGIE/J&J VACCINE 2021-06-18 00:00:00 Completed [facility] SARS-COV-2 COVID-19 MAGGIE/J&J VACCINE 2021-06-18 00:00:00 Completed [facility] SARS-COV-2 COVID-19 MAGGIE/J&J VACCINE 2021-06-18 00:00:00 Completed [facility] SARS-COV-2 COVID-19 MAGGIE/J&J VACCINE 2021-06-18 00:00:00 Completed [facility] SARS-COV-2 COVID-19 MAGGIE/J&J VACCINE 2021-06-18 00:00:00 Completed [facility] SARS-COV-2 COVID-19 MAGGIE/J&J VACCINE 2021-06-18 00:00:00 Completed [facility] SARS-COV-2 COVID-19 MAGGIE/J&J VACCINE 2021-06-18 00:00:00 Completed [facility] SARS-COV-2 COVID-19 MAGGIE/J&J VACCINE 2021-06-18 00:00:00 Completed [facility] SARS-COV-2 COVID-19 MAGGIE/J&J VACCINE 2021-06-18 00:00:00 Completed [facility] SARS-COV-2 COVID-19 MAGGIE/J&J VACCINE 2021-06-18 00:00:00 Completed [facility] SARS-COV-2 COVID-19 MAGGIE/J&J VACCINE 2021-06-18 00:00:00 Completed [facility] SARS-COV-2 COVID-19 MAGGIE/J&J VACCINE 2021-06-18 00:00:00 Completed [facility] SARS-COV-2 COVID-19 MAGGIE/J&J VACCINE 2021-06-18 00:00:00 Completed [facility] SARS-COV-2 COVID-19 MAGGIE/J&J VACCINE 2021-06-18 00:00:00 Completed [facility] SARS-COV-2 COVID-19 MAGGIE/J&J VACCINE 2021-06-18 00:00:00 Completed [facility] SARS-COV-2 COVID-19 MAGGIE/J&J VACCINE 2021-06-18 00:00:00 Completed [facility] SARS-COV-2 COVID-19 MAGGIE/J&J VACCINE 2021-06-18 00:00:00 Completed [facility] SARS-COV-2 COVID-19 MAGGIE/J&J VACCINE 2021-06-18 00:00:00 Completed [facility] SARS-COV-2 COVID-19 MAGGIE/J&J VACCINE 2021-06-18 00:00:00 Completed [facility] SARS-COV-2 COVID-19 MAGGIE/J&J VACCINE 2021-06-18 00:00:00 Completed [facility] SARS-COV-2 COVID-19 MAGGIE/J&J VACCINE 2021-06-18 00:00:00 Completed [facility] SARS-COV-2 COVID-19 MAGGIE/J&J VACCINE 2021-06-18 00:00:00 Completed [facility] SARS-COV-2 COVID-19 MAGGIE/J&J VACCINE 2021-06-18 00:00:00 Completed [facility] SARS-COV-2 COVID-19 MAGGIE/J&J VACCINE 2021-06-18 00:00:00 Completed [facility] SARS-COV-2 COVID-19 MAGGIE/J&J VACCINE 2021-06-18 00:00:00 Completed [facility] SARS-COV-2 COVID-19 MAGGIE/J&J VACCINE 2021-06-18 00:00:00 Completed [facility] SARS-COV-2 COVID-19 MAGGIE/J&J VACCINE 2021-06-18 00:00:00 Completed [facility] SARS-COV-2 COVID-19 MAGGIE/J&J VACCINE 2021-06-18 00:00:00 Completed [facility] SARS-COV-2 COVID-19 MAGGIE/J&J VACCINE 2021-06-18 00:00:00 Completed [facility] SARS-COV-2 COVID-19 MAGGIE/J&J VACCINE 2021-06-18 00:00:00 Completed [facility] SARS-COV-2 COVID-19 MAGGIE/J&J VACCINE 2021-06-18 00:00:00 Completed [facility] SARS-COV-2 COVID-19 MAGGIE/J&J VACCINE 2021-06-18 00:00:00 Completed [facility] SARS-COV-2 COVID-19 MAGGIE/J&J VACCINE 2021-06-18 00:00:00 Completed [facility] SARS-COV-2 COVID-19 MAGGIE/J&J VACCINE 2021-06-18 00:00:00 Completed [facility] SARS-COV-2 COVID-19 MAGGIE/J&J VACCINE 2021-06-18 00:00:00 Completed [facility] SARS-COV-2 COVID-19 MAGGIE/J&J VACCINE 2021-06-18 00:00:00 Completed [facility] SARS-COV-2 COVID-19 MAGGIE/J&J VACCINE 2021-06-18 00:00:00 Completed [facility] SARS-COV-2 COVID-19 MAGGIE/J&J VACCINE 2021-06-18 00:00:00 Completed [facility] SARS-COV-2 COVID-19 MAGGIE/J&J VACCINE 2021-06-18 00:00:00 Completed [facility] SARS-COV-2 COVID-19 MAGGIE/J&J VACCINE 2021-06-18 00:00:00 Completed [facility] SARS-COV-2 COVID-19 MAGGIE/J&J VACCINE 2021-06-18 00:00:00 Completed [facility] SARS-COV-2 COVID-19 MAGGIE/J&J VACCINE 2021-06-18 00:00:00 Completed [facility] SARS-COV-2 COVID-19 MAGGIE/J&J VACCINE 2020-08-15 00:00:00 Completed [facility] SARS-COV-2 COVID-19 MAGGIE/J&J VACCINE 2020-08-15 00:00:00 Completed [facility] SARS-COV-2 COVID-19 MAGGIE/J&J VACCINE 2020-08-15 00:00:00 Completed [facility] SARS-COV-2 COVID-19 MAGGIE/J&J VACCINE 2020-08-15 00:00:00 Completed [facility] SARS-COV-2 COVID-19 MAGGIE/J&J VACCINE 2020-08-15 00:00:00 Completed [facility] SARS-COV-2 COVID-19 MAGGIE/J&J VACCINE 2020-08-15 00:00:00 Completed [facility] SARS-COV-2 COVID-19 MAGGIE/J&J VACCINE 2020-08-15 00:00:00 Completed [facility] SARS-COV-2 COVID-19 MAGGIE/J&J VACCINE 2020-08-15 00:00:00 Completed [facility] SARS-COV-2 COVID-19 MAGGIE/J&J VACCINE 2020-08-15 00:00:00 Completed [facility] SARS-COV-2 COVID-19 MAGGIE/J&J VACCINE 2020-08-15 00:00:00 Completed [facility] SARS-COV-2 COVID-19 MAGGIE/J&J VACCINE 2020-08-15 00:00:00 Completed [facility] SARS-COV-2 COVID-19 MAGGIE/J&J VACCINE 2020-08-15 00:00:00 Completed [facility] SARS-COV-2 COVID-19 MAGGIE/J&J VACCINE 2020-08-15 00:00:00 Completed [facility] SARS-COV-2 COVID-19 MAGGIE/J&J VACCINE 2020-08-15 00:00:00 Completed [facility] SARS-COV-2 COVID-19 MAGGIE/J&J VACCINE 2020-08-15 00:00:00 Completed [facility] SARS-COV-2 COVID-19 MAGGIE/J&J VACCINE 2020-08-15 00:00:00 Completed [facility] SARS-COV-2 COVID-19 MAGGIE/J&J VACCINE 2020-08-15 00:00:00 Completed [facility] SARS-COV-2 COVID-19 MAGGIE/J&J VACCINE 2020-08-15 00:00:00 Completed [facility] SARS-COV-2 COVID-19 MAGGIE/J&J VACCINE 2020-08-15 00:00:00 Completed [facility] SARS-COV-2 COVID-19 MAGGIE/J&J VACCINE 2020-08-15 00:00:00 Completed [facility] SARS-COV-2 COVID-19 MAGGIE/J&J VACCINE 2020-08-15 00:00:00 Completed [facility] SARS-COV-2 COVID-19 MAGGIE/J&J VACCINE 2020-08-15 00:00:00 Completed [facility] SARS-COV-2 COVID-19 MAGGIE/J&J VACCINE 2020-08-15 00:00:00 Completed [facility] SARS-COV-2 COVID-19 MAGGIE/J&J VACCINE 2020-08-15 00:00:00 Completed [facility] SARS-COV-2 COVID-19 MAGGIE/J&J VACCINE 2020-08-15 00:00:00 Completed [facility] SARS-COV-2 COVID-19 MAGGIE/J&J VACCINE 2020-08-15 00:00:00 Completed [facility] SARS-COV-2 COVID-19 MAGGIE/J&J VACCINE 2020-08-15 00:00:00 Completed [facility] SARS-COV-2 COVID-19 MAGGIE/J&J VACCINE 2020-08-15 00:00:00 Completed [facility] SARS-COV-2 COVID-19 MAGGIE/J&J VACCINE 2020-08-15 00:00:00 Completed [facility] SARS-COV-2 COVID-19 MAGGIE/J&J VACCINE 2020-08-15 00:00:00 Completed [facility] SARS-COV-2 COVID-19 MAGGIE/J&J VACCINE 2020-08-15 00:00:00 Completed [facility] SARS-COV-2 COVID-19 MAGGIE/J&J VACCINE 2020-08-15 00:00:00 Completed [facility] SARS-COV-2 COVID-19 MAGGIE/J&J VACCINE 2020-08-15 00:00:00 Completed [facility] SARS-COV-2 COVID-19 MAGGIE/J&J VACCINE 2020-08-15 00:00:00 Completed [facility] SARS-COV-2 COVID-19 MAGGIE/J&J VACCINE 2020-08-15 00:00:00 Completed [facility] SARS-COV-2 COVID-19 MAGGIE/J&J VACCINE 2020-08-15 00:00:00 Completed [facility] SARS-COV-2 COVID-19 MAGGIE/J&J VACCINE 2020-08-15 00:00:00 Completed [facility] SARS-COV-2 COVID-19 MAGGIE/J&J VACCINE 2020-08-15 00:00:00 Completed [facility] SARS-COV-2 COVID-19 MAGGIE/J&J VACCINE 2020-08-15 00:00:00 Completed [facility] SARS-COV-2 COVID-19 MAGGIE/J&J VACCINE 2020-08-15 00:00:00 Completed [facility] SARS-COV-2 COVID-19 MAGGIE/J&J VACCINE 2020-08-15 00:00:00 Completed [facility] SARS-COV-2 COVID-19 MAGGIE/J&J VACCINE 2020-08-15 00:00:00 Completed [facility] SARS-COV-2 COVID-19 MAGGIE/J&J VACCINE 2020-08-15 00:00:00 Completed [facility] SARS-COV-2 COVID-19 MAGGIE/J&J VACCINE 2020-08-15 00:00:00 Completed [facility] SARS-COV-2 COVID-19 MAGGIE/J&J VACCINE 2020-08-15 00:00:00 Completed [facility] SARS-COV-2 COVID-19 MAGGIE/J&J VACCINE 2020-08-15 00:00:00 Completed [facility] SARS-COV-2 COVID-19 MAGGIE/J&J VACCINE 2020-08-15 00:00:00 Completed [facility] SARS-COV-2 COVID-19 MAGGIE/J&J VACCINE 2020-08-15 00:00:00 Completed [facility] SARS-COV-2 COVID-19 MAGGIE/J&J VACCINE 2020-08-15 00:00:00 Completed [facility] SARS-COV-2 COVID-19 MAGGIE/J&J VACCINE 2020-08-15 00:00:00 Completed [facility] SARS-COV-2 COVID-19 MAGGIE/J&J VACCINE 2020-08-15 00:00:00 Completed [facility] SARS-COV-2 COVID-19 MAGGIE/J&J VACCINE 2020-08-15 00:00:00 Completed [facility] SARS-COV-2 COVID-19 MAGGIE/J&J VACCINE 2020-08-15 00:00:00 Completed [facility] SARS-COV-2 COVID-19 MAGGIE/J&J VACCINE 2020-08-15 00:00:00 Completed [facility] SARS-COV-2 COVID-19 MAGGIE/J&J VACCINE 2020-08-15 00:00:00 Completed [facility] SARS-COV-2 COVID-19 MAGGIE/J&J VACCINE 2020-08-15 00:00:00 Completed [facility] SARS-COV-2 COVID-19 MAGGIE/J&J VACCINE 2020-08-15 00:00:00 Completed [facility] SARS-COV-2 COVID-19 MAGGIE/J&J VACCINE 2020-08-15 00:00:00 Completed [facility] SARS-COV-2 COVID-19 MAGIGE/J&J VACCINE 2020-08-15 00:00:00 Completed [facility] SARS-COV-2 COVID-19 MAGGIE/J&J VACCINE 2020-08-15 00:00:00 Completed [facility] SARS-COV-2 COVID-19 MAGGIE/J&J VACCINE 2020-08-15 00:00:00 Completed [facility] SARS-COV-2 COVID-19 MAGGIE/J&J VACCINE Unknown Completed [facility] SARS-COV-2 COVID-19 MAGGIE/J&J VACCINE Unknown Completed [facility] Pneumococcal 20 Conjugate, PCV20 (Prevnar 20) Unknown Completed [facility] SARS-COV-2 COVID-19 MAGGIE/J&J VACCINE Unknown Completed [facility] SARS-COV-2 COVID-19 MAGGIE/J&J VACCINE Unknown Completed [facility] Pneumococcal 20 Conjugate, PCV20 (Prevnar 20) Unknown Completed [facility] SARS-COV-2 COVID-19 MAGGIE/J&J VACCINE Unknown Completed [facility] SARS-COV-2 COVID-19 MAGGIE/J&J VACCINE Unknown Completed [facility] Pneumococcal 20 Conjugate, PCV20 (Prevnar 20) Unknown Completed [facility] SARS-COV-2 COVID-19 MAGGIE/J&J VACCINE Unknown Completed [facility] SARS-COV-2 COVID-19 MAGGIE/J&J VACCINE Unknown Completed [facility] Pneumococcal 20 Conjugate, PCV20 (Prevnar 20) Unknown Completed [facility] SARS-COV-2 COVID-19 MAGGIE/J&J VACCINE Unknown Completed [facility] SARS-COV-2 COVID-19 MAGGIE/J&J VACCINE Unknown Completed [facility] Pneumococcal 20 Conjugate, PCV20 (Prevnar 20) Unknown Completed [facility] SARS-COV-2 COVID-19 MAGGIE/J&J VACCINE Unknown Completed [facility] SARS-COV-2 COVID-19 MAGGIE/J&J VACCINE Unknown Completed [facility] Pneumococcal 20 Conjugate, PCV20 (Prevnar 20) Unknown Completed [facility] SARS-COV-2 COVID-19 MAGGIE/J&J VACCINE Unknown Completed [facility] SARS-COV-2 COVID-19 MAGGIE/J&J VACCINE Unknown Completed [facility] Pneumococcal 20 Conjugate, PCV20 (Prevnar 20) Unknown Completed [facility] SARS-COV-2 COVID-19 MAGGIE/J&J VACCINE Unknown Completed [facility] SARS-COV-2 COVID-19 MAGGIE/J&J VACCINE Unknown Completed [facility] Pneumococcal 20 Conjugate, PCV20 (Prevnar 20) Unknown Completed [facility] SARS-COV-2 COVID-19 MAGGIE/J&J VACCINE Unknown [facility] SARS-COV-2 COVID-19 MAGGIE/J&J VACCINE Unknown Completed [facility] Pneumococcal 20 Conjugate, PCV20 (Prevnar 20) Unknown Completed [facility] SARS-COV-2 COVID-19 MAGGIE/J&J VACCINE Unknown Completed [facility] SARS-COV-2 COVID-19 MAGGIE/J&J VACCINE Unknown Completed [facility] Pneumococcal 20 Conjugate, PCV20 (Prevnar 20) Unknown Completed [facility] SARS-COV-2 COVID-19 MAGGIE/J&J VACCINE Unknown Completed [facility] SARS-COV-2 COVID-19 MAGGIE/J&J VACCINE Unknown Completed [facility] Pneumococcal 20 Conjugate, PCV20 (Prevnar 20) Unknown Completed [facility] SARS-COV-2 COVID-19 MAGGIE/J&J VACCINE Unknown Completed [facility] SARS-COV-2 COVID-19 MAGGIE/J&J VACCINE Unknown Completed [facility] Pneumococcal 20 Conjugate, PCV20 (Prevnar 20) Unknown Completed [facility] SARS-COV-2 COVID-19 MAGGIE/J&J VACCINE Unknown Completed [facility] SARS-COV-2 COVID-19 MAGGIE/J&J VACCINE Unknown Completed [facility] Pneumococcal 20 Conjugate, PCV20 (Prevnar 20) Unknown Completed [facility] SARS-COV-2 COVID-19 MAGGIE/J&J VACCINE Unknown Completed [facility] SARS-COV-2 COVID-19 MAGGIE/J&J VACCINE Unknown Completed [facility] Pneumococcal 20 Conjugate, PCV20 (Prevnar 20) Unknown Completed [facility] SARS-COV-2 COVID-19 MAGGIE/J&J VACCINE Unknown Completed [facility] SARS-COV-2 COVID-19 MAGGIE/J&J VACCINE Unknown Completed [facility] Pneumococcal 20 Conjugate, PCV20 (Prevnar 20) Unknown Completed [facility] SARS-COV-2 COVID-19 MAGGIE/J&J VACCINE Unknown Completed [facility] SARS-COV-2 COVID-19 MAGGIE/J&J VACCINE Unknown Completed [facility] Pneumococcal 20 Conjugate, PCV20 (Prevnar 20) Unknown Completed [facility] Influenza Virus Vaccine,quad Im,preserve Free 65+ (FLUAD) Unknown Completed [facility] TDAP Unknown Completed [facility] SARS-COV-2 COVID-19 MAGGIE/J&J VACCINE Unknown Completed [facility] SARS-COV-2 COVID-19 MAGGIE/J&J VACCINE Unknown Completed [facility] Pneumococcal 20 Conjugate, PCV20 (Prevnar 20) Unknown Completed [facility] Influenza Virus Vaccine,quad Im,preserve Free 65+ (FLUAD) Unknown Completed [facility] TDAP Unknown Completed [facility] SARS-COV-2 COVID-19 MAGGIE/J&J VACCINE Unknown Completed [facility] SARS-COV-2 COVID-19 MAGGIE/J&J VACCINE Unknown Completed [facility] Pneumococcal 20 Conjugate, PCV20 (Prevnar 20) Unknown Completed [facility] Influenza Virus Vaccine,quad Im,preserve Free 65+ (FLUAD) Unknown Completed [facility] TDAP Unknown Completed [facility] SARS-COV-2 COVID-19 MAGGIE/J&J VACCINE Unknown Completed [facility] SARS-COV-2 COVID-19 MAGGIE/J&J VACCINE Unknown Completed [facility] Pneumococcal 20 Conjugate, PCV20 (Prevnar 20) Unknown Completed [facility] SARS-COV-2 COVID-19 MAGGIE/J&J VACCINE Unknown Completed [facility] SARS-COV-2 COVID-19 MAGGIE/J&J VACCINE Unknown Completed [facility] Pneumococcal 20 Conjugate, PCV20 (Prevnar 20) Unknown Completed [facility] Influenza Virus Vaccine,quad Im,preserve Free 65+ (FLUAD) Unknown Completed [facility] TDAP Unknown Completed [facility] SARS-COV-2 COVID-19 MAGGIE/J&J VACCINE Unknown Completed [facility] SARS-COV-2 COVID-19 MAGGIE/J&J VACCINE Unknown Completed [facility] Pneumococcal 20 Conjugate, PCV20 (Prevnar 20) Unknown Completed [facility] SARS-COV-2 COVID-19 MAGGIE/J&J VACCINE Unknown Completed [facility] SARS-COV-2 COVID-19 MAGGIE/J&J VACCINE Unknown Completed [facility] Pneumococcal 20 Conjugate, PCV20 (Prevnar 20) Unknown Completed [facility] Influenza Virus Vaccine,quad Im,preserve Free 65+ (FLUAD) Unknown Completed [facility] TDAP Unknown Completed [facility] SARS-COV-2 COVID-19 MAGGIE/J&J VACCINE Unknown Completed [facility] SARS-COV-2 COVID-19 MAGGIE/J&J VACCINE Unknown Completed [facility] Pneumococcal 20 Conjugate, PCV20 (Prevnar 20) Unknown Completed [facility] Influenza Virus Vaccine,quad Im,preserve Free 65+ (FLUAD) Unknown Completed [facility] TDAP Unknown Completed [facility] SARS-COV-2 COVID-19 MAGGIE/J&J VACCINE Unknown Completed [facility] SARS-COV-2 COVID-19 MAGGIE/J&J VACCINE Unknown Completed [facility] Pneumococcal 20 Conjugate, PCV20 (Prevnar 20) Unknown Completed [facility] SARS-COV-2 COVID-19 MAGGIE/J&J VACCINE Unknown Completed [facility] SARS-COV-2 COVID-19 MAGGIE/J&J VACCINE Unknown Completed [facility] Pneumococcal 20 Conjugate, PCV20 (Prevnar 20) Unknown Completed [facility] SARS-COV-2 COVID-19 MAGGIE/J&J VACCINE Unknown Completed [facility] SARS-COV-2 COVID-19 MAGGIE/J&J VACCINE Unknown Completed [facility] Pneumococcal 20 Conjugate, PCV20 (Prevnar 20) Unknown Completed [facility] Influenza Virus Vaccine,quad Im,preserve Free 65+ (FLUAD) Unknown Completed [facility] TDAP Unknown Completed [facility] SARS-COV-2 COVID-19 MAGGIE/J&J VACCINE Unknown Completed [facility] SARS-COV-2 COVID-19 MAGGIE/J&J VACCINE Unknown Completed [facility] Pneumococcal 20 Conjugate, PCV20 (Prevnar 20) Unknown Completed [facility] Influenza Virus Vaccine,quad Im,preserve Free 65+ (FLUAD) Unknown Completed [facility] TDAP Unknown Completed [facility] SARS-COV-2 COVID-19 MAGGIE/J&J VACCINE Unknown Completed [facility] SARS-COV-2 COVID-19 MAGGIE/J&J VACCINE Unknown Completed [facility] Pneumococcal 20 Conjugate, PCV20 (Prevnar 20) Unknown Completed [facility] Influenza Virus Vaccine,quad Im,preserve Free 65+ (FLUAD) Unknown Completed [facility] TDAP Unknown Completed [facility] SARS-COV-2 COVID-19 MAGGIE/J&J VACCINE Unknown Completed [facility] SARS-COV-2 COVID-19 MAGGIE/J&J VACCINE Unknown Completed [facility] Pneumococcal 20 Conjugate, PCV20 (Prevnar 20) Unknown Completed [facility] Influenza Virus Vaccine,quad Im,preserve Free 65+ (FLUAD) Unknown Completed [facility] TDAP Unknown Completed [facility] SARS-COV-2 COVID-19 MAGGIE/J&J VACCINE Unknown Completed [facility] SARS-COV-2 COVID-19 MAGGIE/J&J VACCINE Unknown Completed [facility] Pneumococcal 20 Conjugate, PCV20 (Prevnar 20) Unknown Completed [facility] Influenza Virus Vaccine,quad Im,preserve Free 65+ (FLUAD) Unknown Completed [facility] TDAP Unknown Completed [facility] SARS-COV-2 COVID-19 MAGGIE/J&J VACCINE Unknown Completed [facility] SARS-COV-2 COVID-19 MAGGIE/J&J VACCINE Unknown Completed [facility] Pneumococcal 20 Conjugate, PCV20 (Prevnar 20) Unknown Completed [facility] Influenza Virus Vaccine,quad Im,preserve Free 65+ (FLUAD) Unknown Completed [facility] TDAP Unknown Completed [facility] SARS-COV-2 COVID-19 MAGGIE/J&J VACCINE Unknown Completed [facility] SARS-COV-2 COVID-19 MAGGIE/J&J VACCINE Unknown Completed [facility] Pneumococcal 20 Conjugate, PCV20 (Prevnar 20) Unknown Completed [facility] Influenza Virus Vaccine,quad Im,preserve Free 65+ (FLUAD) Unknown Completed [facility] TDAP Unknown Completed [facility] SARS-COV-2 COVID-19 MAGGIE/J&J VACCINE Unknown Completed [facility] SARS-COV-2 COVID-19 MAGGIE/J&J VACCINE Unknown Completed [facility] Pneumococcal 20 Conjugate, PCV20 (Prevnar 20) Unknown Completed [facility] Influenza Virus Vaccine,quad Im,preserve Free 65+ (FLUAD) Unknown Completed [facility] TDAP Unknown Completed [facility] SARS-COV-2 COVID-19 MAGGIE/J&J VACCINE Unknown Completed [facility] SARS-COV-2 COVID-19 MAGGIE/J&J VACCINE Unknown Completed [facility] Pneumococcal 20 Conjugate, PCV20 (Prevnar 20) Unknown Completed [facility] Influenza Virus Vaccine,quad Im,preserve Free 65+ (FLUAD) Unknown Completed [facility] TDAP Unknown Completed [facility] SARS-COV-2 COVID-19 MAGGIE/J&J VACCINE Unknown Completed [facility] SARS-COV-2 COVID-19 MAGGIE/J&J VACCINE Unknown Completed [facility] Pneumococcal 20 Conjugate, PCV20 (Prevnar 20) Unknown Completed [facility] Influenza Virus Vaccine,quad Im,preserve Free 65+ (FLUAD) Unknown Completed [facility] TDAP Unknown Completed [facility] SARS-COV-2 COVID-19 MAGGIE/J&J VACCINE Unknown Completed [facility] SARS-COV-2 COVID-19 MAGGIE/J&J VACCINE Unknown Completed [facility] Pneumococcal 20 Conjugate, PCV20 (Prevnar 20) Unknown Completed [facility] Influenza Virus Vaccine,quad Im,preserve Free 65+ (FLUAD) Unknown Completed [facility] TDAP Unknown Completed [facility] SARS-COV-2 COVID-19 MAGGIE/J&J VACCINE Unknown Completed [facility] SARS-COV-2 COVID-19 MAGGIE/J&J VACCINE Unknown Completed [facility] Pneumococcal 20 Conjugate, PCV20 (Prevnar 20) Unknown Completed [facility] Influenza Virus Vaccine,quad Im,preserve Free 65+ (FLUAD) Unknown Completed [facility] TDAP Unknown Completed [facility] SARS-COV-2 COVID-19 MAGGIE/J&J VACCINE Unknown Completed [facility] SARS-COV-2 COVID-19 MAGGIE/J&J VACCINE Unknown Completed [facility] Pneumococcal 20 Conjugate, PCV20 (Prevnar 20) Unknown Completed [facility] Influenza Virus Vaccine,quad Im,preserve Free 65+ (FLUAD) Unknown Completed [facility] TDAP Unknown Completed [facility] SARS-COV-2 COVID-19 MAGGIE/J&J VACCINE Unknown Completed [facility] SARS-COV-2 COVID-19 MAGGIE/J&J VACCINE Unknown Completed [facility] Pneumococcal 20 Conjugate, PCV20 (Prevnar 20) Unknown Completed [facility] Influenza Virus Vaccine,quad Im,preserve Free 65+ (FLUAD) Unknown Completed [facility] TDAP Unknown Completed [facility] SARS-COV-2 COVID-19 MAGGIE/J&J VACCINE Unknown Completed [facility] SARS-COV-2 COVID-19 MAGGIE/J&J VACCINE Unknown Completed [facility] Pneumococcal 20 Conjugate, PCV20 (Prevnar 20) Unknown Completed [facility] Influenza Virus Vaccine,quad Im,preserve Free 65+ (FLUAD) Unknown Completed [facility] TDAP Unknown Completed [facility] SARS-COV-2 COVID-19 MAGGIE/J&J VACCINE Unknown Completed [facility] SARS-COV-2 COVID-19 MAGGIE/J&J VACCINE Unknown Completed [facility] Pneumococcal 20 Conjugate, PCV20 (Prevnar 20) Unknown Completed [facility] Influenza Virus Vaccine,quad Im,preserve Free 65+ (FLUAD) Unknown Completed [facility] TDAP Unknown Completed [facility] SARS-COV-2 COVID-19 MAGGIE/J&J VACCINE Unknown Completed [facility] SARS-COV-2 COVID-19 MAGGIE/J&J VACCINE Unknown Completed [facility] Pneumococcal 20 Conjugate, PCV20 (Prevnar 20) Unknown Completed [facility] Influenza Virus Vaccine,quad Im,preserve Free 65+ (FLUAD) Unknown Completed [facility] TDAP Unknown Completed [facility] SARS-COV-2 COVID-19 MAGGIE/J&J VACCINE Unknown Completed [facility] SARS-COV-2 COVID-19 MAGGIE/J&J VACCINE Unknown Completed [facility] Pneumococcal 20 Conjugate, PCV20 (Prevnar 20) Unknown Completed [facility] Influenza Virus Vaccine,quad Im,preserve Free 65+ (FLUAD) Unknown Completed [facility] TDAP Unknown Completed [facility] SARS-COV-2 COVID-19 MAGGIE/J&J VACCINE Unknown Completed [facility] SARS-COV-2 COVID-19 MAGGIE/J&J VACCINE Unknown Completed [facility] Pneumococcal 20 Conjugate, PCV20 (Prevnar 20) Unknown Completed [facility] Influenza Virus Vaccine,quad Im,preserve Free 65+ (FLUAD) Unknown Completed [facility] TDAP Unknown Completed [facility] SARS-COV-2 COVID-19 MAGGIE/J&J VACCINE Unknown Completed [facility] SARS-COV-2 COVID-19 MAGGIE/J&J VACCINE Unknown Completed [facility] Pneumococcal 20 Conjugate, PCV20 (Prevnar 20) Unknown Completed [facility] Influenza Virus Vaccine,quad Im,preserve Free 65+ (FLUAD) Unknown Completed [facility] TDAP Unknown Completed [facility] SARS-COV-2 COVID-19 MAGGIE/J&J VACCINE Unknown Completed [facility] SARS-COV-2 COVID-19 MAGGIE/J&J VACCINE Unknown Completed [facility] Pneumococcal 20 Conjugate, PCV20 (Prevnar 20) Unknown Completed [facility] Influenza Virus Vaccine,quad Im,preserve Free 65+ (FLUAD) Unknown Completed [facility] TDAP Unknown Completed [facility] SARS-COV-2 COVID-19 MAGGIE/J&J VACCINE Unknown Completed [facility] SARS-COV-2 COVID-19 MAGGIE/J&J VACCINE Unknown Completed [facility] Pneumococcal 20 Conjugate, PCV20 (Prevnar 20) Unknown Completed [facility] Influenza Virus Vaccine,quad Im,preserve Free 65+ (FLUAD) Unknown Completed [facility] TDAP Unknown Completed [facility] SARS-COV-2 COVID-19 MAGGIE/J&J VACCINE Unknown Completed [facility] SARS-COV-2 COVID-19 MAGGIE/J&J VACCINE Unknown Completed [facility] Pneumococcal 20 Conjugate, PCV20 (Prevnar 20) Unknown Completed [facility] Influenza Virus Vaccine,quad Im,preserve Free 65+ (FLUAD) Unknown Completed [facility] TDAP Unknown Completed [facility] SARS-COV-2 COVID-19 MAGGIE/J&J VACCINE Unknown Completed [facility] SARS-COV-2 COVID-19 MAGGIE/J&J VACCINE Unknown Completed [facility] Pneumococcal 20 Conjugate, PCV20 (Prevnar 20) Unknown Completed [facility] Influenza Virus Vaccine,quad Im,preserve Free 65+ (FLUAD) Unknown Completed [facility] TDAP Unknown Completed [facility] SARS-COV-2 COVID-19 MAGGIE/J&J VACCINE Unknown Completed [facility] SARS-COV-2 COVID-19 MAGGIE/J&J VACCINE Unknown Completed [facility] Pneumococcal 20 Conjugate, PCV20 (Prevnar 20) Unknown Completed [facility] Influenza Virus Vaccine,quad Im,preserve Free 65+ (FLUAD) Unknown Completed [facility] TDAP Unknown Completed [facility] SARS-COV-2 COVID-19 MAGGIE/J&J VACCINE Unknown Completed [facility] SARS-COV-2 COVID-19 MAGGIE/J&J VACCINE Unknown Completed [facility] Pneumococcal 20 Conjugate, PCV20 (Prevnar 20) Unknown Completed [facility] Influenza Virus Vaccine,quad Im,preserve Free 65+ (FLUAD) Unknown Completed [facility] TDAP Unknown Completed [facility] SARS-COV-2 COVID-19 MAGGIE/J&J VACCINE Unknown Completed [facility] SARS-COV-2 COVID-19 MAGGIE/J&J VACCINE Unknown Completed [facility] Pneumococcal 20 Conjugate, PCV20 (Prevnar 20) Unknown Completed [facility] Influenza Virus Vaccine,quad Im,preserve Free 65+ (FLUAD) Unknown Completed [facility] TDAP Unknown Completed [facility] SARS-COV-2 COVID-19 MAGGIE/J&J VACCINE Unknown Completed [facility] SARS-COV-2 COVID-19 MAGGIE/J&J VACCINE Unknown Completed [facility] Pneumococcal 20 Conjugate, PCV20 (Prevnar 20) Unknown Completed [facility] Influenza Virus Vaccine,quad Im,preserve Free 65+ (FLUAD) Unknown Completed [facility] TDAP Unknown Completed [facility] SARS-COV-2 COVID-19 MAGGIE/J&J VACCINE Unknown Completed [facility] SARS-COV-2 COVID-19 MAGGIE/J&J VACCINE Unknown Completed [facility] Pneumococcal 20 Conjugate, PCV20 (Prevnar 20) Unknown Completed [facility] Influenza Virus Vaccine,quad Im,preserve Free 65+ (FLUAD) Unknown Completed [facility] TDAP Unknown Completed [facility] SARS-COV-2 COVID-19 MAGGIE/J&J VACCINE Unknown Completed [facility] SARS-COV-2 COVID-19 MAGGIE/J&J VACCINE Unknown Completed [facility] Pneumococcal 20 Conjugate, PCV20 (Prevnar 20) Unknown Completed [facility] Influenza Virus Vaccine,quad Im,preserve Free 65+ (FLUAD) Unknown Completed [facility] TDAP Unknown Completed [facility] Vital Signs Vital Name Observation Time Observation Value Comments S ource Systolic blood pressure 2023-08-16 19:28:00 109 mm[Hg] [facility] Diastolic blood pressure 2023-08-16 19:28:00 71 mm[Hg] [facility] Heart rate 2023-08-16 19:28:00 90 /min Un[facility] Body height 2023-08-16 19:28:00 162.6 cm [facility] Body weight 2023-08-16 19:28:00 102.513 kg [facility] BMI 2023-08-16 19:28:00 38.79 kg/m2 [facility] Oxygen saturation in Arterial blood by Pulse oximetry 2023-08-16 19:28:00 97 /min [facility] Systolic blood pressure 2023-07-18 21:07:00 128 mm[Hg] [facility] Diastolic blood pressure 2023-07-18 21:07:00 86 mm[Hg] [facility] Heart rate 2023-07-18 21:07:00 93 /min Unive [facility] Body temperature 2023-07-18 21:07:00 36.56 Elida [facility] Body height 2023-07-18 21:07:00 162.6 cm [facility] Body weight 2023-07-18 21:07:00 105.235 kg [facility] BMI 2023-07-18 21:07:00 39.82 kg/m2 [facility] Systolic blood pressure 2023-06-29 19:27:00 136 mm[Hg] [facility] Diastolic blood pressure 2023-06-29 19:27:00 89 mm[Hg] [facility] Heart rate 2023-06-29 19:27:00 73 /min Unive [facility] Respiratory rate 2023-06-29 19:27:00 19 /min [facility] Body height 2023-06-29 19:27:00 162.6 cm [facility] Body weight 2023-06-29 19:27:00 105.32 kg [facility] BMI 2023-06-29 19:27:00 39.85 kg/m2 [facility] Oxygen saturation in Arterial blood by Pulse oximetry 2023-06-29 19:27:00 96 /min [place] [facility] Systolic blood pressure 2023-04-19 20:19:00 122 mm[Hg] [facility] Diastolic blood pressure 2023-04-19 20:19:00 84 mm[Hg] [place] [facility] Heart rate 2023-04-19 20:19:00 85 /min [facility] Body height 2023-04-19 20:19:00 162.6 cm [facility] Body weight 2023-04-19 20:19:00 102.921 kg [facility] BMI 2023-04-19 20:19:00 38.95 kg/m2 [facility] Oxygen saturation in Arterial blood by Pulse oximetry 2023-04-19 20:19:00 96 /min [place] [facility] Systolic blood pressure 2023-04-05 19:22:00 125 mm[Hg] [facility] Diastolic blood pressure 2023-04-05 19:22:00 87 mm[Hg] [facility] Heart rate 2023-04-05 19:22:00 87 /min [facility] Body height 2023-04-05 19:21:00 162.6 cm [facility] Body weight 2023-04-05 19:21:00 105.416 kg [facility] BMI 2023-04-05 19:21:00 39.89 kg/m2 [facility] Oxygen saturation in Arterial blood by Pulse oximetry 2023-04-05 19:21:00 98 /min [place] [facility] Systolic blood pressure 2023-02-10 15:35:00 147 mm[Hg] [facility] Diastolic blood pressure 2023-02-10 15:35:00 100 mm[Hg] [facility] Heart rate 2023-02-10 15:35:00 89 /min Un[facility] Body height 2023-02-10 15:35:00 162.6 cm [facility] Body weight 2023-02-10 15:35:00 102.921 kg [facility] BMI 2023-02-10 15:35:00 38.95 kg/m2 [facility] Oxygen saturation in Arterial blood by Pulse oximetry 2023-02-10 15:35:00 97 /min [facility] Systolic blood pressure 2023-02-01 15:34:00 133 mm[Hg] [facility] Diastolic blood pressure 2023-02-01 15:34:00 79 mm[Hg] [facility] Heart rate 2023-02-01 15:34:00 88 /min Unive [facility] Body temperature 2023-02-01 15:34:00 36.72 Elida [facility] Respiratory rate 2023-02-01 15:34:00 14 /min [facility] Body height 2023-02-01 15:34:00 170.2 cm [facility] Body weight 2023-02-01 15:34:00 103.647 kg [facility] BMI 2023-02-01 15:34:00 35.79 kg/m2 [facility] Oxygen saturation in Arterial blood by Pulse oximetry 2023-02-01 15:34:00 96 /min [facility] Systolic blood pressure 2023-01-11 19:18:00 137 mm[Hg] [facility] Diastolic blood pressure 2023-01-11 19:18:00 81 mm[Hg] [facility] Heart rate 2023-01-11 19:17:00 81 /min Unive [facility] Body height 2023-01-11 19:17:00 170.2 cm Univ [facility] Body weight 2023-01-11 19:17:00 101.742 kg [facility] BMI 2023-01-11 19:17:00 35.13 kg/m2 [facility] in Arterial blood by Pulse oximetry 2023-01-11 19:17:00 97 /min [facility] Systolic blood pressure 2022-11-29 20:09:00 141 mm[Hg] [facility] Diastolic blood pressure 2022-11-29 20:09:00 83 mm[Hg] [facility] Heart rate 2022-11-29 20:09:00 92 /min [facility] Body height 2022-11-29 20:09:00 162.6 cm [facility] Body weight 2022-11-29 20:09:00 103.511 kg Univ [facility] BMI 2022-11-29 20:09:00 39.17 kg/m2 [facility] Oxygen saturation in Arterial blood by Pulse oximetry 2022-11-29 20:09:00 97 /min [facility] Systolic blood pressure 2022-10-26 18:30:00 125 mm[Hg] [facility] Diastolic blood pressure 2022-10-26 18:30:00 84 mm[Hg] [facility] Heart rate 2022-10-26 18:30:00 98 /min Un[facility] Respiratory rate 2022-10-26 18:30:00 19 /min [facility] Body height 2022-10-26 18:30:00 162.6 cm [facility] Body weight 2022-10-26 18:30:00 103.329 kg Univ [facility] BMI 2022-10-26 18:30:00 39.10 kg/m2 [facility] Oxygen saturation in Arterial blood by Pulse oximetry 2022-10-26 18:30:00 94 /min [facility] Systolic blood pressure 2022-10-18 15:57:00 164 mm[Hg] [facility] Diastolic blood pressure 2022-10-18 15:57:00 101 mm[Hg] [facility] Heart rate 2022-10-18 15:56:00 80 /min Un[facility] Respiratory rate 2022-10-18 15:56:00 18 /min [facility] Body height 2022-10-18 15:56:00 164.6 cm [facility] Body weight 2022-10-18 15:56:00 102.876 kg [facility] BMI 2022-10-18 15:56:00 37.97 kg/m2 Univ [facility] Oxygen saturation in Arterial blood by Pulse oximetry 2022-10-18 15:56:00 96 /min [facility] Systolic blood pressure 2022-09-08 16:18:00 163 mm[Hg] [facility] Diastolic blood pressure 2022-09-08 16:18:00 105 mm[Hg] [facility] Heart rate 2022-09-08 16:18:00 83 /min Unive [facility] Oxygen saturation in Arterial blood by Pulse oximetry 2022-09-08 16:18:00 97 /min [facility] Respiratory rate 2022-09-08 16:13:00 19 /min [facility] Body height 2022-09-08 16:13:00 162.6 cm Univ [facility] Body weight 2022-09-08 16:13:00 101.322 kg [facility] BMI 2022-09-08 16:13:00 38.34 kg/m2 Univ [facility] Systolic blood pressure 2022-08-02 20:29:00 137 mm[Hg] [facility] Diastolic blood pressure 2022-08-02 20:29:00 88 mm[Hg] [facility] Heart rate 2022-08-02 20:29:00 83 /min Un[facility] Body temperature 2022-08-02 20:29:00 37.06 Elida [facility] Body height 2022-08-02 20:29:00 162.6 cm [facility] Body weight 2022-08-02 20:29:00 103.057 kg Univ [facility] BMI 2022-08-02 20:29:00 39.00 kg/m2 Univ [facility] Oxygen saturation in Arterial blood by Pulse oximetry 2022-08-02 20:29:00 97 /min [facility] Systolic blood pressure 2022-06-29 14:22:00 153 mm[Hg] [facility] Diastolic blood pressure 2022-06-29 14:22:00 81 mm[Hg] [facility] Heart rate 2022-06-29 14:22:00 68 /min Un[facility] Respiratory rate 2022-06-29 14:22:00 26 /min [facility] Oxygen saturation in Arterial blood by Pulse oximetry 2022-06-29 14:22:00 98 /min [facility] Body temperature 2022-06-29 13:55:00 36.61 Elida [facility] Body height 2022-06-24 19:15:00 162.6 cm Univ [facility] Body weight 2022-06-24 19:15:00 103.42 kg Univ [facility] BMI 2022-06-24 19:15:00 39.14 kg/m2 Univ [facility] Systolic blood pressure 2022-06-29 14:22:00 153 mm[Hg] [facility] Diastolic blood pressure 2022-06-29 14:22:00 81 mm[Hg] [facility] Heart rate 2022-06-29 14:22:00 68 /min Un[facility] Respiratory rate 2022-06-29 14:22:00 26 /min [facility] Oxygen saturation in Arterial blood by Pulse oximetry 2022-06-29 14:22:00 98 /min [facility] Body temperature 2022-06-29 13:55:00 36.61 Elida [facility] Body height 2022-06-24 19:15:00 162.6 cm Univ [facility] Body weight 2022-06-24 19:15:00 103.42 kg Univ [facility] BMI 2022-06-24 19:15:00 39.14 kg/m2 Univ [facility] Systolic blood pressure 2022-06-15 16:53:00 111 mm[Hg] [facility] Diastolic blood pressure 2022-06-15 16:53:00 79 mm[Hg] [facility] Heart rate 2022-06-15 16:53:00 82 /min [facility] Body temperature 2022-06-15 16:53:00 36.67 Elida [facility] Respiratory rate 2022-06-15 16:53:00 18 /min [facility] Body height 2022-06-15 16:53:00 162.6 cm [facility] Body weight 2022-06-15 16:53:00 103.42 kg Univ [facility] BMI 2022-06-15 16:53:00 39.14 kg/m2 Univ [facility] Systolic blood pressure 2022-05-05 20:55:00 136 mm[Hg] [facility] Diastolic blood pressure 2022-05-05 20:55:00 88 mm[Hg] [facility] Heart rate 2022-05-05 20:55:00 73 /min [facility] Body temperature 2022-05-05 20:55:00 36.56 Elida [facility] Respiratory rate 2022-05-05 20:55:00 18 /min [facility] Body height 2022-05-05 20:55:00 162.6 cm Univ [facility] Body weight 2022-05-05 20:55:00 103.874 kg Univ [facility] BMI 2022-05-05 20:55:00 39.31 kg/m2 Univ [facility] Systolic blood pressure 2022-04-08 14:49:00 126 mm[Hg] [facility] Diastolic blood pressure 2022-04-08 14:49:00 84 mm[Hg] [facility] Heart rate 2022-04-08 14:48:00 78 /min [facility] Body height 2022-04-08 14:48:00 162.6 cm Univ [facility] Body weight 2022-04-08 14:48:00 103.783 kg Univ [facility] BMI 2022-04-08 14:48:00 39.27 kg/m2 [facility] Oxygen saturation in Arterial blood by Pulse oximetry 2022-04-08 14:48:00 98 /min [facility] Systolic blood pressure 2021-09-02 15:01:00 148 mm[Hg] Manual BP [facility] Diastolic blood pressure 2021-09-02 15:01:00 96 mm[Hg] Manual BP [facility] Heart rate 2021-09-02 14:57:00 89 /min [facility] Body temperature 2021-09-02 14:57:00 35.83 Elida [facility] Respiratory rate 2021-09-02 14:57:00 18 /min [facility] Body height 2021-09-02 14:57:00 162.6 cm [facility] Body weight 2021-09-02 14:57:00 102.513 kg [facility] BMI 2021-09-02 14:57:00 38.79 kg/m2 [facility] Procedures Procedure Date / Time Performed Performing Clinician Source [facility] PATIENT FINANCIAL POLICY 2023-08-16 19:18:50 Doctor Unassigned, [place] [facility] MEDICATION CORRESPONDENCE 2023-06-27 06:01:00 Do ctor Unassigned, [place] [facility] MEDICATION CORRESPONDENCE 2023-06-15 06:01:00 Do ctor Unassigned, [place] [facility] TDAP VACCINE, >11 YRS, IM 2023-04-19 20:29:36 Jonah Araya [facility] FLU VACC(),65+YR,0.5 ML,IM,ADJUVANTED,QUAD(FLU AD) 2023-04-19 20:29:36 Jake Araya [facility] MEDICATION CORRESPONDENCE 2023-04-13 06:01:00 Do ctor Unassigned, [place] [facility] XR KNEE 3 VW LEFT 2023-04-05 19:58:21 [facility] 2023-04-05 19:48:00 Jake Araya [facility] URIC ACID 2023-04-05 19:48:00 Jake Araya [facility] SLEEP STUDY DATA REPORT 2023-03-16 05:01:00 Doct or Unassigned, [place] [facility] PULMONARY FUNCTION TEST (RESULTS) 2023-02-17 18:03:30 Rancho Larson [facility] POCT SARS-COV-2 ANTIGEN (BINAX NOW) 2023-02-01 15:30:00 Mitchell Tamayo [facility] COMP. METABOLIC PANEL ([id number]) 2022-10-18 16:50[facility]00 [facility] 2022-10-18 16:50:00 Jake Araya [facility] CT THORAX WO CONTRAST 2022-09-27 16:24:00 Sumit Araya [facility] ASSIGNMENT OF BENEFITS 2022-09-08 16:05:49 Docto r Unassigned, [place] [facility] PATIENT FINANCIAL POLICY 2022-08-02 20:10:36 Doctor Unassigned, [place] [facility] COLONOSCOPY (ENDO) 2022-06-29 13:29[facility]16 [facility] 2022-06-29 13:29:16 [facility] COLONOSCOPY 2022-06-29 13:18:00 Anne Marie Mathis [facility] DAY SURGERY - ADC 2022-06-29 06:01:00 Doctor Franchesca ssigned, [place] [facility] POCT URINALYSIS W/O SPECIFIC GRAVITY 2022-05-05 00:00:00 Rossana Packer [facility] COMP. METABOLIC PANEL ([id number]) 2022-04-12 16:14:00 [facility]FF 2022-04-12 16:14:00 [facility] PNEUMOCOCCAL 20 CONJUGATE (PREVNAR 20) VACCINE 2022-04-08 15:19:31 Marshal [facility] PAP SMEAR-LIQUID BASED-CP 2021-09-02 16:36:00 Purnima Potts [facility] Encounters Start Date/Time End Date/Time Encounter Type Admission Type Attending Clinicians Care Facility Care Department Encounter ID Source 2024-02-17 15:30:00 2024-02-17 15:30:00 Outpatient R JAKE ARAYA [facility] [id number] [facility] 2023-11-16 00:00:00 2023-11-17 15:40:49 [facility] [id number] [facility] 2023-11-16 00:00:00 2023-11-16 14:11:28 Refill Jose Suki [facility] [id number] [facility] 2023-11-07 00:00:00 2023-11-08 08:15:17 Telephone Jake Araya [facility] [id number] [facility] 2023-10-01 00:00:00 2023-10-01 00:00:00 Refill Jake Araya [facility] [id number] [facility] 2023-09-29 00:00:00 2023-09-29 00:00:00 [facility] [id number] [id number] [facility] 2023-09-13 00:00:00 2023-09-13 00:00:00 Refill Javier Arayaa [facility] 1..840.114 [id number] [id number] [id number] [facility] 2023-08-24 00:00:00 2023-08-24 00:00:00 Refill Margie Arayathia [facility] 1..840.114 [id number] [id number] [id number] [facility] 2023-08-22 00:00:00 2023-08-22 00:00:00 Patient Secure Msg Doctor Unassigned, [place] [facility] 1..840.114 350.1.13.10 [id number] [id number] [facility] 2023-08-16 15:00:00 2023-08-16 15:15:00 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, Ang - [facility] [place] 1..840.114 350.1.13.10 [id number] [id number] [facility] 2023-08-16 14:30:00 2023-08-16 14:57:46 Outpatient [facility] [facility] [id number] [facility] 2023-08-16 14:30:00 2023-08-16 14:57:46 [facility] [place] 1.2.840.114 350.1.13.10 4.2.7.2.686 [id number] 044 [id number] [facility] 2023-08-16 13:00:00 2023-08-16 13:00:00 Outpatient R SUKI SHEIKH [facility] [id number] [facility] 2023-08-16 00:00:00 2023-08-16 00:00:00 Orders Only Doctor Unassigned, [place] [facility] 1.2840.114 350.1.13.10 4.2.7.2.686 [id number] [facility] 2023-08-15 00:00:00 2023-08-15 00:00:00 Refill Suki Sheikh [facility] [place] 1.2840.114 350.1.13.10 4.2.7.2.686 [id number] [id number] [facility] 2023-08-08 00:00:00 2023-08-08 00:00:00 Patient Secure Msg [facility] [place] 1.2840.114 350.1.13.10 4.2.7.2.686 [id number] 044 [id number] [facility] 2023-08-08 00:00:00 2023-08-08 00:00:00 Telephone Jake Araya [facility] [place] OFF[facility] 1.2840.114 350.1.13.10 4.2.7.2.686 [id number] 044 [id number] [facility] 2023-08-05 00:00:00 2023-08-05 00:00:00 Telephone Jake Araya [facility] [place] BU[facility] 1.2840.114 350.1.13.10 4.2.7.2.686 [id number] 044 [id number] [facility] 2023-07-25 00:00:00 2023-07-25 00:00:00 Refill Margie [facility]athia [facility] [place] 1.2840.114 350.1.13.10 4.2.7.2.686 [id number] 044 [id number] [facility] 2023-07-24 00:00:00 2023-07-24 00:00:00 Lisa Antunezers Sulaiman [facility] 1.114 350.1.13.10 4.2.7.2.686 [id number] 019 [id number] [facility] 2023-07-20 00:00:00 2023-07-20 00:00:00 Telephone [facility] [place] OFF[facility] BUILD[facility] 1.114 350.1.13.10 4.2.7.2.686 [id number] 044 [id number] [facility] 2023-07-19 00:00:00 2023-07-19 00:00:00 Telephone [facility] 1.84.114 350.1.13.10 4.2.7.2.686 [id number] 044 [id number] [facility] 2023-07-18 15:00:00 2023-07-18 15:21:14 Outpatient R SUKI SHEIKH [facility] [id number] [facility] 2023-07-18 15:00:00 2023-07-18 15:21:14 Office Visit [facility] OFF[facility] 1.84.114 350.1.13.10 4.2.7.2.686 [id number] 044 [id number] [facility] 2023-07-15 14:30:00 2023-07-15 14:30:00 Outpatient R JAKE ARAYA [facility] [id number] [facility] 2023-07-04 00:00:00 2023-07-04 00:00:00 Telephone [facility] [place] OFF[facility] BU[facility] 1.84.114 350.1.13.10 4.2.7.2.686 [id number] 044 [id number] [facility] 2023-06-29 13:30:00 2023-06-29 14:00:00 [facility] 1.2.840.114 350.1.13.10 4.2.7.2.686 [id number] 085 [id number] [facility] 2023-06-29 13:30:00 2023-06-29 13:41:59 Outpatient R JOBY MCGREGOR STRACTLobo [facility] [id number] [facility] 2023-06-28 00:00:00 2023-06-28 00:00:00 [facility] 1.2.840.114 350.1.13.10 4.2.7.2.686 [id number] 044 [id number] [facility] 2023-06-27 00:00:00 2023-06-27 00:00:00 Orders Only Doctor Unassigned, [place] [address].84.114 350.1.13.10 4.2.7.2.686 [id number] [facility] 2023-06-17 00:00:00 2023-06-17 00:00:00 [facility] 1.840.114 350.1.13.10 4.2.7.2.686 [id number] 044 [id number] [facility] 2023-06-15 00:00:00 2023-06-15 00:00:00 Orders Only Doctor Unassigned, [place] [facility] 1.2840.114 350.1.13.10 4.2.7.2.686 [id number] [id number] [facility] 2023-05-25 00:00:00 2023-05-25 00:00:00 Refill Jake [facility]a [facility] BU[facility] 1.2.840.114 350.1.13.10 4.2.7.2.686 [id number] 044 [id number] [facility] 2023-04-27 00:00:00 2023-04-27 00:00:00 Refill Jake Araya [facility] OFF[facility] BU[facility] 1.2.840.114 350.1.13.10 4.2.7.2.686 [id number] 044 [id number] [facility] 2023-04-27 00:00:00 2023-04-27 00:00:00 Telephone Jake Araya [facility] OFF[facility] BU[facility] 1.2.840.114 350.1.13.10 4.2.7.2.686 [id number] 044 [id number] [facility] 2023-04-26 00:00:00 2023-04-26 00:00:00 Patient Secure Msg Doctor Unassigned, [place] [facility] [place] OFF[facility] 1.2.840.114 350.1.13.10 4.2.7.2.686 [id number] 044 [id number] [facility] 2023-04-21 00:00:00 2023-04-21 00:00:00 Outpatient R JAKE ARAYA [facility] [id number] [facility] 2023-04-20 09:00:00 2023-04-20 09:00:00 Outpatient R JOBY MCGREGOR STRAHIL [facility] [id number] [facility] 2023-04-19 14:55:23 2023-04-19 23:59:00 Outpatient R JAKE ARAYA [facility] [id number] [facility] 2023-04-19 14:55:23 2023-04-19 23:59:00 Hospital En[facility] 1.114 350.1.13.10 4.2.7.2.686 [id number] [facility] 2023-04-19 14:30:00 2023-04-19 14:54:53 Office [facility] [place] OFF[facility] BUILD[facility] 1.114 350.1.13.10 4.2.7.2.686 [id number] 044 [id number] [facility] 2023-04-13 00:00:00 2023-04-13 00:00:00 Orders Only Doctor Unassigned, [place] [facility] 1.0.114 350.1.13.10 4.2.7.2.686 [id number] [id number] [facility] 2023-04-11 00:00:00 2023-04-11 00:00:00 Patient Secure Msg Doctor Unassigned, [place] [facility] 1..114 350.1.13.10 4.2.7.2.686 [id number] [facility] 2023-04-06 00:00:00 2023-04-06 00:00:00 Patient Secure Msg Doctor Unassigned, [place] [facility] OFF[facility] BU[facility] 1.114 350.1.13.10 4.2.7.2.686 [id number] 044 [id number] [facility] 2023-04-05 14:49:16 2023-04-05 23:59:00 Outpatient R JAKE ARAYA [facility] [id number] [facility] 2023-04-05 14:49:16 2023-04-05 23:59:00 Hospital Encounter Jake Araya [facility] 1.114 350.1.13.10 4.2.7.2.686 [id number] [facility] 2023-04-05 15:00:00 2023-04-05 16:11:19 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, Alhaji Walls Jake Araya [facility] 1.2840.114 350.1.13.10 4.2.7.2.686 [id number] [facility] 2023-04-05 14:30:00 2023-04-05 14:42:41 Office Visit Jake Araya [facility] OFF[facility] BUILD[facility] 1.2840.114 350.1.13.10 4.2.7.2.686 [id number] 044 [id number] [facility] 2023-04-05 00:00:00 2023-04-05 00:00:00 Telephone Jake Araya [facility] OFF[facility] BUILD[facility] 1.2840.114 350.1.13.10 4.2.7.2.686 [id number] 044 [id number] [facility] 2023-04-04 00:00:00 2023-04-04 00:00:00 Telephone Jake Araya [facility] OFF[facility] BUILD[facility] 1.2840.114 350.1.13.10 4.2.7.2.686 [id number] 044 [id number] [facility] 2023-04-04 00:00:00 2023-04-04 00:00:00 Refill Jake Araya [facility] OFF[facility] BUILD[facility] 1.2840.114 350.1.13.10 4.2.7.2.686 [id number] 044 [id number] [facility] 2023-04-04 00:00:00 2023-04-04 00:00:00 Refill Jake Araya [facility] OFF[facility] BUILDING 1.2840.114 350.1.13.10 4.2.7.2.686 [id number] 044 [id number] [facility] 2023-03-31 00:00:00 2023-03-31 00:00:00 Telephone Jake Araya [facility] 1.114 350.1.13.10 4.2.7.2.686 [id number] 044 [id number] [facility] 2023-03-18 20:00:00 2023-03-18 20:00:00 Outpatient R [facility] [id number] [facility] 2023-03-16 20:00:00 2023-03-16 22:30:00 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 1, [facility] Sleep Lab Bed Joby Mcgregor [facility] 1.114 350.1.13.10 4.2.7.2.686 [id number] [facility] 2023-03-16 20:00:00 2023-03-16 20:00:00 Outpatient R JOBY MCGREGOR STRASTUARTL [facility] [id number] [facility] 2023-03-16 00:00:00 2023-03-16 00:00:00 Orders Only Doctor Unassigned, [place] [facility] 1.114 350.1.13.10 4.2.7.2.686 [id number] [facility] 2023-03-09 00:00:00 2023-03-09 00:00:00 Patient Secure Msg Doctor Unassigned, [place] [facility] 1.114 350.1.13.10 4.2.7.2.686 [id number] [facility] 2023-02-23 11:30:00 2023-02-23 11:30:00 Outpatient R JOBY MCGREGOR STRAHIL [facility] [id number] [facility] 2023-02-17 13:00:00 2023-02-17 14:30:00 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 Therapist, [facility] Rancho Larson [facility] 1..840.114 350.1.13.10 4.2.7.2.686 [id number] 083 [id number] [facility] 2023-02-17 13:00:00 2023-02-17 13:00:00 Outpatient R RANCHO LARSON SHISDBrian [facility] [id number] [facility] 2023-02-17 00:00:00 2023-02-17 00:00:00 Orders Only Rancho Larson [facility] 1..840.114 350.1.13.10 4.2.7.2.686 [id number] 084 [id number] [facility] 2023-02-10 10:30:00 2023-02-10 11:03:49 Outpatient R RANCHO LARSON SHISDBrian [facility] [id number] [facility] 2023-02-10 10:30:00 2023-02-10 11:03:49 Office Visit Rancho Larson [facility] 1..840.114 350.1.13.10 4.2.7.2.686 [id number] 085 [id number] [facility] 2023-02-08 20:00:00 2023-02-08 20:00:00 Outpatient R JOBY MCGREGOR STRACTLobo [facility] [id number] [facility] 2023-02-01 09:40:00 2023-02-01 10:57:08 Outpatient R MIMA KRUSE [facility] [id number] [facility] 2023-02-01 09:40:00 2023-02-01 10:00:00 Urgent Care Mima Kruse Unknown, Attending [facility] 1..840.114 350.1.13.10 4.2.7.2.686 [id number] [facility] 2023-02-01 00:00:00 2023-02-01 00:00:00 Letter (Out) Mima Kruse [facility] OFF[facility]ILD[facility] 1..840.114 350.1.13.10 4.2.7.2.686 [id number] [facility] 2023-01-18 00:00:00 2023-01-18 00:00:00 [facility]ill [facility] [place] OFF[facility] BUILD[facility] 1..840.114 350.1.13.10 4.2.7.2.686 [id number] 044 [id number] [facility] 2023-01-11 14:30:00 2023-01-11 15:24:36 Outpatient R JAKE ARAYA [facility] [id number] [facility] 2023-01-11 14:30:00 2023-01-11 15:24:36 Office [facility] [place] 1..840.114 350.1.13.10 4.2.7.2.686 [id number] 044 [id number] [facility] 2023-01-10 15:00:00 2023-01-10 15:00:00 Outpatient R JAKE ARAYA [facility] [id number] [facility] 2022-12-29 00:00:00 2022-12-29 00:00:00 [facility]ill [facility] [place] OFF[facility] BUILD[facility] 1..840.114 350.1.13.10 4.2.7.2.686 [id number] 044 [id number] [facility] 2022-12-21 08:00:00 2022-12-21 08:00:00 Outpatient R JAKE ARAYA [facility] [id number] [facility] 2022-12-10 00:00:00 2022-12-10 00:00:00 Outpatient R RANCHO LARSON SHIWAN [facility] [id number] [facility] 2022-12-09 11:30:00 2022-12-09 11:30:00 Outpatient R RNACHO LARSON [facility] [id number] [facility] 2022-12-08 00:00:00 2022-12-08 00:00:00 Telephone [place] Larson [facility] BUILD[facility] 1.2.840.114 350.1.13.10 4.2.7.2.686 [id number] [id number] [facility] 2022-12-01 00:00:00 2022-12-01 00:00:00 Out[facility] [id number] [facility] 2022-11-29 15:00:00 2022-11-29 15:54:14 Outpatient Angelica JAKE ARAYA [facility] [id number] [facility] 2022-11-29 15:00:00 2022-11-29 15:54:14 [facility] 1.2.840.114 350.1.13.10 4.2.7.2.686 [id number] 044 [id number] [facility] 2022-11-26 00:00:00 2022-11-26 00:00:00 Refill Marshal [facility] [place] 1.2.840.114 350.1.13.10 4.2.7.2.686 [id number] 044 [id number] [facility] 2022-11-15 00:00:00 2022-11-15 00:00:00 Refill Anene, [facility] [place] 1..114 350.1.13.10 4.2.7.2.686 [id number] 044 [id number] [facility] 2022-11-10 00:00:00 2022-11-10 00:00:00 Refill Jake Araya [facility] BUILD[facility] 1.20.114 350.1.13.10 4.2.7.2.686 [id number] 044 [id number] [facility] 2022-10-27 00:00:00 2022-10-27 00:00:00 Pre Visit Outreach Sathish Juan [facility] 1.114 350.1.13.10 4.2.7.2.686 [id number] [facility] 2022-10-26 13:30:00 2022-10-26 14:05:29 Outpatient R RANCHO LARSON SHIWAN [facility] [id number] [facility] 2022-10-26 13:30:00 2022-10-26 14:05:29 Office Visit [place] Larson [facility] 1.114 350.1.13.10 4.2.7.2.686 [id number] [id number] [facility] 2022-10-21 00:00:00 2022-10-21 00:00:00 Patient Secure Msg Doctor Unassigned, [place] [facility] 1.284.114 350.1.13.10 4.2.7.2.686 [id number] 044 [id number] [facility] 2022-10-20 00:00:00 2022-10-20 00:00:00 Telephone Javier [facility]aCarolinas [facility] [place] OFF[facility] BUILD[facility] 1.2.114 350.1.13.10 4.2.7.2.686 [id number] 044 [id number] [facility] 2022-10-18 11:30:00 2022-10-18 11:45:00 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, Alhaji Walls [facility] OFF[facility] 1..840.114 350.1.13.10 4.2.7.2.686 [id number] [facility] 2022-10-18 11:00:00 2022-10-18 11:30:41 Outpatient R JAKE RAAYA [facility] [id number] [facility] 2022-10-18 11:00:00 2022-10-18 11:30:41 Office Visit [facility] OFF[facility] 1.840.114 350.1.13.10 4.2.7.2.686 [id number] 044 [id number] [facility] 2022-10-08 09:30:00 2022-10-08 09:30:00 Outpatient R JAKE ARAYA [facility] [id number] [facility] 2022-10-05 00:00:00 2022-10-05 00:00:00 Telephone [facility] BUILD[facility] 1.2840.114 350.1.13.10 4.2.7.2.686 [id number] 044 [id number] [facility] 2022-09-27 11:07:46 2022-09-27 23:59:00 Outpatient R JAKE ARAYA [facility] [id number] [facility] 2022-09-27 11:07:46 2022-09-27 23:59:00 [facility].114 350.1.13.10 4.2.7.2.686 [id number] [facility] 2022-09-17 00:00:00 2022-09-17 00:00:00 Patient Secure Margie Wilsonthia [facility] 1.84.114 350.1.13.10 4.2.7.2.686 [id number] 044 [id number] [facility] 2022-09-08 11:30:00 2022-09-08 12:00:00 Office Visit Joby Mcgregor [facility] PROF[facility] NAL BUILDING 1.84.114 350.1.13.10 4.2.7.2.686 [id number] [facility] 2022-09-08 11:30:00 2022-09-08 11:42:59 Outpatient R JOBY MCGREGOR STRAHIL [facility] [id number] [facility] 2022-09-08 00:00:00 2022-09-08 00:00:00 Orders Only Doctor Unassigned, [place] [facility] 1.114 350.1.13.10 4.2.7.2.686 [id number] [facility] 2022-09-01 00:00:00 2022-09-01 00:00:00 Letter (Out) Purnima Potts [facility] 1..114 350.1.13.10 4.2.7.2.686 [id number] [facility] 2022-08-10 00:00:00 2022-08-10 00:00:00 Refill Margie Arayathia [facility] 1.84.114 350.1.13.10 4.2.7.2.686 [id number] 044 [id number] [facility] 2022-08-02 14:30:00 2022-08-02 15:01:00 Outpatient R JAKE ARAYA [facility] [id number] [facility] 2022-08-02 14:30:00 2022-08-02 15:01:00 [facility] 1.2.840.114 350.1.13.10 4.2.7.2.686 [id number] 044 [id number] [facility] 2022-08-02 00:00:00 2022-08-02 00:00:00 Orders Only Doctor Unassigned, [place] [facility] 1.2.840.114 350.1.13.10 4.2.7.2.686 [id number] [facility] 2022-07-07 00:00:00 2022-07-07 00:00:00 [facility] 1.2.840.114 350.1.13.10 4.2.7.2.686 [id number] 044 [id number] [facility] 2022-06-29 06:43:00 2022-06-29 08:28:00 Outpatient R ANNE MARIE MATHIS [facility] [id number] [facility] 2022-06-29 06:43:00 2022-06-29 08:28:00 Hospital Encounter Anne Marie Mathis [facility] [place] 1.2840.114 350.1.13.10 4.2.7.2.686 [id number] [facility] 2022-06-29 07:30:00 2022-06-29 08:27:00 Surgery Anne Marie Mathis [facility] [place] 1.2.840.114 350.1.13.10 4.2.7.2.686 [id number] [facility] 2022-06-29 00:00:00 2022-06-29 00:00:00 Orders Only Doctor Unassigned, [place] [facility] 1.2.840.114 350.1.13.10 4.2.7.2.686 [id number] [facility] 2022-06-28 00:00:00 2022-06-28 00:00:00 Patient Secure Msg Doctor Unassigned, [place] [facility] 1.2.840.114 350.1.13.10 4.2.7.2.686 [id number] [facility] 2022-06-28 00:00:00 2022-06-28 00:00:00 Telephone Anne Marie Mathis [facility] 1.2.840.114 350.1.13.10 4.2.7.2.686 [id number] [facility] 2022-06-22 00:00:00 2022-06-22 00:00:00 Telephone BarnesDinhmariposa Nikhil [facility] 1.2.840.114 350.1.13.10 4.2.7.2.686 [id number] [facility] 2022-06-15 11:00:00 2022-06-15 11:59:07 Outpatient ROSSANA DOMINGUEZ [facility] [id number] [facility] 2022-06-15 11:00:00 2022-06-15 11:30:00 Office Visit Kalegih Rossana [facility] 1.2.840.114 350.1.13.10 4.2.7.2.686 [id number] [facility] 2022-06-08 17:00:00 2022-06-08 17:00:00 Outpatient CHARLY العلي [facility] [id number] [facility] 2022-06-07 08:00:00 2022-06-07 08:00:00 Outpatient Angelica PACKERROSSANA [facility] [id number] [facility] 2022-05-29 00:00:00 2022-05-29 00:00:00 RefRossana Perry [facility] 1..840.114 350.1.13.10 4.2.7.2.686 [id number] [facility] 2022-05-25 00:00:00 2022-05-25 00:00:00 Prep For Surgery Anne Marie Mathis [facility] 1..840.114 350.1.13.10 4.2.7.2.686 [id number] [facility] 2022-05-24 09:15:00 2022-05-24 09:55:28 Outpatient CHARLY العلي [facility] [id number] [facility] 2022-05-24 09:15:00 2022-05-24 09:55:28 Ancillary Visit Emerita Barnes Craig L [facility] 1..840.114 350.1.13.10 4.2.7.2.686 [id number] [facility] 2022-05-24 09:15:00 2022-05-24 09:15:00 Outpatient CHARLY العلي [facility] [id number] [facility] 2022-05-18 08:15:00 2022-05-18 08:15:00 Outpatient CHARLY العلي [facility] [id number] [facility] 2022-05-11 00:00:00 2022-05-11 00:00:00 Telephone Felecia Rivera [facility]ACHINIST [facility] 1..840.114 350.1.13.10 4.2.7.2.686 [id number] [facility] 2022-05-05 15:00:00 2022-05-05 15:48:52 Outpatient R ROSSANA PACKER [facility] [id number] [facility] 2022-05-05 15:00:00 2022-05-05 15:48:52 Office Visit Rossana Packer [facility] 1..840.114 350.1.13.10 4.2.7.2.686 [id number] [facility] 2022-04-23 10:15:00 2022-04-23 10:15:00 Outpatient R CHRISTIE MIRELES [facility] [id number] [facility] 2022-04-14 00:00:00 2022-04-14 00:00:00 Telephone Marshal [facility]PUNEETRadha [facility] 1..840.114 350.1.13.10 4.2.7.2.686 [id number] [facility] 2022-04-13 06:41:26 2022-04-13 23:59:00 Outpatient R PURNIMA POTTS [facility] [id number] [facility] 2022-04-13 06:41:26 2022-04-13 23:59:00 Hospital Encounter Purnima Potts [facility] 1..840.114 350.1.13.10 4.2.7.2.686 [id number] [facility] 2022-04-12 10:15:00 2022-04-12 10:30:00 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, [facility] 1..840.114 350.1.13.10 4.2.7.2.686 [id number] [facility] 2022-04-12 10:15:00 2022-04-12 10:15:00 Outpatient R JAKE ARAYA [facility] [id number] [facility] 2022-04-08 10:00:00 2022-04-08 11:05:44 Outpatient R JAKE ARAYA [facility] [id number] [facility] 2022-04-08 10:00:00 2022-04-08 11:05:44 Office Visit Jake Araya [facility] 1.84.114 350.1.13.10 4.2.7.2.686 [id number] [facility] 2022-04-02 10:00:00 2022-04-02 10:00:00 Outpatient R JAKE ARAYA [facility] [id number] [facility] 2022-03-30 11:00:00 2022-03-30 11:00:00 Outpatient R UNKNOWN, ATTENDING [facility] [id number] [facility] 2022-03-29 11:13:54 2022-03-29 11:13:54 Outpatient SFA [facility] [id number] Malcom Bajwa 2022-03-26 11:40:00 2022-03-26 11:40:00 Outpatient R UNKNOWN, ATTENDING [facility] [id number] [facility] 2022-01-19 00:00:00 2022-01-19 00:00:00 Telephone Purnima Potts [facility] MACHINIST [facility] .840.114 350.1.13.10 4.2.7.2.686 [id number] 107 [id number] [facility] 2021-12-15 09:35:23 2021-12-15 23:59:00 Hospital Encounter Purnima Potts [facility] 1.840.114 350.1.13.10 4.2.7.2.686 [id number] [facility] 2021-12-15 00:00:00 2021-12-15 23:59:00 Outpatient R PURNIMA POTTS [facility] [id number] [facility] 2021-09-02 09:00:00 2021-09-02 10:39:52 Outpatient R PURNIMA POTTS [facility] [id number] [facility] 2021-09-02 09:00:00 2021-09-02 10:39:52 Office Visit Purnima Potts [facility] MAKING MACHINIST [facility] CHILD [facility] 1..840.114 350.1.13.10 4.2.7.2.686 [id number] 107 [id number] [facility] 2021-09-02 09:45:00 2021-09-02 10:39:07 Outpatient R PURNIMA POTTS [facility] [id number] [facility] 2021-09-02 09:45:00 2021-09-02 10:39:07 Office Visit Purnima Potts [facility] MACHINIST [facility] 1..840.114 350.1.13.10 4.2.7.2.686 [id number] 107 [id number] [facility] 2021-09-02 09:45:00 2021-09-02 09:45:00 Outpatient R COCO [facility] [id number] [facility] 2021-09-02 00:00:00 2021-09-02 00:00:00 Orders Only Doctor Unassigned, [place] [facility] 1..840.114 350.1.13.10 4.2.7.2.686 [id number] [facility] 2021-07-29 15:15:00 2021-07-29 15:33:52 Outpatient R COCO [facility] [id number] [facility] 2021-07-29 15:15:00 2021-07-29 15:33:52 Office Visit Purnima Potts [facility] MACHINIST [facility] 1.2.840.114 350.1.13.10 4.2.7.2.686 [id number] [facility] 2021-01-08 00:00:00 2021-01-08 00:00:00 Orders Only Doctor Unassigned, [place] [facility] 1.2.840.114 350.1.13.10 4.2.7.2.686 [id number] [facility] 2021-01-08 00:00:00 2021-01-08 00:00:00 Orders Only Doctor Unassigned, [place] [facility] 1.2.840.114 350.1.13.10 4.2.7.2.686 [id number] [id number] 2020-10-31 00:00:00 2020-10-31 00:00:00 Case Management Purnima Potts [facility] MACHINIST [facility] CHILD [facility] 1.2.840.114 350.1.13.10 4.2.7.2.686 [id number] 107 [id number] [facility] 2020-10-31 00:00:00 2020-10-31 00:00:00 Case Management Purnima Potts [facility] MACHINIST [facility] CHILD [facility] 1.2.840.114 350.1.13.10 4.2.7.2.686 [id number] 107 [id number] 2020-10-14 10:42:39 2020-10-14 23:59:00 Hospital Encounter Purnima Potts [facility] 1.2.840.114 350.1.13.10 4.2.7.2.686 [id number] [facility] 2020-10-14 10:42:39 2020-10-14 23:59:00 Hospital Encounter Purnima Potts [facility] 1.2.840.114 350.1.13.10 4.2.7.2.686 [id number] 2020-10-14 00:00:00 2020-10-14 00:00:00 Outpatient R PURNIMA POTTS [facility] [id number] [facility] 2020-10-08 16:00:00 2020-10-08 16:00:00 Outpatient R JOBY MCGREGOR [facility]AH[facility] [id number] [facility] 2020-09-30 00:00:00 2020-09-30 00:00:00 Telephone Purnima Potts [facility] MACHINIST [facility] 1.2.840.114 350.1.13.10 4.2.7.2.686 [id number] 107 [id number] [facility] 2020-09-30 00:00:00 2020-09-30 00:00:00 Telephone Purnima Potts [facility] MACHINIST [facility] CHILD [facility] 1.2.840.114 350.1.13.10 4.2.7.2.686 [id number] 2020-09-25 00:00:00 2020-09-25 00:00:00 Telephone Purnima Potts [facility] MACHINIST [facility] CHILD [facility] 1.2.840.114 350.1.13.10 4.2.7.2.686 [id number] 107 [id number] [facility] 2020-09-24 14:32:16 2020-09-24 23:59:00 Hospital Encounter Purnima Potts [facility] 1.2.840.114 350.1.13.10 4.2.7.2.686 [id number] [facility] 2020-09-24 14:30:00 2020-09-24 14:31:00 Hospital Encounter Purnima Potts [facility] 1.2.840.114 350.1.13.10 4.2.7.2.686 [id number] [facility] 2020-09-24 00:00:00 2020-09-24 00:00:00 Outpatient R PURNIMA POTTS [facility] [id number] [facility] 2020-09-19 00:00:00 2020-09-19 00:00:00 Orders Only Doctor Unassigned, [place] [facility] 1.2.840.114 350.1.13.10 4.2.7.2.686 [id number] [facility] 2020-09-16 00:00:00 2020-09-16 00:00:00 Telephone Purnima Potts [facility] MACHINIST [facility] 1.2.840.114 350.1.13.10 4.2.7.2.686 [id number] 107 [id number] [facility] 2020-09-15 00:00:00 2020-09-15 00:00:00 Telephone Purnima Potts [facility] MACHINIST [facility] 1.2.840.114 350.1.13.10 4.2.7.2.686 [id number] [facility] 2020-09-12 00:00:00 2020-09-12 00:00:00 Telephone Purnima Potts [facility] MACHINIST [facility] CHILD [facility] 1.2.840.114 350.1.13.10 4.2.7.2.686 [id number] [facility] 2020-09-09 07:05:36 2020-09-09 23:59:00 Hospital Encounter Purnima Potts [facility] 1.2.840.114 350.1.13.10 4.2.7.2.686 [id number] [facility] 2020-09-09 00:00:00 2020-09-09 00:00:00 Outpatient R PURNIMA POTTS [facility] [id number] [facility] 2020-08-27 14:08:13 2020-08-27 15:02:20 Office Visit Purnima Potts [facility] MACHINIST [facility] 1.114 350.1.13.10 4.2.7.2.686 [id number] [facility] 2020-08-27 13:45:00 2020-08-27 13:45:00 Outpatient R [facility] [id number] [facility] 2020-08-25 10:00:00 2020-08-25 10:00:00 Outpatient R FELECIA RIVERA [facility] [id number] [facility] 2020-08-25 00:00:00 2020-08-25 00:00:00 Orders Only Doctor Unassigned, [place] [facility] .114 350.1.13.10 4.2.7.2.686 [id number] [id number] [facility] 2020-01-13 00:00:00 2020-01-13 00:00:00 Telephone Nurse, Pete Babin Replaced by [facility] 1.114 350.1.13.10 4.2.7.2.686 [id number] [facility] 2020-01-12 11:54:46 2020-01-12 12:33:40 Laboratory Only Lab, Adc Fam Geraldob Jake Barcenas [facility] Professio nal Office Building [facility] 1.114 350.1.13.10 4.2.7.2.686 [id number] [facility] 2020-01-12 12:00:00 2020-01-12 12:00:00 Outpatient R EITANNE, JAKE [facility] [id number] [facility] 2020-01-12 00:00:00 2020-01-12 00:00:00 Letter (Out) Doctor Unassigned, [place] [facility] 1.2.840.114 350.1.13.10 4.2.7.2.686 [id number] [facility] 2019-11-30 16:40:00 2019-11-30 16:40:00 Outpatient OLE RODRIGUEZ [facility] [id number] [facility] Results Test Description Test Time Test Comments Results Result Co [facility]BINAX NOW[facility]2023-02-01 15:45:00* Test Item Value Reference Range Interpretation Comme nts POCT SARS-COV-2 ANTIGEN (lester t code = 50682-2) Positive Not Detected A On board controls acceptable with C Line (test code = 3574) Yes Lab Interpretation (test cod e = 21375-3) [facility] (94628)2022-10-18 21:23:03* Test Item Value Reference Range Interpretation Comme nts NA (test code = 8246655616) 142 mmol/L 135-145 K (test code = 7864104488) 5.1 mmol/L 3.5-5.0 H CL (test code = 3095461583) 105 mmol/L 98-108 CO2 TOTAL (test code = 0981222215) 28 mmol/L 23-31 AGAP (test code = 9500055500) 9 2-16 BUN (test code = 3347676758) 9 mg/dL 7-23 GLUCOSE (test code = 7689654482) 104 mg/dL 70-110 CREATININE (test code = 3081264603) 0.75 mg/dL 0.50-1.04 TOTAL BILI (test code = 1718908001) 0.6 mg/dL 0.1-1.1 CALCIUM (test code = 2346235355) 9.7 mg/dL 8.6-10.6 T PROTEIN (test code = 0269425347) 7.9 g/dL 6.3-8.2 ALBUMIN (test code = 3872110728) 4.3 g/dL 3.5-5.0 ALK PHOS (test code = 6515723264) 104 U/L 34-122 ALTv (test code = 1742-6) 26 U/L 5-35 AST(SGOT) (test code = 2672579184) 22 U/L 13-40 eGFR (test code = 0707535056) 77.6 mL/min/1.73m2 CALIN (test code = CALIN) [...] imaging tests). Lab Interpretation (test code = 98076-9) Abnormal [facility]. METABOLIC PANEL (63316)2022-10-18 21:23:03* Test Item Value Reference Range Interpretation Comme nts NA (test code = 7380156127) 142 mmol/L 135-145 K (test code = 5459237723) 5.1 mmol/L 3.5-5.0 H CL (test code = 1513607528) 105 mmol/L 98-108 CO2 TOTAL (test code = 4790128078) 28 mmol/L 23-31 AGAP (test code = 5957544241) 9 2-16 BUN (test code = 8874902322) 9 mg/dL 7-23 GLUCOSE (test code = 4873953777) 104 mg/dL 70-110 CREATININE (test code = 8349563901) 0.75 mg/dL 0.50-1.04 TOTAL BILI (test code = 8176179441) 0.6 mg/dL 0.1-1.1 CALCIUM (test code = 1198489635) 9.7 mg/dL 8.6-10.6 T PROTEIN (test code = 3899519511) 7.9 g/dL 6.3-8.2 ALBUMIN (test code = 9435607993) 4.3 g/dL 3.5-5.0 ALK PHOS (test code = 4907676290) 104 U/L 34-122 ALTv (test code = 1742-6) 26 U/L 5-35 AST(SGOT) (test code = 1215116384) 22 U/L 13-40 eGFR (test code = 7799165318) 77.6 mL/min/1.73m2 CALIN (test code = CALIN) [...] imaging tests). Lab Interpretation (test code = 89196-4) Abnormal [facility] WITH [id number] 19:30:45* Test Item Value Reference Range Interpretation Comme nts WBC (test code = 6690-2) 7.14 See_Comment [Automated Thing5] The system which generated this result transmitted reference range: 4.30 - 11.10 10*3/?L. The reference range was not used to interpret this result as normal/abnormal. RBC (test code = 789-8) 4.54 See_Comment [[email or web address]] The system which generated this result transmitted [...] g/dL 31.6-35.1 L RDW-SD (test code = 31632-2) 50.4 fL 39.0-49.9 H RDW-CV (test code = 788-0) 14.2 % 12.0-15.5 PLT (test code = 777-3) 307 See_Comment [Automated Thing5] The system which generated this result transmitted reference range: 166 - 358 10*3/?L. The reference range was not used to interpret this result as normal/abnormal. MPV (test code = 76115-6) 10.6 fL 9.5-12.9 NRBC/100 WBC (test code = 5141428280) 0.0 See_Comment [Automated me ssage] The system which generated this result transmitted reference range: 0.0 - 10.0 /100 WBCs. The reference range was not used to interpret this result as normal/abnormal. NRBC x10^3 (test code = 9281647869) See_Comment [Automated messa ge] The system which generated this result transmitted reference range: 10*3/?L. The reference range was not used to interpret this result as normal/abnormal. GRAN MAT (NEUT) % (test code = 770-8) 49.6 % IMM GRAN % (test code = 1859796203) 0.30 % LYMPH % (test code = 736-9) 42.0 % MONO % (test code = 5905-5) 4.3 % EOS % (test code = 713-8) 3.2 % BASO % (test code = 706-2) 0.6 % GRAN MAT x10^3(ANC) (test code = 2991841254) 3.54 10*3/uL 1.88-7.09 IMM GRAN x10^3 (test code = 1458645361) 0.00-0.06 LYMPH x10^3 (test code = 731-0) 3.00 10*3/uL 1.32-3.29 MONO x10^3 (test code = 742-7) 0.31 10*3/uL 0.33-0.92 L EOS x10^3 (test code = 711-2) 0.23 10*3/uL 0.03-0.39 BASO x10^3 (test code = 704-7) 0.04 10*3/uL 0.01-0.07 Lab Interpretation (test code = 83385-1) Abnormal [facility] WITH [id number] 19:30:45* Test Item Value Reference Range Interpretation Comme nts WBC (test code = 6690-2) 7.14 See_Comment [Automated messa ge] The system which generated this result transmitted reference range: 4.30 - 11.10 10*3/?L. The reference range was not used to interpret this result as normal/abnormal. RBC (test code = 789-8) 4.54 See_Comment [Automated [employer]] The system which generated this result [...] g/dL 31.6-35.1 L RDW-SD (test code = 91121-3) 50.4 fL 39.0-49.9 H RDW-CV (test code = 788-0) 14.2 % 12.0-15.5 PLT (test code = 777-3) 307 See_Comment [Automated [employer]] The system which generated this result transmitted reference range: 166 - 358 10*3/?L. The reference range was not used to interpret this result as normal/abnormal. MPV (test code = 02712-0) 10.6 fL 9.5-12.9 NRBC/100 WBC (test code = 9125346088) 0.0 See_Comment [Automated [employer] ssage] The system which generated this result transmitted reference range: 0.0 - 10.0 /100 WBCs. The reference range was not used to interpret this result as normal/abnormal. NRBC x10^3 (test code = 0352819249) See_Comment [Automated [employer]] The system which generated this result transmitted reference range: 10*3/?L. The reference range was not used to interpret this result as normal/abnormal. GRAN MAT (NEUT) % (test code = 770-8) 49.6 % IMM GRAN % (test code = 4272251616) 0.30 % LYMPH % (test code = 736-9) 42.0 % MONO % (test code = 5905-5) 4.3 % EOS % (test code = 713-8) 3.2 % BASO % (test code = 706-2) 0.6 % GRAN MAT x10^3(ANC) (test code = 4844722505) 3.54 10*3/uL 1.88-7.09 IMM GRAN x10^3 (test code = 2707384091) 0.00-0.06 LYMPH x10^3 (test code = 731-0) 3.00 10*3/uL 1.32-3.29 MONO x10^3 (test code = 742-7) 0.31 10*3/uL 0.33-0.92 L EOS x10^3 (test code = 711-2) 0.23 10*3/uL 0.03-0.39 BASO x10^3 (test code = 704-7) 0.04 10*3/uL 0.01-0.07 Lab Interpretation (test code = 40690-4) Abnormal [facility] URINALYSIS W/O SPECIFIC [id number] 22:19:00* Test Item Value Reference Range Interpretation [...] = 3257) neg Negative - Negati ve [facility] URINALYSIS W/O SPECIFIC [id number] 22:19:00* Test Item Value Reference Range Interpretation [...] = 3257) neg Negative - Negati ve [facility]. METABOLIC PANEL (93467)2022-04-12 21:44:10* Test Item Value Reference Range Interpretation Comme nts NA (test code = 7270975354) 141 mmol/L 135-145 K (test code = 2724923064) 5.1 mmol/L 3.5-5.0 H CL (test code = 2229328155) 105 mmol/L 98-108 CO2 TOTAL (test code = 9497189741) 30 mmol/L 23-31 AGAP (test code = 3606406217) 2-16 BUN (test code = 1851899169) 11 mg/dL 7-23 GLUCOSE (test code = 4754608397) 108 mg/dL 70-110 CREATININE (test code = 0910212373) 0.77 mg/dL 0.50-1.04 TOTAL BILI (test code = 0596696736) 0.5 mg/dL 0.1-1.1 CALCIUM (test code = 4179668803) 9.6 mg/dL 8.6-10.6 T PROTEIN (test code = 0093394507) 7.7 g/dL 6.3-8.2 ALBUMIN (test code = 3402704015) 4.5 g/dL 3.5-5.0 ALK PHOS (test code = 0357614361) 115 U/L 34-122 ALTv (test code = 1742-6) 21 U/L 5-35 AST(SGOT) (test code = 1359365368) 21 U/L 13-40 eGFR (test code = 4039022816) mL/min/1.73m2 CALIN (test code = CALIN) Association [...] imaging tests). Lab Interpretation (test code = 61204-2) Abnormal [facility] WITH [id number] 20:03:55* Test Item Value Reference Range Interpretation Comme nts WBC (test code = 6690-2) See_Comment [[email or web address]] The system which generated this result transmitted reference range: 4.30 - 11.10 10*3/?L. The reference range was not used to interpret this result as normal/abnormal. RBC (test code = 789-8) See_Comment [[email or web address]] The system which generated this result transmitted [...] 32.1 g/dL 31.6-35.1 RDW-SD (test code = 09729-9) 45.8 fL 39.0-49.9 RDW-CV (test code = 788-0) 12.7 % 12.0-15.5 PLT (test code = 777-3) See_Comment [Automated messa ge] The system which generated this result transmitted reference range: 166 - 358 10*3/?L. The reference range was not used to interpret this result as normal/abnormal. MPV (test code = 90744-4) 10.9 fL 9.5-12.9 NRBC/100 WBC (test code = 0956367500) See_Comment [Automated me ssage] The system which generated this result transmitted reference range: 0.0 - 10.0 /100 WBCs. The reference range was not used to interpret this result as normal/abnormal. NRBC x10^3 (test code = 3494329681) See_Comment [Automated messa ge] The system which generated this result transmitted reference range: 10*3/?L. The reference range was not used to interpret this result as normal/abnormal. GRAN MAT (NEUT) % (test code = 770-8) 53.7 % IMM GRAN % (test code = 1887210277) 0.20 % LYMPH % (test code = 736-9) 38.2 % MONO % (test code = 5905-5) 4.3 % EOS % (test code = 713-8) 2.8 % BASO % (test code = 706-2) 0.8 % GRAN MAT x10^3(ANC) (test code = 4082421135) 3.27 10*3/uL 1.88-7.09 IMM GRAN x10^3 (test code = 1478148339) 0.00-0.06 LYMPH x10^3 (test code = 731-0) 2.32 10*3/uL 1.32-3.29 MONO x10^3 (test code = 742-7) 0.26 10*3/uL 0.33-0.92 L EOS x10^3 (test code = 711-2) 0.17 10*3/uL 0.03-0.39 BASO x10^3 (test code = 704-7) 0.05 10*3/uL 0.01-0.07 Lab Interpretation (test code = 76992-7) [id number] 04:29:21* Test Item Value Reference Range Interpretation Comme nts CHOLESTEROL (test code = 2210) 220 MG/DL <200 H TRIGLYCERIDES (test code = 2232) 118 MG/DL <150 HDL CHOLESTEROL (test code = 0) 45 MG/DL >39 CALC LDL CHOL (test code = 2237) 151 MG/DL <100 H NOTE: CALCULATED LDL IS BASED ON SYD-OLIVER METHOD WHICHINCLUDES ADJUSTABLE TRIGLYCERIDE:VLDL CHOLESTEROL RATIO.THIS FACTOR VARIES BY MEASURED TRIGLYCERIDE AND NON-HDLCHOLESTEROL CONCENTRATIONS WITH INCREASED CALCULATED LDL SEENIN HIGHER TRIGLYCERIDE OR LOWER NON-HDL SPECIMENS. FOR MOREINFORMATION, SEE CLIENT ANNOUNCEMENT AT [email or web address] RISK RATIO LDL/HDL (test code = 2237) 3.36 RATIO <3.22 H COMPREHENSIVE METABOLIC [id number] 04:29:21* Test Item Value Reference Range Interpretation Comme nts GLUCOSE (test code = 2216) 97 MG/DL 70-99 BUN (test code = 2207) 14 MG/DL 8-23 CREATININE (test code = 221) 1.01 MG/DL 0.60-1.30 eGFR (2020 CKD-EPI) (test code = ) 62 ML/MIN/1.73 >60 CALC BUN/CREAT (test code = 2235) 14 RATIO 6-28 SODIUM (test code = 223) 142 MEQ/L 133-146 POTASSIUM (test code = 2228) 4.5 MEQ/L 3.5-5.4 CHLORIDE (test code = 2215) 106 MEQ/L 95-107 CARBON DIOXIDE (test code = 2206) 24 MEQ/L 19-31 CALCIUM (test code = 220) 9.5 MG/DL 8.5-10.5 PROTEIN, TOTAL (test code [...] code = 2219) 13 U/L 5-40 HEMOGLOBIN [id number] 03:25:19* Test Item Value Reference Range Interpretation Comme nts HEMOGLOBIN A1c (test code = 38360) 5.9 % 4.2-5.6 H UNLESS OTHERWISE INDICATED, ALL TESTING PERFORMED [facility] HOSPITALLINGraphic [place] PATHOLOGY [employer] [address] [place] [address] TRAVEL ATTENDANTS: CONRAD BRUNSON M.D. [place] NUMBER [id number] [facility] [place]. [id number] Notes Date/Time Note Provider Source 2023-11-16 13:38:29 [id number]:38:29 Notes: Please ReviewLast Refilled:busPIRone 10 mg tablet 180 tablet 1 04/06/2023 -- NoSig: Take 1 tablet by mouth 2 (two) times daily as needed for Other (Anxiety).Sent to pharmacy as: busPIRone 10 mg tablet (BUSPAR)Class: eRXRoute: OralOrder: [id number]/Time Signed: 04/06/2023 09:57E-Prescribing Status: Receipt confirmed by pharmacy (04/06/2023 9:58 AM CDT)Recent VisitsDate Type Provider Dept08/16/23 Office Visit Jake Araya FNP [facility]07/18/23 Office Visit Suki Sheikh MD [facility]04/19/23 Office Visit Jake Araya FNP [facility]04/05/23 Office Visit Jake Araya FNP [facility]01/11/23 Office Visit Jake Araya FNP [facility]11/29/22 Office Visit Jake Araya FNP [facility]10/18/22 Office Visit Jake Araya MATCHER OPERATOR [facility]08/02/22 Office Visit Jake Araya FNP [facility] MedShowing recent visits within past 540 days with a meds authorizing provider and meeting all other requirementsFuture AppointmentsDate Type Provider Dept09/13/24 Appointment Jake Araya, MATCHER OPERATOR [facility] MedShowing future appointments within next 150 days with a meds authorizing provider and meeting all other requirements 93771-3Gmxyecmhf encounter KnseEV5352-73-35B67:39:27Telephone encounter NoteTXT1.2.840.033799.1.13.104.2.7.2 .860754|[id number] for patient vemb61147-9BfkwBRBXZVHYUQLUhkelewir C-CDA narrative [id number] Myers[id number] FAZNIDSZXDBSEPOTIPDPIK6330-69-05R05: 39:271.2.840.524007.1.72.3.15|1.2.84 0.858251.1.13.104.2.7.2.727879_21218 [address] [address] Beard [facility] 2023-11-07 16:21:12 6389-51-18K77:21:12 Notice received from Pharmacy:Patient requesting new RX for Buspar 5mgPlease review and advise. 95044-4Cygxttovn encounter IdssZR9816-14-30D22:22:18Telephone encounter NoteTXT1.2.840.742473.1.13.104.2.7.2 .343692|[id number] for patient sump06615-3UhreXIYRMBSALKNCdzjiwvdw C-CDA narrative [id number] Flores [id number] LHIWSDYVHWGEVTRGZPUZGU8396-81-41R20: 22:181.2.840.708128.1.72.3.15|1.2.84 0.690898.1.13.104.2.7.2.727879_21141 81810 Susana Chen LVN [facility] 2023-10-03 07:38:48 8216-07-47R09:38:48 Images from the original note were not included.Notes: 08/16/23Last Refilled:[facility]/pharmacy #[id number] - [place], [place] - [facility] [address] [facility]: Yhgnim VisitsDate Type Provider Dept08/16/23 Office Visit Jake Araya FNP [facility]07/18/23 Office Visit Suki Sheikh MD [facility]04/19/23 Office Visit Jake Araya MATCHER OPERATOR [facility]04/05/23 Office Visit Jake Araya MATCHER OPERATOR [facility]01/11/23 Office Visit Jake Araya, MATCHER OPERATOR [facility]11/29/22 Office Visit Jake Araya, MATCHER OPERATOR [facility]10/18/22 Office Visit Jake Araya, MATCHER OPERATOR [facility]08/02/22 Office Visit Jake Araya MATCHER OPERATOR [facility]am MedShowing recent visits within past 540 days with a meds authorizing provider and meeting all other requirementsFuture AppointmentsDate Type Provider Dept02/17/24 Appointment Jake Araya MATCHER OPERATOR [facility] MedShowing future appointments within next 150 days with a meds authorizing provider and meeting all other requirementslosartan-hydrochlorothia zide 50-12.5 mg per tabletSig: Take 1.5 tablets by mouth in the morning.Disp: 90 tablet Refills: 1Start: 10/01/2023lass: eRXFor: Essential hypertension, benignLast ordered: 1 month ago (08/16/2023) by KORY AlbaPCardiovascular: ARB / Diuretic Combo Pgxnbu0110/01/2023 04:53 PMProtocol Details K in normal range and within 180 daysNa in normal range and within 180 daysCr in normal range and within 180 daysValid encounter within last 12 monthsTo be filled at: [facility]/pharmacy #[id number] - [place], [place] - [address] AT [facility] [address]-3Vxhykyxki encounter QpqzER7378-91-45E73:39:47Telephone encounter NoteTXT1.2.840.784399.1.13.104.2.7.2 .124429|[id number] for patient rfex44638-3MarsTAKXFNKAESEYaluxdugo C-CDA narrative [id number] L Cantu MA[address] Rv[id number] KMJJCLCDSHZTDTAKEBJEIB1408-48-32D79: 39:471.2.840.202742.1.72.3.15|1.2.84 0.200226.1.13.104.2.7.2.727879_20856 [id number] Tanya Moeller MA [facility] 2023-09-29 12:15:59 3143-75-43C29:15:59 Images from the original note were not included.Requested Renewalsergocalciferol, vitamin d2, 1,250 mcg (50,000 unit) capsulePossible duplicate: Randall to review recent actions on this medicationSig: Take 1 capsule by mouth weekly.Disp: 12 capsule Refills: 1Start: 09/29/2023lass: eRXNon-formulary For: Vitamin D deficiencyLast ordered: 5 months ago (04/04/2023) by Tameka Alba-Protocol Hhxvxp6709/29/2023 11:56 AMProtocol Details Medication not assigned to a protocol, forward to provider.Valid encounter within last 12 monthsTo be filled at: [facility] ([place] [place] [address]Recent VisitsDate Type Provider Dept08/16/23 Office Visit Anene, Jake, MATCHER OPERATOR [facility]07/18/23 Office Visit Suki Sheikh MD [facility]04/19/23 Office Visit Jake Araya, MATCHER OPERATOR [facility]04/05/23 Office Visit Jake Araya, MATCHER OPERATOR [facility]01/11/23 Office Visit Jake Araya, MATCHER OPERATOR [facility]11/29/22 Office Visit Jake Araya, MATCHER OPERATOR [facility]10/18/22 Office Visit Jake Araya, MATCHER OPERATOR [facility]08/02/22 Office Visit Jake Araya MATCHER OPERATOR [facility]04/08/22 Office Visit Jake Araya MATCHER OPERATOR [facility] Fam MedShowing recent visits within past 540 days with a meds authorizing provider and meeting all other requirementsFuture AppointmentsDate Type Provider Dept02/17/24 Appointment Jake Araya MATCHER OPERATOR [facility] MedShowing future appointments within next 150 days with a meds authorizing provider and meeting all other requirements 43859-1Fxmvyyetp encounter HkfrWQ2124-35-99W50:16:06Telephone encounter NoteTXT1.2.840.684786.1.13.104.2.7.2 .603559|[id number] for patient ovgk15717-1QdcgXYYHLSZNLIVEwdqqnene C-CDA narrative [id number] M Fisher [address] Jl[id number] SLEJIHCBRFOBMOJHBJTDIC9993-75-15S89: 16:061.2.840.350367.1.72.3.15|1.2.84 0.238424.1.13.104.2.7.2.727879_20835 [id number] Eunice Serrano LVN [facility] 2023-08-16 15:00:00 0288-33-24N98:00:00 Images from the original note were not included.Venipuncture collection performed by clean technique on the right anticubitus. Total of 1 attempts were made. Slight pressure and a bandage/dressing were applied to the site(s). The patient experienced no complications. The following specimens were processed according to instructions and sent to [facility] laboratories per lab order on 08/16/2023:LT BLUESST 1REDLAVPPTDK GREEN (LiHep)DK GREEN (SodH)GRAYDK BLUE (K2)DK BLUE (S)ACDBlood CultureNIPT/NTD 84809-5Kbksz PtkhHJ3626-68-69M32:03:19Nurse NoteTXT1.2.840.577017.1.13.104.2.7.2 .258708|[id number] for patient ozbh87566-1Tmdwr NoteLNNARRATIVEFormatted C-CDA narrative text[address] Tm[id number] XIPBADGQFZLOFTOVTOBTCH4777-14-80X15: 03:191.2.840.042750.1.72.3.15|1.2.84 0.970514.1.13.104.2.7.2.727879_[address] [facility] 2023-08-12 15:00:52 1643-95-42Z51:00:52 Forms have been faxed to [facility] with current medications from Jake Araya. 83184-0Kbbcsbiud encounter QmnoNC6176-48-70L72:02:26Telephone encounter NoteTXT1.2.840.452674.1.13.104.2.7.2 .515418|5033923945IQItetjzmtg for patient rjdu86845-7AbebNLFAOZEFENIBcdaxsomy C-CDA narrative text[id number] PEXYBPFGPOWLPYBZGPAEQZ6096-31-94Z22: 02:261.2.840.882442.1.72.3.15|1.2.84 0.461328.1.13.104.2.7.2.727879_[address] [facility] 2023-08-09 09:29:59 5262-16-79U83:29:59 Rx has been sent in per Marshal. 62256-8Afitqktgh encounter JzfqRO6029-99-59I84:30:17Telephone encounter NoteTXT1.2.840.803255.1.13.104.2.7.2 .779808|[id number] for patient poin54829-0FkklRTOLRDSVAQKJzdngljdw C-CDA narrative text[id number] VAWZEXMDDICVNONHPZBDNT9395-60-62A95: 30:171.2.840.612632.1.72.3.15|1.2.84 0.988440.1.13.104.2.7.2.727879_[address] [facility] 2023-08-08 18:14:41 4281-69-65W84:14:41 Atarax sent 92966-6Larjanmeb encounter NmzqYV0899-10-71T99:16:27Telephone encounter NoteTXT1.2.840.049168.1.13.104.2.7.2 .038295|7792818674PLVlswjuyeb for patient duho43121-6XcpuDBLTZLCNYHGWrkwcslbb C-CDA narrative textUT38 Hall StreetWzvoHfsovdrupNckizrandIUNQ5499523300 ATADRBVZAXNMTMAJMEGPJJ2405-60-51R26: 16:271.2.840.558675.1.72.3.15|1.2.84 0.730775.1.13.104.2.7.2.727879_[address] [facility] 2023-08-08 17:48:04 0989-33-89V16:48:04 Send albuterol 40185-0Hrgsgfcfk encounter QibxQB8918-73-62W96:48:14Telephone encounter NoteTXT1.2.840.160871.1.13.104.2.7.2 .694319|0374933633DNDldwynjvu for patient ukad36537-2VsnxXXRTMONAXFDSnfpougge C-CDA narrative text[id number] GPOZDRFSEQZIKSPYTAEXUL7543-71-36H15: 48:141.2.840.092341.1.72.3.15|1.2.84 0.434416.1.13.104.2.7.2.727879_[address] [facility] 2023-08-08 11:24:23 3165-34-11Q95:24:23 Copied from [facility] #[id number]. Topic: Clinical - Paperwork/Forms>> Aug 08, 2023 11:21 AM Patient Collections Assistant wrote:Sofy with [facility] is requesting a call from the clinic due to the fact that she needs confirmation for medications. 35093-4Wbeyojlgg encounter MluvHX1543-65-06N11:02:26Telephone encounter NoteTXT1.2.840.627639.1.13.104.2.7.2 .401860|[id number] for patient hnga52838-0DoqnJDRFQHACVRWPbemhbveg C-CDA narrative [id number] D [id number] IDBYFRWTEQHNXTNHFPXZWE6274-29-39B65: 02:261.2.840.283693.1.72.3.15|1.2.84 0.285013.1.13.104.2.7.2.727879_20400 53306 Efrem Starr [facility] 2023-08-05 09:10:56 7370-30-08F48:10:56 Copied from [facility] #[id number]. Topic: Clinical - Medical Advice>> Aug 05, 2023 9:08 AM Patient Collections Assistant wrote:Mp is calling for the status of prescription transfer. Mp stated that they had received most prescriptions except for albuterol. Please advise.XvlhaaXI560/289-9629Electroni yair signed by Geraldine Hyatt at 08/05/2023 9:14 AM TJW40253-9Lvuvpnkms encounter BsrkQG3170-51-53F04:14:37Telephone encounter NoteTXT1.2.840.510016.1.13.104.2.7.2 .549815|4062434493EZTazadowte for patient ygrh12559-6ZjkrFJUYMPREVKSIzhvtxulx C-CDA narrative mwri325429878Pwro [id number] KTNPSQSMFUSZTRTRWTHVGP6168-57-22R14: 14:371.2.840.660010.1.72.3.15|1.2.84 0.454117.1.13.104.2.7.2.727879_20383 428[address] Geraldine Hyatt [facility] 2023-07-25 11:10:17 4150-17-37A86:10:17 Images from the original note were not included.Requested RenewalstraZODone 50 mg tabletSig: Take 1 tablet by mouth at bedtime as needed for Insomnia.Disp: 90 tablet Refills: 1Start: 07/25/2023lass: eRXNon-formulary For: Anxiety; Insomnia, unspecified typeLast ordered: 6 months ago (01/11/2023) by MELANY Albasychiatry: Antidepressants Rlkvti8007/25/2023 09:33 AMProtocol Details Manual Review: Verify no changes in dose in the last 3 monthsValid encounter within last 12 monthsTo be filled at: [id number] - [place], [place] - [facility] [address] [facility] [address] WAY STREETRecent VisitsDate Type Provider Dept07/18/23 Office Visit Suki Sheikh MD [facility]04/19/23 Office Visit Jake Araya MATCHER OPERATOR [facility]04/05/23 Office Visit Jake Araya, MATCHER OPERATOR [facility]01/11/23 Office Visit Jake Araya, MATCHER OPERATOR [facility]11/29/22 Office Visit Jake Araya, MATCHER OPERATOR [facility]10/18/22 Office Visit Jake Araya, MATCHER OPERATOR [facility]08/02/22 Office Visit Jake Araya, MATCHER OPERATOR [facility]04/08/22 Office Visit Jake Araya MATCHER OPERATOR [facility] MedShowing recent visits within past 540 days with a meds authorizing provider and meeting all other requirementsFuture AppointmentsDate Type Provider Dept08/16/23 Appointment Suki Sheikh MD [facility] MedShowing future appointments within next 150 days with a meds authorizing provider and meeting all other requirements 38156-8Zgvahtbcj encounter IjzaZH5123-78-69N24:10:25Telephone encounter NoteTXT1.2.840.621355.1.13.104.2.7.2 .513167|2123848450QVNzirtebqn for patient jbyj78077-5YnzqBPDDNEVQQPJGtpqjhsjj C-CDA narrative [id number] M Fisher [id number] VDOGUBFRLFUYCLIZHRLDDC5775-11-76H72: 10:251.2.840.625977.1.72.3.15|1.2.84 0.975562.1.13.104.2.7.2.727879_20282 38883 Eunice Serrano [facility] 2023-07-21 09:44:07 1487-21-50Q15:44:07 Notified pharmacy ok to take these scripts together 79937-4Jhhwnkzfm encounter TgdiJP3002-80-80Y58:44:53Telephone encounter NoteTXT1.2.840.547117.1.13.104.2.7.2 .489619|2230874130RYCknvumxyy for patient ujkl28869-0IamsGLXENUPBQCAVklpxtjmj C-CDA narrative text[id number] WANQXTEGUICLJTUDYFCKWP3905-29-91A06: 44:531.2.840.979480.1.72.3.15|1.2.84 0.761456.1.13.104.2.7.2.727879_[address] [facility] 2023-07-20 15:16:54 7732-85-82U06:16:54 Forms have been faxed to [facility] today. 74580-0Hpefnoqqx encounter JtqyPK8480-20-42U07:17:16Telephone encounter NoteTXT1.2.840.831374.1.13.104.2.7.2 .958228|9823904467ZWHwwebllkj for patient mubq25171-7HqheFFUMZKSWYTLLlurlxrsq C-CDA narrative text[id number] WELZHDBSWSFYSIJNERHXZV3876-96-53X33: 17:161.2.840.984075.1.72.3.15|1.2.84 0.251216.1.13.104.2.7.2.727879_[address] [facility] 2023-07-20 15:07:32 5652-80-91A37:07:32 Canelo Rowell is a 68 year old femaleterrance with [facility] is calling in to request an update on the forms to request transfer of medicationsPlease advisePho) [phone]) [phone] signed by Hali Roberts at 07/20/2023 3:10 PM QUX07434-8Qhwemntua encounter JkopHM6727-84-71A51:10:56Telephone encounter NoteTXT1.2.840.357903.1.13.104.2.7.2 .688429|2538370351SOGfvjskmfh for patient vzje81824-2MpihPMMBJCPPFNDRtbzafqpa C-CDA narrative mkoe029193783FrWwbivu [address]vdG[id number] PWBDLEZJWIHMNXDBFVTJEW0973-19-28L61: 10:561.2.840.102849.1.72.3.15|1.2.84 0.019413.1.13.104.2.7.2.727879_20250 [address] Hali [address] [facility] 2023-07-20 13:42:34 0877-46-87P92:42:34 I am aware and she may take both medicationsV 30075-5Fmhycmtxg encounter CrfjLB8962-19-68M76:43:07Telephone encounter NoteTXT1.2.840.552221.1.13.104.2.7.2 .478308|9175107527INYbupzbunb for patient wvux54157-4QrlyPMVKMVXQLOYZysyysgpq C-CDA narrative text[id number] UEDKOGUARFXQJBDEHZVKXE2207-69-31N91: 43:071.2.840.991522.1.72.3.15|1.2.84 0.205258.1.13.104.2.7.2.727879_[address] [facility] 2023-07-20 09:01:27 4267-57-99P83:01:27 Please review and advise. 30045-9Wvgsmawdt encounter OhgzCZ7201-44-22M62:01:33Telephone encounter NoteTXT1.2.840.336650.1.13.104.2.7.2 .537267|6798294649FQCmgpmffws for patient eoyq99164-2EqtuINTGOXLQBOCUfiakwprs C-CDA narrative gsyj803518291Sjidhxc M Fisher [id number] UPVAWBGHBZHZIQHCELEPLI0262-34-07G84: 01:331.2.840.042206.1.72.3.15|1.2.84 0.387221.1.13.104.2.7.2.727879_20245 44940 Euince Serrano LVN [facility] 2023-07-19 19:47:36 2314-23-99B03:47:36 Canelo Rowell is a 68 year old female, Cion with [facility] calling advises prescriptions for traZODone 50 mg tablet & SERTraline 50 mg tablet were transferred from [facility]. States they have interactions, and wants to make sure provider is aware and approves to fill both medications. Please return call to [phone]. 15423-4Nwyrgsfrk encounter JiblFJ3406-02-74Z88:49:42Telephone encounter NoteTXT1.2.840.795305.1.13.104.2.7.2 .201016|0844533753QSQkmbtwapo for patient psna19723-9RdyoOQKKQLIVKZKInfwjsmab C-CDA narrative mrld20503169Qknrlx L [id number] ZSGYCNFWTDQBIQBPUVDZEW4677-63-05H82: 49:421.2.840.507368.1.72.3.15|1.2.84 0.555817.1.13.104.2.7.2.727879_ 30960 hSasha Dias [facility] 2023-07-04 16:06:41 2185-23-34A89:06:41 Forms have been placed in providers folder for review and signature, once completed this will be faxed back to [facility]. 74876-8Wfqskxkow encounter ThhlBK0173-60-58G19:07:14Telephone encounter NoteTXT1.2.840.860803.1.13.104.2.7.2 .878713|1244564475SRJpfreteki for patient excr95530-1ZkgaTUHQUKATEFWVghmelldu C-CDA narrative textUT[id number] SPYJTCCTXOZDKPXZOSIPZX6282-20-78T24: 07:141.2.840.099776.1.72.3.15|1.2.84 0.782334.1.13.104.2.7.2.727879_[address] [facility] 2023-07-04 14:20:42 6145-85-76J44:20:42 Canelo Rowell is a 68 year old female Mp with [facility] is requesting a status update on forms that were faxed back on 06/15 and 06/27. Please advise. [phone] signed by Efrem Boston at 07/04/2023 2:23 PM ZKC45632-4Hctzvwaag encounter UvahLM0415-46-50Z52:23:31Telephone encounter NoteTXT1.2.840.673395.1.13.104.2.7.2 .394338|9631316675KCWbvvajtji for patient melw24425-7ZqolABUMWTQLIISLrleupuad C-CDA narrative ohlf002767167Cbxlon D [id number] PBGZOMCBPSIJWVTJBPNCYR5699-55-52P73: 23:311.2.840.954895.1.72.3.15|1.2.84 0.289904.1.13.104.2.7.2.727879_20096 73295 Efrem Lermacandy [facility] 2023-06-28 13:35:53 4370-35-22Z92:35:53 This has been received and will work on as time permits. 97217-2Krliyuyhv encounter BhspWO2441-42-95W21:36:16Telephone encounter NoteTXT1.2.840.193204.1.13.104.2.7.2 .429003|1130839394JELgjcgoplu for patient flfm28501-7KcjsMFGZLQBGSHUXxhgvnyea C-CDA narrative textUT[address] [id number] FOZVBJVNACCGJVTGXDBDOI4370-10-38E91: 36:161.2.840.426739.1.72.3.15|1.2.84 0.646815.1.13.104.2.7.2.727879_[address] [facility] 2023-06-28 09:31:53 7978-71-80Y35:31:53 Canelo Rowell is a 68 [facility] stating they are wanting to get any updates on forms they faxed over on 06/15 & 06/27 regarding pt's medicine records.[facility] : [phone] adviseThank you 88428-4Glsprmaiv encounter LmcuOE4579-10-50W17:36:17Telephone encounter NoteTXT1.2.840.531836.1.13.104.2.7.2 .348023|0294823425HCQbtobfgil for patient fzjl15803-5DtcmGSYLKOMWBKJRqlnpzaob C-CDA narrative keyr214433065HeaabTiffany Scruggs[id number] XRUNGUOXZCTOQOIGKDXDRT4080-93-12H59: 36:171.2.840.929789.1.72.3.15|1.2.84 0.942425.1.13.104.2.7.2.727879_20045 96166 Tiffany Chakraborty [facility] 2023-06-21 10:18:04 7340-53-24N72:18:04 Left message requesting names of active medications with the correct doses. 26546-1Kpvoklixh encounter BufqWO7226-11-68P95:18:34Telephone encounter NoteTXT1.2.840.105857.1.13.104.2.7.2 .482616|3816880345GQYjxvkbvqf for patient trxq16694-4QznlBSDHXHQSBAILvxgieuju C-CDA narrative textZAPS Technologies92 [address] [id number] MQMMPHBMKQSVCZHVXVGSTX4934-76-81Z06: 18:341.2.840.312552.1.72.3.15|1.2.84 0.046389.1.13.104.2.7.2.727879_1999[address] [facility] 2023-06-21 08:57:08 1545-27-39M29:57:08 Please call patient to verify what refill(s) she needs. 03027-9Uigdttmvh encounter XkmgUU6320-08-43Y70:57:36Telephone encounter NoteTXT1.2.840.253631.1.13.104.2.7.2 .332709|5310268235FQGguzwgzlf for patient fskk39791-7KojpFSMXWIOJYTHWktvokvwn C-CDA narrative [id number] XPAJMOSHJJZILMOKDMKGBR9593-85-77M64: 57:361.2.840.716894.1.72.3.15|1.2.84 0.565418.1.13.104.2.7.2.727879_[address] [facility] 2023-06-17 15:38:43 2349-99-73G23:38:43 Canelo Rowell is a 68 year old femalePharmacy calling to request refills on all active prescriptions 66375-5Gvcbafnal encounter YbnrZV7732-57-55D04:42:32Telephone encounter NoteTXT1.2.840.201359.1.13.104.2.7.2 .380854|3388971796KAVuezlskrj for patient imuo29911-3ToplUQGEHYANELIMvrmxgpaw C-CDA narrative otqg386357002BgRkgdct [address] SjkaOkhzojuxfIgnbfblxcUYBL8462828673 CKSOIFHVMFFOLAUDMZOVFS2418-13-77Z51: 42:321.2.840.863418.1.72.3.15|1.2.84 0.307736.1.13.104.2.7.2.727879_19987 [address] [facility] 2023-05-25 09:59:36 7009-12-21W16:59:36 Images from the original note were not included.Requested RenewalsSERTraline (ZOLOFT) 25 mg tabletSig: Take 1 tablet by mouth in the morning.Disp: 90 tablet Refills: 1Start: 05/25/2023lass: eRXNon-formulary For: AnxietyLast ordered: 5 months ago (11/29/2022) by MELANY Albasychiatry: Antidepressants Ammqcq7505/25/2023 09:54 AMProtocol Details Manual Review: Verify no changes in dose in the last 3 monthsValid encounter within last 12 monthsTo be filled at: [facility][id number] - [place], [place] - [address] STREETRecent VisitsDate Type Provider Dept106/19/22 Office Visit Jake Araya FNP [facility]04/05/23 Office Visit Jake Araya, MATCHER OPERATOR [facility]01/11/23 Office Visit Jake Araya, MATCHER OPERATOR [facility]11/29/22 Office Visit Jake Araya MATCHER OPERATOR [facility]10/18/22 Office Visit Jake Araya MATCHER OPERATOR [facility]08/02/22 Office Visit Jake Araya MATCHER OPERATOR [facility]04/08/22 Office Visit Jake Araya MATCHER OPERATOR [facility] Fam MedShowing recent visits within past 540 days with a meds authorizing provider and meeting all other requirementsFuture AppointmentsDate Type Provider Dept07/15/23 Appointment Jake Araya FNP [facility]Showing future appointments within next 150 days with a meds authorizing provider and meeting all other requirements 11677-8Mporavryo encounter CjhlDE8607-34-98Q28:59:47Telephone encounter NoteTXT1.2.840.060355.1.13.104.2.7.2 .923970|5197299634YBZfzwrxthb for patient lvbm83749-9PebuMOKEPGUZXBYMlqjmvztw C-CDA narrative syta637372776Sgsmqle M Fisher [address] UqtxMxrwmszrsHavurzhzzOYLQ5149844533 ZCOMUQUZFYMYVHBWDSZSPF6626-23-67K57: 59:471.2.840.238731.1.72.3.15|1.2.84 0.649803.1.13.104.2.7.2.727879_19811 97082 Eunice Serrano [facility] 2023-01-18 14:29:58 4967-58-78F12:29:58 Qty 90 07117-3Hptgechql encounter TyarIZ7295-54-71R68:30:31Telephone encounter NoteTXT1.2.840.589481.1.13.104.2.7.2 .806925|9460727927FWPfoltsjxa for patient xkrz09033-7PplqTAMREBACGL[address]vdG[id number] RAENREPMYSBMAANLJWRVQQ8812-46-05L42: 30:311.2.840.520826.1.72.3.15|1.2.84 0.559864.1.13.104.2.7.2.727879_[address] [facility]"
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
[2023-12-13] MEDS ORDERED: LORAZEPAM 1 MG TABLET ONE (12:14)
[2023-12-13 12:47] VITALS: BP 118/94; TEMP 97.5; O2SAT 97
== END 2023-12-13 12:31 | disposition home or self-care (01) ==
LOC: ER 11:29
DX: F41.9 Anxiety disorder, unspecified (principal)
CPT/HCPCS: 99283